=== PATIENT | female | born 1955 | race Asian ===

== ENCOUNTER 2017-09-24 10:13 | Day surgery (SDC) | payer OTHER, SELFPAY ==
--- NOTE | 2017-09-24 | PATH_ITS ---
[facility] Accession Number: [id number] . 01 Material submitted: . PART A: GASTRIC BODY ANTRUM PART B: GASTIC POLYP . 01 Clinical history: . A: R/O H. PYLORI . 02 Diagnosis: A. Stomach, Biopsies: Gastric antrum and body mucosa with mild chronic gastritis. Negative for Helicobacter organisms by immunohistochemistry. Negative for intestinal metaplasia, dysplasia or malignancy. B. Gastric Polyp, Biopsy: Most consistent with hyperplastic gastric polyp. No evidence of Helicobacter organisms on H/E stain. Negative for intestinal metaplasia, dysplasia or malignancy. Additional sections examined. [facility] [place] . 02 Electronically signed: . Weston Aguirre MD, PhD, Pathologist NPI- [id number] . 01 Gross description: . Received are two formalin-filled containers, both labeled with the patient's name: . A. In a container labeled gastric body antrum, are three fragments of milton, soft tissue which range in size from 0.2 x 0.2 x 0.2 cm to 0.3 x 0.3 x 0.3 cm. All fragments are totally submitted in cassette A. B. In a container labeled gastric polyp, are two fragments of milton, soft tissue which range in size from 0.2 x 0.2 x 0.2 cm to 0.3 x 0.3 x 0.2 cm. All fragments are totally submitted in cassette B. ([id number]) /FRR . 02 Microscopic: . Part A. Immunohistochemical stain is performed to evaluate for Helicobacter organisms and is negative. A control stain shows appropriate reactivity. . . * This test was developed and its performance characteristics determined by [employer]. It has not been cleared or approved by the U.S. Food and Drug Administration. The FDA has determined that such clearance or approval is not necessary. This test is used for clinical purposes. It should not be regarded as investigational or for research. . . . . . . . . . . . . 02 Pathologist provided ICD-10: K31.7, K29.70 . 02 CPT . 091419, 105781, [id number] Performed at: 01 [facility] [address] [id number] MD Akash Worthington MD Phone: [phone] Performed at: 02 [facility] [address] [place] [id number] MD Agustin Jaime MD Phone: [phone]
[2017-09-24 10:31] VITALS: BP 142/84; PULSE 70; RESP 15; TEMP 36.3; O2SAT 100; BMI 23.0
[2017-09-24] MEDS: SODIUM CHLORIDE 0.9% 1,000 ML 70 ML IV (10:53)
--- NOTE | 2017-09-24 11:41 | P.HP_ITS ---
History of Present Illness Chief complaint: [id number] EGD Narrative: 62-year-old female with a history of GERD like symptoms which had acutely become worse in June of 2017 after a trip to [place]. Patient currently taking omeprazole twice daily with no significant improvement on her symptoms. There are identifiable food triggers which tend to worsen symptoms such as dairy Patient History Medical History Ankle pain (Chronic ~2011) GERD (gastroesophageal reflux disease) (Chronic ~1999) Osteopenia (Chronic ~2013) Breast cancer (Resolved ~2007) Chickenpox (Resolved) Surgical History Status post mastectomy (Resolved ~2008) Anesthesia (Inactive) Family & Social History Social History: household members spouse Tobacco & Substance use: Smoking Status Never smoker Meds Home Medications Medication Instructions Recorded Confirmed Type OMEPRAZOLE 20 mg PO QDAY #0 10/31/12 09/04/17 History lisinopril 5 mg PO QDAY #0 10/31/12 09/04/17 History lidocaine 2 % mucosal jelly 1 applictn TOPICAL SEE 09/04/17 Rx INSTRUCTIONS #30 ml Allergies Allergy/AdvReac Type Severity Reaction Status Date / Time No Known Drug Allergies Allergy Verified 09/24/17 10:29 Exam Vital Signs (past 8 hours): Vital Signs - 8 hr 3 09/24/17 10:31 Temperature 97.3 F L Pulse Rate 70 Respiratory Rate 15 Blood Pressure 142/84 H Pulse Oximetry 100 Pulse Oximetry 100 Oxygen Delivery Method Room Air Narrative Exam Narrative: General: Patient is well developed, not in apparent distress Cardiovascular: Regular rate and rhythm, no murmurs, rubs, or gallops; no evidence of edema; no palpable abdominal aortic aneurysm Gastrointestinal: Normoactive bowel sounds, soft, nontender, nondistended, no rebound tenderness, no hepatosplenomegaly, no evidence of hernia Assessment & Plan Plan: Assessment/Plan Narrative: 62-year-old female with GERD like symptoms which have acutely worsened since June 2017. It would be important to rule out any lesions such as upper GI tumor, large hiatal hernia, peptic ulcer disease. Regarding the procedure(s), the risks and potential complications, benefits, and alternatives (including not doing the procedure) were discussed with the patient. The risks include but are not limited to bleeding, infection, perforation which may require surgical intervention, missed lesions, and adverse reactions to sedative medicines. After a question and answer period, the patient agreed to proceed with the procedure(s).
--- NOTE | 2017-09-24 11:41 | PM.DS.1 ---
History of Present Illness Chief complaint: [id number] EGD Narrative: 62-year-old female with a history of GERD like symptoms which had acutely become worse in June of 2017 after a trip to [place]. Patient currently taking omeprazole twice daily with no significant improvement on her symptoms. There are identifiable food triggers which tend to worsen symptoms such as dairy Discharge Providers Primary care physician: DANUTA Fay Discharge provider: Brad Perez MD Exam Vital Signs (past 8 hours): Vital Signs - 8 hr 09/24/17 10:31 Temperature 97.3 F L Pulse Rate 70 Respiratory Rate 15 Blood Pressure 142/84 H Pulse Oximetry 100 Pulse Oximetry 100 Oxygen Delivery Method Room Air Narrative Exam Narrative: General: Patient is well developed, not in apparent distress Cardiovascular: Regular rate and rhythm, no murmurs, rubs, or gallops; no evidence of edema; no palpable abdominal aortic aneurysm Gastrointestinal: Normoactive bowel sounds, soft, nontender, nondistended, no rebound tenderness, no hepatosplenomegaly, no evidence of hernia Discharge Plan Discharge Plan Patient Disposition: Home, Self-Care Discharge comment: Anti-reflux measures at all times Use omeprazole 20 mg twice daily for the next 6 weeks and follow symptoms Called to schedule follow-up at our office if symptoms persist despite taking twice daily omeprazole Remove IV prior to discharge Discharge to home once criteria are met (positive flatus, stable vital signs, no abdominal pain, tolerating p.o.) Discharge Med Rec/Prescriptions Prescriptions: No Action lisinopril 5 MG tablet 5 mg PO QDAY Qty: 0 RF: 0 OMEPRAZOLE 20 mg PO QDAY Qty: 0 RF: 0 lidocaine HCl 2 % jelly 1 applictn Topical SEE INSTRUCTIONS Qty: 30 RF: 9 Discharge Orders: Discharge (Order); Ordered 09/24/17 Ordered By: Brad Perez Provider Discharge Instructions Diet: Diet as Tolerated Visit Report/Discharge Packet Instructions: EGD Discharge Instructions Stand Alone Forms: Surgery Discharge Discharge Data Primary Care Provider: Alena Alvarado Attending Provider: Brad Perez
--- NOTE | 2017-09-24 11:43 | P.OP.ENDO_ITS ---
Operative Date/Time/Diagnoses - Date of procedure: 09/24/17 Time of procedure: 11:47 Procedure Notes Procedure in detail: Surgeon: Brad Perez MD Procedure: Esophagogastroduodenoscopy with biopsy Preoperative diagnosis: GERD, dyspepsia, not improving with treatment Postoperative diagnosis: Small hiatal hernia, gastric polyps Medications: Conscious sedation using 4 mg IV of Midazolam and 50 mcg IV of Fentanyl, Cetacaine spray Preanesthesia Assessment An H and P was performed/updated and the Px?s ASA class is 2. The procedure was discussed in detail with the patient. The potential risks and complications including infection, bleeding, missed lesions, perforation, need for surgery in case of perforation, prolonged hospital stay, and were explained. A brief question and answer period was allotted and once all questions were answered, informed consent was obtained. The patient was brought back to the procedure room and placed on standard monitoring. The patient?s vital signs were monitored continuously throughout the entire procedure. Prior to starting, a timeout was performed to confirm the patient?s identity, allergies, medications, and procedure. Procedure in detail The patient was placed in left lateral decubitus position and a bite block was inserted. The tip of the upper endoscope was placed in the mouth and advanced without difficulty into the esophagus. The esophageal mucosa looked normal throughout the entire esophagus with a regular Z-line. The tip of the endoscope was then advanced all the way to the 2nd portion of the duodenum without difficulty. The visualized duodenal mucosa appeared without abnormality. The endoscope was then brought back to the stomach and careful examination of all bridges was performed. Biopsies were taken from the body and antrum of the stomach to rule out H pylori. There was note of multiple sessile polyps in the proximal gastric body and near the fundus measuring 4 mm to 1 cm. Ballroom Dance Instructor biopsies were taken of a larger polyp. Retroflexion was then performed which revealed a small hiatal hernia. The stomach was then decompressed and the scope brought back into the esophagus further examination revealed no other lesions. The procedure was then terminated. The patient tolerated the procedure well and will be brought back to the recovery area to be discharged once criteria are met. The total procedure time from initial sedation was 20 min. Complications There were no complications and estimated blood loss was minimal. Recommendations: Anti-reflux measures at all times Resume previous diet but avoid any food triggers Continue outPx medications including omeprazole twice daily for 6 weeks Follow up pathology results Call our office to schedule follow-up if symptoms remain persistent after 6 weeks of twice daily omeprazole An emergency contact number was given to the patient for any complications related to the procedure
[2017-09-24] MEDS: TETRACAINE/BENZOCAINE/BUTAMBEN (CETACAINE) BOTTLE 1 SPRAY TOP (11:51)
[2017-09-24] MEDS: fentaNYL 250 MCG/5 ML INJ IV (11:59)
[2017-09-24] MEDS: MIDAZOLAM 5 MG/5 ML VIAL IV (12:00)
[2017-09-24 12:05] VITALS: BP 133/82; PULSE 78; RESP 16; TEMP 36.3; O2SAT 100
--- NOTE | 2017-09-24 12:16 | SUR.PHASEII ---
PT ARRIVED FROM ENDO VIA STRETCHER. PT LAYING ON STRETCHER WITH EYES CLOSED, EASILY AROUSABLE TO VOICE. IV SITE CLEAR AND INFUSING WITHOUT DIFFICULTY. PT DENIES ANY PAIN/DISCOMFORT. PT GIVEN WATER. PT OBSERVED TO HAVE NO DIFFICULTLY SWALLOWING. BED IN LOWEST POSITION AT THIS TIME AND CALL LIGHT GIVEN TO PT. PT APPEARS COMFORTABLE AT THIS TIME.
[2017-09-24 12:26] VITALS: BP 138/85; PULSE 72; RESP 16; TEMP 36.8; O2SAT 100
== END 2017-09-24 12:29 | disposition home or self-care (01) ==
PROVIDERS: Family Provider Nurse Practitioner Family; PCP Nurse Practitioner Family; Visit Provider Internal Medicine Gastroenterology
PROC: 0DJ08ZZ Inspection of Upper Intestinal Tract, Via Natural or Artificial Opening Endoscopic (ICD-10-PCS; CPT 43235; principal; 2017-09-24 11:30)
DX: K29.70 Gastritis, unspecified, without bleeding (principal); K21.9 Gastro-esophageal reflux disease without esophagitis; K44.9 Diaphragmatic hernia without obstruction or gangrene; K31.7 Polyp of stomach and duodenum
CPT/HCPCS: 43239; J2250; J3010

== ENCOUNTER → 2018-02-17 09:10 | Outpatient (CLI) | payer OTHER, SELFPAY ==
[2018-02-17 10:51] LABS: Alanine Aminotransferase 30 IU/L (9-52); Albumin 4.6 g/dL (3.5-5.0); Albumin Globulin Ratio 1.4 (1.0-2.8); Alkaline Phosphatase 67 U/L (38-126); Aspartate Aminotransferase 30 IU/L (14-36); BUN Creatinine Ratio 23.8 (6-22); Bilirubin Total 0.4 mg/dL (0.2-1.3); Blood Urea Nitrogen 19 mg/dL (7-17); Calcium 9.8 mg/dL (8.4-10.2); Carbon Dioxide 29 mmol/L (22-32); Chloride 99 mmol/L (98-107); Cholesterol 228 mg/dL (140-199); Estimated Glomerular Filt Rate > 60.0 mL/min (>60); Globulin 3.2 g/dL (1.7-4.1); Glucose 87 mg/dL (80-110); HDL Cholesterol 69 mg/dL (40-60); HEMOLYSIS < 15 (0-50); LDL Cholesterol Calculated 132 mg/dL (<100); Potassium 3.9 mmol/L (3.4-5.1); Sodium 141 mmol/L (137-145); Total Protein 7.8 g/dL (6.3-8.2); Triglycerides 135 mg/dL (35-150)
== END ==
PROVIDERS: PCP Internal Medicine; Visit Provider Internal Medicine
DX: E78.5 Hyperlipidemia, unspecified (principal); I10 Essential (primary) hypertension
CPT/HCPCS: 36415; 80053; 80061

== ENCOUNTER 2018-03-24 14:30 | Outpatient (RCR) | payer OTHER, SELFPAY ==
--- NOTE | 2017-09-14 21:12 | PT.OTN ---
Current Diagnoses Lumbago with sciatica, left side (09/11/17) Physical Therapy Treatment Note PT-OP-A Visit Information Start: 09/14/17 20:48 Freq: Status: Active Protocol: Document 09/11/17 16:00 [facility] (Rec: 09/14/17 20:59 [facility] [email or web address]) Out-Patient Physical Therapy Visit Information Visit Information Visit Type Progress Note Visit Start Time 16:10 Visit Stop Time 17:00 Total Visit Minutes 50 Visit Number 12 Number of DELI/BAKERY ASSOCIATE Visits 0 PT-OP-C Subjective Start: 09/14/17 20:48 Freq: Status: Active Protocol: Document 09/11/17 16:00 [facility] (Rec: 09/14/17 20:59 [facility] [email or web address]) OP-PT Subjective Patient Comments Patient Comments Tanvi reports she has been working hard on her stretches at home for her low back. She denies any sciatic symptoms today in the left leg. She does report reaggravating her left medial ankle and would like a review of exercises today for her ankle Patient Reported Progress Improving PT-OP-F Manual Assessment Start: 09/14/17 20:48 Freq: Status: Active Protocol: Document 09/11/17 16:00 [facility] (Rec: 09/14/17 20:59 [facility] [email or web address]) Manual Assessments Soft Tissue Assessment Soft Tissue Mobility Assessment Tanvi is showing a overall decrease in soft tissue tightness of her lumbar spine. The areas where she remains tight include the left L3-5 paraspinals and left piriformis, tightness in the left tibialis posterior musculature Joint Mobility Assessment Joint Mobility Assessment Improving joint mobility of the thoracic spine, problem areas include T 6-10 hypomobile T spine with slightly rounded shoulders PT-OP-Q Treatments Start: 09/14/17 20:59 Freq: Status: Active Protocol: Document 09/14/17 20:59 [facility] (Rec: 09/14/17 21:11 [facility] [email or web address]) Therapeutic Exercises Supine Exercises 1 Supine Exercise Name Hip and low back stretches in supine Side bilateral Reps/Minutes 10 minutes Other Exercises 2 Other Exercise Name 1/2 kneeling hip flexion and down dog yoga stretches Side bilateral 1 Other Exercise Name quadraped cat cow, sidebends, thoracic rotation Side bilateral Manual Therapy Treatment Soft Tissue Mobilization 1 Body Location Thoracic, lumbar spinal musculature and piriformis Mobilization Type Myofascial Release Strumming Trigger Point Release Intensity/Depth Moderate Body Position Prone PT-OP-R Modalities Start: 09/14/17 20:59 Freq: Status: Active Protocol: Document 09/14/17 20:59 [facility] (Rec: 09/14/17 21:11 [facility] [email or web address]) Ultrasound Therapy Treatment left posterior tibialis Treatment Duration (minutes) 8 Patient Position Prone Coupling Medium Ultrasound Gel Applicator Size (cm2) 5 Frequency Setting (mHz) 1 Mode Setting Continuous Intensity Setting (w/cm2) 1.5 PT-OP-T Assessment and Plan Start: 09/14/17 20:59 Freq: Status: Active Protocol: Document 09/14/17 20:59 [facility] (Rec: 09/14/17 21:11 [facility] [email or web address]) Physical Therapy Assessment Rehab Potential Rehabilitation Potential Good Impairments Impairments Pain Posture Soft Tissue Mobility Strength Goals Three Impairment pain rated 4/10 in left low back and hip Stock House Worker Goal (LTG) Contine working to decrease pain levels in the left hip and low back LTG Duration 8 weeks Two Impairment Soft tissue tightness and myofascial restrictions Mcfp Goal (LTG) Continue working to improve fascial mobility and decrease pain for Tanvi LTG Duration 8 weeks One Impairment Hypomobility of the thoracic spine leading to a forward lean Mcfp Goal (LTG) With manual therapy techniques and a postural program Tanvi is able to improve her posture to decrease forward lean in standing LTG Duration 8 weeks Assessment Summary Assessment Tanvi has been seen for a total of 5 visits since her last Progress report. She has veen doing PT a few times per month to review her exercise routine and for manual therapy techniques that help lower her pain levels. At this time she is not complaining of sciatic symptoms which is a big improvement. Her back pain tends to increase after a full day of sitting at work and with long car trips. Tanvi reports her exercises and her pool program have both really helped her symptoms. She continues to gain relief with PT and would like to continue. Physical Therapy Plan Frequency and Duration Frequency of Treatment Every Other Week Duration of Treatment 8 weeks Plan of Care Start Date 09/11/17 Plan of Care End Date 11/13/17 Therapeutic Interventions Therapeutic Interventions Home Exercise Program Manual Therapy Neuromuscular Re-education Self-Care/Home Management Soft Tissue Mobilization Therapeutic Exercises Modalities Ultrasound Next Visit Focus/Plan Next Note Type Treatment Note Next Visit Plan Work on stretching over the foam roll and postural modifications Please Sign and Return: I have reviewed this Plan of Care and certify that the skilled therapy services above are required to meet the patient?s needs. Physician Signature Date Printed Name and Credentials Clinical Instructor Signature Printed Name and Credentials
--- NOTE | 2017-09-15 11:49 | PT.OPPOC ---
Current Diagnoses Lumbago with sciatica, left side (09/11/17) Provider Visit Care Team Role Provider Type DANUTA Fay Attending Provider Non-Staff Family Provider Primary Care Provider Specialty: Medical Address: [address] [place] [address] [place], [address] Email: Plan Of Care PT-OP-T Assessment and Plan Start: 09/14/17 20:59 Freq: Status: Active Protocol: Document 09/14/17 20:59 [facility] (Rec: 09/14/17 21:11 [facility] [id number]) Physical Therapy Assessment Rehab Potential Rehabilitation Potential Good Impairments Impairments Pain Posture Soft Tissue Mobility Strength Goals Three Impairment pain rated 4/10 in left low back and hip Prison Goal (LTG) Contine working to decrease pain levels in the left hip and low back LTG Duration 8 weeks Two Impairment Soft tissue tightness and myofascial restrictions Prison Goal (LTG) Continue working to improve fascial mobility and decrease pain for Tanvi LTG Duration 8 weeks One Impairment Hypomobility of the thoracic spine leading to a forward lean Prison Goal (LTG) With manual therapy techniques and a postural program Tanvi is able to improve her posture to decrease forward lean in standing LTG Duration 8 weeks Assessment Summary Assessment Tanvi has been seen for a total of 5 visits since her last Progress report. She has veen doing PT a few times per month to review her exercise routine and for manual therapy techniques that help lower her pain levels. At this time she is not complaining of sciatic symptoms which is a big improvement. Her back pain tends to increase after a full day of sitting at work and with long car trips. Tanvi reports her exercises and her pool program have both really helped her symptoms. She continues to gain relief with PT and would like to continue. Physical Therapy Plan Frequency and Duration Frequency of Treatment Every Other Week Duration of Treatment 8 weeks Plan of Care Start Date 09/11/17 Plan of Care End Date 11/13/17 Therapeutic Interventions Therapeutic Interventions Home Exercise Program Manual Therapy Neuromuscular Re-education Self-Care/Home Management Soft Tissue Mobilization Therapeutic Exercises Modalities Ultrasound Next Visit Focus/Plan Next Note Type Treatment Note Next Visit Plan Work on stretching over the foam roll and postural modifications Plan of Care Dates Plan of Care Start Date 09/11/17 Plan of Care End Date 11/13/17 Please Sign and Return: I have reviewed this Plan of Care and certify that the skilled therapy services above are required to meet the patient?s needs. Physician Signature Date Printed Name and Credentials Clinical Instructor Signature Printed Name and Credentials
--- NOTE | 2017-10-03 21:22 | PT.OTN ---
Current Diagnoses Lumbago with sciatica, left side (10/02/17) Physical Therapy Treatment Note PT-OP-A Visit Information Start: 09/14/17 20:48 Freq: Status: Active Protocol: Document 10/02/17 15:15 [facility] (Rec: 10/03/17 21:21 [facility] [email or web address]) Out-Patient Physical Therapy Visit Information Visit Information Visit Type Treatment Note Visit Start Time 15:15 Visit Stop Time 16:00 Total Visit Minutes 45 Visit Number 13 Number of OVERHAULER Visits 0 PT-OP-C Subjective Start: 09/14/17 20:48 Freq: Status: Active Protocol: Document 10/02/17 15:15 [facility] (Rec: 10/03/17 21:19 [facility] [email or web address]) OP-PT Subjective Patient Comments Patient Comments Tanvi reports she has recently gotten a new orthotic but feels it may be up a little high on the medial side. She is sore in the posterior tibialis tendon today on the left Patient Reported Progress Improving PT-OP-F Manual Assessment Start: 09/14/17 20:48 Freq: Status: Active Protocol: Document 09/11/17 16:00 [facility] (Rec: 09/14/17 20:59 [facility] [email or web address]) Manual Assessments Soft Tissue Assessment Soft Tissue Mobility Assessment Tanvi is showing a overall decrease in soft tissue tightness of her lumbar spine. The areas where she remains tight include the left L3-5 paraspinals and left piriformis, tightness in the left tibialis posterior musculature Joint Mobility Assessment Joint Mobility Assessment Improving joint mobility of the thoracic spine, problem areas include T 6-10 hypomobile T spine with slightly rounded shoulders PT-OP-Q Treatments Start: 09/14/17 20:59 Freq: Status: Active Protocol: Document 10/02/17 15:15 [facility] (Rec: 10/03/17 21:19 [facility] [email or web address]) Manual Therapy Treatment Soft Tissue Mobilization 2 Body Location left posterior tibialis Mobilization Type Myofascial Release 1 Body Location Thoracic, lumbar spinal musculature and piriformis Mobilization Type Myofascial Release Strumming Trigger Point Release Intensity/Depth Moderate Body Position Prone Joint Mobilizations 1 Joint thoracic joint mobs into extension Grade II Body Position Prone PT-OP-R Modalities Start: 09/14/17 20:59 Freq: Status: Active Protocol: Document 10/02/17 15:15 [facility] (Rec: 10/03/17 21:19 [facility] [email or web address]) Ultrasound Therapy Treatment left posterior tibialis Treatment Duration (minutes) 8 Patient Position Prone Coupling Medium Ultrasound Gel Applicator Size (cm2) 5 Frequency Setting (mHz) 1 Mode Setting Continuous Intensity Setting (w/cm2) 1.5 PT-OP-T Assessment and Plan Start: 09/14/17 20:59 Freq: Status: Active Protocol: Document 10/02/17 15:15 [facility] (Rec: 10/03/17 21:19 [facility] [email or web address]) Physical Therapy Assessment Assessment Summary Assessment Decreased muscle guarding overall in the lumbar paraspinals and decreased complaints of sciatic symptoms Physical Therapy Plan Frequency and Duration Frequency of Treatment Every Other Week Duration of Treatment 8 weeks Plan of Care Start Date 09/11/17 Plan of Care End Date 11/13/17 Therapeutic Interventions Therapeutic Interventions Home Exercise Program Manual Therapy Neuromuscular Re-education Self-Care/Home Management Soft Tissue Mobilization Therapeutic Exercises Modalities Ultrasound Next Visit Focus/Plan Next Note Type Treatment Note Next Visit Plan Work on stretching over the foam roll and postural modifications
--- NOTE | 2018-01-15 12:08 | PT.OTN ---
Current Diagnoses Lumbago with sciatica, left side (01/14/18) Physical Therapy Treatment Note PT-OP-A Visit Information Start: 09/14/17 20:48 Freq: Status: Active Protocol: Document 01/15/18 11:58 [facility] (Rec: 01/15/18 12:07 [facility] [email or web address]) Out-Patient Physical Therapy Visit Information Visit Information Visit Type Progress Note Visit Start Time 10:45 Visit Stop Time 11:30 Total Visit Minutes 45 Visit Number 14 Number of HVAC R TECH Visits 0 Evaluation Information Evaluation Date 09/11/17 PT-OP-C Subjective Start: 09/14/17 20:48 Freq: Status: Active Protocol: Document 01/15/18 11:58 [facility] (Rec: 01/15/18 12:07 [facility] [email or web address]) OP-PT Subjective Patient Comments Patient Comments Tanvi reports she has been out of the country traveling and experienced a flare up of her mid back following traveling. She had to wait to get back into PT as there were no open appointments. She has been trying to do her exercises and things are a little better than they were but she is still experiencing pain symptoms. PT-OP-F Manual Assessment Start: 09/14/17 20:48 Freq: Status: Active Protocol: Document 01/15/18 11:58 [facility] (Rec: 01/15/18 12:07 [facility] [email or web address]) Manual Assessments Soft Tissue Assessment Soft Tissue Mobility Assessment Tightness today in the mid thoracic spine and paraspinals , left sided L3-L5 myofascial restrictions of the paraspinals and Quadratus lumborum. PT-OP-Q Treatments Start: 09/14/17 20:59 Freq: Status: Active Protocol: Document 01/15/18 11:58 [facility] (Rec: 01/15/18 12:07 [facility] [email or web address]) Manual Therapy Treatment Soft Tissue Mobilization 1 Body Location Thoracic, lumbar spinal musculature and piriformis Mobilization Type Myofascial Release Strumming Trigger Point Release Intensity/Depth Moderate Body Position Prone Joint Mobilizations 1 Joint thoracic joint mobs into extension Grade II Body Position Prone PT-OP-R Modalities Start: 09/14/17 20:59 Freq: Status: Active Protocol: Document 01/15/18 11:58 [facility] (Rec: 01/15/18 12:07 [facility] [email or web address]) Ultrasound Therapy Treatment Left Back Treatment Duration (minutes) 8 Patient Position Prone Coupling Medium Ultrasound Gel Applicator Size (cm2) 5 Frequency Setting (mHz) 1 Mode Setting Continuous Duty Cycle 100% PT-OP-T Assessment and Plan Start: 09/14/17 20:59 Freq: Status: Active Protocol: Document 01/15/18 11:58 [facility] (Rec: 01/15/18 12:07 [facility] [email or web address]) Physical Therapy Assessment Assessment Summary Assessment Tanvi returns to PT after not being seen since September. She has been traveling in [place] and reports a increased pain with traveling as she wasn't able to do all of her home stretches and exercises. She was especially tight in her upper thoracic spine today. I reviewed her home program with her today and worked on myofascial restrictions in her back. Tanvi would benefit from continued PT Physical Therapy Plan Frequency and Duration Frequency of Treatment Every Other Week Duration of Treatment 8 weeks Plan of Care Start Date 01/14/18 Plan of Care End Date 03/16/18 Therapeutic Interventions Therapeutic Interventions Home Exercise Program Manual Therapy Neuromuscular Re-education Self-Care/Home Management Soft Tissue Mobilization Therapeutic Exercises Modalities Ultrasound Next Visit Focus/Plan Next Note Type Treatment Note Next Visit Plan return to stretching exercises for posture and improved spine mobility
--- NOTE | 2018-02-18 14:04 | PT.OTN ---
Current Diagnoses Lumbago with sciatica, left side (02/17/18) Physical Therapy Treatment Note PT-OP-A Visit Information Start: 09/14/17 20:48 Freq: Status: Active Protocol: Document 02/18/18 13:58 [facility] (Rec: 02/18/18 14:04 [facility] [email or web address]) Out-Patient Physical Therapy Visit Information Visit Information Visit Type Treatment Note Visit Start Time 10:40 Visit Stop Time 11:15 Total Visit Minutes 35 Visit Number 15 Number of OIL FIELD ROUSTABOUT Visits 0 PT-OP-C Subjective Start: 09/14/17 20:48 Freq: Status: Active Protocol: Document 02/18/18 13:58 [facility] (Rec: 02/18/18 14:04 [facility] [email or web address]) OP-PT Subjective Patient Comments Patient Comments Tanvi is 10 minutes late for her appointment. She had a client come in to see her right as she was leaving to come here. She notes she is experiencing her foot pain again and asks for US on her tibialis posterior. She feels tight in her back but no complaints of sciatic symptoms Patient Reported Progress Improving PT-OP-F Manual Assessment Start: 09/14/17 20:48 Freq: Status: Active Protocol: Document 01/14/18 11:58 [facility] (Rec: 01/15/18 12:07 [facility] [email or web address]) Manual Assessments Soft Tissue Assessment Soft Tissue Mobility Assessment Tightness today in the mid thoracic spine and paraspinals , left sided L3-L5 myofascial restrictions of the paraspinals and Quadratus lumborum. PT-OP-Q Treatments Start: 09/14/17 20:59 Freq: Status: Active Protocol: Document 02/18/18 13:58 [facility] (Rec: 02/18/18 14:04 [facility] [email or web address]) Manual Therapy Treatment Soft Tissue Mobilization 1 Body Location Thoracic, lumbar spinal musculature and piriformis Mobilization Type Myofascial Release Strumming Trigger Point Release Intensity/Depth Moderate Body Position Prone Joint Mobilizations 1 Joint thoracic joint mobs into extension Grade II Body Position Prone PT-OP-R Modalities Start: 09/14/17 20:59 Freq: Status: Active Protocol: Document 02/18/18 13:58 [facility] (Rec: 02/18/18 14:04 [facility] [email or web address]) Ultrasound Therapy Treatment left posterior tibialis Treatment Duration (minutes) 8 Patient Position Prone Coupling Medium Ultrasound Gel Applicator Size (cm2) 5 Frequency Setting (mHz) 1 Mode Setting Continuous Intensity Setting (w/cm2) 1.5 PT-OP-T Assessment and Plan Start: 09/14/17 20:59 Freq: Status: Active Protocol: Document 02/18/18 13:58 [facility] (Rec: 02/18/18 14:04 [facility] [email or web address]) Physical Therapy Assessment Assessment Summary Assessment Tightness noted in the left lumbar paraspinals and left piriformis musculature. WE verbally reviewed all of Lilo's exercises today for home Physical Therapy Plan Frequency and Duration Frequency of Treatment Every Other Week Duration of Treatment 8 weeks Plan of Care Start Date 01/14/18 Plan of Care End Date 03/16/18 Therapeutic Interventions Therapeutic Interventions Home Exercise Program Manual Therapy Neuromuscular Re-education Self-Care/Home Management Soft Tissue Mobilization Therapeutic Exercises Modalities Ultrasound Next Visit Focus/Plan Next Note Type Treatment Note Next Visit Plan continue working on stretches, manual treatments
--- NOTE | 2018-03-03 17:50 | PT.OTN ---
Current Diagnoses Lumbago with sciatica, left side (03/03/18) Physical Therapy Treatment Note PT-OP-A Visit Information Start: 09/14/17 20:48 Freq: Status: Active Protocol: Document 03/03/18 17:46 [facility] (Rec: 03/03/18 17:49 [facility] [email or web address]) Out-Patient Physical Therapy Visit Information Visit Information Visit Type Treatment Note Visit Start Time 14:30 Visit Stop Time 15:15 Total Visit Minutes 45 Visit Number 16 Number of LINK WIRE FABRIC MACHINE TENDER Visits 0 PT-OP-C Subjective Start: 09/14/17 20:48 Freq: Status: Active Protocol: Document 03/03/18 17:46 [facility] (Rec: 03/03/18 17:49 [facility] [email or web address]) OP-PT Subjective Patient Comments Patient Comments Tanvi notes overall her back is doing better without sciatic symptoms. PT-OP-F Manual Assessment Start: 09/14/17 20:48 Freq: Status: Active Protocol: Document 01/14/18 11:58 [facility] (Rec: 01/15/18 12:07 [facility] [email or web address]) Manual Assessments Soft Tissue Assessment Soft Tissue Mobility Assessment Tightness today in the mid thoracic spine and paraspinals , left sided L3-L5 myofascial restrictions of the paraspinals and Quadratus lumborum. PT-OP-Q Treatments Start: 09/14/17 20:59 Freq: Status: Active Protocol: Document 03/03/18 17:46 [facility] (Rec: 03/03/18 17:49 [facility] [email or web address]) Manual Therapy Treatment Soft Tissue Mobilization 2 Body Location left posterior tibialis Mobilization Type Myofascial Release 1 Body Location Thoracic, lumbar spinal musculature and piriformis Mobilization Type Myofascial Release Strumming Trigger Point Release Intensity/Depth Moderate Body Position Prone Joint Mobilizations 1 Joint thoracic joint mobs into extension Grade II Body Position Prone PT-OP-R Modalities Start: 09/14/17 20:59 Freq: Status: Active Protocol: Document 03/03/18 17:49 [facility] (Rec: 03/03/18 17:49 [facility] [email or web address]) Ultrasound Therapy Treatment left posterior tibialis Treatment Duration (minutes) 8 Patient Position Prone Coupling Medium Ultrasound Gel Applicator Size (cm2) 5 Frequency Setting (mHz) 1 Mode Setting Continuous Intensity Setting (w/cm2) 1.5 PT-OP-T Assessment and Plan Start: 09/14/17 20:59 Freq: Status: Active Protocol: Document 03/03/18 17:46 [facility] (Rec: 03/03/18 17:49 [facility] [email or web address]) Physical Therapy Assessment Assessment Summary Assessment decreased muscle tightness and pain today Physical Therapy Plan Frequency and Duration Frequency of Treatment Every Other Week Duration of Treatment 8 weeks Plan of Care Start Date 01/14/18 Plan of Care End Date 03/16/18 Next Visit Focus/Plan Next Note Type Treatment Note Next Visit Plan continue working on stretches, manual treatments
--- NOTE | 2018-03-17 17:23 | PT.OTN ---
Current Diagnoses Lumbago with sciatica, left side (03/17/18) Physical Therapy Treatment Note PT-OP-A Visit Information Start: 09/14/17 20:48 Freq: Status: Active Protocol: Document 03/17/18 17:20 [facility] (Rec: 03/17/18 17:23 [facility] [email or web address]) Out-Patient Physical Therapy Visit Information Visit Information Visit Type Treatment Note Visit Start Time 14:30 Visit Stop Time 15:15 Total Visit Minutes 45 Visit Number 17 Number of SATURATION DIVER Visits 0 Evaluation Information Evaluation Date 09/11/17 PT-OP-C Subjective Start: 09/14/17 20:48 Freq: Status: Active Protocol: Document 03/17/18 17:20 [facility] (Rec: 03/17/18 17:23 [facility] [email or web address]) OP-PT Subjective Patient Comments Patient Comments Tanvi reports she has been trying to wear her orthotics again due to left foot pain. Some c/o referred pain down the left leg PT-OP-F Manual Assessment Start: 09/14/17 20:48 Freq: Status: Active Protocol: Document 01/14/18 11:58 [facility] (Rec: 01/15/18 12:07 [facility] [email or web address]) Manual Assessments Soft Tissue Assessment Soft Tissue Mobility Assessment Tightness today in the mid thoracic spine and paraspinals , left sided L3-L5 myofascial restrictions of the paraspinals and Quadratus lumborum. PT-OP-Q Treatments Start: 09/14/17 20:59 Freq: Status: Active Protocol: Document 03/17/18 17:20 [facility] (Rec: 03/17/18 17:23 [facility] [email or web address]) Manual Therapy Treatment Soft Tissue Mobilization 2 Body Location left posterior tibialis Mobilization Type Myofascial Release 1 Body Location Thoracic, lumbar spinal musculature and piriformis Mobilization Type Myofascial Release Strumming Trigger Point Release Intensity/Depth Moderate Body Position Prone PT-OP-R Modalities Start: 09/14/17 20:59 Freq: Status: Active Protocol: Document 03/17/18 17:20 [facility] (Rec: 03/17/18 17:23 [facility] [email or web address]) Ultrasound Therapy Treatment left posterior tibialis Treatment Duration (minutes) 8 Patient Position Prone Coupling Medium Ultrasound Gel Applicator Size (cm2) 5 Frequency Setting (mHz) 1 Mode Setting Continuous Intensity Setting (w/cm2) 1.5 PT-OP-T Assessment and Plan Start: 09/14/17 20:59 Freq: Status: Active Protocol: Document 03/17/18 17:20 [facility] (Rec: 03/17/18 17:23 [facility] [email or web address]) Physical Therapy Assessment Assessment Summary Assessment piriformis muscle tightness on the left, encouraged stretching for HEP Physical Therapy Plan Frequency and Duration Frequency of Treatment Every Other Week Duration of Treatment 8 weeks Plan of Care Start Date 03/17/18 Plan of Care End Date 04/01/18 Therapeutic Interventions Therapeutic Interventions Home Exercise Program Manual Therapy Neuromuscular Re-education Self-Care/Home Management Soft Tissue Mobilization Therapeutic Exercises Modalities Ultrasound Next Visit Focus/Plan Next Note Type Treatment Note Next Visit Plan continue for 1 visit then DC to Ind HEP
--- NOTE | 2018-03-24 17:13 | PT.OTN ---
Current Diagnoses Lumbago with sciatica, left side (03/24/18) Physical Therapy Treatment Note PT-OP-A Visit Information Start: 09/14/17 20:48 Freq: Status: Active Protocol: Document 03/24/18 17:07 [facility] (Rec: 03/24/18 17:13 [facility] [email or web address]) Out-Patient Physical Therapy Visit Information Visit Information Visit Type Treatment Note Visit Start Time 14:30 Visit Stop Time 15:15 Total Visit Minutes 45 Visit Number 18 Number of COUNTER CLERK TRACTOR PARTS Visits 0 Evaluation Information Evaluation Date 09/11/17 PT-OP-C Subjective Start: 09/14/17 20:48 Freq: Status: Active Protocol: Document 03/24/18 17:07 [facility] (Rec: 03/24/18 17:13 [facility] [email or web address]) OP-PT Subjective Patient Comments Patient Comments Trying to work on her stretches and exercises. PT really helps loosen me. PT-OP-F Manual Assessment Start: 09/14/17 20:48 Freq: Status: Active Protocol: Document 01/14/18 11:58 [facility] (Rec: 01/15/18 12:07 [facility] [email or web address]) Manual Assessments Soft Tissue Assessment Soft Tissue Mobility Assessment Tightness today in the mid thoracic spine and paraspinals , left sided L3-L5 myofascial restrictions of the paraspinals and Quadratus lumborum. PT-OP-Q Treatments Start: 09/14/17 20:59 Freq: Status: Active Protocol: Document 03/24/18 17:07 [facility] (Rec: 03/24/18 17:13 [facility] [email or web address]) Manual Therapy Treatment Soft Tissue Mobilization 2 Body Location left posterior tibialis Mobilization Type Myofascial Release 1 Body Location Thoracic, lumbar spinal musculature and piriformis Mobilization Type Myofascial Release Strumming Trigger Point Release Intensity/Depth Moderate Body Position Prone Joint Mobilizations 1 Joint thoracic joint mobs into extension Grade II Body Position Prone PT-OP-R Modalities Start: 09/14/17 20:59 Freq: Status: Active Protocol: Document 03/24/18 17:07 [facility] (Rec: 03/24/18 17:13 [facility] [email or web address]) Ultrasound Therapy Treatment left posterior tibialis Treatment Duration (minutes) 8 Patient Position Prone Coupling Medium Ultrasound Gel Applicator Size (cm2) 5 Frequency Setting (mHz) 1 Mode Setting Continuous Intensity Setting (w/cm2) 1.5 PT-OP-T Assessment and Plan Start: 09/14/17 20:59 Freq: Status: Active Protocol: Document 03/24/18 17:07 [facility] (Rec: 03/24/18 17:13 [facility] [email or web address]) Physical Therapy Assessment Assessment Summary Assessment Tightness reduced overall from initially starting therapy. Encouraged continued flexibility exercises. At this point The plan is to discontinue treatment to a home exercise program Physical Therapy Plan Discharge Physical Therapy Discharge Reasons Plateau in Progress
--- NOTE | 2018-03-24 17:13 | PT.OPDS ---
Current Diagnoses Lumbago with sciatica, left side (03/24/18) Provider Visit Care Team Role Provider Type DANUTA Chen Attending Provider Non-Staff Family Provider Primary Care Provider Specialty: Medical Address: [address] [place] [address], [facility] [place], [place], [facility] Email: Visit Number Visit Number 18 Discharge Summary PT-OP-C Subjective Start: 09/14/17 20:48 Freq: Status: Active Protocol: Document 03/24/18 17:07 [facility] (Rec: 03/24/18 17:13 [facility] [email or web address]) OP-PT Subjective Patient Comments Patient Comments Trying to work on her stretches and exercises. PT really helps loosen me. PT-OP-F Manual Assessment Start: 09/14/17 20:48 Freq: Status: Active Protocol: Document 01/14/18 11:58 [facility] (Rec: 01/15/18 12:07 [facility] [email or web address]) Manual Assessments Soft Tissue Assessment Soft Tissue Mobility Assessment Tightness today in the mid thoracic spine and paraspinals , left sided L3-L5 myofascial restrictions of the paraspinals and Quadratus lumborum. PT-OP-T Assessment and Plan Start: 09/14/17 20:59 Freq: Status: Active Protocol: Document 03/24/18 17:07 [facility] (Rec: 03/24/18 17:13 [facility] [email or web address]) Physical Therapy Assessment Assessment Summary Assessment Tightness reduced overall from initially starting therapy. Encouraged continued flexibility exercises. At this point The plan is to discontinue treatment to a home exercise program Physical Therapy Plan Discharge Physical Therapy Discharge Reasons Plateau in Progress
== END 2018-04-09 14:02 ==
LOC: PHYS 14:30
PROVIDERS: Family Provider Nurse Practitioner Family; PCP Nurse Practitioner Family; Visit Provider Nurse Practitioner Family
DX: M54.42 Lumbago with sciatica, left side (principal)
CPT/HCPCS: 97035; 97110; 97140

== ENCOUNTER → 2018-04-02 14:20 | Outpatient (CLI) | payer OTHER, SELFPAY | PROVIDERS: PCP Internal Medicine; Visit Provider Nurse Practitioner Family | DX: M81.0 Age-related osteoporosis without current pathological fracture (principal) | CPT/HCPCS: 77080 ==

== ENCOUNTER → 2018-11-02 09:25 | Outpatient (CLI) | payer MEDICARE, OTHER, SELFPAY ==
[2018-11-02 10:54] LABS: BUN Creatinine Ratio 12.9 (6-22); Blood Urea Nitrogen 9 mg/dL (7-17); Calcium 9.7 mg/dL (8.4-10.2); Carbon Dioxide 28 mmol/L (22-32); Chloride 96 mmol/L (98-107); Cholesterol 247 mg/dL (140-199); Estimated Glomerular Filt Rate > 60.0 mL/min (>60); Glucose 95 mg/dL (80-110); HDL Cholesterol 59 mg/dL (40-60); HEMOLYSIS < 15 (0-50); LDL Cholesterol Calculated 170 mg/dL (<100); Potassium 4.2 mmol/L (3.4-5.1); Sodium 134 mmol/L (137-145); Triglycerides 92 mg/dL (35-150)
[2018-11-02 10:58] LABS: C-Reactive Protein Quant < 0.5 mg/dL (<1.0)
== END ==
PROVIDERS: PCP Internal Medicine; Visit Provider Internal Medicine
DX: Z13.220 Encounter for screening for lipoid disorders (principal); Z13.6 Encounter for screening for cardiovascular disorders; Z00.00 Encounter for general adult medical examination without abnormal findings; M25.561 Pain in right knee; M25.562 Pain in left knee
CPT/HCPCS: 36415; 80048; 80061; 86140

== ENCOUNTER → 2019-03-16 08:17 | Outpatient (CLI) | payer MEDICARE, OTHER, SELFPAY ==
[2019-03-16 09:38] LABS: Alanine Aminotransferase 17 IU/L (<35); Albumin 4.6 g/dL (3.5-5.0); Albumin Globulin Ratio 1.5 (1.0-2.8); Alkaline Phosphatase 65 U/L (38-126); Aspartate Aminotransferase 32 IU/L (14-36); BUN Creatinine Ratio 18.8 (6-22); Bilirubin Total 0.6 mg/dL (0.2-1.3); Blood Urea Nitrogen 15 mg/dL (7-17); Calcium 9.6 mg/dL (8.4-10.2); Carbon Dioxide 32 mmol/L (22-32); Chloride 99 mmol/L (98-107); Cholesterol 254 mg/dL (140-199); Estimated Glomerular Filt Rate > 60.0 mL/min (>60); Glucose 91 mg/dL (80-110); HDL Cholesterol 68 mg/dL (40-60); HEMOLYSIS < 15 (0-50); LDL Cholesterol Calculated 165 mg/dL (<100); Potassium 3.4 mmol/L (3.4-5.1); Sodium 139 mmol/L (137-145); Total Protein 7.6 g/dL (6.3-8.2); Triglycerides 106 mg/dL (35-150)
== END ==
PROVIDERS: PCP Internal Medicine; Visit Provider Internal Medicine
DX: I10 Essential (primary) hypertension (principal); E78.5 Hyperlipidemia, unspecified
CPT/HCPCS: 36415; 80053; 80061

== ENCOUNTER 2019-03-25 15:15 | Outpatient (RCR) | payer MEDICARE, OTHER, SELFPAY ==
--- NOTE | 2018-08-09 12:13 | PT.OIE ---
Current Diagnoses Spondylolisthesis, lumbar region (08/06/18) Spinal stenosis, lumbar region without neurogenic claudication (08/06/18) Past Medical History (Last Updated 09/04/17 @ 09:35 by Nataliia Warner) Ankle pain (Chronic ~2011) GERD (gastroesophageal reflux disease) (Chronic ~1999) Osteopenia (Chronic ~2013) Breast cancer (Resolved ~2007) Chickenpox (Resolved) Past Surgical History (Last Updated 09/04/17 @ 09:35 by Nataliia Warner) Status post mastectomy (Resolved ~2008) Anesthesia (Inactive) Provider Visit Care Team Role Provider Type Mango Rueda MD Attending Provider Physician Primary Care Provider Specialty: Wound Care Address: [address] [place] [address], [facility] Email: [email or web address] Physical Therapy Initial Evaluation PT-OP-A Visit Information Start: 08/06/18 11:07 Freq: Status: Active Protocol: Document 08/04/18 09:45 [facility] (Rec: 08/09/18 12:06 [facility] [email or web address]) Out-Patient Physical Therapy Visit Information Visit Information Visit Type Initial Evaluation Visit Start Time 09:45 Visit Stop Time 10:30 Total Visit Minutes 45 Visit Number 1 Number of RELIEF DOCKING MASTER Visits 0 Evaluation Information Evaluation Date 08/04/18 PT-OP-B Current Condition Start: 08/06/18 11:07 Freq: Status: Active Protocol: Document 08/04/18 09:45 [facility] (Rec: 08/09/18 12:06 [facility] [email or web address]) Current Condition History of Current Condition Onset Date May 2018 Current Complaints c/o referred pain down the left leg, pain in the left low back and gluteals History of Current Condition 62 year old female who returns to PT today after traveling in and out of the country and aggravated low back pain. She also c/o left sided gluteal and referred pain made worse from traveling and sitting. Tanvi has a history of left sided sciatica, right ankle pain, plantar fascitis, left leg posterior tibialis rupture, spondylolistheses at L2-L3 and L4-L5, multilevel degenerative disc and facet disease. She has returned to her swimming since she has been home but despite this she is still experiencing the low back symptoms. She rates her pain asd 5/10 in the left posterior buttock and low back Treatment Goals Patient/Caregiver Goals Goals include reducing pain to be able to continue walking and swimming, working and ADL Personal Factors Other Personal Factors That May Effect Has to sit for work related Therapy/Recovery activities PT-OP-C Subjective Start: 08/06/18 11:07 Freq: Status: Active Protocol: Document 08/04/18 09:45 [facility] (Rec: 08/09/18 12:06 [facility] [email or web address]) OP-PT Pain Assessment Pain Assessment Grid Paper Pain Assessment Grid Completed Yes Location Left Posterior Back Pain Location Details pain left low back and buttock Intensity 5 Scale Used Numeric (1 - 10) Radiating Location down to the left foot Pain Aggravating Factors Sitting PT-OP-F Manual Assessment Start: 08/06/18 11:07 Freq: Status: Active Protocol: Document 08/04/18 09:45 [facility] (Rec: 08/09/18 12:06 [facility] [email or web address]) Manual Assessments Soft Tissue Assessment Soft Tissue Mobility Assessment Muscle guarding and spasm of the left greater than right lumbar and lower thoracic paraspinals muscle guarding of the left piriformis + sarah test B Joint Mobility Assessment Joint Mobility Assessment hypomobility thoracic spine T4 -T10 PT-OP-J Posture/Palpation/Skin Start: 08/09/18 12:07 Freq: Status: Active Protocol: Document 08/09/18 12:08 [facility] (Rec: 08/09/18 12:13 [facility] [email or web address]) Posture Evaluation Position Standing Evaluation View Lateral L-Spine Posture Neutral Shoulder Posture (L) Forward (R) Forward Comments Posture Comments forward shift of the lumbar spine in standing, lean to the left Palpation Assessment Location One Palpation Location left lumbar spinal musculature Palpation Findings Soft Tissue Tightness Muscle Guarding PT-OP-K Range of Motion Start: 08/09/18 12:07 Freq: Status: Active Protocol: Document 08/09/18 12:08 [facility] (Rec: 08/09/18 12:13 [facility] [email or web address]) Lumbar Spine Range of Motion Lumbar Spine Active Testing Position Standing Flexion 60 Extension 5 Rotation Left 15 Rotation Right 15 Lateral Flexion Left 15 Lateral Flexion Right 10 ROM Limitations Soft Tissue Tightness Pain Comments pain and tightness with lumbar Sidebend Left PT-OP-M Strength Start: 08/06/18 11:07 Freq: Status: Active Protocol: Document 08/04/18 09:45 [facility] (Rec: 08/09/18 12:06 [facility] [email or web address]) Trunk Strength Trunk Manual Muscle Testing Testing Position Supine Flexion 3+ Fair+ Core Stabilization difficulty recruiting the lower abdominal wall for TA recruitment, + ASLR test B Hip Strength Hip Manual Muscle Testing Right Flexion (L2) 4 Good Extension (S1) 4 Good Abduction 4 Good External Rotation 4 Good Left Flexion (L2) 4 Good Extension (S1) 4 Good Abduction 4 Good External Rotation 4 Good PT-OP-Q Treatments Start: 08/06/18 11:07 Freq: Status: Active Protocol: Document 08/04/18 09:45 [facility] (Rec: 08/09/18 12:06 [facility] [email or web address]) Therapeutic Exercises Supine Exercises 1 Supine Exercise Name Hip and low back stretches in supine Side bilateral Manual Therapy Treatment Soft Tissue Mobilization 1 Body Location Thoracic, lumbar spinal musculature and piriformis Mobilization Type Myofascial Release Strumming Trigger Point Release Intensity/Depth Moderate Body Position Prone PT-OP-T Assessment and Plan Start: 08/06/18 11:07 Freq: Status: Active Protocol: Document 08/04/18 09:45 [facility] (Rec: 08/09/18 12:06 [facility] [email or web address]) Physical Therapy Assessment Rehab Potential Rehabilitation Potential Good Evaluation Complexity Number of Personal Factors/Comorbidities 0 Number of Body Systems Impaired 1-2 Clinical Presentation at Evaluation Stable Impairments Impairments Activity Tolerance Pain Posture ROM Soft Tissue Mobility Strength Goals Four Impairment Pain and difficulty going up and down 1 flight of stairs Prison Goal (LTG) Improve strength and mobility enabling Tanvi to go up and down one flight of stairs without pain Three Impairment muscle guarding and spasm of the left thoracic and lumbar paraspinals Prison Goal (LTG) Reduce muscle gurading and spasm to decrease pain and improve pain free ROM Two Impairment postural habits and hip flexor tightness contibuting to LBP Short Term Goal (STG) Tanvi is educated on her posture for work related activies and is able to make modifications to improve her posture to decrease low back tightness STG Duration 5 weeks One Impairment C/O pain rated 5/10 across the low back, SI and buttocks Senior Account Representative Goal (LTG) Tanvi reports decreased pain reduced to 1-2/10 and is no longer experiencing radicular pain in her left LE, she is able to sit for a hour without a increase in pain LTG Duration 8 weeks Assessment Summary Assessment Tanvi returns to PT today after traveling for the past couple of months. She notes her back pain increased with traveling and she is experiencing the radicular pain down the back of her left leg again. She has been swimming and trying to stretch since she returned home, however she reports this has not changed her pain. She pressents with Left sided low back, SI and gluteal region pain with muscle guarding and spasm with radicular symptoms down the left leg. Her symptoms do tend to act up after traveling and sitting for long duration. I would like to work with her on her sitting posture at work and posture overall. Her hip flexors are tight bilaterally. Treatment today focused on reducing muscle guarding and spasm with manual therapy techniques and reviewing her home stretching program. She would benefit from a standing desk work station option and I will bring this up again with her. She will be given hip stretches and a core stabilization program to follow. Physical Therapy Plan Frequency and Duration Frequency of Treatment 2 xms per week Duration of Treatment 8 weeks Plan of Care Start Date 08/04/18 Plan of Care End Date 10/13/18 Therapeutic Interventions Therapeutic Interventions Home Exercise Program Manual Therapy Neuromuscular Re-education Self-Care/Home Management Soft Tissue Mobilization Therapeutic Exercises Modalities Ultrasound
--- NOTE | 2018-08-09 12:14 | PT.OPPOC ---
Current Diagnoses Spondylolisthesis, lumbar region (08/06/18) Spinal stenosis, lumbar region without neurogenic claudication (08/06/18) Provider Visit Care Team Role Provider Type Mango Rueda MD Attending Provider Physician Primary Care Provider Specialty: Wound Care Address: [address] [place] [address], [id number] Email: [email or web address] Plan Of Care PT-OP-T Assessment and Plan Start: 08/06/18 11:07 Freq: Status: Active Protocol: Document 08/04/18 09:45 [facility] (Rec: 08/09/18 12:06 [facility] [email or web address]) Physical Therapy Assessment Rehab Potential Rehabilitation Potential Good Evaluation Complexity Number of Personal Factors/Comorbidities 0 Number of Body Systems Impaired 1-2 Clinical Presentation at Evaluation Stable Impairments Impairments Activity Tolerance Pain Posture ROM Soft Tissue Mobility Strength Goals Four Impairment Pain and difficulty going up and down 1 flight of stairs Penitentiary Goal (LTG) Improve strength and mobility enabling Tanvi to go up and down one flight of stairs without pain Three Impairment muscle guarding and spasm of the left thoracic and lumbar paraspinals Turbogenerator Operator Goal (LTG) Reduce muscle guarding and spasm to decrease pain and improve pain free ROM Two Impairment postural habits and hip flexor tightness contributing to LBP Short Term Goal (STG) Tanvi is educated on her posture for work related activities and is able to make modifications to improve her posture to decrease low back tightness STG Duration 5 weeks One Impairment C/O pain rated 5/10 across the low back, SI and buttocks Penitentiary Goal (LTG) Tanvi reports decreased pain reduced to 1-2/10 and is no longer experiencing radicular pain in her left LE, she is able to sit for a hour without a increase in pain LTG Duration 8 weeks Assessment Summary Assessment Tanvi returns to PT today after traveling for the past couple of months. She notes her back pain increased with traveling and she is experiencing the radicular pain down the back of her left leg again. She has been swimming and trying to stretch since she returned home, however she reports this has not changed her pain. She presents with Left sided low back, SI and gluteal region pain with muscle guarding and spasm with radicular symptoms down the left leg. Her symptoms do tend to act up after traveling and sitting for long duration. I would like to work with her on her sitting posture at work and posture overall. Her hip flexors are tight bilaterally. Treatment today focused on reducing muscle guarding and spasm with manual therapy techniques and reviewing her home stretching program. She would benefit from a standing desk work station option and I will bring this up again with her. She will be given hip stretches and a core stabilization program to follow. Physical Therapy Plan Frequency and Duration Frequency of Treatment 2 xms per week Duration of Treatment 8 weeks Plan of Care Start Date 08/04/18 Plan of Care End Date 10/13/18 Therapeutic Interventions Therapeutic Interventions Home Exercise Program Manual Therapy Neuromuscular Re-education Self-Care/Home Management Soft Tissue Mobilization Therapeutic Exercises Modalities Ultrasound Plan of Care Dates Plan of Care Start Date 08/04/18 Plan of Care End Date 10/13/18 Please Sign and Return: I have reviewed this Plan of Care and certify that the skilled therapy services above are required to meet the patient?s needs. Physician Signature Date Printed Name and Credentials Clinical Instructor Signature Printed Name and Credentials
--- NOTE | 2018-08-09 12:21 | PT.OTN ---
Current Diagnoses Spondylolisthesis, lumbar region (08/06/18) Spinal stenosis, lumbar region without neurogenic claudication (08/06/18) Physical Therapy Treatment Note PT-OP-A Visit Information Start: 08/06/18 11:07 Freq: Status: Active Protocol: Document 08/06/18 09:45 [facility] (Rec: 08/09/18 12:21 [facility] [email or web address]) Out-Patient Physical Therapy Visit Information Visit Information Visit Type Treatment Note Visit Start Time 09:45 Visit Stop Time 10:45 Total Visit Minutes 60 Visit Number 2 Number of ANIMAL [employer] ENFORCEMENT OFFICER Visits 0 PT-OP-B Current Condition Start: 08/06/18 11:07 Freq: Status: Active Protocol: Document 08/04/18 09:45 [facility] (Rec: 08/09/18 12:06 [facility] [email or web address]) Current Condition History of Current Condition Onset Date May 2018 Current Complaints c/o referred pain down the left leg, pain in the left low back and gluteals History of Current Condition 62 year old female who returns to PT today after traveling in and out of the country and aggravated low back pain. She also c/o left sided gluteal and referred pain made worse from traveling and sitting. Tanvi has a history of left sided sciatica, right ankle pain, plantar fascitis, left leg posterior tibialis rupture, spondylolistheses at L2-L3 and L4-L5, multilevel degenerative disc and facet disease. She has returned to her swimming since she has been home but despite this she is still experiencing the low back symptoms. She rates her pain asd 5/10 in the left posterior buttock and low back Treatment Goals Patient/Caregiver Goals Goals include reducing pain to be able to continue walking and swimming, working and ADL Personal Factors Other Personal Factors That May Effect Has to sit for work related Therapy/Recovery activities PT-OP-C Subjective Start: 08/06/18 11:07 Freq: Status: Active Protocol: Document 08/06/18 09:45 [facility] (Rec: 08/09/18 12:21 [facility] [email or web address]) OP-PT Subjective Patient Comments Patient Comments Tanvi reports she has been trying to swim, her left leg is hurting her today PT-OP-F Manual Assessment Start: 08/06/18 11:07 Freq: Status: Active Protocol: Document 08/04/18 09:45 [facility] (Rec: 08/09/18 12:06 [facility] [email or web address]) Manual Assessments Soft Tissue Assessment Soft Tissue Mobility Assessment Muscle guarding and spasm of the left greater than right lumbar and lower thoracic paraspinals muscle guarding of the left piriformis + sarah test B Joint Mobility Assessment Joint Mobility Assessment hypomobility thoracic spine T4 -T10 PT-OP-J Posture/Palpation/Skin Start: 08/09/18 12:07 Freq: Status: Active Protocol: Document 08/09/18 12:08 [facility] (Rec: 08/09/18 12:13 [facility] [email or web address]) Posture Evaluation Position Standing Evaluation View Lateral L-Spine Posture Neutral Shoulder Posture (L) Forward (R) Forward Comments Posture Comments forward shift of the lumbar spine in standing, lean to the left Palpation Assessment Location One Palpation Location left lumbar spinal musculature Palpation Findings Soft Tissue Tightness Muscle Guarding PT-OP-K Range of Motion Start: 08/09/18 12:07 Freq: Status: Active Protocol: Document 08/09/18 12:08 [facility] (Rec: 08/09/18 12:13 [facility] [email or web address]) Lumbar Spine Range of Motion Lumbar Spine Active Testing Position Standing Flexion 60 Extension 5 Rotation Left 15 Rotation Right 15 Lateral Flexion Left 15 Lateral Flexion Right 10 ROM Limitations Soft Tissue Tightness Pain Comments pain and tightness with lumbar Sidebend Left PT-OP-M Strength Start: 08/06/18 11:07 Freq: Status: Active Protocol: Document 08/04/18 09:45 [facility] (Rec: 08/09/18 12:06 [facility] [email or web address]) Trunk Strength Trunk Manual Muscle Testing Testing Position Supine Flexion 3+ Fair+ Core Stabilization difficulty recruiting the lower abdominal wall for TA recruitment, + ASLR test B Hip Strength Hip Manual Muscle Testing Right Flexion (L2) 4 Good Extension (S1) 4 Good Abduction 4 Good External Rotation 4 Good Left Flexion (L2) 4 Good Extension (S1) 4 Good Abduction 4 Good External Rotation 4 Good PT-OP-Q Treatments Start: 08/06/18 11:07 Freq: Status: Active Protocol: Document 08/06/18 09:45 [facility] (Rec: 08/09/18 12:21 [facility] [email or web address]) Manual Therapy Treatment Soft Tissue Mobilization 1 Body Location Thoracic, lumbar spinal musculature and piriformis Mobilization Type Myofascial Release Strumming Trigger Point Release Intensity/Depth Moderate Body Position Prone PT-OP-R Modalities Start: 05/02/19 11:07 Freq: Status: Active Protocol: Document 08/06/18 09:45 [facility] (Rec: 08/09/18 12:21 [facility] [email or web address]) Ultrasound Therapy Treatment Left Back Treatment Duration (minutes) 8 Patient Position Prone Coupling Medium Ultrasound Gel Applicator Size (cm2) 5 Mode Setting Continuous Duty Cycle 1.5 PT-OP-T Assessment and Plan Start: 08/06/18 11:07 Freq: Status: Active Protocol: Document 08/06/18 09:45 [facility] (Rec: 08/09/18 12:21 [facility] [email or web address]) Physical Therapy Assessment Assessment Summary Assessment Working on releasing the left low back and piriformis, trial of US today over the lumbar paraspinals for heat prior to MFR. Her left LE was hurting her today. Tanvi is working on her lumbar flexion exercises at home and swimming Physical Therapy Plan Frequency and Duration Frequency of Treatment 2 xms per week Duration of Treatment 8 weeks Plan of Care Start Date 08/04/18 Plan of Care End Date 10/13/18 Therapeutic Interventions Therapeutic Interventions Home Exercise Program Manual Therapy Neuromuscular Re-education Self-Care/Home Management Soft Tissue Mobilization Therapeutic Exercises Modalities Ultrasound Next Visit Focus/Plan Next Note Type Treatment Note Next Visit Plan begin with iliopsoas stretches and low back stretches, seated posture for work, manual therapy techniques
--- NOTE | 2018-08-27 18:53 | PT.OTN ---
Current Diagnoses Spondylolisthesis, lumbar region (08/27/18) Spinal stenosis, lumbar region without neurogenic claudication (08/27/18) Physical Therapy Treatment Note PT-OP-A Visit Information Start: 08/06/18 11:07 Freq: Status: Active Protocol: Document 08/27/18 18:49 [facility] (Rec: 08/27/18 18:53 [facility] [email or web address]) Out-Patient Physical Therapy Visit Information Visit Information Visit Type Treatment Note Visit Start Time 13:45 Visit Stop Time 14:30 Total Visit Minutes 45 Visit Number 3 PT-OP-B Current Condition Start: 08/06/18 11:07 Freq: Status: Active Protocol: Document 08/04/18 09:45 [facility] (Rec: 08/09/18 12:06 [facility] [email or web address]) Current Condition History of Current Condition Onset Date May 2018 Current Complaints c/o referred pain down the left leg, pain in the left low back and gluteals History of Current Condition 62 year old female who returns to PT today after traveling in and out of the country and aggravated low back pain. She also c/o left sided gluteal and referred pain made worse from traveling and sitting. Tanvi has a history of left sided sciatica, right ankle pain, plantar fascitis, left leg posterior tibialis rupture, spondylolistheses at L2-L3 and L4-L5, multilevel degenerative disc and facet disease. She has returned to her swimming since she has been home but despite this she is still experiencing the low back symptoms. She rates her pain asd 5/10 in the left posterior buttock and low back Treatment Goals Patient/Caregiver Goals Goals include reducing pain to be able to continue walking and swimming, working and ADL Personal Factors Other Personal Factors That May Effect Has to sit for work related Therapy/Recovery activities PT-OP-C Subjective Start: 08/06/18 11:07 Freq: Status: Active Protocol: Document 08/27/18 18:49 [facility] (Rec: 08/27/18 18:53 [facility] [email or web address]) OP-PT Subjective Patient Comments Patient Comments Tanvi reports her left posterior tibialis is sore todau from [place]. PT-OP-F Manual Assessment Start: 08/06/18 11:07 Freq: Status: Active Protocol: Document 08/04/18 09:45 [facility] (Rec: 08/09/18 12:06 [facility] [email or web address]) Manual Assessments Soft Tissue Assessment Soft Tissue Mobility Assessment Muscle guarding and spasm of the left greater than right lumbar and lower thoracic paraspinals muscle guarding of the left piriformis + sarah test B Joint Mobility Assessment Joint Mobility Assessment hypomobility thoracic spine T4 -T10 PT-OP-J Posture/Palpation/Skin Start: 08/09/18 12:07 Freq: Status: Active Protocol: Document 08/09/18 12:08 [facility] (Rec: 08/09/18 12:13 [facility] [email or web address]) Posture Evaluation Position Standing Evaluation View Lateral L-Spine Posture Neutral Shoulder Posture (L) Forward (R) Forward Comments Posture Comments forward shift of the lumbar spine in standing, lean to the left Palpation Assessment Location One Palpation Location left lumbar spinal musculature Palpation Findings Soft Tissue Tightness Muscle Guarding PT-OP-K Range of Motion Start: 08/09/18 12:07 Freq: Status: Active Protocol: Document 08/09/18 12:08 [facility] (Rec: 08/09/18 12:13 [facility] [email or web address]) Lumbar Spine Range of Motion Lumbar Spine Active Testing Position Standing Flexion 60 Extension 5 Rotation Left 15 Rotation Right 15 Lateral Flexion Left 15 Lateral Flexion Right 10 ROM Limitations Soft Tissue Tightness Pain Comments pain and tightness with lumbar Sidebend Left PT-OP-M Strength Start: 08/06/18 11:07 Freq: Status: Active Protocol: Document 08/04/18 09:45 [facility] (Rec: 08/09/18 12:06 [facility] [email or web address]) Trunk Strength Trunk Manual Muscle Testing Testing Position Supine Flexion 3+ Fair+ Core Stabilization difficulty recruiting the lower abdominal wall for TA recruitment, + ASLR test B Hip Strength Hip Manual Muscle Testing Right Flexion (L2) 4 Good Extension (S1) 4 Good Abduction 4 Good External Rotation 4 Good Left Flexion (L2) 4 Good Extension (S1) 4 Good Abduction 4 Good External Rotation 4 Good PT-OP-Q Treatments Start: 08/06/18 11:07 Freq: Status: Active Protocol: Document 08/27/18 18:49 [facility] (Rec: 08/27/18 18:53 [facility] [email or web address]) Manual Therapy Treatment Soft Tissue Mobilization 2 Body Location left posterior tibialis musculature Mobilization Type Myofascial Release 1 Body Location Thoracic, lumbar spinal musculature and piriformis Mobilization Type Myofascial Release Strumming Trigger Point Release Intensity/Depth Moderate Body Position Prone Joint Mobilizations 1 Joint thoracic PA glides Direction PA Grade III PT-OP-R Modalities Start: 08/06/18 11:07 Freq: Status: Active Protocol: Document 08/27/18 18:49 [facility] (Rec: 08/27/18 18:53 [facility] [email or web address]) Ultrasound Therapy Treatment left posterior tibialis Treatment Duration (minutes) 8 Patient Position Prone Coupling Medium Ultrasound Gel Applicator Size (cm2) 5 Mode Setting Continuous Intensity Setting (w/cm2) 1.5 PT-OP-T Assessment and Plan Start: 08/06/18 11:07 Freq: Status: Active Protocol: Document 08/27/18 18:49 [facility] (Rec: 08/27/18 18:53 [facility] [email or web address]) Physical Therapy Assessment Assessment Summary Assessment Discussed shoe wear for the garden and yard, worked on stretching tibialis posterior and releasing the tight left side of the lumbar spine Physical Therapy Plan Frequency and Duration Frequency of Treatment 2 xms per week Duration of Treatment 8 weeks Plan of Care Start Date 08/04/18 Plan of Care End Date 10/13/18 Therapeutic Interventions Therapeutic Interventions Home Exercise Program Manual Therapy Neuromuscular Re-education Self-Care/Home Management Soft Tissue Mobilization Therapeutic Exercises Modalities Ultrasound Next Visit Focus/Plan Next Note Type Treatment Note Next Visit Plan begin with iliopsoas stretches and low back stretches, seated posture for work, manual therapy techniques
--- NOTE | 2018-09-15 17:36 | PT.OTN ---
Current Diagnoses Spondylolisthesis, lumbar region (09/15/18) Spinal stenosis, lumbar region without neurogenic claudication (09/15/18) Physical Therapy Treatment Note PT-OP-A Visit Information Start: 08/06/18 11:07 Freq: Status: Active Protocol: Document 09/15/18 17:32 [facility] (Rec: 09/15/18 17:36 [facility] [email or web address]) Out-Patient Physical Therapy Visit Information Visit Information Visit Type Treatment Note Visit Start Time 10:30 Visit Stop Time 11:15 Total Visit Minutes 45 Visit Number 4 Number of PLUMBER ASSISTANT Visits 0 PT-OP-B Current Condition Start: 08/06/18 11:07 Freq: Status: Active Protocol: Document 08/04/18 09:45 [facility] (Rec: 08/09/18 12:06 [facility] [email or web address]) Current Condition History of Current Condition Onset Date May 2018 Current Complaints c/o referred pain down the left leg, pain in the left low back and gluteals History of Current Condition 62 year old female who returns to PT today after traveling in and out of the country and aggravated low back pain. She also c/o left sided gluteal and referred pain made worse from traveling and sitting. Tanvi has a history of left sided sciatica, right ankle pain, plantar fascitis, left leg posterior tibialis rupture, spondylolistheses at L2-L3 and L4-L5, multilevel degenerative disc and facet disease. She has returned to her swimming since she has been home but despite this she is still experiencing the low back symptoms. She rates her pain asd 5/10 in the left posterior buttock and low back Treatment Goals Patient/Caregiver Goals Goals include reducing pain to be able to continue walking and swimming, working and ADL Personal Factors Other Personal Factors That May Effect Has to sit for work related Therapy/Recovery activities PT-OP-C Subjective Start: 08/06/18 11:07 Freq: Status: Active Protocol: Document 09/15/18 17:32 [facility] (Rec: 09/15/18 17:36 [facility] [email or web address]) OP-PT Subjective Patient Comments Patient Comments Tanvi reports left sided low back pain. She has been going to the pool and to the gym 1 time per week PT-OP-F Manual Assessment Start: 08/06/18 11:07 Freq: Status: Active Protocol: Document 08/04/18 09:45 [facility] (Rec: 08/09/18 12:06 [facility] [email or web address]) Manual Assessments Soft Tissue Assessment Soft Tissue Mobility Assessment Muscle guarding and spasm of the left greater than right lumbar and lower thoracic paraspinals muscle guarding of the left piriformis + sarah test B Joint Mobility Assessment Joint Mobility Assessment hypomobility thoracic spine T4 -T10 PT-OP-J Posture/Palpation/Skin Start: 08/09/18 12:07 Freq: Status: Active Protocol: Document 08/09/18 12:08 [facility] (Rec: 08/09/18 12:13 [facility] [email or web address]) Posture Evaluation Position Standing Evaluation View Lateral L-Spine Posture Neutral Shoulder Posture (L) Forward (R) Forward Comments Posture Comments forward shift of the lumbar spine in standing, lean to the left Palpation Assessment Location One Palpation Location left lumbar spinal musculature Palpation Findings Soft Tissue Tightness Muscle Guarding PT-OP-K Range of Motion Start: 08/09/18 12:07 Freq: Status: Active Protocol: Document 08/09/18 12:08 [facility] (Rec: 08/09/18 12:13 [facility] [email or web address]) Lumbar Spine Range of Motion Lumbar Spine Active Testing Position Standing Flexion 60 Extension 5 Rotation Left 15 Rotation Right 15 Lateral Flexion Left 15 Lateral Flexion Right 10 ROM Limitations Soft Tissue Tightness Pain Comments pain and tightness with lumbar Sidebend Left PT-OP-M Strength Start: 08/06/18 11:07 Freq: Status: Active Protocol: Document 08/04/18 09:45 [facility] (Rec: 08/09/18 12:06 [facility] [email or web address]) Trunk Strength Trunk Manual Muscle Testing Testing Position Supine Flexion 3+ Fair+ Core Stabilization difficulty recruiting the lower abdominal wall for TA recruitment, + ASLR test B Hip Strength Hip Manual Muscle Testing Right Flexion (L2) 4 Good Extension (S1) 4 Good Abduction 4 Good External Rotation 4 Good Left Flexion (L2) 4 Good Extension (S1) 4 Good Abduction 4 Good External Rotation 4 Good PT-OP-Q Treatments Start: 08/06/18 11:07 Freq: Status: Active Protocol: Document 09/15/18 17:32 [facility] (Rec: 09/15/18 17:36 [facility] [email or web address]) Manual Therapy Treatment Soft Tissue Mobilization 2 Body Location left posterior tibialis musculature Mobilization Type Myofascial Release 1 Body Location Thoracic, lumbar spinal musculature and piriformis Mobilization Type Myofascial Release Strumming Trigger Point Release Intensity/Depth Moderate Body Position Prone PT-OP-R Modalities Start: 08/06/18 11:07 Freq: Status: Active Protocol: Document 09/15/18 17:32 [facility] (Rec: 09/15/18 17:36 [facility] [email or web address]) Ultrasound Therapy Treatment Left Back Treatment Duration (minutes) 8 Patient Position Prone Coupling Medium Ultrasound Gel Applicator Size (cm2) 5 Mode Setting Continuous Duty Cycle 1.5 PT-OP-T Assessment and Plan Start: 08/06/18 11:07 Freq: Status: Active Protocol: Document 09/15/18 17:32 [facility] (Rec: 09/15/18 17:36 [facility] [email or web address]) Physical Therapy Assessment Assessment Summary Assessment Advised Tanvi to work on her back exercise and weights 2 times per week at the gym as she needs thoracic extension exercises. Physical Therapy Plan Frequency and Duration Frequency of Treatment 2 xms per week Duration of Treatment 8 weeks Plan of Care Start Date 08/04/18 Plan of Care End Date 10/13/18 Next Visit Focus/Plan Next Note Type Treatment Note Next Visit Plan begin with iliopsoas stretches and low back stretches, seated posture for work, manual therapy techniques
--- NOTE | 2018-10-26 08:32 | PT.OTN ---
Current Diagnoses Spondylolisthesis, lumbar region (10/22/18) Spinal stenosis, lumbar region without neurogenic claudication (10/22/18) Physical Therapy Treatment Note PT-OP-A Visit Information Start: 08/06/18 11:07 Freq: Status: Active Protocol: Document 10/22/18 09:45 [facility] (Rec: 10/26/18 08:32 [facility] [email or web address]) Out-Patient Physical Therapy Visit Information Visit Information Visit Type Treatment Note Visit Start Time 09:45 Visit Stop Time 10:30 Total Visit Minutes 45 Visit Number 5 Number of MATERIAL DAMAGE APPRAISER Visits 0 PT-OP-B Current Condition Start: 08/06/18 11:07 Freq: Status: Active Protocol: Document 08/04/18 09:45 [facility] (Rec: 08/09/18 12:06 [facility] [email or web address]) Current Condition History of Current Condition Onset Date May 2018 Current Complaints c/o referred pain down the left leg, pain in the left low back and gluteals History of Current Condition 62 year old female who returns to PT today after traveling in and out of the country and aggravated low back pain. She also c/o left sided gluteal and referred pain made worse from traveling and sitting. Tanvi has a history of left sided sciatica, right ankle pain, plantar fascitis, left leg posterior tibialis rupture, spondylolistheses at L2-L3 and L4-L5, multilevel degenerative disc and facet disease. She has returned to her swimming since she has been home but despite this she is still experiencing the low back symptoms. She rates her pain asd 5/10 in the left posterior buttock and low back Treatment Goals Patient/Caregiver Goals Goals include reducing pain to be able to continue walking and swimming, working and ADL Personal Factors Other Personal Factors That May Effect Has to sit for work related Therapy/Recovery activities PT-OP-C Subjective Start: 08/06/18 11:07 Freq: Status: Active Protocol: Document 10/22/18 09:45 [facility] (Rec: 10/26/18 08:32 [facility] [email or web address]) OP-PT Subjective Patient Comments Patient Comments Tanvi reports she has had family visiting these past few weeks and is feeling very tight and sore in her low back PT-OP-F Manual Assessment Start: 08/06/18 11:07 Freq: Status: Active Protocol: Document 08/04/18 09:45 [facility] (Rec: 08/09/18 12:06 [facility] [email or web address]) Manual Assessments Soft Tissue Assessment Soft Tissue Mobility Assessment Muscle guarding and spasm of the left greater than right lumbar and lower thoracic paraspinals muscle guarding of the left piriformis + sarah test B Joint Mobility Assessment Joint Mobility Assessment hypomobility thoracic spine T4 -T10 PT-OP-J Posture/Palpation/Skin Start: 08/09/18 12:07 Freq: Status: Active Protocol: Document 08/09/18 12:08 [facility] (Rec: 08/09/18 12:13 [facility] [email or web address]) Posture Evaluation Position Standing Evaluation View Lateral L-Spine Posture Neutral Shoulder Posture (L) Forward (R) Forward Comments Posture Comments forward shift of the lumbar spine in standing, lean to the left Palpation Assessment Location One Palpation Location left lumbar spinal musculature Palpation Findings Soft Tissue Tightness Muscle Guarding PT-OP-K Range of Motion Start: 08/09/18 12:07 Freq: Status: Active Protocol: Document 08/09/18 12:08 [facility] (Rec: 08/09/18 12:13 [facility] [email or web address]) Lumbar Spine Range of Motion Lumbar Spine Active Testing Position Standing Flexion 60 Extension 5 Rotation Left 15 Rotation Right 15 Lateral Flexion Left 15 Lateral Flexion Right 10 ROM Limitations Soft Tissue Tightness Pain Comments pain and tightness with lumbar Sidebend Left PT-OP-M Strength Start: 08/06/18 11:07 Freq: Status: Active Protocol: Document 08/04/18 09:45 [facility] (Rec: 08/09/18 12:06 [facility] [email or web address]) Trunk Strength Trunk Manual Muscle Testing Testing Position Supine Flexion 3+ Fair+ Core Stabilization difficulty recruiting the lower abdominal wall for TA recruitment, + ASLR test B Hip Strength Hip Manual Muscle Testing Right Flexion (L2) 4 Good Extension (S1) 4 Good Abduction 4 Good External Rotation 4 Good Left Flexion (L2) 4 Good Extension (S1) 4 Good Abduction 4 Good External Rotation 4 Good PT-OP-Q Treatments Start: 08/06/18 11:07 Freq: Status: Active Protocol: Document 10/22/18 09:45 [facility] (Rec: 10/26/18 08:32 [facility] [email or web address]) Manual Therapy Treatment Soft Tissue Mobilization 1 Body Location Thoracic, lumbar spinal musculature and piriformis Mobilization Type Myofascial Release Strumming Trigger Point Release Intensity/Depth Moderate Body Position Prone Joint Mobilizations 1 Joint thoracic PA glides Direction PA Grade III PT-OP-R Modalities Start: 08/06/18 11:07 Freq: Status: Active Protocol: Document 10/22/18 09:45 [facility] (Rec: 10/26/18 08:32 [facility] [email or web address]) Ultrasound Therapy Treatment Left Back Treatment Duration (minutes) 8 Patient Position Prone Coupling Medium Ultrasound Gel Applicator Size (cm2) 5 Mode Setting Continuous Duty Cycle 1.5 PT-OP-T Assessment and Plan Start: 08/06/18 11:07 Freq: Status: Active Protocol: Document 10/22/18 09:45 [facility] (Rec: 10/26/18 08:32 [facility] [email or web address]) Physical Therapy Assessment Progress Towards Goals Progress Towards Goals Slow Progress - Other Progress Comments Tanvi is working on her pool therapy which helps but after a few weeks of increased cooking and cleaning for company she is in pain today and is guarded in both her thoracic and lumbar spine Assessment Summary Assessment Today Tanvi returns to PT sore and stiff has she has had company the past two weeks and she did a lot of standing for cooking and cleaning. Both her thoracic and low back were very guarded and tight today. She would like to continue her treatments and she has been trying to keep going to the pool on a regular basis. Physical Therapy Plan Frequency and Duration Frequency of Treatment 2 xms per week Duration of Treatment 8 weeks Plan of Care Start Date 10/22/18 Plan of Care End Date 12/17/18 Therapeutic Interventions Therapeutic Interventions Home Exercise Program Manual Therapy Neuromuscular Re-education Self-Care/Home Management Soft Tissue Mobilization Therapeutic Exercises Modalities Ultrasound Next Visit Focus/Plan Next Note Type Treatment Note Next Visit Plan Focus on home stretching program, body mechanics for ADL's, posture training and manual therapy techniques
--- NOTE | 2018-10-26 08:34 | PT.OPPOC ---
Current Diagnoses Spondylolisthesis, lumbar region (10/22/18) Spinal stenosis, lumbar region without neurogenic claudication (10/22/18) Provider Visit Care Team Role Provider Type Mango Rueda MD Attending Provider Physician Primary Care Provider Specialty: Wound Care Address: [address] [place] [address], [id number] Email: [email or web address] Plan Of Care PT-OP-T Assessment and Plan Start: 08/06/18 11:07 Freq: Status: Active Protocol: Document 10/22/18 09:45 [facility] (Rec: 10/26/18 08:32 [facility] [email or web address]) Physical Therapy Assessment Goals Four Impairment Pain and difficulty going up and down 1 flight of stairs Minister Assistant Goal (LTG) Improve strength and mobility enabling Tanvi to go up and down one flight of stairs without pain Three Impairment muscle guarding and spasm of the left thoracic and lumbar paraspinals Minister Assistant Goal (LTG) Reduce muscle gurading and spasm to decrease pain and improve pain free ROM Two Impairment postural habits and hip flexor tightness contibuting to LBP Short Term Goal (STG) Tanvi is educated on her posture for work related activies and is able to make modifications to improve her posture to decrease low back tightness STG Duration 5 weeks One Impairment C/O pain rated 5/10 across the low back, SI and buttocks Minister Assistant Goal (LTG) Tanvi reports decreased pain reduced to 1-2/10 and is no longer experiencing radicular pain in her left LE, she is able to sit for a hour without a increase in pain LTG Duration 8 weeks Progress Towards Goals Progress Towards Goals Slow Progress - Other Progress Comments Tanvi is working on her pool therapy which helps but after a few weeks of increased cooking and cleaning for company she is in pain today and is guarded in both her thoracic and lumbar spine Assessment Summary Assessment Today Tanvi returns to PT sore and stiff has she has had company the past two weeks and she did a lot of standing for cooking and cleaning. Both her thoracic and low back were very guarded and tight today. She would like to continue her treatments and she has been trying to keep going to the pool on a regular basis. Physical Therapy Plan Frequency and Duration Frequency of Treatment 2 xms per week Duration of Treatment 8 weeks Plan of Care Start Date 10/22/18 Plan of Care End Date 12/17/18 Therapeutic Interventions Therapeutic Interventions Home Exercise Program Manual Therapy Neuromuscular Re-education Self-Care/Home Management Soft Tissue Mobilization Therapeutic Exercises Modalities Ultrasound Next Visit Focus/Plan Next Note Type Treatment Note Next Visit Plan Focus on home stretching program, body mechanics for ADL's, posture training and manual therapy techniques Plan of Care Dates Plan of Care Start Date 10/22/18 Plan of Care End Date 12/17/18 Please Sign and Return: I have reviewed this Plan of Care and certify that the skilled therapy services above are required to meet the patient?s needs. Physician Signature Date Printed Name and Credentials Clinical Instructor Signature Printed Name and Credentials
--- NOTE | 2018-11-09 06:43 | PT.OTN ---
Current Diagnoses Spondylolisthesis, lumbar region (11/05/18) Spinal stenosis, lumbar region without neurogenic claudication (11/05/18) Physical Therapy Treatment Note PT-OP-A Visit Information Start: 08/06/18 11:07 Freq: Status: Active Protocol: Document 11/05/18 09:45 [facility] (Rec: 11/09/18 06:43 [facility] [email or web address]) Out-Patient Physical Therapy Visit Information Visit Information Visit Type Treatment Note Visit Start Time 09:45 Visit Stop Time 10:30 Total Visit Minutes 45 Visit Number 6 Number of TUCKING MACHINE OPERATOR Visits 0 PT-OP-B Current Condition Start: 08/06/18 11:07 Freq: Status: Active Protocol: Document 08/04/18 09:45 [facility] (Rec: 08/09/18 12:06 [facility] [email or web address]) Current Condition History of Current Condition Onset Date May 2018 Current Complaints c/o referred pain down the left leg, pain in the left low back and gluteals History of Current Condition 62 year old female who returns to PT today after traveling in and out of the country and aggravated low back pain. She also c/o left sided gluteal and referred pain made worse from traveling and sitting. Tanvi has a history of left sided sciatica, right ankle pain, plantar fascitis, left leg posterior tibialis rupture, spondylolistheses at L2-L3 and L4-L5, multilevel degenerative disc and facet disease. She has returned to her swimming since she has been home but despite this she is still experiencing the low back symptoms. She rates her pain asd 5/10 in the left posterior buttock and low back Treatment Goals Patient/Caregiver Goals Goals include reducing pain to be able to continue walking and swimming, working and ADL Personal Factors Other Personal Factors That May Effect Has to sit for work related Therapy/Recovery activities PT-OP-C Subjective Start: 08/06/18 11:07 Freq: Status: Active Protocol: Document 11/05/18 09:45 [facility] (Rec: 11/09/18 06:43 [facility] [email or web address]) OP-PT Subjective Patient Comments Patient Comments Tanvi reports she got a rash at the pool from the water belt, she has gone back to exercising at the gym instead Patient Reported Progress Improving PT-OP-F Manual Assessment Start: 08/06/18 11:07 Freq: Status: Active Protocol: Document 08/04/18 09:45 [facility] (Rec: 08/09/18 12:06 [facility] [email or web address]) Manual Assessments Soft Tissue Assessment Soft Tissue Mobility Assessment Muscle guarding and spasm of the left greater than right lumbar and lower thoracic paraspinals muscle guarding of the left piriformis + sarah test B Joint Mobility Assessment Joint Mobility Assessment hypomobility thoracic spine T4 -T10 PT-OP-J Posture/Palpation/Skin Start: 08/09/18 12:07 Freq: Status: Active Protocol: Document 08/09/18 12:08 [facility] (Rec: 08/09/18 12:13 [facility] [email or web address]) Posture Evaluation Position Standing Evaluation View Lateral L-Spine Posture Neutral Shoulder Posture (L) Forward (R) Forward Comments Posture Comments forward shift of the lumbar spine in standing, lean to the left Palpation Assessment Location One Palpation Location left lumbar spinal musculature Palpation Findings Soft Tissue Tightness Muscle Guarding PT-OP-K Range of Motion Start: 08/09/18 12:07 Freq: Status: Active Protocol: Document 08/09/18 12:08 [facility] (Rec: 08/09/18 12:13 [facility] [email or web address]) Lumbar Spine Range of Motion Lumbar Spine Active Testing Position Standing Flexion 60 Extension 5 Rotation Left 15 Rotation Right 15 Lateral Flexion Left 15 Lateral Flexion Right 10 ROM Limitations Soft Tissue Tightness Pain Comments pain and tightness with lumbar Sidebend Left PT-OP-M Strength Start: 08/06/18 11:07 Freq: Status: Active Protocol: Document 08/04/18 09:45 [facility] (Rec: 08/09/18 12:06 [facility] [email or web address]) Trunk Strength Trunk Manual Muscle Testing Testing Position Supine Flexion 3+ Fair+ Core Stabilization difficulty recruiting the lower abdominal wall for TA recruitment, + ASLR test B Hip Strength Hip Manual Muscle Testing Right Flexion (L2) 4 Good Extension (S1) 4 Good Abduction 4 Good External Rotation 4 Good Left Flexion (L2) 4 Good Extension (S1) 4 Good Abduction 4 Good External Rotation 4 Good PT-OP-Q Treatments Start: 08/06/18 11:07 Freq: Status: Active Protocol: Document 11/05/18 09:45 [facility] (Rec: 11/09/18 06:43 [facility] [email or web address]) Manual Therapy Treatment Soft Tissue Mobilization 2 Body Location left posterior tibialis musculature Mobilization Type Myofascial Release 1 Body Location Thoracic, lumbar spinal musculature and piriformis Mobilization Type Myofascial Release Strumming Trigger Point Release Intensity/Depth Moderate Body Position Prone Joint Mobilizations 1 Joint thoracic PA glides Direction PA Grade III PT-OP-R Modalities Start: 08/06/18 11:07 Freq: Status: Active Protocol: Document 11/05/18 09:45 [facility] (Rec: 11/09/18 06:43 [facility] [email or web address]) Ultrasound Therapy Treatment Left Back Treatment Duration (minutes) 8 Patient Position Prone Coupling Medium Ultrasound Gel Applicator Size (cm2) 5 Mode Setting Continuous Duty Cycle 1.5 PT-OP-T Assessment and Plan Start: 08/06/18 11:07 Freq: Status: Active Protocol: Document 11/05/18 09:45 [facility] (Rec: 11/09/18 06:43 [facility] [email or web address]) Physical Therapy Assessment Assessment Summary Assessment I was still able to work on Tanvi'[place] back as her rash she obtained from the pool had gotten better. She has been doing more at the gym now which has helped mobility of her thoracic spine Physical Therapy Plan Frequency and Duration Frequency of Treatment 2 xms per week Duration of Treatment 8 weeks Plan of Care Start Date 10/22/18 Plan of Care End Date 12/17/18 Next Visit Focus/Plan Next Note Type Treatment Note Next Visit Plan Focus on home stretching program, body mechanics for ADL's, posture training and manual therapy techniques
--- NOTE | 2018-12-23 09:13 | PT.OTN ---
Current Diagnoses Spondylolisthesis, lumbar region (12/22/18) Spinal stenosis, lumbar region without neurogenic claudication (12/22/18) Physical Therapy Treatment Note PT-OP-A Visit Information Start: 08/06/18 11:07 Freq: Status: Active Protocol: Document 12/22/18 18:04 [facility] (Rec: 12/22/18 18:13 [facility] [email or web address]) Out-Patient Physical Therapy Visit Information Visit Information Visit Type Progress Note Visit Start Time 13:00 Visit Stop Time 13:45 Total Visit Minutes 45 Visit Number 7 Number of DESKTOP MANAGER Visits 0 PT-OP-B Current Condition Start: 08/06/18 11:07 Freq: Status: Active Protocol: Document 08/04/18 09:45 [facility] (Rec: 08/09/18 12:06 [facility] [email or web address]) Current Condition History of Current Condition Onset Date May 2018 Current Complaints c/o referred pain down the left leg, pain in the left low back and gluteals History of Current Condition 62 year old female who returns to PT today after traveling in and out of the country and aggravated low back pain. She also c/o left sided gluteal and referred pain made worse from traveling and sitting. Tanvi has a history of left sided sciatica, right ankle pain, plantar fascitis, left leg posterior tibialis rupture, spondylolistheses at L2-L3 and L4-L5, multilevel degenerative disc and facet disease. She has returned to her swimming since she has been home but despite this she is still experiencing the low back symptoms. She rates her pain asd 5/10 in the left posterior buttock and low back Treatment Goals Patient/Caregiver Goals Goals include reducing pain to be able to continue walking and swimming, working and ADL Personal Factors Other Personal Factors That May Effect Has to sit for work related Therapy/Recovery activities PT-OP-C Subjective Start: 08/06/18 11:07 Freq: Status: Active Protocol: Document 12/22/18 18:04 [facility] (Rec: 12/22/18 18:13 [facility] [email or web address]) OP-PT Subjective Patient Comments Patient Comments Tanvi was traveling to [place]. Her low back is feeling sore this week after her travel. PT-OP-F Manual Assessment Start: 08/06/18 11:07 Freq: Status: Active Protocol: Document 08/04/18 09:45 [facility] (Rec: 08/09/18 12:06 [facility] [email or web address]) Manual Assessments Soft Tissue Assessment Soft Tissue Mobility Assessment Muscle guarding and spasm of the left greater than right lumbar and lower thoracic paraspinals muscle guarding of the left piriformis + sarah test B Joint Mobility Assessment Joint Mobility Assessment hypomobility thoracic spine T4 -T10 PT-OP-J Posture/Palpation/Skin Start: 08/09/18 12:07 Freq: Status: Active Protocol: Document 08/09/18 12:08 [facility] (Rec: 08/09/18 12:13 [facility] [email or web address]) Posture Evaluation Position Standing Evaluation View Lateral L-Spine Posture Neutral Shoulder Posture (L) Forward,(R) Forward Comments Posture Comments forward shift of the lumbar spine in standing, lean to the left Palpation Assessment Location One Palpation Location left lumbar spinal musculature Palpation Findings Soft Tissue Tightness,Muscle Guarding PT-OP-K Range of Motion Start: 08/09/18 12:07 Freq: Status: Active Protocol: Document 08/09/18 12:08 [facility] (Rec: 08/09/18 12:13 [facility] [email or web address]) Lumbar Spine Range of Motion Lumbar Spine Active Testing Position Standing Flexion 60 Extension 5 Rotation Left 15 Rotation Right 15 Lateral Flexion Left 15 Lateral Flexion Right 10 ROM Limitations Soft Tissue Tightness,Pain Comments pain and tightness with lumbar Sidebend Left PT-OP-M Strength Start: 08/06/18 11:07 Freq: Status: Active Protocol: Document 08/04/18 09:45 [facility] (Rec: 08/09/18 12:06 [facility] [email or web address]) Trunk Strength Trunk Manual Muscle Testing Testing Position Supine Flexion 3+ Fair+ Core Stabilization difficulty recruiting the lower abdominal wall for TA recruitment, + ASLR test B Hip Strength Hip Manual Muscle Testing Right Flexion (L2) 4 Good Extension (S1) 4 Good Abduction 4 Good External Rotation 4 Good Left Flexion (L2) 4 Good Extension (S1) 4 Good Abduction 4 Good External Rotation 4 Good PT-OP-Q Treatments Start: 08/06/18 11:07 Freq: Status: Active Protocol: Document 12/22/18 18:04 [facility] (Rec: 12/22/18 18:13 [facility] [email or web address]) Therapeutic Exercises Supine Exercises 1 Supine Exercise Name foam roll stretch Reps/Minutes 3 min Manual Therapy Treatment Soft Tissue Mobilization 2 Body Location left posterior tibialis musculature Mobilization Type Myofascial Release 1 Body Location Thoracic, lumbar spinal musculature and piriformis Mobilization Type Myofascial Release,Strumming, Trigger Point Release Intensity/Depth Moderate Body Position Prone Joint Mobilizations 1 Joint thoracic PA glides Direction PA Grade III PT-OP-R Modalities Start: 08/06/18 11:07 Freq: Status: Active Protocol: Document 12/22/18 18:04 [facility] (Rec: 12/22/18 18:13 [facility] [email or web address]) Hot Pack/Cold Pack Treatment Hot Pack Location low back Ultrasound Therapy Treatment Left Back Treatment Duration (minutes) 8 Patient Position Prone Coupling Medium Ultrasound Gel Applicator Size (cm2) 5 Mode Setting Continuous Duty Cycle 1.5 PT-OP-T Assessment and Plan Start: 08/06/18 11:07 Freq: Status: Active Protocol: Document 12/22/18 18:04 [facility] (Rec: 12/22/18 18:13 [facility] [email or web address]) Physical Therapy Assessment Assessment Summary Assessment I put tanvi on the foam roll today as she was leaning forward with her posture. She really liked it and it would be helpful for posture for her Physical Therapy Plan Frequency and Duration Frequency of Treatment 2 xms per week Duration of Treatment 8 weeks Plan of Care Start Date 10/22/18 Plan of Care End Date 12/17/18
--- NOTE | 2018-12-23 09:18 | PT.OPPN ---
Current Diagnoses Spondylolisthesis, lumbar region (12/22/18) Spinal stenosis, lumbar region without neurogenic claudication (12/22/18) Physical Therapy Progress Note PT-OP-A Visit Information Start: 08/06/18 11:07 Freq: Status: Active Protocol: Document 12/22/18 18:04 [facility] (Rec: 12/22/18 18:13 [facility] [email or web address]) Out-Patient Physical Therapy Visit Information Visit Information Visit Type Progress Note Visit Start Time 13:00 Visit Stop Time 13:45 Total Visit Minutes 45 Visit Number 7 Number of SEAT COVERER Visits 0 PT-OP-B Current Condition Start: 08/06/18 11:07 Freq: Status: Active Protocol: Document 08/04/18 09:45 [facility] (Rec: 08/09/18 12:06 [facility] [email or web address]) Current Condition History of Current Condition Onset Date May 2018 Current Complaints c/o referred pain down the left leg, pain in the left low back and gluteals History of Current Condition 62 year old female who returns to PT today after traveling in and out of the country and aggravated low back pain. She also c/o left sided gluteal and referred pain made worse from traveling and sitting. Tanvi has a history of left sided sciatica, right ankle pain, plantar fascitis, left leg posterior tibialis rupture, spondylolistheses at L2-L3 and L4-L5, multilevel degenerative disc and facet disease. She has returned to her swimming since she has been home but despite this she is still experiencing the low back symptoms. She rates her pain asd 5/10 in the left posterior buttock and low back Treatment Goals Patient/Caregiver Goals Goals include reducing pain to be able to continue walking and swimming, working and ADL Personal Factors Other Personal Factors That May Effect Has to sit for work related Therapy/Recovery activities PT-OP-C Subjective Start: 08/06/18 11:07 Freq: Status: Active Protocol: Document 12/22/18 18:04 [facility] (Rec: 12/22/18 18:13 [facility] [email or web address]) OP-PT Subjective Patient Comments Patient Comments Tanvi was traveling to [place]. Her low back is feeling sore this week after her travel. PT-OP-F Manual Assessment Start: 08/06/18 11:07 Freq: Status: Active Protocol: Document 08/04/18 09:45 [facility] (Rec: 08/09/18 12:06 [facility] [email or web address]) Manual Assessments Soft Tissue Assessment Soft Tissue Mobility Assessment Muscle guarding and spasm of the left greater than right lumbar and lower thoracic paraspinals muscle guarding of the left piriformis + sarah test B Joint Mobility Assessment Joint Mobility Assessment hypomobility thoracic spine T4 -T10 PT-OP-J Posture/Palpation/Skin Start: 08/09/18 12:07 Freq: Status: Active Protocol: Document 08/09/18 12:08 [facility] (Rec: 08/09/18 12:13 [facility] [email or web address]) Posture Evaluation Position Standing Evaluation View Lateral L-Spine Posture Neutral Shoulder Posture (L) Forward,(R) Forward Comments Posture Comments forward shift of the lumbar spine in standing, lean to the left Palpation Assessment Location One Palpation Location left lumbar spinal musculature Palpation Findings Soft Tissue Tightness,Muscle Guarding PT-OP-K Range of Motion Start: 08/09/18 12:07 Freq: Status: Active Protocol: Document 08/09/18 12:08 [facility] (Rec: 08/09/18 12:13 [facility] [email or web address]) Lumbar Spine Range of Motion Lumbar Spine Active Testing Position Standing Flexion 60 Extension 5 Rotation Left 15 Rotation Right 15 Lateral Flexion Left 15 Lateral Flexion Right 10 ROM Limitations Soft Tissue Tightness,Pain Comments pain and tightness with lumbar Sidebend Left PT-OP-M Strength Start: 08/06/18 11:07 Freq: Status: Active Protocol: Document 08/04/18 09:45 [facility] (Rec: 08/09/18 12:06 [facility] [email or web address]) Trunk Strength Trunk Manual Muscle Testing Testing Position Supine Flexion 3+ Fair+ Core Stabilization difficulty recruiting the lower abdominal wall for TA recruitment, + ASLR test B Hip Strength Hip Manual Muscle Testing Right Flexion (L2) 4 Good Extension (S1) 4 Good Abduction 4 Good External Rotation 4 Good Left Flexion (L2) 4 Good Extension (S1) 4 Good Abduction 4 Good External Rotation 4 Good PT-OP-T Assessment and Plan Start: 08/06/18 11:07 Freq: Status: Active Protocol: Document 12/22/18 18:04 [facility] (Rec: 12/22/18 18:13 [facility] [email or web address]) Physical Therapy Assessment Progress Towards Goals Progress Towards Goals Progressing Toward Goals Progress Comments working on bike riding at the gym and feels this helps loosen her low back Assessment Summary Assessment Tanvi continues to benefit from PT. She is riding the bike frequently now at the gym and she feels this helps loosen her back. She recently returned from traveling and notes increased stiffness in her low back so returned to PT after not being seen for a month. I put tanvi on the foam roll today as she was leaning forward with her posture. She really liked it and it would be helpful for posture for her as well as beneficial for her low back tightness. Tanvi would benefit from continued PT Physical Therapy Plan Frequency and Duration Frequency of Treatment 2 xms per week Duration of Treatment 8 weeks Plan of Care Start Date 12/17/18 Plan of Care End Date 02/11/19 Therapeutic Interventions Therapeutic Interventions Home Exercise Program,Manual Therapy,Patient/Caregiver Education,Self-Care/Home Management,Soft Tissue Mobilization,Therapeutic Exercises Modalities Electric Stimulation,Hot Packs Next Visit Focus/Plan Next Note Type Treatment Note Next Visit Plan Focus on home stretching program, body mechanics for ADL's, posture training and manual therapy techniques
--- NOTE | 2019-01-16 11:36 | PT.OTN ---
Current Diagnoses Spondylolisthesis, lumbar region (01/14/19) Spinal stenosis, lumbar region without neurogenic claudication (01/14/19) Physical Therapy Treatment Note PT-OP-A Visit Information Start: 08/06/18 11:07 Freq: Status: Active Protocol: Document 01/14/19 11:15 [facility] (Rec: 01/16/19 11:36 [facility] [email or web address]) Out-Patient Physical Therapy Visit Information Visit Information Visit Type Treatment Note Visit Start Time 11:15 Visit Stop Time 12:15 Total Visit Minutes 60 Visit Number 8 Number of ROUNDHOUSE FIRER/FIREMAN Visits 0 PT-OP-B Current Condition Start: 08/06/18 11:07 Freq: Status: Active Protocol: Document 08/04/18 09:45 [facility] (Rec: 08/09/18 12:06 [facility] [email or web address]) Current Condition History of Current Condition Onset Date May 2018 Current Complaints c/o referred pain down the left leg, pain in the left low back and gluteals History of Current Condition 62 year old female who returns to PT today after traveling in and out of the country and aggravated low back pain. She also c/o left sided gluteal and referred pain made worse from traveling and sitting. Tanvi has a history of left sided sciatica, right ankle pain, plantar fascitis, left leg posterior tibialis rupture, spondylolistheses at L2-L3 and L4-L5, multilevel degenerative disc and facet disease. She has returned to her swimming since she has been home but despite this she is still experiencing the low back symptoms. She rates her pain asd 5/10 in the left posterior buttock and low back Treatment Goals Patient/Caregiver Goals Goals include reducing pain to be able to continue walking and swimming, working and ADL Personal Factors Other Personal Factors That May Effect Has to sit for work related Therapy/Recovery activities PT-OP-C Subjective Start: 08/06/18 11:07 Freq: Status: Active Protocol: Document 01/14/19 11:15 [facility] (Rec: 01/16/19 11:36 [facility] [email or web address]) OP-PT Subjective Patient Comments Patient Comments Tanvi notes she likes the foam roll and would like to know the name of it to get one for home PT-OP-F Manual Assessment Start: 08/06/18 11:07 Freq: Status: Active Protocol: Document 08/04/18 09:45 [facility] (Rec: 08/09/18 12:06 [facility] [email or web address]) Manual Assessments Soft Tissue Assessment Soft Tissue Mobility Assessment Muscle guarding and spasm of the left greater than right lumbar and lower thoracic paraspinals muscle guarding of the left piriformis + sarah test B Joint Mobility Assessment Joint Mobility Assessment hypomobility thoracic spine T4 -T10 PT-OP-J Posture/Palpation/Skin Start: 08/09/18 12:07 Freq: Status: Active Protocol: Document 08/09/18 12:08 [facility] (Rec: 08/09/18 12:13 [facility] [email or web address]) Posture Evaluation Position Standing Evaluation View Lateral L-Spine Posture Neutral Shoulder Posture (L) Forward,(R) Forward Comments Posture Comments forward shift of the lumbar spine in standing, lean to the left Palpation Assessment Location One Palpation Location left lumbar spinal musculature Palpation Findings Soft Tissue Tightness,Muscle Guarding PT-OP-K Range of Motion Start: 08/09/18 12:07 Freq: Status: Active Protocol: Document 08/09/18 12:08 [facility] (Rec: 08/09/18 12:13 [facility] [email or web address]) Lumbar Spine Range of Motion Lumbar Spine Active Testing Position Standing Flexion 60 Extension 5 Rotation Left 15 Rotation Right 15 Lateral Flexion Left 15 Lateral Flexion Right 10 ROM Limitations Soft Tissue Tightness,Pain Comments pain and tightness with lumbar Sidebend Left PT-OP-M Strength Start: 08/06/18 11:07 Freq: Status: Active Protocol: Document 08/04/18 09:45 [facility] (Rec: 08/09/18 12:06 [facility] [email or web address]) Trunk Strength Trunk Manual Muscle Testing Testing Position Supine Flexion 3+ Fair+ Core Stabilization difficulty recruiting the lower abdominal wall for TA recruitment, + ASLR test B Hip Strength Hip Manual Muscle Testing Right Flexion (L2) 4 Good Extension (S1) 4 Good Abduction 4 Good External Rotation 4 Good Left Flexion (L2) 4 Good Extension (S1) 4 Good Abduction 4 Good External Rotation 4 Good PT-OP-Q Treatments Start: 08/06/18 11:07 Freq: Status: Active Protocol: Document 01/14/19 11:15 [facility] (Rec: 01/16/19 11:36 [facility] [email or web address]) Therapeutic Exercises Supine Exercises 1 Supine Exercise Name foam roll stretch Reps/Minutes 3 min Manual Therapy Treatment Soft Tissue Mobilization 1 Body Location Thoracic, lumbar spinal musculature and piriformis Mobilization Type Myofascial Release,Strumming, Trigger Point Release Intensity/Depth Moderate Body Position Prone Joint Mobilizations 1 Joint thoracic PA glides Direction PA Grade III PT-OP-R Modalities Start: 08/06/18 11:07 Freq: Status: Active Protocol: Document 01/14/19 11:15 [facility] (Rec: 01/16/19 11:36 [facility] [email or web address]) Electric Stimulation Electric Stimulation Interferential Current (IFC) Body Location low back and left piriformis Duration (Minutes) 15 Contraction Type Normal Target/Sweep Sweep High/Low High Cycle Continuous Patient Position Hooklying Combined With Heat/Cold Hot Pack Ultrasound Therapy Treatment Left Back Treatment Duration (minutes) 8 Patient Position Prone Coupling Medium Ultrasound Gel Applicator Size (cm2) 5 Mode Setting Continuous Duty Cycle 1.5 PT-OP-T Assessment and Plan Start: 08/06/18 11:07 Freq: Status: Active Protocol: Document 01/14/19 11:15 [facility] (Rec: 01/16/19 11:36 [facility] [email or web address]) Physical Therapy Assessment Assessment Summary Assessment Very sore today left piriformis region. continue work on posture with foam roll as this does help relieve pressure in the back Physical Therapy Plan Frequency and Duration Frequency of Treatment 2 xms per week Duration of Treatment 8 weeks Plan of Care Start Date 12/17/18 Plan of Care End Date 02/11/19 Therapeutic Interventions Therapeutic Interventions Home Exercise Program,Manual Therapy,Patient/Caregiver Education,Self-Care/Home Management,Soft Tissue Mobilization,Therapeutic Exercises Modalities Electric Stimulation,Hot Packs Next Visit Focus/Plan Next Note Type Treatment Note Next Visit Plan review posture strengthening exericses for the thoracic spine to help take pressure off the low back.
--- NOTE | 2019-01-28 14:30 | PT.OTN ---
Current Diagnoses Spondylolisthesis, lumbar region (01/28/19) Spinal stenosis, lumbar region without neurogenic claudication (01/28/19) Physical Therapy Treatment Note PT-OP-A Visit Information Start: 08/06/18 11:07 Freq: Status: Active Protocol: Document 01/28/19 14:30 [facility] (Rec: 02/11/19 15:09 [facility] [email or web address]) Out-Patient Physical Therapy Visit Information Visit Information Visit Type Treatment Note Visit Start Time 14:30 Visit Stop Time 15:15 Total Visit Minutes 45 Visit Number 9 PT-OP-B Current Condition Start: 08/06/18 11:07 Freq: Status: Active Protocol: Document 08/04/18 09:45 [facility] (Rec: 08/09/18 12:06 [facility] [email or web address]) Current Condition History of Current Condition Onset Date May 2018 Current Complaints c/o referred pain down the left leg, pain in the left low back and gluteals History of Current Condition 62 year old female who returns to PT today after traveling in and out of the country and aggravated low back pain. She also c/o left sided gluteal and referred pain made worse from traveling and sitting. Tanvi has a history of left sided sciatica, right ankle pain, plantar fascitis, left leg posterior tibialis rupture, spondylolistheses at L2-L3 and L4-L5, multilevel degenerative disc and facet disease. She has returned to her swimming since she has been home but despite this she is still experiencing the low back symptoms. She rates her pain asd 5/10 in the left posterior buttock and low back Treatment Goals Patient/Caregiver Goals Goals include reducing pain to be able to continue walking and swimming, working and ADL Personal Factors Other Personal Factors That May Effect Has to sit for work related Therapy/Recovery activities PT-OP-C Subjective Start: 08/06/18 11:07 Freq: Status: Active Protocol: Document 01/14/19 11:15 [facility] (Rec: 01/16/19 11:36 [facility] [email or web address]) OP-PT Subjective Patient Comments Patient Comments Tanvi notes she likes the foam roll and would like to know the name of it to get one for home PT-OP-F Manual Assessment Start: 08/06/18 11:07 Freq: Status: Active Protocol: Document 08/04/18 09:45 [facility] (Rec: 08/09/18 12:06 [facility] [email or web address]) Manual Assessments Soft Tissue Assessment Soft Tissue Mobility Assessment Muscle guarding and spasm of the left greater than right lumbar and lower thoracic paraspinals muscle guarding of the left piriformis + sarah test B Joint Mobility Assessment Joint Mobility Assessment hypomobility thoracic spine T4 -T10 PT-OP-J Posture/Palpation/Skin Start: 08/09/18 12:07 Freq: Status: Active Protocol: Document 08/09/18 12:08 [facility] (Rec: 08/09/18 12:13 [facility] [email or web address]) Posture Evaluation Position Standing Evaluation View Lateral L-Spine Posture Neutral Shoulder Posture (L) Forward,(R) Forward Comments Posture Comments forward shift of the lumbar spine in standing, lean to the left Palpation Assessment Location One Palpation Location left lumbar spinal musculature Palpation Findings Soft Tissue Tightness,Muscle Guarding PT-OP-K Range of Motion Start: 08/09/18 12:07 Freq: Status: Active Protocol: Document 08/09/18 12:08 [facility] (Rec: 08/09/18 12:13 [facility] [email or web address]) Lumbar Spine Range of Motion Lumbar Spine Active Testing Position Standing Flexion 60 Extension 5 Rotation Left 15 Rotation Right 15 Lateral Flexion Left 15 Lateral Flexion Right 10 ROM Limitations Soft Tissue Tightness,Pain Comments pain and tightness with lumbar Sidebend Left PT-OP-M Strength Start: 08/06/18 11:07 Freq: Status: Active Protocol: Document 08/04/18 09:45 [facility] (Rec: 08/09/18 12:06 [facility] [email or web address]) Trunk Strength Trunk Manual Muscle Testing Testing Position Supine Flexion 3+ Fair+ Core Stabilization difficulty recruiting the lower abdominal wall for TA recruitment, + ASLR test B Hip Strength Hip Manual Muscle Testing Right Flexion (L2) 4 Good Extension (S1) 4 Good Abduction 4 Good External Rotation 4 Good Left Flexion (L2) 4 Good Extension (S1) 4 Good Abduction 4 Good External Rotation 4 Good PT-OP-Q Treatments Start: 08/06/18 11:07 Freq: Status: Active Protocol: Document 01/28/19 14:30 [facility] (Rec: 02/11/19 15:09 [facility] [email or web address]) Manual Therapy Treatment Soft Tissue Mobilization 1 Body Location Thoracic, lumbar spinal musculature and piriformis Mobilization Type Myofascial Release,Strumming, Trigger Point Release Intensity/Depth Moderate Body Position Prone Joint Mobilizations 1 Joint thoracic PA glides Direction PA Grade III PT-OP-R Modalities Start: 08/06/18 11:07 Freq: Status: Active Protocol: Document 01/28/19 14:30 [facility] (Rec: 02/11/19 15:09 [facility] [email or web address]) Ultrasound Therapy Treatment Left Back Treatment Duration (minutes) 8 Patient Position Prone Coupling Medium Ultrasound Gel Applicator Size (cm2) 5 Mode Setting Continuous Duty Cycle 1.5 PT-OP-T Assessment and Plan Start: 08/06/18 11:07 Freq: Status: Active Protocol: Document 01/28/19 14:30 [facility] (Rec: 02/11/19 15:09 [facility] [email or web address]) Physical Therapy Assessment Assessment Summary Assessment foam roll is working well for home, encouraging stretching for the piriformis and postural exercises Physical Therapy Plan Frequency and Duration Frequency of Treatment 2 xms per week Duration of Treatment 8 weeks Plan of Care Start Date 12/17/18 Plan of Care End Date 02/11/19 Therapeutic Interventions Therapeutic Interventions Home Exercise Program,Manual Therapy,Patient/Caregiver Education,Self-Care/Home Management,Soft Tissue Mobilization,Therapeutic Exercises Modalities Electric Stimulation,Hot Packs Next Visit Focus/Plan Next Note Type Progress Note Next Visit Plan review lumbar ROM and objective measurements next visit
--- NOTE | 2019-02-11 16:00 | PT.OTN ---
Current Diagnoses Spondylolisthesis, lumbar region (02/11/19) Spinal stenosis, lumbar region without neurogenic claudication (02/11/19) Physical Therapy Treatment Note PT-OP-A Visit Information Start: 08/06/18 11:07 Freq: Status: Active Protocol: Document 02/11/19 16:00 [facility] (Rec: 02/15/19 11:45 [facility] [email or web address]) Out-Patient Physical Therapy Visit Information Visit Information Visit Type Treatment Note Visit Start Time 16:00 Visit Stop Time 16:55 Total Visit Minutes 55 Visit Number 10 PT-OP-B Current Condition Start: 08/06/18 11:07 Freq: Status: Active Protocol: Document 08/04/18 09:45 [facility] (Rec: 08/09/18 12:06 [facility] [email or web address]) Current Condition History of Current Condition Onset Date May 2018 Current Complaints c/o referred pain down the left leg, pain in the left low back and gluteals History of Current Condition 62 year old female who returns to PT today after traveling in and out of the country and aggravated low back pain. She also c/o left sided gluteal and referred pain made worse from traveling and sitting. Tanvi has a history of left sided sciatica, right ankle pain, plantar fascitis, left leg posterior tibialis rupture, spondylolistheses at L2-L3 and L4-L5, multilevel degenerative disc and facet disease. She has returned to her swimming since she has been home but despite this she is still experiencing the low back symptoms. She rates her pain asd 5/10 in the left posterior buttock and low back Treatment Goals Patient/Caregiver Goals Goals include reducing pain to be able to continue walking and swimming, working and ADL Personal Factors Other Personal Factors That May Effect Has to sit for work related Therapy/Recovery activities PT-OP-C Subjective Start: 08/06/18 11:07 Freq: Status: Active Protocol: Document 02/11/19 16:00 [facility] (Rec: 02/15/19 11:45 [facility] [email or web address]) OP-PT Subjective Patient Comments Patient Comments pt reports she has been working a lot, she has been trying to work out at the gym despite her busy workload PT-OP-F Manual Assessment Start: 08/06/18 11:07 Freq: Status: Active Protocol: Document 08/04/18 09:45 [facility] (Rec: 08/09/18 12:06 [facility] [email or web address]) Manual Assessments Soft Tissue Assessment Soft Tissue Mobility Assessment Muscle guarding and spasm of the left greater than right lumbar and lower thoracic paraspinals muscle guarding of the left piriformis + sarah test B Joint Mobility Assessment Joint Mobility Assessment hypomobility thoracic spine T4 -T10 PT-OP-J Posture/Palpation/Skin Start: 08/09/18 12:07 Freq: Status: Active Protocol: Document 08/09/18 12:08 [facility] (Rec: 08/09/18 12:13 [facility] [email or web address]) Posture Evaluation Position Standing Evaluation View Lateral L-Spine Posture Neutral Shoulder Posture (L) Forward,(R) Forward Comments Posture Comments forward shift of the lumbar spine in standing, lean to the left Palpation Assessment Location One Palpation Location left lumbar spinal musculature Palpation Findings Soft Tissue Tightness,Muscle Guarding PT-OP-K Range of Motion Start: 08/09/18 12:07 Freq: Status: Active Protocol: Document 08/09/18 12:08 [facility] (Rec: 08/09/18 12:13 [facility] [email or web address]) Lumbar Spine Range of Motion Lumbar Spine Active Testing Position Standing Flexion 60 Extension 5 Rotation Left 15 Rotation Right 15 Lateral Flexion Left 15 Lateral Flexion Right 10 ROM Limitations Soft Tissue Tightness,Pain Comments pain and tightness with lumbar Sidebend Left PT-OP-M Strength Start: 08/06/18 11:07 Freq: Status: Active Protocol: Document 08/04/18 09:45 [facility] (Rec: 08/09/18 12:06 [facility] [email or web address]) Trunk Strength Trunk Manual Muscle Testing Testing Position Supine Flexion 3+ Fair+ Core Stabilization difficulty recruiting the lower abdominal wall for TA recruitment, + ASLR test B Hip Strength Hip Manual Muscle Testing Right Flexion (L2) 4 Good Extension (S1) 4 Good Abduction 4 Good External Rotation 4 Good Left Flexion (L2) 4 Good Extension (S1) 4 Good Abduction 4 Good External Rotation 4 Good PT-OP-Q Treatments Start: 08/06/18 11:07 Freq: Status: Active Protocol: Document 02/11/19 16:00 [facility] (Rec: 02/15/19 11:45 [facility] [email or web address]) Therapeutic Exercises Supine Exercises 5 Supine Exercise Name piriformis stretch Reps/Minutes hold 1 min each side 4 Supine Exercise Name double knee to chest Reps/Minutes 1 min hold 3 Supine Exercise Name single knee to chest Reps/Minutes 30 second hold 2 Supine Exercise Name TA with kelly Reps/Minutes x 15 Manual Therapy Treatment Soft Tissue Mobilization 1 Body Location Thoracic, lumbar spinal musculature and piriformis Mobilization Type Myofascial Release,Strumming, Trigger Point Release Intensity/Depth Moderate Body Position Prone Joint Mobilizations 1 Joint thoracic PA glides Direction PA Grade III PT-OP-R Modalities Start: 08/06/18 11:07 Freq: Status: Active Protocol: Document 02/11/19 16:00 [facility] (Rec: 02/15/19 11:45 [facility] [email or web address]) Electric Stimulation Electric Stimulation Interferential Current (IFC) Body Location low back and left piriformis Duration (Minutes) 15 Contraction Type Normal Target/Sweep Sweep High/Low High Cycle Continuous Patient Position Hooklying Combined With Heat/Cold Hot Pack PT-OP-T Assessment and Plan Start: 08/06/18 11:07 Freq: Status: Active Protocol: Document 02/11/19 16:00 [facility] (Rec: 02/15/19 11:45 [facility] [email or web address]) Physical Therapy Assessment Goals Four Impairment Pain and difficulty going up and down 1 flight of stairs Skilled Nursing Goal (LTG) Improve strength and mobility enabling Tanvi to go up and down one flight of stairs without pain MUCH IMPROVED Three Impairment muscle guarding and spasm of the left thoracic and lumbar paraspinals Plaster Patternmaker Goal (LTG) Reduce muscle gurading and spasm to decrease pain and improve pain free ROM GOOD PROGRESS Two Impairment postural habits and hip flexor tightness contibuting to LBP Short Term Goal (STG) Tanvi is educated on her posture for work related activies and is able to make modifications to improve her posture to decrease low back tightness GOOD PROGRESS, TANVI IS NOW STRETCHING WITH A FOAM ROLL STG Duration 5 weeks One Impairment C/O pain rated 5/10 across the low back, SI and buttocks Plaster Patternmaker Goal (LTG) Tanvi reports decreased pain reduced to 1-2/10 and is no longer experiencing radicular pain in her left LE, she is able to sit for a hour without a increase in pain sitting still increases pain and is the most difficult for Tanvi LTG Duration 8 weeks Assessment Summary Assessment Tanvi has been seen for 4 visits only since her last progress report. She is working on her posture and trying to get to the gym for exercise. Pain is intermittent in her back and sitting remains difficult. Tanvi notes relief with PT and manual therapy techniques. The plan is to continue to emphasize core strength , LE flexibility,posture, and home program. Physical Therapy Plan Frequency and Duration Frequency of Treatment 2 xms per week Duration of Treatment 8 weeks Plan of Care Start Date 02/11/19 Plan of Care End Date 04/01/19 Therapeutic Interventions Therapeutic Interventions Home Exercise Program,Manual Therapy,Patient/Caregiver Education,Self-Care/Home Management,Soft Tissue Mobilization,Therapeutic Exercises Modalities Electric Stimulation,Hot Packs Next Visit Focus/Plan Next Note Type Treatment Note Next Visit Plan continue with postural exercises and pain reduction
--- NOTE | 2019-02-25 17:49 | PT.OTN ---
Current Diagnoses Spondylolisthesis, lumbar region (02/25/19) Spinal stenosis, lumbar region without neurogenic claudication (02/25/19) Physical Therapy Treatment Note PT-OP-A Visit Information Start: 08/06/18 11:07 Freq: Status: Active Protocol: Document 02/25/19 17:46 [facility] (Rec: 02/25/19 17:48 [facility] [email or web address]) Out-Patient Physical Therapy Visit Information Visit Information Visit Type Treatment Note Visit Start Time 16:15 Visit Stop Time 17:00 Total Visit Minutes 45 Visit Number 11 PT-OP-B Current Condition Start: 08/06/18 11:07 Freq: Status: Active Protocol: Document 08/04/18 09:45 [facility] (Rec: 08/09/18 12:06 [facility] [email or web address]) Current Condition History of Current Condition Onset Date May 2018 Current Complaints c/o referred pain down the left leg, pain in the left low back and gluteals History of Current Condition 62 year old female who returns to PT today after traveling in and out of the country and aggravated low back pain. She also c/o left sided gluteal and referred pain made worse from traveling and sitting. Tanvi has a history of left sided sciatica, right ankle pain, plantar fascitis, left leg posterior tibialis rupture, spondylolistheses at L2-L3 and L4-L5, multilevel degenerative disc and facet disease. She has returned to her swimming since she has been home but despite this she is still experiencing the low back symptoms. She rates her pain asd 5/10 in the left posterior buttock and low back Treatment Goals Patient/Caregiver Goals Goals include reducing pain to be able to continue walking and swimming, working and ADL Personal Factors Other Personal Factors That May Effect Has to sit for work related Therapy/Recovery activities PT-OP-C Subjective Start: 08/06/18 11:07 Freq: Status: Active Protocol: Document 02/25/19 17:46 [facility] (Rec: 02/25/19 17:48 [facility] [email or web address]) OP-PT Subjective Patient Comments Patient Comments pt reports she has been working a lot and has been stressed. She can feel it in her back PT-OP-F Manual Assessment Start: 08/06/18 11:07 Freq: Status: Active Protocol: Document 08/04/18 09:45 [facility] (Rec: 08/09/18 12:06 [facility] [email or web address]) Manual Assessments Soft Tissue Assessment Soft Tissue Mobility Assessment Muscle guarding and spasm of the left greater than right lumbar and lower thoracic paraspinals muscle guarding of the left piriformis + sarah test B Joint Mobility Assessment Joint Mobility Assessment hypomobility thoracic spine T4 -T10 PT-OP-J Posture/Palpation/Skin Start: 08/09/18 12:07 Freq: Status: Active Protocol: Document 08/09/18 12:08 [facility] (Rec: 08/09/18 12:13 [facility] [email or web address]) Posture Evaluation Position Standing Evaluation View Lateral L-Spine Posture Neutral Shoulder Posture (L) Forward,(R) Forward Comments Posture Comments forward shift of the lumbar spine in standing, lean to the left Palpation Assessment Location One Palpation Location left lumbar spinal musculature Palpation Findings Soft Tissue Tightness,Muscle Guarding PT-OP-K Range of Motion Start: 08/09/18 12:07 Freq: Status: Active Protocol: Document 08/09/18 12:08 [facility] (Rec: 08/09/18 12:13 [facility] [email or web address]) Lumbar Spine Range of Motion Lumbar Spine Active Testing Position Standing Flexion 60 Extension 5 Rotation Left 15 Rotation Right 15 Lateral Flexion Left 15 Lateral Flexion Right 10 ROM Limitations Soft Tissue Tightness,Pain Comments pain and tightness with lumbar Sidebend Left PT-OP-M Strength Start: 08/06/18 11:07 Freq: Status: Active Protocol: Document 08/04/18 09:45 [facility] (Rec: 08/09/18 12:06 [facility] [email or web address]) Trunk Strength Trunk Manual Muscle Testing Testing Position Supine Flexion 3+ Fair+ Core Stabilization difficulty recruiting the lower abdominal wall for TA recruitment, + ASLR test B Hip Strength Hip Manual Muscle Testing Right Flexion (L2) 4 Good Extension (S1) 4 Good Abduction 4 Good External Rotation 4 Good Left Flexion (L2) 4 Good Extension (S1) 4 Good Abduction 4 Good External Rotation 4 Good PT-OP-Q Treatments Start: 08/06/18 11:07 Freq: Status: Active Protocol: Document 02/11/19 16:00 [facility] (Rec: 02/15/19 11:45 [facility] [email or web address]) Therapeutic Exercises Supine Exercises 5 Supine Exercise Name piriformis stretch Reps/Minutes hold 1 min each side 4 Supine Exercise Name double knee to chest Reps/Minutes 1 min hold 3 Supine Exercise Name single knee to chest Reps/Minutes 30 second hold 2 Supine Exercise Name TA with marches Reps/Minutes x 15 Manual Therapy Treatment Soft Tissue Mobilization 1 Body Location Thoracic, lumbar spinal musculature and piriformis Mobilization Type Myofascial Release,Strumming, Trigger Point Release Intensity/Depth Moderate Body Position Prone Joint Mobilizations 1 Joint thoracic PA glides Direction PA Grade III PT-OP-R Modalities Start: 08/06/18 11:07 Freq: Status: Active Protocol: Document 02/25/19 17:46 [facility] (Rec: 02/25/19 17:48 [facility] [email or web address]) Ultrasound Therapy Treatment Left Back Treatment Duration (minutes) 8 Patient Position Prone Coupling Medium Ultrasound Gel Applicator Size (cm2) 5 Mode Setting Continuous Duty Cycle 1.5 PT-OP-T Assessment and Plan Start: 08/06/18 11:07 Freq: Status: Active Protocol: Document 02/25/19 17:46 [facility] (Rec: 02/25/19 17:48 [facility] [email or web address]) Physical Therapy Assessment Assessment Summary Assessment Tanvi has been using her foam roll but has been working extra hours. There was increased tension in her spine today. She responds favorably to manual therapy Physical Therapy Plan Frequency and Duration Frequency of Treatment 2 xms per week Duration of Treatment 8 weeks Plan of Care Start Date 02/11/19 Plan of Care End Date 04/01/19 Next Visit Focus/Plan Next Note Type Treatment Note Next Visit Plan continue with postural exercises and pain reduction
--- NOTE | 2019-03-17 12:53 | PT.OTN ---
Current Diagnoses Spondylolisthesis, lumbar region (03/16/19) Spinal stenosis, lumbar region without neurogenic claudication (03/16/19) Physical Therapy Treatment Note PT-OP-A Visit Information Start: 08/06/18 11:07 Freq: Status: Active Protocol: Document 03/16/19 12:47 [facility] (Rec: 03/17/19 12:52 [facility] [email or web address]) Out-Patient Physical Therapy Visit Information Visit Information Visit Type Treatment Note Visit Start Time 15:15 Visit Stop Time 16:00 Total Visit Minutes 45 Visit Number 12 PT-OP-B Current Condition Start: 08/06/18 11:07 Freq: Status: Active Protocol: Document 08/04/18 09:45 [facility] (Rec: 08/09/18 12:06 [facility] [email or web address]) Current Condition History of Current Condition Onset Date May 2018 Current Complaints c/o referred pain down the left leg, pain in the left low back and gluteals History of Current Condition 62 year old female who returns to PT today after traveling in and out of the country and aggravated low back pain. She also c/o left sided gluteal and referred pain made worse from traveling and sitting. Tanvi has a history of left sided sciatica, right ankle pain, plantar fascitis, left leg posterior tibialis rupture, spondylolistheses at L2-L3 and L4-L5, multilevel degenerative disc and facet disease. She has returned to her swimming since she has been home but despite this she is still experiencing the low back symptoms. She rates her pain asd 5/10 in the left posterior buttock and low back Treatment Goals Patient/Caregiver Goals Goals include reducing pain to be able to continue walking and swimming, working and ADL Personal Factors Other Personal Factors That May Effect Has to sit for work related Therapy/Recovery activities PT-OP-C Subjective Start: 08/06/18 11:07 Freq: Status: Active Protocol: Document 03/16/19 12:47 [facility] (Rec: 03/17/19 12:52 [facility] [email or web address]) OP-PT Subjective Patient Comments Patient Comments pt would like to revisit her stretching program again next visit. She has been working a lot more and sitting more PT-OP-F Manual Assessment Start: 08/06/18 11:07 Freq: Status: Active Protocol: Document 08/04/18 09:45 [facility] (Rec: 08/09/18 12:06 [facility] [email or web address]) Manual Assessments Soft Tissue Assessment Soft Tissue Mobility Assessment Muscle guarding and spasm of the left greater than right lumbar and lower thoracic paraspinals muscle guarding of the left piriformis + sarah test B Joint Mobility Assessment Joint Mobility Assessment hypomobility thoracic spine T4 -T10 PT-OP-J Posture/Palpation/Skin Start: 08/09/18 12:07 Freq: Status: Active Protocol: Document 08/09/18 12:08 [facility] (Rec: 08/09/18 12:13 [facility] [email or web address]) Posture Evaluation Position Standing Evaluation View Lateral L-Spine Posture Neutral Shoulder Posture (L) Forward,(R) Forward Comments Posture Comments forward shift of the lumbar spine in standing, lean to the left Palpation Assessment Location One Palpation Location left lumbar spinal musculature Palpation Findings Soft Tissue Tightness,Muscle Guarding PT-OP-K Range of Motion Start: 08/09/18 12:07 Freq: Status: Active Protocol: Document 08/09/18 12:08 [facility] (Rec: 08/09/18 12:13 [facility] [email or web address]) Lumbar Spine Range of Motion Lumbar Spine Active Testing Position Standing Flexion 60 Extension 5 Rotation Left 15 Rotation Right 15 Lateral Flexion Left 15 Lateral Flexion Right 10 ROM Limitations Soft Tissue Tightness,Pain Comments pain and tightness with lumbar Sidebend Left PT-OP-M Strength Start: 08/06/18 11:07 Freq: Status: Active Protocol: Document 08/04/18 09:45 [facility] (Rec: 08/09/18 12:06 [facility] [email or web address]) Trunk Strength Trunk Manual Muscle Testing Testing Position Supine Flexion 3+ Fair+ Core Stabilization difficulty recruiting the lower abdominal wall for TA recruitment, + ASLR test B Hip Strength Hip Manual Muscle Testing Right Flexion (L2) 4 Good Extension (S1) 4 Good Abduction 4 Good External Rotation 4 Good Left Flexion (L2) 4 Good Extension (S1) 4 Good Abduction 4 Good External Rotation 4 Good PT-OP-Q Treatments Start: 08/06/18 11:07 Freq: Status: Active Protocol: Document 03/16/19 15:15 [facility] (Rec: 03/17/19 12:53 [facility] [email or web address]) Manual Therapy Treatment Soft Tissue Mobilization 2 Body Location piriformis release on the left 1 Body Location Thoracic, lumbar spinal musculature and piriformis Mobilization Type Myofascial Release,Strumming, Trigger Point Release Intensity/Depth Moderate Body Position Prone Joint Mobilizations 1 Joint thoracic PA glides Direction PA Grade III PT-OP-R Modalities Start: 08/06/18 11:07 Freq: Status: Active Protocol: Document 03/16/19 15:15 [facility] (Rec: 03/17/19 12:53 [facility] [email or web address]) Ultrasound Therapy Treatment Left Back Treatment Duration (minutes) 8 Patient Position Prone Coupling Medium Ultrasound Gel Applicator Size (cm2) 5 Mode Setting Continuous Duty Cycle 1.5 PT-OP-T Assessment and Plan Start: 08/06/18 11:07 Freq: Status: Active Protocol: Document 03/16/19 12:47 [facility] (Rec: 03/17/19 12:52 [facility] [email or web address]) Physical Therapy Assessment Assessment Summary Assessment tight in the lumbar and piriformis region today. DIscussed stretches to do during the day as Tanvi has to sit a great deal of the day for work. Physical Therapy Plan Frequency and Duration Frequency of Treatment 2 xms per week Duration of Treatment 8 weeks Plan of Care Start Date 02/11/19 Plan of Care End Date 04/01/19 Therapeutic Interventions Therapeutic Interventions Home Exercise Program,Manual Therapy,Patient/Caregiver Education,Self-Care/Home Management,Soft Tissue Mobilization,Therapeutic Exercises Modalities Electric Stimulation,Hot Packs Next Visit Focus/Plan Next Note Type Treatment Note Next Visit Plan begin treament with a review of postural exercises and stretches
--- NOTE | 2019-03-25 16:55 | PT.OTN ---
Current Diagnoses Spondylolisthesis, lumbar region (03/25/19) Spinal stenosis, lumbar region without neurogenic claudication (03/25/19) Physical Therapy Treatment Note PT-OP-A Visit Information Start: 08/06/18 11:07 Freq: Status: Active Protocol: Document 03/25/19 16:45 [facility] (Rec: 03/25/19 16:55 [facility] [email or web address]) Out-Patient Physical Therapy Visit Information Visit Information Visit Type Treatment Note Visit Start Time 15:15 Visit Stop Time 16:00 Total Visit Minutes 45 Visit Number 13 PT-OP-B Current Condition Start: 08/06/18 11:07 Freq: Status: Active Protocol: Document 08/04/18 09:45 [facility] (Rec: 08/09/18 12:06 [facility] [email or web address]) Current Condition History of Current Condition Onset Date May 2018 Current Complaints c/o referred pain down the left leg, pain in the left low back and gluteals History of Current Condition 62 year old female who returns to PT today after traveling in and out of the country and aggravated low back pain. She also c/o left sided gluteal and referred pain made worse from traveling and sitting. Tanvi has a history of left sided sciatica, right ankle pain, plantar fascitis, left leg posterior tibialis rupture, spondylolistheses at L2-L3 and L4-L5, multilevel degenerative disc and facet disease. She has returned to her swimming since she has been home but despite this she is still experiencing the low back symptoms. She rates her pain asd 5/10 in the left posterior buttock and low back Treatment Goals Patient/Caregiver Goals Goals include reducing pain to be able to continue walking and swimming, working and ADL Personal Factors Other Personal Factors That May Effect Has to sit for work related Therapy/Recovery activities PT-OP-C Subjective Start: 08/06/18 11:07 Freq: Status: Active Protocol: Document 03/25/19 16:45 [facility] (Rec: 03/25/19 16:55 [facility] [email or web address]) OP-PT Subjective Patient Comments Patient Comments Tanvi reports she wants to go through her stretches. She has also been complaining of a tightening irritation under her arm pit. Is scheduled for CT scan in April PT-OP-F Manual Assessment Start: 08/06/18 11:07 Freq: Status: Active Protocol: Document 08/04/18 09:45 [facility] (Rec: 08/09/18 12:06 [facility] [email or web address]) Manual Assessments Soft Tissue Assessment Soft Tissue Mobility Assessment Muscle guarding and spasm of the left greater than right lumbar and lower thoracic paraspinals muscle guarding of the left piriformis + sarah test B Joint Mobility Assessment Joint Mobility Assessment hypomobility thoracic spine T4 -T10 PT-OP-J Posture/Palpation/Skin Start: 08/09/18 12:07 Freq: Status: Active Protocol: Document 08/09/18 12:08 [facility] (Rec: 08/09/18 12:13 [facility] [email or web address]) Posture Evaluation Position Standing Evaluation View Lateral L-Spine Posture Neutral Shoulder Posture (L) Forward,(R) Forward Comments Posture Comments forward shift of the lumbar spine in standing, lean to the left Palpation Assessment Location One Palpation Location left lumbar spinal musculature Palpation Findings Soft Tissue Tightness,Muscle Guarding PT-OP-K Range of Motion Start: 08/09/18 12:07 Freq: Status: Active Protocol: Document 08/09/18 12:08 [facility] (Rec: 08/09/18 12:13 [facility] [email or web address]) Lumbar Spine Range of Motion Lumbar Spine Active Testing Position Standing Flexion 60 Extension 5 Rotation Left 15 Rotation Right 15 Lateral Flexion Left 15 Lateral Flexion Right 10 ROM Limitations Soft Tissue Tightness,Pain Comments pain and tightness with lumbar Sidebend Left PT-OP-M Strength Start: 08/06/18 11:07 Freq: Status: Active Protocol: Document 08/04/18 09:45 [facility] (Rec: 08/09/18 12:06 [facility] [email or web address]) Trunk Strength Trunk Manual Muscle Testing Testing Position Supine Flexion 3+ Fair+ Core Stabilization difficulty recruiting the lower abdominal wall for TA recruitment, + ASLR test B Hip Strength Hip Manual Muscle Testing Right Flexion (L2) 4 Good Extension (S1) 4 Good Abduction 4 Good External Rotation 4 Good Left Flexion (L2) 4 Good Extension (S1) 4 Good Abduction 4 Good External Rotation 4 Good PT-OP-Q Treatments Start: 08/06/18 11:07 Freq: Status: Active Protocol: Document 03/25/19 16:45 [facility] (Rec: 03/25/19 16:55 [facility] [email or web address]) Gym Equipment Cable Column (Body Solid) Rows Details 20# Reps/Time 3 x 10 Lat Pull Down Details 20 # Reps/Time 3x 10 Therapeutic Exercises Supine Exercises 5 Supine Exercise Name foam roll stretch Other Exercises 3 Other Exercise Name gave decompression exercises for the UE lymphatic system 2 Other Exercise Name 1/2 kneeling hip flexion and down dog yoga stretches Side bilateral 1 Other Exercise Name quadraped cat cow, sidebends, thoracic rotation Side bilateral Manual Therapy Treatment Soft Tissue Mobilization 2 Body Location piriformis release on the left 1 Body Location Thoracic, lumbar spinal musculature and piriformis Mobilization Type Myofascial Release,Strumming, Trigger Point Release Intensity/Depth Moderate Body Position Prone PT-OP-R Modalities Start: 08/06/18 11:07 Freq: Status: Active Protocol: Document 03/16/19 15:15 [facility] (Rec: 03/17/19 12:53 [facility] [email or web address]) Ultrasound Therapy Treatment Left Back Treatment Duration (minutes) 8 Patient Position Prone Coupling Medium Ultrasound Gel Applicator Size (cm2) 5 Mode Setting Continuous Duty Cycle 1.5 PT-OP-T Assessment and Plan Start: 08/06/18 11:07 Freq: Status: Active Protocol: Document 03/25/19 16:45 [facility] (Rec: 03/25/19 16:55 [facility] [email or web address]) Physical Therapy Assessment Assessment Summary Assessment Viewed Tanvi's armpit today. Possible She had had a biopsy of a mole on her right axilla region. It was after this she felt swollen. Due to her history of masectomy her symptoms of swelling may be a early onset of lymphadema. I have her some decompression gentle exercises to do and she is getting a CT scan done in early April. At this point she will be discharged to a home exercise program for her back. Physical Therapy Plan Discharge Physical Therapy Discharge Comments Pt is at the end of her PT visits for the year. We will DC PT at this time
== END 2019-09-28 12:16 ==
LOC: PHYS 15:15
PROVIDERS: PCP Internal Medicine; Visit Provider Internal Medicine
DX: M43.16 Spondylolisthesis, lumbar region (principal); M48.061 Spinal stenosis, lumbar region without neurogenic claudication
CPT/HCPCS: 97014; 97035; 97110; 97140; 97161; G0283

== ENCOUNTER → 2019-12-30 13:40 | Outpatient (CLI) | payer MEDICARE, OTHER, SELFPAY ==
--- NOTE | 2019-12-30 | DI.RAD.S_ITS ---
PROCEDURE: XR DEXA AXIAL SKELETON INDICATIONS: Asymptomatic menopausal state COMPARISON: [facility], CR, XR DEXA AXIAL SKELETON, 04/02/2018, 14:46. FINDINGS: This blank DEXA report has been sent in error by the PACS system. The correct and complete report will be forthcoming in 1-2 days. Thank you for your patience and understanding. Dictated by: Cathie Shine MD, PhD on 12/30/2019 at 17:27 Approved by: Cathie Shine MD, PhD on 12/30/2019 at 17:27
== END ==
PROVIDERS: PCP Student in an Organized Health Care Education/Training Program; Referring Provider Student in an Organized Health Care Education/Training Program; Visit Provider Student in an Organized Health Care Education/Training Program
DX: M85.852 Other specified disorders of bone density and structure, left thigh (principal); Z78.0 Asymptomatic menopausal state; Z85.3 Personal history of malignant neoplasm of breast
CPT/HCPCS: 77080

== ENCOUNTER → 2020-05-08 09:18 | Outpatient (CLI) | payer MEDICARE, OTHER, SELFPAY ==
[2020-05-08 11:51] LABS: COVID19 -Nasal RAPID Negative (Negative)
== END ==
PROVIDERS: PCP Student in an Organized Health Care Education/Training Program; Visit Provider Physician Assistant
DX: Z01.812 Encounter for preprocedural laboratory examination (principal); Z20.822 Contact with and (suspected) exposure to COVID-19
CPT/HCPCS: 87635; C9803

== ENCOUNTER 2020-05-10 12:51 | Day surgery (SDC) | payer MEDICARE, OTHER, SELFPAY ==
[2020-05-10] VITALS (9 sets, daily range): BP systolic 128–161; BP diastolic 77–88; PULSE 69–83; RESP 12–16; TEMP 36.4–37.3; O2SAT 99–100; BMI 23.3
--- NOTE | 2020-05-10 | PATH_ITS ---
[facility] Accession Number: [id number] . 01 Material submitted: . PART A: gastrointestinal site - GASTRIC POLYP PART B: cecum - CECAL POLYPS PART C: colon - ASCENDING COLON POLYP PART D: colon - TRANSVERSE COLON POLYP . 01 Clinical history: . B: POLYP X2 . 02 Diagnosis: A. Stomach, Polyp, Biopsy: Fundic gland polyps. No evidence of Helicobacter on H/E stain. Negative for intestinal metaplasia. Negative for dysplasia and malignancy. . B. Cecum, Polyps x2, Biopsies: Tubular adenoma. Sessile serrated adenoma. . C. Ascending Colon, Polyp, Biopsy: Tubular adenoma. . D. Transverse Colon, Polyp, Biopsy: Serrated lesion, favor sessile serrated adenoma. [facility] 05/15/2020 1343 Local . 02 Electronically signed: . Alena Cantu MD, Pathologist NPI- [id number] . 01 Gross description: . Part A: GASTRIC POLYP: Received in formalin is 1 fragment(s) of milton, soft tissue measuring 0.3 x 0.2 x 0.2 cm submitted entirely in 1 cassette(s) Part B: CECAL POLYPS: Received in formalin are multiple fragment(s) of milton, soft tissue measuring 0.1 x 0.1 x 0.1 cm to 0.6 x 0.5 x 0.5 cm submitted entirely in 1 cassette(s) Part C: ASCENDING COLON POLYP: Received in formalin are 2 fragment(s) of milton, soft tissue measuring 0.1 x 0.1 x 0.1 cm to 0.4 x 0.3 x 0.2 cm submitted entirely in 1 cassette(s) Part D: TRANSVERSE COLON POLYP: Received in formalin are 2 fragment(s) of milton, soft tissue measuring 0.1 x 0.1 x 0.1 cm to 0.5 x 0.3 x 0.2 cm submitted entirely in 1 cassette(s) /[facility]ALON 05/11/[address] [place] [address] . 02 Pathologist provided ICD-10: D12.0, D12.2, D12.3 . 02 CPT . 337067, [id number], [id number], [id number] Performed at: 01 [facility] [address] [place] [address], [place], [place] [id number] MD Akash Worthington MD Phone: [phone] Performed at: [facility] [address] [place], [place] [id number] MD Alena Cantu MD Phone: [phone]
--- NOTE | 2020-05-10 11:09 | P.HP_ITS ---
History of Present Illness History of Present Illness Date Patient Seen: 05/10/20 Chief complaint: EGD/SCREENING COLONOSCOPY Narrative: 64-year-old female with a history of GERD who is here for further evaluation by means of EGD and there is here for a screening colonoscopy Patient History Medical History (Updated 09/04/17 @ 09:35 by Nataliia Warner) Ankle pain (~2011) Breast cancer (~2007) Chickenpox GERD (gastroesophageal reflux disease) (~1999) Osteopenia (~2013) Surgical History (Updated 09/04/17 @ 09:35 by Nataliia Warner) Anesthesia Status post mastectomy (~2008) Family & Social History Family History (Updated 09/08/15 @ 00:00 by Conversion Provider) Mother Heart disease Social History: household members spouse Tobacco & Substance use: Smoking Status Never smoker Meds Home Medications and Allergies Home Medications Medication Instructions Recorded Confirmed Type lisinopril 5 mg PO QDAY #0 10/31/12 11/04/18 History lidocaine HCl 2 % mucosal jelly See Rx Instructions .ROUTE 03/15/19 Rx .COMPLEX #30 milliliter pantoprazole 20 mg PO DAILY 05/10/20 05/10/20 History simvastatin 10 mg PO BEDTIME 05/10/20 05/10/20 History Allergies Allergy/AdvReac Type Severity Reaction Status Date / Time No Known Drug Allergies Allergy Verified 05/10/20 13:06 Exam Narrative Exam Narrative: General: Patient is well developed, not in apparent distress Cardiovascular: Regular rate and rhythm, no murmurs, rubs, or gallops; no evidence of edema; no palpable abdominal aortic aneurysm Gastrointestinal: Normoactive bowel sounds, soft, nontender, nondistended, no rebound tenderness, no hepatosplenomegaly, no evidence of hernia Assessment & Plan Assessment & Plan narrative: 64-year-old [place] female with history of GERD is here for further evaluation negative EGD and for colon cancer screening Regarding the procedure(s), the risks and potential complications, benefits, and alternatives (including not doing the procedure) were discussed with the patient. The risks include but are not limited to bleeding, splenic injury, infection, perforation which may require surgical intervention, missed lesions, and adverse reactions to sedative medicines. After a question and answer period, the patient agreed to proceed with the procedure(s) and gives informed consent.
[2020-05-10] MEDS: SODIUM CHLORIDE 0.9% 1,000 ML 70 ML IV (13:30)
--- NOTE | 2020-05-10 13:36 | PM.OP.ENDO ---
Operative Date/Time/Diagnoses Date of procedure: 05/10/20 Procedure Notes Procedure in detail: Surgeon: Brad Perez MD Procedure: Esophagogastroduodenoscopy with biopsy and colonoscopy with polypectomy Preoperative diagnosis: GERD, CRC screening Postoperative diagnosis: Small hiatal hernia, gastric polyps s/p patient financial representative biopsy; colon polyps x4 status post polypectomy, grade 1 internal hemorrhoids Medications: Lidocaine gargle, Conscious sedation using 4 mg IV of Midazolam and 100 mcg IV of Fentanyl (for EGD); 4 mg IV of Midazolam and 100 mcg IV of Fentanyl (total for both procedures) Preanesthesia Assessment An H and P was performed/updated and the Px?s ASA class is 2. The procedure was discussed in detail with the patient. The potential risks and complications including infection, bleeding, missed lesions, perforation, need for surgery in case of perforation, prolonged hospital stay, and were explained. A brief question and answer period was allotted and once all questions were answered, informed consent was obtained. The patient was brought back to the procedure room and placed on standard monitoring. The patient?s vital signs were monitored continuously throughout the entire procedure. Prior to starting, a timeout was performed to confirm the patient?s identity, allergies, medications, and procedure. Procedure in detail The patient was placed in left lateral decubitus position and a bite block was inserted. The tip of the upper endoscope was placed into the mouth and advanced without difficulty under direct visualization into the esophagus. Esophagus: The esophageal lumen appeared normal with no evidence of esophagitis. GE Hill classification 4 Stomach: Retroflexion was performed and stomach which revealed a small hiatal hernia; their note of multiple gastric polyps in the gastric body measuring 3 to 6 cm some of which were sessile and some of which were semi pedunculated; patient financial representative biopsy was taken from the larger polyp with minimal bleeding Duodenum: The visualized duodenal mucosa to the 2nd portion of the duodenum appeared normal After the upper endoscopy, preparations were made for the colonoscopy. Once adequate sedation was obtained a NELLY was performed. The digital rectal examination did not reveal any palpable lesions. The tip of the colonoscope was placed in the anal canal and advanced without difficulty all the way to the cecum which was identified by the appendiceal orifice and the ileocecal valve. The terminal ileum was intubated a distance of 5 cm from the ileocecal valve and the mucosa was noted to normal. The colonoscope was brought back to the cecum and careful examination of all bridges of the colon was performed with irrigation of any residual stool In the cecum, there was note of 2 sessile polyps measuring 3 to 7 mm. The polyps were removed by cold snare and hot snare respectively. Resection and retrieval were complete with minimal bleed In the ascending colon, there was note of a 4 mm semi pedunculated polyp which was removed by means of cold snare. Resection retrieval was complete with minimal bleeding In the transverse colon, there was note of a 2 mm sessile polyp which was removed by means of cold Jumbo forceps. Resection and retrieval was complete with minimal bleeding Retroflexion was performed in the rectum which revealed grade 1 internal hemorrhoids The patient tolerated the procedure well and will be brought back to the recovery area to be discharged once criteria are met. The prep was judged to be good and adequate to identify polyps less than 5 mm. The withdrawal time was 12 minutes. The total physician intraservice time was 26 minutes. Complications There were no complications and estimated blood loss was minimal. Recommendations Resume previous diet Anti-reflux measures Continue outpatient medications Follow-up pathology results Repeat colonoscopy in 3 or 5 years depending on pathology results Follow-up with me ([facility]) in 2 months to reassess reflux symptoms An emergency contact number was given to the patient for any complications related to the procedure
[2020-05-10] MEDS: fentaNYL 250 MCG/5 ML INJ IV (13:41)
[2020-05-10] MEDS: MIDAZOLAM 5 MG/5 ML VIAL IV (13:41)
[2020-05-10] MEDS: LIDOCAINE 4% SOLN 50 ML 20 ML TOP (13:50)
--- NOTE | 2020-05-10 15:21 | SUR.PHASEII ---
Pt has met discharge criteria: VSS, denied pain or nausea, able to drink fluids without difficulty. Discharge instructions discussed with patient, all questions answered. Transported via W/C to private vehicle.
== END 2020-05-10 15:20 | disposition home or self-care (01) ==
PROVIDERS: PCP Student in an Organized Health Care Education/Training Program; Referring Provider Internal Medicine Gastroenterology; Visit Provider Internal Medicine Gastroenterology
PROC: 0DJ08ZZ Inspection of Upper Intestinal Tract, Via Natural or Artificial Opening Endoscopic (ICD-10-PCS; CPT 43235; principal; 2020-05-10 14:00)
PROC: 0DJD8ZZ Inspection of Lower Intestinal Tract, Via Natural or Artificial Opening Endoscopic (ICD-10-PCS; CPT 45378; 2020-05-10 14:00)
DX: Z12.11 Encounter for screening for malignant neoplasm of colon (principal); K21.9 Gastro-esophageal reflux disease without esophagitis; K44.9 Diaphragmatic hernia without obstruction or gangrene; K64.0 First degree hemorrhoids; D12.0 Benign neoplasm of cecum; D12.2 Benign neoplasm of ascending colon; D12.3 Benign neoplasm of transverse colon; K31.7 Polyp of stomach and duodenum
CPT/HCPCS: 45385; 45380; 43239; J2250; J3010

== ENCOUNTER 2020-07-05 10:30 | Outpatient (RCR) | payer MEDICARE, OTHER, SELFPAY ==
--- NOTE | 2020-02-01 17:56 | PT.OIE ---
Current Diagnoses Low back pain (02/03/20) Past Medical History (Last Updated 09/04/17 @ 09:35 by Nataliia Warner) Ankle pain (Chronic ~2011) Breast cancer (Resolved ~2007) Chickenpox (Resolved) GERD (gastroesophageal reflux disease) (Chronic ~1999) Osteopenia (Chronic ~2013) Past Surgical History (Last Updated 09/04/17 @ 09:35 by Nataliia Warner) Anesthesia (Inactive) Status post mastectomy (Resolved ~2008) Visit Care Team Role Provider Type Betsy Wallis MD Attending Provider Physician Primary Care Provider Referring Provider Specialty: Family Practice Address: [address] [place] [address], [facility] Email: [email or web address] Physical Therapy Initial Evaluation PT-OP-A Visit Information Start: 02/01/20 12:00 Freq: Status: Active Protocol: Document 02/01/20 12:01 [facility] (Rec: 02/01/20 12:06 [facility] [email or web address]) Out-Patient Physical Therapy Visit Information Visit Information Visit Type Initial Evaluation Visit Start Time 10:30 Visit Stop Time 11:15 Total Visit Minutes 45 Visit Number 1 Evaluation Information Evaluation Date 02/01/20 PT-OP-B Current Condition Start: 02/01/20 12:00 Freq: Status: Active Protocol: Document 02/01/20 12:01 [facility] (Rec: 02/01/20 12:06 [facility] [email or web address]) Current Condition History of Current Condition Onset Date May 2018 Current Complaints c/o referred pain into the left low back and gluteals History of Current Condition 64 year old female who returns to PT today after traveling in and out of the country and aggravated low back pain. She also c/o left sided gluteal and referred pain made worse from traveling and sitting. Tanvi has a history of left sided sciatica, right ankle pain, plantar fascitis, left leg posterior tibialis rupture, spondylolistheses at L2-L3 and L4-L5, multilevel degenerative disc and facet disease. SHe has not been able to use the gym and hasn't returned to the pool since the covid 19 pandemic began. She rates her pain as 5/10 in the left posterior buttock and low back Treatment Goals Patient/Caregiver Goals Goals include reducing pain to be able to continue walking and swimming, working and ADL Prior Functional Status Baseline Function- ADL's Independent Baseline Function- Mobility Independent Current Functional Impairments (Reported) Functional Limitations- Work/School pain with long duration sitting at work, pain prevents her from sitting more than 1 hour Personal Factors Other Personal Factors That May Effect Has to sit for work related Therapy/Recovery activities PT-OP-C Subjective Start: 02/01/20 12:00 Freq: Status: Active Protocol: Document 02/01/20 17:36 [facility] (Rec: 02/03/20 17:55 [facility] [id number]) OP-PT Pain Assessment Location Left Posterior Back Intensity 6 Scale Used Numeric (0 - 10) Radiating Location pain radiates to the gluteals Pain Aggravating Factors Sitting Other Pain Alleviating Factors swiming and walking and going to the gym Comments Pain Comments Tanvi has not returned to the gym or the pool due to the covic 19 pandemic. She has gotten tighter in her muscles due to this PT-OP-F Manual Assessment Start: 02/01/20 12:00 Freq: Status: Active Protocol: Document 02/01/20 17:36 [facility] (Rec: 02/03/20 17:55 [facility] [id number]) Manual Assessments Soft Tissue Assessment Soft Tissue Mobility Assessment Muscle guarding and spasm of the left greater than right lumbar and lower thoracic paraspinals muscle guarding of the left piriformis + sarah test B PT-OP-J Posture/Palpation/Skin Start: 02/01/20 12:00 Freq: Status: Active Protocol: Document 02/01/20 17:36 [facility] (Rec: 02/03/20 17:55 [facility] [id number]) Posture Evaluation Comments Posture Comments forward shift of the lumbar spine in standing, lean to the left Palpation Assessment Location left piriformis Palpation Location left piriformis Palpation Findings Soft Tissue Tightness,Muscle Guarding,Tenderness One Palpation Location bilateral lumbar spinal musculature Palpation Findings Soft Tissue Tightness,Muscle Guarding PT-OP-K Range of Motion Start: 02/01/20 12:00 Freq: Status: Active Protocol: Document 02/01/20 17:36 [facility] (Rec: 02/03/20 17:55 [facility] [id number]) Lumbar Spine Range of Motion Lumbar Spine Active Flexion 45 Extension 5 Rotation Left 15 Rotation Right 15 Lateral Flexion Left 15 Lateral Flexion Right 10 Comments pain and tightness with lumbar Sidebend Left PT-OP-Q Treatments Start: 02/01/20 12:00 Freq: Status: Active Protocol: Document 02/01/20 17:36 [facility] (Rec: 02/03/20 17:55 [facility] [id number]) Therapeutic Exercises Supine Exercises 3 Supine Exercise Name single knee to chest Reps/Minutes 30 second hold 1 Supine Exercise Name foam roll stretch Reps/Minutes 3 min Other Exercises 2 Other Exercise Name 1/2 kneeling hip flexion and down dog yoga stretches Side bilateral 1 Other Exercise Name quadraped cat cow, sidebends, thoracic rotation Side bilateral PT-OP-T Assessment and Plan Start: 02/01/20 12:00 Freq: Status: Active Protocol: Document 02/01/20 17:36 [facility] (Rec: 02/03/20 17:55 [facility] [id number]) Physical Therapy Assessment Rehab Potential Rehabilitation Potential Good Impairments Impairments Activity Tolerance,Pain, Posture,ROM,Soft Tissue Mobility,Strength Goals Four Impairment Pain prevents her from sitting greater than 1 hour Jail Goal (LTG) Tanvi is given a stretching program to help reduce tension in both her hip flexors as well as her lumbar paraspinals . She is able to tolerate sitting at work without increase c/o pain. LTG Duration 8 weeks Three Impairment muscle guarding and spasm of the left thoracic and lumbar paraspinals Manager Recruitment Goal (LTG) Reduce muscle gurading and spasm to decrease pain and improve pain free RO LTG Duration 8 weeks Two Impairment postural habits and hip flexor tightness contibuting to LBP Short Term Goal (STG) Tanvi is educated on her posture for work related activies and is able to make modifications to improve her posture to decrease low back tightness STG Duration 5 weeks One Impairment C/O pain rated 6/10 across the low back, SI and buttocks Jail Goal (LTG) Tanvi reports decreased pain reduced to 1-2/10 and is no longer experiencing radicular pain in her left gluteal, she is able to sit for a hour without a increase in pain LTG Duration 8 weeks Assessment Summary Assessment Tanvi is a 64 year old female who returns to PT today with complains of low back pain left greater than right and referred pain into the left gluteals. She has been seen previously in PT for stretches and exercises for her back. Tanvi reports she was in a good routine with her exercises until the covid 19 pandemic. She is no longer going to the gym or the pool and both of these activities helped to keep her low back muscles from spasming. With evaluation today Tanvi is very limited in her hip flexors B. She is standing with a forward lean and a lean to the left. She has limited lumbar ROM into flexion and has pain with extension. There is muscle guarding and spasm in her lumbar parapsinals and left piriformis. Today i started her with a gentle stretching program which she tolerated well. Treatment will progress to stabilization exercises, walking program, postural program, manual therapy techniques and stretching program. Physical Therapy Plan Frequency and Duration Frequency of Treatment 2 xms per week Duration of Treatment 8 weeks Plan of Care Start Date 02/01/20 Plan of Care End Date 03/28/20 Therapeutic Interventions Therapeutic Interventions Home Exercise Program,Manual Therapy,Patient/Caregiver Education,Self-Care/Home Management,Soft Tissue Mobilization,Therapeutic Exercises Modalities Electric Stimulation,Hot Packs Next Visit Focus/Plan Next Note Type Treatment Note Next Visit Plan Begin the foam roll stretch, iliopsoas stretches, postural program and manual therapy techniques to help reduce muscle spasm in the low back.
--- NOTE | 2020-02-01 17:56 | PT.OPPOC ---
Physical, Occupational & Speech Therapy At [facility] Current Diagnoses Low back pain (02/03/20) Visit Care Team Role Provider Type Betsy Wallis MD Attending Provider Physician Primary Care Provider Referring Provider Specialty: Family Practice Address: [address] [place] [address], [facility] [place], [address] Email: [email or web address] Plan Of Care PT-OP-T Assessment and Plan Start: 02/01/20 12:00 Freq: Status: Active Protocol: Document 02/01/20 17:36 [facility] (Rec: 02/03/20 17:55 [facility] [id number]) Physical Therapy Assessment Rehab Potential Rehabilitation Potential Good Impairments Impairments Activity Tolerance,Pain, Posture,ROM,Soft Tissue Mobility,Strength Goals Four Impairment Pain prevents her from sitting greater than 1 hour 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 She is able to tolerate sitting at work without increase c/o pain. LTG Duration 8 weeks Three Impairment muscle guarding and spasm of the left thoracic and lumbar paraspinals [employer] Of Commission Department Goal (LTG) Reduce muscle gurading and spasm to decrease pain and improve pain free RO LTG Duration 8 weeks Two Impairment postural habits and hip flexor tightness contibuting to LBP Short Term Goal (STG) Tanvi is educated on her posture for work related activies and is able to make modifications to improve her posture to decrease low back tightness STG Duration 5 weeks One Impairment C/O pain rated 6/10 across the low back, SI and buttocks Snf Goal (LTG) Tanvi reports decreased pain reduced to 1-2/10 and is no longer experiencing radicular pain in her left gluteal, she is able to sit for a hour without a increase in pain LTG Duration 8 weeks Assessment Summary Assessment Tanvi is a 64 year old female who returns to PT today with complains of low back pain left greater than right and referred pain into the left gluteals. She has been seen previously in PT for stretches and exercises for her back. Tanvi reports she was in a good routine with her exercises until the covid 19 pandemic. She is no longer going to the gym or the pool and both of these activities helped to keep her low back muscles from spasming. With evaluation today Tanvi is very limited in her hip flexors B. She is standing with a forward lean and a lean to the left. She has limited lumbar ROM into flexion and has pain with extension. There is muscle guarding and spasm in her lumbar parapsinals and left piriformis. Today i started her with a gentle stretching program which she tolerated well. Treatment will progress to stabilization exercises, walking program, postural program, manual therapy techniques and stretching program. Physical Therapy Plan Frequency and Duration Frequency of Treatment 2 xms per week Duration of Treatment 8 weeks Plan of Care Start Date 02/01/20 Plan of Care End Date 03/28/20 Therapeutic Interventions Therapeutic Interventions Home Exercise Program,Manual Therapy,Patient/Caregiver Education,Self-Care/Home Management,Soft Tissue Mobilization,Therapeutic Exercises Modalities Electric Stimulation,Hot Packs Next Visit Focus/Plan Next Note Type Treatment Note Next Visit Plan Begin the foam roll stretch, iliopsoas stretches, postural program and manual therapy techniques to help reduce muscle spasm in the low back. Plan of Care Dates Plan of Care Start Date 02/01/20 Plan of Care End Date 03/28/20 Electronically Signed by: Darling Schumacher, PT 02/03/20 [id number] Please Sign and Return: I have reviewed this Plan of Care and certify that the skilled therapy services above are required to meet the patient?s needs. Physician Signature Date Printed Name and Credentials Clinical Instructor Signature Printed Name and Credentials
--- NOTE | 2020-02-03 17:49 | PT.OTN ---
Current Diagnoses Low back pain (02/15/20) Physical Therapy Treatment Note PT-OP-A Visit Information Start: 02/01/20 12:00 Freq: Status: Active Protocol: Document 02/03/20 17:57 [facility] (Rec: 02/03/20 18:02 [facility] [id number]) Out-Patient Physical Therapy Visit Information Visit Information Visit Type Treatment Note Visit Start Time 15:15 Visit Stop Time 16:00 Total Visit Minutes 45 Visit Number 2 PT-OP-B Current Condition Start: 02/01/20 12:00 Freq: Status: Active Protocol: Document 02/01/20 12:01 [facility] (Rec: 02/01/20 12:06 [facility] [id number]) Current Condition History of Current Condition Onset Date May 2018 Current Complaints c/o referred pain into the left low back and gluteals History of Current Condition 64 year old female who returns to PT today after traveling in and out of the country and aggravated low back pain. She also c/o left sided gluteal and referred pain made worse from traveling and sitting. Tanvi has a history of left sided sciatica, right ankle pain, plantar fascitis, left leg posterior tibialis rupture, spondylolistheses at L2-L3 and L4-L5, multilevel degenerative disc and facet disease. SHe has not been able to use the gym and hasn't returned to the pool since the covid 19 pandemic began. She rates her pain as 5/10 in the left posterior buttock and low back Treatment Goals Patient/Caregiver Goals Goals include reducing pain to be able to continue walking and swimming, working and ADL Prior Functional Status Baseline Function- ADL's Independent Baseline Function- Mobility Independent Current Functional Impairments (Reported) Functional Limitations- Work/School pain with long duration sitting at work, pain prevents her from sitting more than 1 hour Personal Factors Other Personal Factors That May Effect Has to sit for work related Therapy/Recovery activities PT-OP-C Subjective Start: 02/01/20 12:00 Freq: Status: Active Protocol: Document 02/03/20 17:57 [facility] (Rec: 02/03/20 18:02 [facility] [id number]) OP-PT Subjective Patient Comments Patient Comments Tanvi reports she did really well after her first visit PT-OP-F Manual Assessment Start: 02/01/20 12:00 Freq: Status: Active Protocol: Document 02/01/20 17:36 [facility] (Rec: 02/03/20 17:55 [facility] [id number]) Manual Assessments Soft Tissue Assessment Soft Tissue Mobility Assessment Muscle guarding and spasm of the left greater than right lumbar and lower thoracic paraspinals muscle guarding of the left piriformis + sarah test B PT-OP-J Posture/Palpation/Skin Start: 02/01/20 12:00 Freq: Status: Active Protocol: Document 02/01/20 17:36 [facility] (Rec: 02/03/20 17:55 [facility] [id number]) Posture Evaluation Comments Posture Comments forward shift of the lumbar spine in standing, lean to the left Palpation Assessment Location left piriformis Palpation Location left piriformis Palpation Findings Soft Tissue Tightness,Muscle Guarding,Tenderness One Palpation Location bilateral lumbar spinal musculature Palpation Findings Soft Tissue Tightness,Muscle Guarding PT-OP-K Range of Motion Start: 02/01/20 12:00 Freq: Status: Active Protocol: Document 02/01/20 17:36 [facility] (Rec: 02/03/20 17:55 [facility] [id number]) Lumbar Spine Range of Motion Lumbar Spine Active Flexion 45 Extension 5 Rotation Left 15 Rotation Right 15 Lateral Flexion Left 15 Lateral Flexion Right 10 Comments pain and tightness with lumbar Sidebend Left PT-OP-Q Treatments Start: 02/01/20 12:00 Freq: Status: Active Protocol: Document 02/03/20 17:57 [facility] (Rec: 02/03/20 18:02 [facility] [id number]) Gym Equipment Cable Column (Body Solid) Rows Details 20# Reps/Time 2 x 10 Lat Pull Down Details 20 # Reps/Time 2 x 10 Therapeutic Exercises Other Exercises 2 Other Exercise Name 1/2 kneeling hip flexion and down dog yoga stretches Side bilateral 1 Other Exercise Name quadraped cat cow, sidebends, thoracic rotation Side bilateral Manual Therapy Treatment Soft Tissue Mobilization 2 Body Location piriformis release on the left 1 Body Location Thoracic, lumbar spinal musculature and piriformis Mobilization Type Myofascial Release,Strumming, Trigger Point Release Intensity/Depth Moderate Body Position Prone Comments over body pillow PT-OP-T Assessment and Plan Start: 02/01/20 12:00 Freq: Status: Active Protocol: Document 02/03/20 17:57 [facility] (Rec: 02/03/20 18:02 [facility] [id number]) Physical Therapy Assessment Assessment Summary Assessment Tanvi was able to return to the lat pull down and seated rows today with good form. I worked on soft tissue from her lumbar paraspinals and piriformis Physical Therapy Plan Frequency and Duration Frequency of Treatment 2 xms per week Duration of Treatment 8 weeks Plan of Care Start Date 02/01/20 Plan of Care End Date 03/28/20 Therapeutic Interventions Therapeutic Interventions Home Exercise Program,Manual Therapy,Patient/Caregiver Education,Self-Care/Home Management,Soft Tissue Mobilization,Therapeutic Exercises Modalities Electric Stimulation,Hot Packs Next Visit Focus/Plan Next Note Type Treatment Note Next Visit Plan Progress stretches, manual therapy work and core stabilization. Pt okayed to stay and ride the bike following treatment as she hasn't been able to do this at the gym
--- NOTE | 2020-02-15 17:51 | PT.OTN ---
Current Diagnoses Low back pain (02/15/20) Physical Therapy Treatment Note PT-OP-A Visit Information Start: 02/01/20 12:00 Freq: Status: Active Protocol: Document 02/15/20 16:50 [facility] (Rec: 02/03/20 18:02 [facility] [id number]) Out-Patient Physical Therapy Visit Information Visit Information Visit Type Treatment Note Visit Start Time 15:15 Visit Stop Time 16:00 Total Visit Minutes 45 Visit Number 3 PT-OP-B Current Condition Start: 02/01/20 12:00 Freq: Status: Active Protocol: Document 02/01/20 12:01 [facility] (Rec: 02/01/20 12:06 [facility] [id number]) Current Condition History of Current Condition Onset Date May 2018 Current Complaints c/o referred pain into the left low back and gluteals History of Current Condition 64 year old female who returns to PT today after traveling in and out of the country and aggravated low back pain. She also c/o left sided gluteal and referred pain made worse from traveling and sitting. Tanvi has a history of left sided sciatica, right ankle pain, plantar fascitis, left leg posterior tibialis rupture, spondylolistheses at L2-L3 and L4-L5, multilevel degenerative disc and facet disease. SHe has not been able to use the gym and hasn't returned to the pool since the covid 19 pandemic began. She rates her pain as 5/10 in the left posterior buttock and low back Treatment Goals Patient/Caregiver Goals Goals include reducing pain to be able to continue walking and swimming, working and ADL Prior Functional Status Baseline Function- ADL's Independent Baseline Function- Mobility Independent Current Functional Impairments (Reported) Functional Limitations- Work/School pain with long duration sitting at work, pain prevents her from sitting more than 1 hour Personal Factors Other Personal Factors That May Effect Has to sit for work related Therapy/Recovery activities PT-OP-C Subjective Start: 02/01/20 12:00 Freq: Status: Active Protocol: Document 02/15/20 16:50 [facility] (Rec: 02/03/20 18:02 [facility] [id number]) OP-PT Subjective Patient Comments Patient Comments Tanvi reports she has been working on her stretches at home PT-OP-F Manual Assessment Start: 02/01/20 12:00 Freq: Status: Active Protocol: Document 02/01/20 17:36 [facility] (Rec: 02/03/20 17:55 [facility] [id number]) Manual Assessments Soft Tissue Assessment Soft Tissue Mobility Assessment Muscle guarding and spasm of the left greater than right lumbar and lower thoracic paraspinals muscle guarding of the left piriformis + sarah test B PT-OP-J Posture/Palpation/Skin Start: 02/01/20 12:00 Freq: Status: Active Protocol: Document 02/01/20 17:36 [facility] (Rec: 02/03/20 17:55 [facility] [id number]) Posture Evaluation Comments Posture Comments forward shift of the lumbar spine in standing, lean to the left Palpation Assessment Location left piriformis Palpation Location left piriformis Palpation Findings Soft Tissue Tightness,Muscle Guarding,Tenderness One Palpation Location bilateral lumbar spinal musculature Palpation Findings Soft Tissue Tightness,Muscle Guarding PT-OP-K Range of Motion Start: 02/01/20 12:00 Freq: Status: Active Protocol: Document 02/01/20 17:36 [facility] (Rec: 02/03/20 17:55 [facility] [id number]) Lumbar Spine Range of Motion Lumbar Spine Active Flexion 45 Extension 5 Rotation Left 15 Rotation Right 15 Lateral Flexion Left 15 Lateral Flexion Right 10 Comments pain and tightness with lumbar Sidebend Left PT-OP-Q Treatments Start: 02/01/20 12:00 Freq: Status: Active Protocol: Document 02/15/20 16:50 [facility] (Rec: 02/03/20 18:02 [facility] [id number]) Gym Equipment Cable Column (Body Solid) Rows Details 20# Reps/Time 2 x 10 Lat Pull Down Details 20 # Reps/Time 2 x 10 Therapeutic Exercises Other Exercises 2 Other Exercise Name 1/2 kneeling hip flexion and down dog yoga stretches Side bilateral 1 Other Exercise Name quadraped cat cow, sidebends, thoracic rotation Side bilateral Manual Therapy Treatment Soft Tissue Mobilization 2 Body Location piriformis release on the left 1 Body Location Thoracic, lumbar spinal musculature and piriformis Mobilization Type Myofascial Release,Strumming, Trigger Point Release Intensity/Depth Moderate Body Position Prone Comments over body pillow PT-OP-T Assessment and Plan Start: 02/01/20 12:00 Freq: Status: Active Protocol: Document 02/15/20 16:50 [facility] (Rec: 02/03/20 18:02 [facility] [id number]) Physical Therapy Assessment Assessment Summary Assessment Tanvi was able to return to the lat pull down and seated rows today with good form. I worked on soft tissue from her lumbar paraspinals and piriformis Physical Therapy Plan Frequency and Duration Frequency of Treatment 2 xms per week Duration of Treatment 8 weeks Plan of Care Start Date 02/01/20 Plan of Care End Date 03/28/20 Therapeutic Interventions Therapeutic Interventions Home Exercise Program,Manual Therapy,Patient/Caregiver Education,Self-Care/Home Management,Soft Tissue Mobilization,Therapeutic Exercises Modalities Electric Stimulation,Hot Packs Next Visit Focus/Plan Next Note Type Treatment Note Next Visit Plan Progress stretches, manual therapy work and core stabilization. Pt okayed to stay and ride the bike following treatment as she hasn't been able to do this at the gym
--- NOTE | 2020-04-19 15:15 | PT.OTN ---
Current Diagnoses Low back pain (04/18/20) Physical Therapy Treatment Note PT-OP-A Visit Information Start: 02/01/20 12:00 Freq: Status: Active Protocol: Document 04/18/20 11:28 [facility] (Rec: 04/18/20 11:28 [facility] [id number]) Out-Patient Physical Therapy Visit Information Visit Information Visit Type Progress Note Visit Start Time 09:00 Visit Stop Time 09:45 Total Visit Minutes 45 Visit Number 4 PT-OP-B Current Condition Start: 02/01/20 12:00 Freq: Status: Active Protocol: Document 02/01/20 12:01 [facility] (Rec: 02/01/20 12:06 [facility] [id number]) Current Condition History of Current Condition Onset Date May 2018 Current Complaints c/o referred pain into the left low back and gluteals History of Current Condition 64 year old female who returns to PT today after traveling in and out of the country and aggravated low back pain. She also c/o left sided gluteal and referred pain made worse from traveling and sitting. Tanvi has a history of left sided sciatica, right ankle pain, plantar fascitis, left leg posterior tibialis rupture, spondylolistheses at L2-L3 and L4-L5, multilevel degenerative disc and facet disease. SHe has not been able to use the gym and hasn't returned to the pool since the covid 19 pandemic began. She rates her pain as 5/10 in the left posterior buttock and low back Treatment Goals Patient/Caregiver Goals Goals include reducing pain to be able to continue walking and swimming, working and ADL Prior Functional Status Baseline Function- ADL's Independent Baseline Function- Mobility Independent Current Functional Impairments (Reported) Functional Limitations- Work/School pain with long duration sitting at work, pain prevents her from sitting more than 1 hour Personal Factors Other Personal Factors That May Effect Has to sit for work related Therapy/Recovery activities PT-OP-C Subjective Start: 02/01/20 12:00 Freq: Status: Active Protocol: Document 04/18/20 09:00 [facility] (Rec: 04/19/20 15:15 [facility] [id number]) OP-PT Subjective Patient Comments Patient Comments Tanvi reports she has been able to use the pool in [place] and the gym. SHe is feeling tight today left side. She also has questions about what she can do when not able to use the gym here in [place] due to covid. PT-OP-F Manual Assessment Start: 02/01/20 12:00 Freq: Status: Active Protocol: Document 02/01/20 17:36 [facility] (Rec: 02/03/20 17:55 [facility] [id number]) Manual Assessments Soft Tissue Assessment Soft Tissue Mobility Assessment Muscle guarding and spasm of the left greater than right lumbar and lower thoracic paraspinals muscle guarding of the left piriformis + sarah test B PT-OP-J Posture/Palpation/Skin Start: 02/01/20 12:00 Freq: Status: Active Protocol: Document 02/01/20 17:36 [facility] (Rec: 02/03/20 17:55 [facility] [id number]) Posture Evaluation Comments Posture Comments forward shift of the lumbar spine in standing, lean to the left Palpation Assessment Location left piriformis Palpation Location left piriformis Palpation Findings Soft Tissue Tightness,Muscle Guarding,Tenderness One Palpation Location bilateral lumbar spinal musculature Palpation Findings Soft Tissue Tightness,Muscle Guarding PT-OP-K Range of Motion Start: 02/01/20 12:00 Freq: Status: Active Protocol: Document 02/01/20 17:36 [facility] (Rec: 02/03/20 17:55 [facility] [id number]) Lumbar Spine Range of Motion Lumbar Spine Active Flexion 45 Extension 5 Rotation Left 15 Rotation Right 15 Lateral Flexion Left 15 Lateral Flexion Right 10 Comments pain and tightness with lumbar Sidebend Left PT-OP-Q Treatments Start: 02/01/20 12:00 Freq: Status: Active Protocol: Document 04/18/20 09:00 [facility] (Rec: 04/19/20 15:15 [facility] [id number]) Therapeutic Exercises Standing Exercises standing rows and lat pull down. Standing Exercise Name standing rows and lat pull down Reps/Minutes 3 x 10 level 1 Other Exercises quadruped sidebends Reps/Minutes 5 reps each side debbie pose Reps/Minutes hold 1-2 minutes Manual Therapy Treatment Soft Tissue Mobilization 2 Body Location piriformis release on the left 1 Body Location Thoracic, lumbar spinal musculature and piriformis Mobilization Type Myofascial Release,Strumming, Trigger Point Release Intensity/Depth Moderate Body Position Prone Comments over body pillow PT-OP-T Assessment and Plan Start: 02/01/20 12:00 Freq: Status: Active Protocol: Document 04/18/20 09:00 [facility] (Rec: 04/19/20 15:15 [facility] [id number]) Physical Therapy Assessment Goals Four Impairment Pain prevents her from sitting greater than 1 hour Retirement Goal (LTG) Tanvi is given a stretching program to help reduce tension in both her hip flexors as well as her lumbar paraspinals . She is able to tolerate sitting at work without increase c/o pain. 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) Reduce muscle gurading and spasm to decrease pain and improve pain free ROM Some progress LTG Duration 8 weeks Two Impairment postural habits and hip flexor tightness contibuting to LBP Short Term Goal (STG) Tanvi is educated on her posture for work related activies and is able to make modifications to improve her posture to decrease low back tightness Good progress STG Duration 5 weeks One Impairment C/O pain rated 6/10 across the low back, SI and buttocks [employer] Counselor Goal (LTG) Tanvi reports decreased pain reduced to 1-2/10 and is no longer experiencing radicular pain in her left gluteal, she is able to sit for a hour without a increase in pain Some progress LTG Duration 8 weeks Assessment Summary Assessment Tanvi returns to PT today after not being seen since February. She has been able to go to her home in [place] where she is able to use the pool and the gym that is outside. She feels this has helped. She notes tightness in her left greater than right paraspinals especially with sitting she does for work. She would benefit from continued PT Physical Therapy Plan Frequency and Duration Frequency of Treatment 2 xms per week Duration of Treatment 8 weeks Plan of Care Start Date 04/18/20 Plan of Care End Date 06/13/20 Therapeutic Interventions Therapeutic Interventions Home Exercise Program,Manual Therapy,Patient/Caregiver Education,Self-Care/Home Management,Soft Tissue Mobilization,Therapeutic Exercises Next Visit Focus/Plan Next Note Type Treatment Note Next Visit Plan Progress stretches, manual therapy work and core stabilization. Pt okayed to stay and ride the bike following treatment as she hasn't been able to do this at the gym
--- NOTE | 2020-04-19 15:16 | PT.OPPOC ---
Physical, Occupational & Speech Therapy At [facility] Current Diagnoses Low back pain (04/18/20) Visit Care Team Role Provider Type Betsy Wallis MD Attending Provider Physician Primary Care Provider Referring Provider Specialty: Family Practice Address: [address] [place] [address], [facility] [place], [address] Email: [email or web address] Plan Of Care PT-OP-T Assessment and Plan Start: 02/01/20 12:00 Freq: Status: Active Protocol: Document 04/18/20 09:00 [facility] (Rec: 04/19/20 15:15 [facility] [id number]) Physical Therapy Assessment Goals Four Impairment Pain prevents her from sitting greater than 1 hour [employer]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 She is able to tolerate sitting at work without increase c/o pain. Good progress LTG Duration 8 weeks Three Impairment muscle guarding and spasm of the left thoracic and lumbar paraspinals Senior Living Goal (LTG) Reduce muscle gurading and spasm to decrease pain and improve pain free ROM Some progress LTG Duration 8 weeks Two Impairment postural habits and hip flexor tightness contributing to LBP Short Term Goal (STG) Tanvi is educated on her posture for work related activities and is able to make modifications to improve her posture to decrease low back tightness Good progress STG Duration 5 weeks One Impairment C/O pain rated 6/10 across the low back, SI and buttocks [employer]aking [employer] Supervisor Goal (LTG) Tanvi reports decreased pain reduced to 1-2/10 and is no longer experiencing radicular pain in her left gluteal, she is able to sit for a hour without a increase in pain Some progress LTG Duration 8 weeks Assessment Summary Assessment Tanvi returns to PT today after not being seen since February. She has been able to go to her home in [place] where she is able to use the pool and the gym that is outside. She feels this has helped. She notes tightness in her left greater than right paraspinals especially with sitting she does for work. She would benefit from continued PT Physical Therapy Plan Frequency and Duration Frequency of Treatment 2 xms per week Duration of Treatment 8 weeks Plan of Care Start Date 04/18/20 Plan of Care End Date 06/13/20 Therapeutic Interventions Therapeutic Interventions Home Exercise Program,Manual Therapy,Patient/Caregiver Education,Self-Care/Home Management,Soft Tissue Mobilization,Therapeutic Exercises Next Visit Focus/Plan Next Note Type Treatment Note Next Visit Plan Progress stretches, manual therapy work and core stabilization. Pt okayed to stay and ride the bike following treatment as she hasn't been able to do this at the gym Plan of Care Dates Plan of Care Start Date 04/18/20 Plan of Care End Date 06/13/20 Electronically Signed by: Darling Schumacher, PT 04/19/20 [id number] Please Sign and Return: I have reviewed this Plan of Care and certify that the skilled therapy services above are required to meet the patient?s needs. Physician Signature Date Printed Name and Credentials Clinical Instructor Signature Printed Name and Credentials
--- NOTE | 2020-05-02 17:32 | PT.OTN ---
Current Diagnoses Low back pain (05/02/20) Physical Therapy Treatment Note PT-OP-A Visit Information Start: 02/01/20 12:00 Freq: Status: Active Protocol: Document 05/02/20 15:25 [facility] (Rec: 05/02/20 15:27 [facility] [id number]) Out-Patient Physical Therapy Visit Information Visit Information Visit Type Treatment Note Visit Start Time 15:15 Visit Stop Time 16:00 Total Visit Minutes 45 Visit Number 5 PT-OP-B Current Condition Start: 02/01/20 12:00 Freq: Status: Active Protocol: Document 02/01/20 12:01 [facility] (Rec: 02/01/20 12:06 [facility] [id number]) Current Condition History of Current Condition Onset Date May 2018 Current Complaints c/o referred pain into the left low back and gluteals History of Current Condition 64 year old female who returns to PT today after traveling in and out of the country and aggravated low back pain. She also c/o left sided gluteal and referred pain made worse from traveling and sitting. Tanvi has a history of left sided sciatica, right ankle pain, plantar fascitis, left leg posterior tibialis rupture, spondylolistheses at L2-L3 and L4-L5, multilevel degenerative disc and facet disease. SHe has not been able to use the gym and hasn't returned to the pool since the covid 19 pandemic began. She rates her pain as 5/10 in the left posterior buttock and low back Treatment Goals Patient/Caregiver Goals Goals include reducing pain to be able to continue walking and swimming, working and ADL Prior Functional Status Baseline Function- ADL's Independent Baseline Function- Mobility Independent Current Functional Impairments (Reported) Functional Limitations- Work/School pain with long duration sitting at work, pain prevents her from sitting more than 1 hour Personal Factors Other Personal Factors That May Effect Has to sit for work related Therapy/Recovery activities PT-OP-C Subjective Start: 02/01/20 12:00 Freq: Status: Active Protocol: Document 05/02/20 15:25 [facility] (Rec: 05/02/20 15:27 [facility] [id number]) OP-PT Subjective Patient Comments Patient Comments pt notes she hurt her back lifting up a box of paper. YEsterday. PT-OP-F Manual Assessment Start: 02/01/20 12:00 Freq: Status: Active Protocol: Document 02/01/20 17:36 [facility] (Rec: 02/03/20 17:55 [facility] [id number]) Manual Assessments Soft Tissue Assessment Soft Tissue Mobility Assessment Muscle guarding and spasm of the left greater than right lumbar and lower thoracic paraspinals muscle guarding of the left piriformis + sarah test B PT-OP-J Posture/Palpation/Skin Start: 02/01/20 12:00 Freq: Status: Active Protocol: Document 02/01/20 17:36 [facility] (Rec: 02/03/20 17:55 [facility] [id number]) Posture Evaluation Comments Posture Comments forward shift of the lumbar spine in standing, lean to the left Palpation Assessment Location left piriformis Palpation Location left piriformis Palpation Findings Soft Tissue Tightness,Muscle Guarding,Tenderness One Palpation Location bilateral lumbar spinal musculature Palpation Findings Soft Tissue Tightness,Muscle Guarding PT-OP-K Range of Motion Start: 02/01/20 12:00 Freq: Status: Active Protocol: Document 02/01/20 17:36 [facility] (Rec: 02/03/20 17:55 [facility] [id number]) Lumbar Spine Range of Motion Lumbar Spine Active Flexion 45 Extension 5 Rotation Left 15 Rotation Right 15 Lateral Flexion Left 15 Lateral Flexion Right 10 Comments pain and tightness with lumbar Sidebend Left PT-OP-Q Treatments Start: 02/01/20 12:00 Freq: Status: Active Protocol: Document 05/02/20 17:18 [facility] (Rec: 05/02/20 17:24 [facility] [id number]) Therapeutic Exercises Supine Exercises supine isometric adduction Reps/Minutes 10 reps x 5 sec holds single knee to chest Supine Exercise Name single knee to chest Reps/Minutes 2 x 30 sec Manual Therapy Treatment Soft Tissue Mobilization 2 Body Location piriformis release on the left 1 Body Location Thoracic, lumbar spinal musculature and piriformis Mobilization Type Myofascial Release,Strumming, Trigger Point Release Intensity/Depth Moderate Body Position Prone Comments over body pillow Manual Techniques MET left anterior rotation Type MET left anterior innominant rotation PT-OP-R Modalities Start: 05/02/20 17:30 Freq: Status: Active Protocol: Document 05/02/20 17:30 [facility] (Rec: 05/02/20 17:32 [facility] [id number]) Ultrasound Therapy Treatment Left Back Patient Position Prone Coupling Medium Ultrasound Gel Applicator Size (cm2) 5 Frequency Setting (mHz) 1 Mode Setting Continuous Duty Cycle 100% Intensity Setting (w/cm2) 1.5 PT-OP-T Assessment and Plan Start: 02/01/20 12:00 Freq: Status: Active Protocol: Document 05/02/20 17:24 [facility] (Rec: 05/02/20 17:29 [facility] [id number]) Physical Therapy Assessment Assessment Summary Assessment Tanvi bent forward to moss picker a box by bending forward from the waist and came back up hurting the left SI joint. She was anteriorly rotated today. I worked with a MET to help correct this. We reviewed body mechanics today for lifting and she was given a couple of exercises to help her SI joint today Physical Therapy Plan Frequency and Duration Frequency of Treatment 2 xms per week Duration of Treatment 8 weeks Plan of Care Start Date 04/18/20 Plan of Care End Date 06/13/20 Therapeutic Interventions Therapeutic Interventions Home Exercise Program,Manual Therapy,Patient/Caregiver Education,Self-Care/Home Management,Soft Tissue Mobilization,Therapeutic Exercises Next Visit Focus/Plan Next Note Type Treatment Note Next Visit Plan Progress stretches, manual therapy work and core stabilization. Pt okayed to stay and ride the bike following treatment as she hasn't been able to do this at the gym
--- NOTE | 2020-07-05 14:02 | PT.OTN ---
Current Diagnoses Low back pain (07/05/20) Physical Therapy Treatment Note PT-OP-A Visit Information Start: 02/01/20 12:00 Freq: Status: Active Protocol: Document 07/05/20 10:33 [facility] (Rec: 07/05/20 10:38 [facility] [id number]) Out-Patient Physical Therapy Visit Information Visit Information Visit Type Progress Note Visit Start Time 10:30 Visit Stop Time 11:15 Total Visit Minutes 45 Visit Number 6 PT-OP-B Current Condition Start: 02/01/20 12:00 Freq: Status: Active Protocol: Document 02/01/20 12:01 [facility] (Rec: 02/01/20 12:06 [facility] [id number]) Current Condition History of Current Condition Onset Date May 2018 Current Complaints c/o referred pain into the left low back and gluteals History of Current Condition 64 year old female who returns to PT today after traveling in and out of the country and aggravated low back pain. She also c/o left sided gluteal and referred pain made worse from traveling and sitting. Tanvi has a history of left sided sciatica, right ankle pain, plantar fascitis, left leg posterior tibialis rupture, spondylolistheses at L2-L3 and L4-L5, multilevel degenerative disc and facet disease. SHe has not been able to use the gym and hasn't returned to the pool since the covid 19 pandemic began. She rates her pain as 5/10 in the left posterior buttock and low back Treatment Goals Patient/Caregiver Goals Goals include reducing pain to be able to continue walking and swimming, working and ADL Prior Functional Status Baseline Function- ADL's Independent Baseline Function- Mobility Independent Current Functional Impairments (Reported) Functional Limitations- Work/School pain with long duration sitting at work, pain prevents her from sitting more than 1 hour Personal Factors Other Personal Factors That May Effect Has to sit for work related Therapy/Recovery activities PT-OP-C Subjective Start: 02/01/20 12:00 Freq: Status: Active Protocol: Document 07/05/20 10:33 [facility] (Rec: 07/05/20 10:38 [facility] [id number]) OP-PT Subjective Patient Comments Patient Comments tanvi reports she was doing really well and able touse the gym in [facility] until she irritated here back with a specific piece of gym equipment. PT-OP-F Manual Assessment Start: 02/01/20 12:00 Freq: Status: Active Protocol: Document 02/01/20 17:36 [facility] (Rec: 02/03/20 17:55 [facility] [id number]) Manual Assessments Soft Tissue Assessment Soft Tissue Mobility Assessment Muscle guarding and spasm of the left greater than right lumbar and lower thoracic paraspinals muscle guarding of the left piriformis + sarah test B PT-OP-J Posture/Palpation/Skin Start: 02/01/20 12:00 Freq: Status: Active Protocol: Document 02/01/20 17:36 [facility] (Rec: 02/03/20 17:55 [facility] [id number]) Posture Evaluation Comments Posture Comments forward shift of the lumbar spine in standing, lean to the left Palpation Assessment Location left piriformis Palpation Location left piriformis Palpation Findings Soft Tissue Tightness,Muscle Guarding,Tenderness One Palpation Location bilateral lumbar spinal musculature Palpation Findings Soft Tissue Tightness,Muscle Guarding PT-OP-K Range of Motion Start: 02/01/20 12:00 Freq: Status: Active Protocol: Document 02/01/20 17:36 [facility] (Rec: 02/03/20 17:55 [facility] [id number]) Lumbar Spine Range of Motion Lumbar Spine Active Flexion 45 Extension 5 Rotation Left 15 Rotation Right 15 Lateral Flexion Left 15 Lateral Flexion Right 10 Comments pain and tightness with lumbar Sidebend Left PT-OP-Q Treatments Start: 02/01/20 12:00 Freq: Status: Active Protocol: Document 07/05/20 10:30 [facility] (Rec: 07/05/20 14:01 [facility] [id number]) Manual Therapy Treatment Soft Tissue Mobilization 2 Body Location piriformis release on the left 1 Body Location Thoracic, lumbar spinal musculature and piriformis Mobilization Type Myofascial Release,Strumming, Trigger Point Release Intensity/Depth Moderate Body Position Prone Comments over body pillow Manual Techniques manual hip stretches for the left hip Comments hip ER, HS stretch, SKTC, hip Extension MET left anterior rotation Type MET left anterior innominant rotation PT-OP-R Modalities Start: 05/02/20 17:30 Freq: Status: Active Protocol: Document 07/05/20 10:30 [facility] (Rec: 07/05/20 14:02 [facility] [id number]) Electric Stimulation Electric Stimulation Interferential Current (IFC) Body Location left low back and piriformis Duration (Minutes) 15 Combined With Heat/Cold Cold Pack Comments IFC was used today with intensity of 16 PT-OP-T Assessment and Plan Start: 02/01/20 12:00 Freq: Status: Active Protocol: Document 07/05/20 10:30 [facility] (Rec: 07/05/20 14:01 [facility] [id number]) Physical Therapy Assessment Goals Four Impairment Pain prevents her from sitting greater than 1 hour Mcc Goal (LTG) Tanvi is given a stretching program to help reduce tension in both her hip flexors as well as her lumbar paraspinals . She is able to tolerate sitting at work without increase c/o pain. excellent progress LTG Duration 8 weeks Three Impairment muscle guarding and spasm of the left thoracic and lumbar paraspinals Whipped Topping Mixer Goal (LTG) Reduce muscle gurading and spasm to decrease pain and improve pain free ROM Some progress LTG Duration 8 weeks Two Impairment postural habits and hip flexor tightness contibuting to LBP Short Term Goal (STG) Tanvi is educated on her posture for work related activies and is able to make modifications to improve her posture to decrease low back tightness Good progress STG Duration 5 weeks One Impairment C/O pain rated 6/10 across the low back, SI and buttocks Mcc Goal (LTG) Tanvi reports decreased pain reduced to 1-2/10 and is no longer experiencing radicular pain in her left gluteal, she is able to sit for a hour without a increase in pain Some progress pain 4/10 today but had been better until she reaggravated her back weightlifting. LTG Duration 8 weeks Assessment Summary Assessment Tanvi has been doing much better overall. She has been in her place in [place] where she has been able to go to the gym, walk, and exercise in the pool. She suffered a flare up of symptoms when she tried out a new weight machine . This machine involved hip extension and I have a feeling she was not able to keep her spine stable when she did this exercise. I talked with her about the importance of neutral spine for her back. She will be returning to [place] this next week but would like continued PT for when she returns. Physical Therapy Plan Frequency and Duration Frequency of Treatment 2 xms per week Duration of Treatment 8 weeks Plan of Care Start Date 07/05/20 Plan of Care End Date 08/30/20 Therapeutic Interventions Therapeutic Interventions Home Exercise Program,Manual Therapy,Patient/Caregiver Education,Self-Care/Home Management,Soft Tissue Mobilization,Therapeutic Exercises Next Visit Focus/Plan Next Note Type Treatment Note Next Visit Plan Progress stretches, manual therapy work and core stabilization. Pt okayed to stay and ride the bike following treatment as she hasn't been able to do this at the gym
--- NOTE | 2020-07-05 14:02 | PT.OPPOC ---
Physical, Occupational & Speech Therapy At [facility] Current Diagnoses Low back pain (07/05/20) Visit Care Team Role Provider Type Betsy Wallis MD Attending Provider Physician Primary Care Provider Referring Provider Specialty: Family Practice Address: [address] [place] [address], [place], [address] Email: [email or web address] Plan Of Care PT-OP-T Assessment and Plan Start: 02/01/20 12:00 Freq: Status: Active Protocol: Document 07/05/20 10:30 [facility] (Rec: 07/05/20 14:01 [facility] [id number]) Physical Therapy Assessment Goals Four Impairment Pain prevents her from sitting greater than 1 hour Bulk Driver Goal (LTG) Tanvi is given a stretching program to help reduce tension in both her hip flexors as well as her lumbar paraspinals . She is able to tolerate sitting at work without increase c/o pain. excellent progress LTG Duration 8 weeks Three Impairment muscle guarding and spasm of the left thoracic and lumbar paraspinals Bulk Driver Goal (LTG) Reduce muscle gurading and spasm to decrease pain and improve pain free ROM Some progress LTG Duration 8 weeks Two Impairment postural habits and hip flexor tightness contibuting to LBP Short Term Goal (STG) Tanvi is educated on her posture for work related activies and is able to make modifications to improve her posture to decrease low back tightness Good progress STG Duration 5 weeks One Impairment C/O pain rated 6/10 across the low back, SI and buttocks Detention Goal (LTG) Tanvi reports decreased pain reduced to 1-2/10 and is no longer experiencing radicular pain in her left gluteal, she is able to sit for a hour without a increase in pain Some progress pain 4/10 today but had been better until she reaggravated her back weightlifting. LTG Duration 8 weeks Assessment Summary Assessment Tanvi has been doing much better overall. She has been in her place in [place] where she has been able to go to the gym, walk, and exercise in the pool. She suffered a flare up of symptoms when she tried out a new weight machine . This machine involved hip extension and I have a feeling she was not able to keep her spine stable when she did this exercise. I talked with her about the importance of neutral spine for her back. She will be returning to [place] this next week but would like continued PT for when she returns. Physical Therapy Plan Frequency and Duration Frequency of Treatment 2 xms per week Duration of Treatment 8 weeks Plan of Care Start Date 07/05/20 Plan of Care End Date 08/30/20 Therapeutic Interventions Therapeutic Interventions Home Exercise Program,Manual Therapy,Patient/Caregiver Education,Self-Care/Home Management,Soft Tissue Mobilization,Therapeutic Exercises Next Visit Focus/Plan Next Note Type Treatment Note Next Visit Plan Progress stretches, manual therapy work and core stabilization. Pt okayed to stay and ride the bike following treatment as she hasn't been able to do this at the gym Plan of Care Dates Plan of Care Start Date 07/05/20 Plan of Care End Date 08/30/20 Electronically Signed by: Darling Schumacher, PT 07/05/20 0921 Please Sign and Return: I have reviewed this Plan of Care and certify that the skilled therapy services above are required to meet the patient?s needs. Physician Signature Date Printed Name and Credentials Clinical Instructor Signature Printed Name and Credentials
--- NOTE | 2020-09-05 13:32 | PT.OPDS ---
Current Diagnoses Low back pain (07/05/20) Visit Care Team Role Provider Type Betsy Wallis MD Attending Provider Physician Primary Care Provider Referring Provider Specialty: [facility] Address: [address] [place] [address], [address], [place], [place], [facility] Email: [email or web address] Visit Number Visit Number 6 Discharge Summary PT-OP-B Current Condition Start: 02/01/20 12:00 Freq: Status: Active Protocol: Document 02/01/20 12:01 [facility] (Rec: 02/01/20 12:06 [facility] [email or web address]) Current Condition History of Current Condition Onset Date May 2018 Current Complaints c/o referred pain into the left low back and gluteals History of Current Condition 64 year old female who returns to PT today after traveling in and out of the country and aggravated low back pain. She also c/o left sided gluteal and referred pain made worse from traveling and sitting. Tanvi has a history of left sided sciatica, right ankle pain, plantar fascitis, left leg posterior tibialis rupture, spondylolistheses at L2-L3 and L4-L5, multilevel degenerative disc and facet disease. SHe has not been able to use the gym and hasn't returned to the pool since the covid 19 pandemic began. She rates her pain as 5/10 in the left posterior buttock and low back Treatment Goals Patient/Caregiver Goals Goals include reducing pain to be able to continue walking and swimming, working and ADL Prior Functional Status Baseline Function- ADL's Independent Baseline Function- Mobility Independent Current Functional Impairments (Reported) Functional Limitations- Work/School pain with long duration sitting at work, pain prevents her from sitting more than 1 hour Personal Factors Other Personal Factors That May Effect Has to sit for work related Therapy/Recovery activities PT-OP-C Subjective Start: 02/01/20 12:00 Freq: Status: Active Protocol: Document 07/05/20 10:33 [facility] (Rec: 07/05/20 10:38 [facility] [id number]) OP-PT Subjective Patient Comments Patient Comments tanvi reports she was doing really well and able touse the gym in [place] until she irritated here back with a specific piece of gym equipment. PT-OP-F Manual Assessment Start: 02/01/20 12:00 Freq: Status: Active Protocol: Document 02/01/20 17:36 [facility] (Rec: 02/03/20 17:55 [facility] [id number]) Manual Assessments Soft Tissue Assessment Soft Tissue Mobility Assessment Muscle guarding and spasm of the left greater than right lumbar and lower thoracic paraspinals muscle guarding of the left piriformis + sarah test B PT-OP-J Posture/Palpation/Skin Start: 02/01/20 12:00 Freq: Status: Active Protocol: Document 02/01/20 17:36 [facility] (Rec: 02/03/20 17:55 [facility] [id number]) Posture Evaluation Comments Posture Comments forward shift of the lumbar spine in standing, lean to the left Palpation Assessment Location left piriformis Palpation Location left piriformis Palpation Findings Soft Tissue Tightness,Muscle Guarding,Tenderness One Palpation Location bilateral lumbar spinal musculature Palpation Findings Soft Tissue Tightness,Muscle Guarding PT-OP-K Range of Motion Start: 02/01/20 12:00 Freq: Status: Active Protocol: Document 02/01/20 17:36 [facility] (Rec: 02/03/20 17:55 [facility] [id number]) Lumbar Spine Range of Motion Lumbar Spine Active Flexion 45 Extension 5 Rotation Left 15 Rotation Right 15 Lateral Flexion Left 15 Lateral Flexion Right 10 Comments pain and tightness with lumbar Sidebend Left PT-OP-T Assessment and Plan Start: 02/01/20 12:00 Freq: Status: Active Protocol: Document 09/05/20 13:31 [facility] (Rec: 09/05/20 13:32 [facility] [id number]) Physical Therapy Assessment Goals Four Impairment Pain prevents her from sitting greater than 1 hour Care Home Goal (LTG) Tanvi is given a stretching program to help reduce tension in both her hip flexors as well as her lumbar paraspinals . She is able to tolerate sitting at work without increase c/o pain. excellent progress LTG Duration 8 weeks Three Impairment muscle guarding and spasm of the left thoracic and lumbar paraspinals Care Home Goal (LTG) Reduce muscle gurading and spasm to decrease pain and improve pain free ROM Some progress LTG Duration 8 weeks Two Impairment postural habits and hip flexor tightness contibuting to LBP Short Term Goal (STG) Tanvi is educated on her posture for work related activies and is able to make modifications to improve her posture to decrease low back tightness Good progress STG Duration 5 weeks One Impairment C/O pain rated 6/10 across the low back, SI and buttocks Care Home Goal (LTG) Tanvi reports decreased pain reduced to 1-2/10 and is no longer experiencing radicular pain in her left gluteal, she is able to sit for a hour without a increase in pain Some progress pain 4/10 today but had been better until she reaggravated her back weightlifting. LTG Duration 8 weeks Physical Therapy Plan Discharge Physical Therapy Discharge Reasons No Longer Attending PT Discharge Comments pt has been out of town and hasn't been able to make any further visits within this plan of care
== END 2020-09-05 13:51 | disposition home or self-care (01) ==
LOC: PHYS 10:30
PROVIDERS: PCP Student in an Organized Health Care Education/Training Program; Referring Provider Student in an Organized Health Care Education/Training Program; Visit Provider Student in an Organized Health Care Education/Training Program
DX: M54.5 Low back pain (principal)
CPT/HCPCS: 97032; 97035; 97110; 97140; 97161

== ENCOUNTER → 2020-08-07 12:08 | Outpatient (CLI) | payer MEDICARE, OTHER, SELFPAY ==
--- NOTE | 2020-08-07 12:10 | DI.US.S_ITS ---
LIMITED ULTRASOUND OF RIGHT BREAST AND AXILLA: 08/07/2020 CLINICAL: Rt axilla/arm pain. Comparison is made to exam dated: 02/26/2008 [facility]. Color flow and real-time ultrasound of the right breast outer aspect and axilla regions were performed. Tabor scale images of the real-time examination were reviewed. No significant abnormalities were seen sonographically in the region of pain at the lateral aspect of the right mastectomy or in the right axilla. IMPRESSION: NEGATIVE There is no sonographic evidence of malignancy. Post right mastectomy. No significant finding in the diffuse region of pain. Exam findings were conveyed to the patient. Patient is advised to monitor for significant change. Clinical follow-up is recommended. Per report the patient has been undergoing contralateral left breast screening mammograms at [facility]. Please confirm the left breast is being screened with mammography. This exam was interpreted at Station ID: [id number]. Electronically Signed By: Adebayo Dueñas M.D. slc/:08/07/2020 15:56:41 letter sent: Clinical Evaluation Ultrasound BI-RADS: 1 Negative
== END ==
PROVIDERS: PCP Student in an Organized Health Care Education/Training Program; Referring Provider Student in an Organized Health Care Education/Training Program; Visit Provider Student in an Organized Health Care Education/Training Program
DX: M79.621 Pain in right upper arm (principal); Z90.11 Acquired absence of right breast and nipple
CPT/HCPCS: 76882

== ENCOUNTER 2021-02-20 13:45 | Outpatient (RCR) | payer MEDICARE, OTHER, SELFPAY ==
--- NOTE | 2020-09-19 14:22 | PT.OIE ---
Current Diagnoses Other specified disorders of muscle (09/14/20) Past Medical History (Last Updated 09/04/17 @ 09:35 by Nataliia Warner) Ankle pain (~2011) Breast cancer (~2007) Chickenpox GERD (gastroesophageal reflux disease) (~1999) Osteopenia (~2013) Past Surgical History (Last Updated 09/04/17 @ 09:35 by Nataliia Warner) Anesthesia Status post mastectomy (~2008) Visit Care Team Role Provider Type Betsy Wallis MD Attending Provider Physician Primary Care Provider Referring Provider Specialty: [facility] Address: [address] [place] [address], [facility] Email: [email or web address] Physical Therapy Initial Evaluation PT-OP-A Visit Information Start: 09/14/20 16:11 Freq: Status: Active Protocol: Document 09/14/20 16:00 [facility] (Rec: 09/19/20 14:14 [facility] [email or web address]) Out-Patient Physical Therapy Visit Information Visit Information Visit Type Initial Evaluation Visit Start Time 16:00 Visit Stop Time 16:45 Total Visit Minutes 45 Visit Number 1 Evaluation Information Evaluation Date 09/14/20 PT-OP-B Current Condition Start: 09/14/20 16:11 Freq: Status: Active Protocol: Document 09/14/20 16:12 [facility] (Rec: 09/14/20 17:19 [facility] [id number]) Current Condition History of Current Condition History of Current Condition pt reports she has no energy to go to the gym, pain is 6-7 our of 10, no complaints of sciatic pain and sometimes the pain radiates to the left foot. she also describes lymphedema symptoms in her left axilla. She has a referral for lymphedema PT Treatment Goals Patient/Caregiver Goals Goals include reducing pain to be able to continue walking and swimming, working and ADL Current Functional Impairments (Reported) Functional Limitations- Work/School pain with long duration sitting at work, pain prevents her from sitting more than 1 hour PT-OP-F Manual Assessment Start: 09/14/20 17:17 Freq: Status: Active Protocol: Document 09/14/20 17:19 [facility] (Rec: 09/14/20 17:26 [facility] [email or web address]) Manual Assessments Soft Tissue Assessment Soft Tissue Mobility Assessment Muscle guarding and spasm of the left greater than right lumbar and lower thoracic paraspinals muscle guarding of the left piriformis Joint Mobility Assessment Joint Mobility Assessment hypomobility thoracic spine T4 -T10 PT-OP-J Posture/Palpation/Skin Start: 09/14/20 17:17 Freq: Status: Active Protocol: Document 09/14/20 17:19 [facility] (Rec: 09/14/20 17:26 [facility] [email or web address]) Posture Evaluation Comments Posture Comments forward shift of the lumbar spine in standing, lean to the left Palpation Assessment Location left piriformis Palpation Location left piriformis Palpation Findings Soft Tissue Tightness,Muscle Guarding,Tenderness One Palpation Location bilateral lumbar spinal musculature Palpation Findings Soft Tissue Tightness,Muscle Guarding PT-OP-K Range of Motion Start: 09/14/20 17:17 Freq: Status: Active Protocol: Document 09/14/20 17:19 [facility] (Rec: 09/14/20 17:26 [facility] [email or web address]) Lumbar Spine Range of Motion Lumbar Spine Active Flexion 60 Extension 10 Rotation Left 15 Rotation Right 15 Lateral Flexion Left 15 Lateral Flexion Right 15 Comments no pain with active ROM PT-OP-Q Treatments Start: 09/14/20 17:17 Freq: Status: Active Protocol: Document 09/14/20 17:19 [facility] (Rec: 09/14/20 17:26 [facility] [email or web address]) Therapeutic Exercises Supine Exercises piriformis stretch Reps/Minutes 2 x 30 sec hamstring stretch Side bilateral Reps/Minutes 2 x 30 seconds each single knee to chest Supine Exercise Name single knee to chest Reps/Minutes 2 x 30 sec 4 Supine Exercise Name double knee to chest Reps/Minutes 1 min hold 1 Supine Exercise Name foam roll stretch Comments HEP Manual Therapy Treatment Soft Tissue Mobilization 2 Body Location piriformis release on the left 1 Body Location Thoracic, lumbar spinal musculature and piriformis PT-OP-T Assessment and Plan Start: 09/14/20 17:17 Freq: Status: Active Protocol: Document 09/14/20 17:19 [facility] (Rec: 09/14/20 17:26 [facility] [email or web address]) Physical Therapy Assessment Rehab Potential Rehabilitation Potential Excellent Evaluation Complexity Number of Personal Factors/Comorbidities 0 Number of Body Systems Impaired 1-2 Clinical Presentation at Evaluation Stable Impairments Impairments Functional Mobility,Pain, Posture,ROM,Soft Tissue Mobility,Strength,Tone Goals Four Impairment Pain prevents her from sitting greater than 1 hour Fpc Goal (LTG) Tanvi is educated to take breaks during the day where she gets up and moves around every 1-2 hours and this helps reduce pain from static posture LTG Duration 8 weeks Three Impairment muscle guarding and spasm of the left thoracic and lumbar paraspinals 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) With manual therapy, stretching, and stabilization there is a overall reduction in muscle guarding and spasm LTG Duration 8 weeks Two Impairment postural habits and hip flexor tightness contibuting to LBP Short Term Goal (STG) Tanvi is educated on postural corrections that can help to reduce LBP STG Duration 5 weeks One Impairment C/O pain rated 6/10 across the low back, SI and buttocks Fpc Goal (LTG) Tanvi reports a overall reduction in LBP to 2-3/10 LTG Duration 8 weeks Assessment Summary Assessment Tanvi returns to PT today for complaints of left greater than right LBP and left piriformis pain. She was doing pretty well when she was in [place] as she was using the pool every day and was able to use the outside gym equipment. Now that she is back home again she as been working and hasn't been to the pool or the gym as they are inside. Her pain levels are back up again. She presents with left sided piriformis tightness and pain and tightness in her lumbar paraspinals. Tanvi denies any sciatic symptoms at this time . Treatment will review stretches for her low back, stabilization exercises, manual therapy techniques, and postural modifications. Physical Therapy Plan Frequency and Duration Frequency of Treatment 1x/Week Duration of Treatment 8 Plan of Care Start Date 09/14/20 Plan of Care End Date 11/09/20 Therapeutic Interventions Therapeutic Interventions Home Exercise Program,Manual Therapy,Patient/Caregiver Education,Self-Care/Home Management,Soft Tissue Mobilization,Therapeutic Exercises Next Visit Focus/Plan Next Note Type Treatment Note Next Visit Plan Review all established stretches and progress stabilization exercises, manual therapy techniques to release the lumbar paraspinals and piriformis.
--- NOTE | 2020-09-19 14:23 | PT.OPPOC ---
Physical, Occupational & Speech Therapy At [facility] Current Diagnoses Other specified disorders of muscle (09/14/20) Visit Care Team Role Provider Type Betsy Wallis MD Attending Provider Physician Primary Care Provider Referring Provider Specialty: [facility] Address: [address] [place] [address], [facility] [place], [address] Email: [email or web address] Plan Of Care PT-OP-T Assessment and Plan Start: 09/14/20 17:17 Freq: Status: Active Protocol: Document 09/14/20 17:19 [facility] (Rec: 09/14/20 17:26 [facility] [email or web address]) Physical Therapy Assessment Rehab Potential Rehabilitation Potential Excellent Evaluation Complexity Number of Personal Factors/Comorbidities 0 Number of Body Systems Impaired 1-2 Clinical Presentation at Evaluation Stable Impairments Impairments Functional Mobility,Pain, Posture,ROM,Soft Tissue Mobility,Strength,Tone Goals Four Impairment Pain prevents her from sitting greater than 1 hour Assisted Goal (LTG) Tanvi is educated to take breaks during the day where she gets up and moves around every 1-2 hours and this helps reduce pain from static posture LTG Duration 8 weeks Three Impairment muscle guarding and spasm of the left thoracic and lumbar paraspinals Assisted Goal (LTG) With manual therapy, stretching, and stabilization there is a overall reduction in muscle guarding and spasm LTG Duration 8 weeks Two Impairment postural habits and hip flexor tightness contibuting to LBP Short Term Goal (STG) Tanvi is educated on postural corrections that can help to reduce LBP STG Duration 5 weeks One Impairment C/O pain rated 6/10 across the low back, SI and 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 She was doing pretty well when she was in [place] as she was using the pool every day and was able to use the outside gym equipment. Now that she is back home again she as been working and hasn't been to the pool or the gym as they are inside. Her pain levels are back up again. She presents with left sided piriformis tightness and pain and tightness in her lumbar paraspinals. Tanvi denies any sciatic symptoms at this time . Treatment will review stretches for her low back, stabilization exercises, manual therapy techniques, and postural modifications. Physical Therapy Plan Frequency and Duration Frequency of Treatment 1x/Week Duration of Treatment 8 Plan of Care Start Date 09/14/20 Plan of Care End Date 11/09/20 Therapeutic Interventions Therapeutic Interventions Home Exercise Program,Manual Therapy,Patient/Caregiver Education,Self-Care/Home Management,Soft Tissue Mobilization,Therapeutic Exercises Next Visit Focus/Plan Next Note Type Treatment Note Next Visit Plan Review all established stretches and progress stabilization exercises, manual therapy techniques to release the lumbar paraspinals and piriformis. Plan of Care Dates Plan of Care Start Date 09/14/20 Plan of Care End Date 11/09/20 Electronically Signed by: Darling Schumacher, PT 09/19/20 0739 Please Sign and Return: I have reviewed this Plan of Care and certify that the skilled therapy services above are required to meet the patient?s needs. Physician Signature Date Printed Name and Credentials Clinical Instructor Signature Printed Name and Credentials
--- NOTE | 2020-09-25 10:14 | PT.OTN ---
Current Diagnoses Other specified disorders of muscle (09/21/20) Physical Therapy Treatment Note PT-OP-A Visit Information Start: 09/14/20 16:11 Freq: Status: Active Protocol: Document 09/21/20 13:45 [facility] (Rec: 09/25/20 10:14 [facility] [email or web address]) Out-Patient Physical Therapy Visit Information Visit Information Visit Type Treatment Note Visit Start Time 13:45 Visit Stop Time 14:30 Total Visit Minutes 45 Visit Number 2 PT-OP-B Current Condition Start: 09/14/20 16:11 Freq: Status: Active Protocol: Document 09/14/20 16:12 [facility] (Rec: 09/14/20 17:19 [facility] [id number]) Current Condition History of Current Condition History of Current Condition pt reports she has no energy to go to the gym, pain is 6-7 our of 10, no complaints of sciatic pain and sometimes the pain radiates to the left foot. she also describes lymphedema symptoms in her left axilla. She has a referral for lymphedema PT Treatment Goals Patient/Caregiver Goals Goals include reducing pain to be able to continue walking and swimming, working and ADL Current Functional Impairments (Reported) Functional Limitations- Work/School pain with long duration sitting at work, pain prevents her from sitting more than 1 hour PT-OP-C Subjective Start: 09/14/20 16:11 Freq: Status: Active Protocol: Document 09/21/20 13:45 [facility] (Rec: 09/25/20 10:14 [facility] [email or web address]) OP-PT Subjective Patient Comments Patient Comments Tanvi reports last treatment really helped her and she has been working on her stretches PT-OP-F Manual Assessment Start: 09/14/20 17:17 Freq: Status: Active Protocol: Document 09/14/20 17:19 [facility] (Rec: 09/14/20 17:26 [facility] [email or web address]) Manual Assessments Soft Tissue Assessment Soft Tissue Mobility Assessment Muscle guarding and spasm of the left greater than right lumbar and lower thoracic paraspinals muscle guarding of the left piriformis Joint Mobility Assessment Joint Mobility Assessment hypomobility thoracic spine T4 -T10 PT-OP-J Posture/Palpation/Skin Start: 09/14/20 17:17 Freq: Status: Active Protocol: Document 09/14/20 17:19 [facility] (Rec: 09/14/20 17:26 [facility] [email or web address]) Posture Evaluation Comments Posture Comments forward shift of the lumbar spine in standing, lean to the left Palpation Assessment Location left piriformis Palpation Location left piriformis Palpation Findings Soft Tissue Tightness,Muscle Guarding,Tenderness One Palpation Location bilateral lumbar spinal musculature Palpation Findings Soft Tissue Tightness,Muscle Guarding PT-OP-K Range of Motion Start: 09/14/20 17:17 Freq: Status: Active Protocol: Document 09/14/20 17:19 [facility] (Rec: 09/14/20 17:26 [facility] [email or web address]) Lumbar Spine Range of Motion Lumbar Spine Active Flexion 60 Extension 10 Rotation Left 15 Rotation Right 15 Lateral Flexion Left 15 Lateral Flexion Right 15 Comments no pain with active ROM PT-OP-Q Treatments Start: 09/14/20 17:17 Freq: Status: Active Protocol: Document 09/21/20 13:45 [facility] (Rec: 09/25/20 10:14 [facility] [email or web address]) Therapeutic Exercises Supine Exercises piriformis stretch Reps/Minutes 2 x 30 sec hamstring stretch Side bilateral Reps/Minutes 2 x 30 seconds each single knee to chest Supine Exercise Name single knee to chest Reps/Minutes 2 x 30 sec Other Exercises quadruped sidebends Reps/Minutes 5 reps each side debbie pose Reps/Minutes hold 1-2 minutes 1 Other Exercise Name quadraped cat cow, sidebends, thoracic rotation Side bilateral Manual Therapy Treatment Soft Tissue Mobilization 2 Body Location piriformis release on the left 1 Body Location Thoracic, lumbar spinal musculature and piriformis PT-OP-T Assessment and Plan Start: 09/14/20 17:17 Freq: Status: Active Protocol: Document 09/21/20 13:45 [facility] (Rec: 09/25/20 10:14 [facility] [email or web address]) Physical Therapy Assessment Assessment Summary Assessment Tanvi has been working on her stretches at home and along with manual therapy felt better today. She would like to return to the pool for exercises. Physical Therapy Plan Frequency and Duration Frequency of Treatment 1x/Week Duration of Treatment 8 Plan of Care Start Date 09/14/20 Plan of Care End Date 11/09/20 Therapeutic Interventions Therapeutic Interventions Home Exercise Program,Manual Therapy,Patient/Caregiver Education,Self-Care/Home Management,Soft Tissue Mobilization,Therapeutic Exercises Next Visit Focus/Plan Next Note Type Treatment Note Next Visit Plan Review all established stretches and progress stabilization exercises, manual therapy techniques to release the lumbar paraspinals and piriformis.
--- NOTE | 2020-10-12 12:11 | PT.OTN ---
Current Diagnoses Other specified disorders of muscle (10/12/20) Physical Therapy Treatment Note PT-OP-A Visit Information Start: 09/14/20 16:11 Freq: Status: Active Protocol: Document 10/12/20 11:16 [facility] (Rec: 10/12/20 11:18 [facility] [id number]) Out-Patient Physical Therapy Visit Information Visit Information Visit Type Treatment Note Visit Start Time 11:15 Visit Stop Time 12:00 Total Visit Minutes 45 Visit Number 3 PT-OP-B Current Condition Start: 09/14/20 16:11 Freq: Status: Active Protocol: Document 09/14/20 16:12 [facility] (Rec: 09/14/20 17:19 [facility] [id number]) Current Condition History of Current Condition History of Current Condition pt reports she has no energy to go to the gym, pain is 6-7 our of 10, no complaints of sciatic pain and sometimes the pain radiates to the left foot. she also describes lymphedema symptoms in her left axilla. She has a referral for lymphedema PT Treatment Goals Patient/Caregiver Goals Goals include reducing pain to be able to continue walking and swimming, working and ADL Current Functional Impairments (Reported) Functional Limitations- Work/School pain with long duration sitting at work, pain prevents her from sitting more than 1 hour PT-OP-C Subjective Start: 09/14/20 16:11 Freq: Status: Active Protocol: Document 10/12/20 11:16 [facility] (Rec: 10/12/20 12:10 [facility] [email or web address]) OP-PT Subjective Patient Comments Patient Comments pt reports she feels tight today, she has gone back to the gym PT-OP-F Manual Assessment Start: 09/14/20 17:17 Freq: Status: Active Protocol: Document 09/14/20 17:19 [facility] (Rec: 09/14/20 17:26 [facility] [email or web address]) Manual Assessments Soft Tissue Assessment Soft Tissue Mobility Assessment Muscle guarding and spasm of the left greater than right lumbar and lower thoracic paraspinals muscle guarding of the left piriformis Joint Mobility Assessment Joint Mobility Assessment hypomobility thoracic spine T4 -T10 PT-OP-J Posture/Palpation/Skin Start: 09/14/20 17:17 Freq: Status: Active Protocol: Document 09/14/20 17:19 [facility] (Rec: 09/14/20 17:26 [facility] [email or web address]) Posture Evaluation Comments Posture Comments forward shift of the lumbar spine in standing, lean to the left Palpation Assessment Location left piriformis Palpation Location left piriformis Palpation Findings Soft Tissue Tightness,Muscle Guarding,Tenderness One Palpation Location bilateral lumbar spinal musculature Palpation Findings Soft Tissue Tightness,Muscle Guarding PT-OP-K Range of Motion Start: 09/14/20 17:17 Freq: Status: Active Protocol: Document 09/14/20 17:19 [facility] (Rec: 09/14/20 17:26 [facility] [email or web address]) Lumbar Spine Range of Motion Lumbar Spine Active Flexion 60 Extension 10 Rotation Left 15 Rotation Right 15 Lateral Flexion Left 15 Lateral Flexion Right 15 Comments no pain with active ROM PT-OP-Q Treatments Start: 09/14/20 17:17 Freq: Status: Active Protocol: Document 10/12/20 11:16 [facility] (Rec: 10/12/20 11:25 [facility] [id number]) Therapeutic Exercises Supine Exercises iliopsoas stretch Reps/Minutes 30-60 seconds piriformis stretch Reps/Minutes 2 x 30 sec hamstring stretch Side bilateral Reps/Minutes 2 x 30 seconds each supine isometric adduction Reps/Minutes 10 reps x 5 sec holds single knee to chest Supine Exercise Name single knee to chest Reps/Minutes 2 x 30 sec 4 Supine Exercise Name double knee to chest Reps/Minutes 1 min hold 1 Supine Exercise Name foam roll stretch Comments HEP Other Exercises quadruped sidebends Reps/Minutes 5 reps each side debbie pose Reps/Minutes hold 1-2 minutes 1 Other Exercise Name quadraped cat cow, sidebends, thoracic rotation Side bilateral Manual Therapy Treatment Soft Tissue Mobilization 2 Body Location piriformis release on the left 1 Body Location Thoracic, lumbar spinal musculature and piriformis PT-OP-T Assessment and Plan Start: 09/14/20 17:17 Freq: Status: Active Protocol: Document 10/12/20 11:16 [facility] (Rec: 10/12/20 12:10 [facility] [email or web address]) Physical Therapy Assessment Assessment Summary Assessment we reviewed stretches today and Tanvi prefers the yoga strap for hamstring stretch, Physical Therapy Plan Frequency and Duration Frequency of Treatment 1x/Week Duration of Treatment 8 Plan of Care Start Date 09/14/20 Plan of Care End Date 11/09/20 Therapeutic Interventions Therapeutic Interventions Home Exercise Program,Manual Therapy,Patient/Caregiver Education,Self-Care/Home Management,Soft Tissue Mobilization,Therapeutic Exercises Next Visit Focus/Plan Next Note Type Treatment Note Next Visit Plan Review all established stretches and progress stabilization exercises, manual therapy techniques to release the lumbar paraspinals and piriformis.
--- NOTE | 2020-10-26 16:45 | PT.OTN ---
Current Diagnoses Other specified disorders of muscle (10/26/20) Physical Therapy Treatment Note PT-OP-A Visit Information Start: 09/14/20 16:11 Freq: Status: Active Protocol: Document 10/26/20 13:45 [facility] (Rec: 10/26/20 14:42 [facility] [id number]) Out-Patient Physical Therapy Visit Information Visit Information Visit Type Treatment Note Visit Start Time 13:45 Visit Stop Time 14:32 Total Visit Minutes 47 Visit Number 4 PT-OP-B Current Condition Start: 09/14/20 16:11 Freq: Status: Active Protocol: Document 09/14/20 16:12 [facility] (Rec: 09/14/20 17:19 [facility] [id number]) Current Condition History of Current Condition History of Current Condition pt reports she has no energy to go to the gym, pain is 6-7 our of 10, no complaints of sciatic pain and sometimes the pain radiates to the left foot. she also describes lymphedema symptoms in her left axilla. She has a referral for lymphedema PT Treatment Goals Patient/Caregiver Goals Goals include reducing pain to be able to continue walking and swimming, working and ADL Current Functional Impairments (Reported) Functional Limitations- Work/School pain with long duration sitting at work, pain prevents her from sitting more than 1 hour PT-OP-C Subjective Start: 09/14/20 16:11 Freq: Status: Active Protocol: Document 10/26/20 13:45 [facility] (Rec: 10/26/20 14:42 [facility] [id number]) OP-PT Subjective Patient Comments Patient Comments pt says the stretches have been helping her low back and walking Patient Reported Progress Improving PT-OP-F Manual Assessment Start: 09/14/20 17:17 Freq: Status: Active Protocol: Document 09/14/20 17:19 [facility] (Rec: 09/14/20 17:26 [facility] [email or web address]) Manual Assessments Soft Tissue Assessment Soft Tissue Mobility Assessment Muscle guarding and spasm of the left greater than right lumbar and lower thoracic paraspinals muscle guarding of the left piriformis Joint Mobility Assessment Joint Mobility Assessment hypomobility thoracic spine T4 -T10 PT-OP-J Posture/Palpation/Skin Start: 09/14/20 17:17 Freq: Status: Active Protocol: Document 09/14/20 17:19 [facility] (Rec: 09/14/20 17:26 [facility] [email or web address]) Posture Evaluation Comments Posture Comments forward shift of the lumbar spine in standing, lean to the left Palpation Assessment Location left piriformis Palpation Location left piriformis Palpation Findings Soft Tissue Tightness,Muscle Guarding,Tenderness One Palpation Location bilateral lumbar spinal musculature Palpation Findings Soft Tissue Tightness,Muscle Guarding PT-OP-K Range of Motion Start: 09/14/20 17:17 Freq: Status: Active Protocol: Document 09/14/20 17:19 [facility] (Rec: 09/14/20 17:26 [facility] [email or web address]) Lumbar Spine Range of Motion Lumbar Spine Active Flexion 60 Extension 10 Rotation Left 15 Rotation Right 15 Lateral Flexion Left 15 Lateral Flexion Right 15 Comments no pain with active ROM PT-OP-Q Treatments Start: 09/14/20 17:17 Freq: Status: Active Protocol: Document 10/26/20 13:45 [facility] (Rec: 10/26/20 14:42 [facility] [id number]) Therapeutic Exercises Supine Exercises iliopsoas stretch Reps/Minutes 30-60 seconds piriformis stretch Reps/Minutes 2 x 30 sec hamstring stretch Side bilateral Reps/Minutes 2 x 30 seconds each Other Exercises quadruped sidebends Reps/Minutes 5 reps each side debbie pose Reps/Minutes hold 1-2 minutes Manual Therapy Treatment Soft Tissue Mobilization 2 Body Location piriformis release on the left 1 Body Location Thoracic, lumbar spinal musculature and piriformis PT-OP-R Modalities Start: 10/26/20 15:47 Freq: Status: Active Protocol: Document 10/26/20 13:45 [facility] (Rec: 10/26/20 15:48 [facility] [email or web address]) Ultrasound Therapy Treatment left posterior tibialis Applicator Size (cm2) 5 PT-OP-T Assessment and Plan Start: 09/14/20 17:17 Freq: Status: Active Protocol: Document 10/26/20 13:45 [facility] (Rec: 10/31/20 08:54 [facility] [email or web address]) Physical Therapy Assessment Assessment Summary Assessment pt continues to do much better overall when doing her stretches, walking, and the pool. Tightness in the left low back and paraspinals today Physical Therapy Plan Frequency and Duration Frequency of Treatment 1x/Week Duration of Treatment 8 Plan of Care Start Date 09/14/20 Plan of Care End Date 11/09/20 Next Visit Focus/Plan Next Note Type Treatment Note Next Visit Plan Review all established stretches and progress stabilization exercises, manual therapy techniques to release the lumbar paraspinals and piriformis.
--- NOTE | 2020-11-09 17:06 | PT.OPPN ---
Current Diagnoses Other specified disorders of muscle (11/09/20) Physical Therapy Progress Note PT-OP-A Visit Information Start: 09/14/20 16:11 Freq: Status: Active Protocol: Document 11/09/20 16:55 [facility] (Rec: 11/09/20 17:06 [facility] [email or web address]) Out-Patient Physical Therapy Visit Information Visit Information Visit Type Treatment Note Visit Start Time 15:15 Visit Stop Time 16:00 Total Visit Minutes 45 Visit Number 5 PT-OP-B Current Condition Start: 09/14/20 16:11 Freq: Status: Active Protocol: Document 09/14/20 16:12 [facility] (Rec: 09/14/20 17:19 [facility] [id number]) Current Condition History of Current Condition History of Current Condition pt reports she has no energy to go to the gym, pain is 6-7 our of 10, no complaints of sciatic pain and sometimes the pain radiates to the left foot. she also describes lymphedema symptoms in her left axilla. She has a referral for lymphedema PT Treatment Goals Patient/Caregiver Goals Goals include reducing pain to be able to continue walking and swimming, working and ADL Current Functional Impairments (Reported) Functional Limitations- Work/School pain with long duration sitting at work, pain prevents her from sitting more than 1 hour PT-OP-C Subjective Start: 09/14/20 16:11 Freq: Status: Active Protocol: Document 11/09/20 16:55 [facility] (Rec: 11/09/20 17:06 [facility] [email or web address]) OP-PT Subjective Patient Comments Patient Comments pt has had company this past month so hasn't walked as much but plans on returning to her walking program tomorrow PT-OP-F Manual Assessment Start: 09/14/20 17:17 Freq: Status: Active Protocol: Document 09/14/20 17:19 [facility] (Rec: 09/14/20 17:26 [facility] [email or web address]) Manual Assessments Soft Tissue Assessment Soft Tissue Mobility Assessment Muscle guarding and spasm of the left greater than right lumbar and lower thoracic paraspinals muscle guarding of the left piriformis Joint Mobility Assessment Joint Mobility Assessment hypomobility thoracic spine T4 -T10 PT-OP-J Posture/Palpation/Skin Start: 09/14/20 17:17 Freq: Status: Active Protocol: Document 09/14/20 17:19 [facility] (Rec: 09/14/20 17:26 [facility] [email or web address]) Posture Evaluation Comments Posture Comments forward shift of the lumbar spine in standing, lean to the left Palpation Assessment Location left piriformis Palpation Location left piriformis Palpation Findings Soft Tissue Tightness,Muscle Guarding,Tenderness One Palpation Location bilateral lumbar spinal musculature Palpation Findings Soft Tissue Tightness,Muscle Guarding PT-OP-K Range of Motion Start: 09/14/20 17:17 Freq: Status: Active Protocol: Document 09/14/20 17:19 [facility] (Rec: 09/14/20 17:26 [facility] [email or web address]) Lumbar Spine Range of Motion Lumbar Spine Active Flexion 60 Extension 10 Rotation Left 15 Rotation Right 15 Lateral Flexion Left 15 Lateral Flexion Right 15 Comments no pain with active ROM PT-OP-T Assessment and Plan Start: 09/14/20 17:17 Freq: Status: Active Protocol: Document 11/09/20 16:55 [facility] (Rec: 11/09/20 17:06 [facility] [email or web address]) Physical Therapy Assessment Goals Four Impairment Pain prevents her from sitting greater than 1 hour Narrow Gauge Brakeman Goal (LTG) Tanvi is educated to take breaks during the day where she gets up and moves around every 1-2 hours and this helps reduce pain from static posture Good progress LTG Duration 8 weeks Three Impairment muscle guarding and spasm of the left thoracic and lumbar paraspinals Longterm Goal (LTG) With manual therapy, stretching, and stabilization there is a overall reduction in muscle guarding and spasm Some progress but pt has had company this past month which made it harder to do her exercises LTG Duration 8 weeks Two Impairment postural habits and hip flexor tightness contibuting to LBP Short Term Goal (STG) Tanvi is educated on postural corrections that can help to reduce LBP Good progress STG Duration 5 weeks One Impairment C/O pain rated 6/10 across the low back, SI and buttocks Narrow Gauge Brakeman Goal (LTG) Tanvi reports a overall reduction in LBP to 2-3/10 Some progress LTG Duration 8 weeks Assessment Summary Assessment Pt has had company the past month so hasn't been able to do her exercises as much. She has no sciatic symptoms but feel tight in the left side of her lumbar spine and gluteals today. Pt was shown how to use miracle balls for pt to be able to do a self release at home. Returning to walking and the pool will be very helpful for Tanvi. She would benefit from continued PT Physical Therapy Plan Frequency and Duration Frequency of Treatment 1x/Week Duration of Treatment 8 Plan of Care Start Date 11/09/20 Plan of Care End Date 01/04/21
--- NOTE | 2020-11-09 17:06 | PT.OPPOC ---
Physical, Occupational & Speech Therapy At [facility] Current Diagnoses Other specified disorders of muscle (11/09/20) Visit Care Team Role Provider Type Betsy Wallis MD Attending Provider Physician Primary Care Provider Referring Provider Specialty: Family Practice Address: [address] [place] [address] [place], [address] Email: [email or web address] Plan Of Care PT-OP-T Assessment and Plan Start: 09/14/20 17:17 Freq: Status: Active Protocol: Document 11/09/20 16:55 [facility] (Rec: 11/09/20 17:06 [facility] [email or web address]) Physical Therapy Assessment Goals Four Impairment Pain prevents her from sitting greater than 1 hour Jail Goal (LTG) Tanvi is educated to take breaks during the day where she gets up and moves around every 1-2 hours and this helps reduce pain from static posture Good progress LTG Duration 8 weeks Three Impairment muscle guarding and spasm of the left thoracic and lumbar paraspinals Slide Fasteners Inspector Goal (LTG) With manual therapy, stretching, and stabilization there is a overall reduction in muscle guarding and spasm Some progress but pt has had company this past month which made it harder to do her exercises LTG Duration 8 weeks Two Impairment postural habits and hip flexor tightness contributing to LBP Short Term Goal (STG) Tanvi is educated on postural corrections that can help to reduce LBP Good progress STG Duration 5 weeks One Impairment C/O pain rated 6/10 across the low back, SI and buttocks Slide Fasteners Inspector Goal (LTG) Tanvi reports a overall reduction in LBP to 2-3/10 Some progress LTG Duration 8 weeks Assessment Summary Assessment Pt has had company the past month so hasn't been able to do her exercises as much. She has no sciatic symptoms but feel tight in the left side of her lumbar spine and gluteals today. Pt was shown how to use miracle balls for pt to be able to do a self release at home. Returning to walking and the pool will be very helpful for Tanvi. She would benefit from continued PT Physical Therapy Plan Frequency and Duration Frequency of Treatment 1x/Week Duration of Treatment 8 Plan of Care Start Date 11/09/20 Plan of Care End Date 01/04/21 Plan of Care Dates Plan of Care Start Date 11/09/20 Plan of Care End Date 01/04/21 Electronically Signed by: Darling Schumacher, MARAH 11/09/20 [id number] Please Sign and Return: I have reviewed this Plan of Care and certify that the skilled therapy services above are required to meet the patient?s needs. Physician Signature Date Printed Name and Credentials Clinical Instructor Signature Printed Name and Credentials
--- NOTE | 2020-11-09 17:09 | PT.OTN ---
Current Diagnoses Other specified disorders of muscle (11/09/20) Physical Therapy Treatment Note PT-OP-A Visit Information Start: 09/14/20 16:11 Freq: Status: Active Protocol: Document 11/09/20 16:55 [facility] (Rec: 11/09/20 17:06 [facility] [email or web address]) Out-Patient Physical Therapy Visit Information Visit Information Visit Type Treatment Note Visit Start Time 15:15 Visit Stop Time 16:00 Total Visit Minutes 45 Visit Number 5 PT-OP-B Current Condition Start: 09/14/20 16:11 Freq: Status: Active Protocol: Document 09/14/20 16:12 [facility] (Rec: 09/14/20 17:19 [facility] [id number]) Current Condition History of Current Condition History of Current Condition pt reports she has no energy to go to the gym, pain is 6-7 our of 10, no complaints of sciatic pain and sometimes the pain radiates to the left foot. she also describes lymphedema symptoms in her left axilla. She has a referral for lymphedema PT Treatment Goals Patient/Caregiver Goals Goals include reducing pain to be able to continue walking and swimming, working and ADL Current Functional Impairments (Reported) Functional Limitations- Work/School pain with long duration sitting at work, pain prevents her from sitting more than 1 hour PT-OP-C Subjective Start: 09/14/20 16:11 Freq: Status: Active Protocol: Document 11/09/20 16:55 [facility] (Rec: 11/09/20 17:06 [facility] [email or web address]) OP-PT Subjective Patient Comments Patient Comments pt has had company this past month so hasn't walked as much but plans on returning to her walking program tomorrow PT-OP-F Manual Assessment Start: 09/14/20 17:17 Freq: Status: Active Protocol: Document 09/14/20 17:19 [facility] (Rec: 09/14/20 17:26 [facility] [email or web address]) Manual Assessments Soft Tissue Assessment Soft Tissue Mobility Assessment Muscle guarding and spasm of the left greater than right lumbar and lower thoracic paraspinals muscle guarding of the left piriformis Joint Mobility Assessment Joint Mobility Assessment hypomobility thoracic spine T4 -T10 PT-OP-J Posture/Palpation/Skin Start: 09/14/20 17:17 Freq: Status: Active Protocol: Document 09/14/20 17:19 [facility] (Rec: 09/14/20 17:26 [facility] [email or web address]) Posture Evaluation Comments Posture Comments forward shift of the lumbar spine in standing, lean to the left Palpation Assessment Location left piriformis Palpation Location left piriformis Palpation Findings Soft Tissue Tightness,Muscle Guarding,Tenderness One Palpation Location bilateral lumbar spinal musculature Palpation Findings Soft Tissue Tightness,Muscle Guarding PT-OP-K Range of Motion Start: 09/14/20 17:17 Freq: Status: Active Protocol: Document 09/14/20 17:19 [facility] (Rec: 09/14/20 17:26 [facility] [email or web address]) Lumbar Spine Range of Motion Lumbar Spine Active Flexion 60 Extension 10 Rotation Left 15 Rotation Right 15 Lateral Flexion Left 15 Lateral Flexion Right 15 Comments no pain with active ROM PT-OP-Q Treatments Start: 09/14/20 17:17 Freq: Status: Active Protocol: Document 11/09/20 16:55 [facility] (Rec: 11/09/20 17:06 [facility] [email or web address]) Therapeutic Exercises Supine Exercises windshield wipers Reps/Minutes x 10 reps piriformis stretch Reps/Minutes 2 x 30 sec hamstring stretch Side bilateral Reps/Minutes 2 x 30 seconds each single knee to chest Supine Exercise Name single knee to chest Reps/Minutes 2 x 30 sec Manual Therapy Treatment Soft Tissue Mobilization 2 Body Location piriformis release on the left 1 Body Location Thoracic, lumbar spinal musculature and piriformis Self-Care/Home Management Treatment Activities Self-Care/Home Management Activities pt shown how to use miracle balls for self release of the piriformis PT-OP-R Modalities Start: 10/26/20 15:47 Freq: Status: Active Protocol: Document 10/26/20 13:45 [facility] (Rec: 10/26/20 15:48 [facility] [email or web address]) Ultrasound Therapy Treatment left posterior tibialis Applicator Size (cm2) 5 PT-OP-T Assessment and Plan Start: 09/14/20 17:17 Freq: Status: Active Protocol: Document 11/09/20 16:55 [facility] (Rec: 11/09/20 17:06 [facility] [email or web address]) Physical Therapy Assessment Goals Four Impairment Pain prevents her from sitting greater than 1 hour Ui Engineer Goal (LTG) Tanvi is educated to take breaks during the day where she gets up and moves around every 1-2 hours and this helps reduce pain from static posture Good progress LTG Duration 8 weeks Three Impairment muscle guarding and spasm of the left thoracic and lumbar paraspinals Correction Goal (LTG) With manual therapy, stretching, and stabilization there is a overall reduction in muscle guarding and spasm Some progress but pt has had company this past month which made it harder to do her exercises LTG Duration 8 weeks Two Impairment postural habits and hip flexor tightness contibuting to LBP Short Term Goal (STG) Tanvi is educated on postural corrections that can help to reduce LBP Good progress STG Duration 5 weeks One Impairment C/O pain rated 6/10 across the low back, SI and buttocks Ui Engineer Goal (LTG) Tanvi reports a overall reduction in LBP to 2-3/10 Some progress LTG Duration 8 weeks Assessment Summary Assessment Pt has had company the past month so hasn't been able to do her exercises as much. She has no sciatic symptoms but feel tight in the left side of her lumbar spine and gluteals today. Pt was shown how to use miracle balls for pt to be able to do a self release at home. Returning to walking and the pool will be very helpful for Tanvi. She would benefit from continued PT Physical Therapy Plan Frequency and Duration Frequency of Treatment 1x/Week Duration of Treatment 8 Plan of Care Start Date 11/09/20 Plan of Care End Date 01/04/21
--- NOTE | 2020-12-05 17:13 | PT.OTN ---
Current Diagnoses Other specified disorders of muscle (12/05/20) Physical Therapy Treatment Note PT-OP-A Visit Information Start: 09/14/20 16:11 Freq: Status: Active Protocol: Document 12/05/20 15:15 [facility] (Rec: 12/05/20 17:13 [facility] [email or web address]) Out-Patient Physical Therapy Visit Information Visit Information Visit Type Treatment Note Visit Start Time 15:15 Visit Stop Time 16:00 Total Visit Minutes 45 Visit Number 6 PT-OP-B Current Condition Start: 09/14/20 16:11 Freq: Status: Active Protocol: Document 09/14/20 16:12 [facility] (Rec: 09/14/20 17:19 [facility] [id number]) Current Condition History of Current Condition History of Current Condition pt reports she has no energy to go to the gym, pain is 6-7 our of 10, no complaints of sciatic pain and sometimes the pain radiates to the left foot. she also describes lymphedema symptoms in her left axilla. She has a referral for lymphedema PT Treatment Goals Patient/Caregiver Goals Goals include reducing pain to be able to continue walking and swimming, working and ADL Current Functional Impairments (Reported) Functional Limitations- Work/School pain with long duration sitting at work, pain prevents her from sitting more than 1 hour PT-OP-C Subjective Start: 09/14/20 16:11 Freq: Status: Active Protocol: Document 12/05/20 15:15 [facility] (Rec: 12/05/20 17:13 [facility] [email or web address]) OP-PT Subjective Patient Comments Patient Comments pt notes she is tight today, she has been working quite a bit these past two weeks PT-OP-F Manual Assessment Start: 09/14/20 17:17 Freq: Status: Active Protocol: Document 09/14/20 17:19 [facility] (Rec: 09/14/20 17:26 [facility] [email or web address]) Manual Assessments Soft Tissue Assessment Soft Tissue Mobility Assessment Muscle guarding and spasm of the left greater than right lumbar and lower thoracic paraspinals muscle guarding of the left piriformis Joint Mobility Assessment Joint Mobility Assessment hypomobility thoracic spine T4 -T10 PT-OP-J Posture/Palpation/Skin Start: 09/14/20 17:17 Freq: Status: Active Protocol: Document 09/14/20 17:19 [facility] (Rec: 09/14/20 17:26 [facility] [email or web address]) Posture Evaluation Comments Posture Comments forward shift of the lumbar spine in standing, lean to the left Palpation Assessment Location left piriformis Palpation Location left piriformis Palpation Findings Soft Tissue Tightness,Muscle Guarding,Tenderness One Palpation Location bilateral lumbar spinal musculature Palpation Findings Soft Tissue Tightness,Muscle Guarding PT-OP-K Range of Motion Start: 09/14/20 17:17 Freq: Status: Active Protocol: Document 09/14/20 17:19 [facility] (Rec: 09/14/20 17:26 [facility] [email or web address]) Lumbar Spine Range of Motion Lumbar Spine Active Flexion 60 Extension 10 Rotation Left 15 Rotation Right 15 Lateral Flexion Left 15 Lateral Flexion Right 15 Comments no pain with active ROM PT-OP-Q Treatments Start: 09/14/20 17:17 Freq: Status: Active Protocol: Document 12/05/20 15:15 [facility] (Rec: 12/05/20 17:13 [facility] [email or web address]) Therapeutic Exercises Supine Exercises piriformis stretch Reps/Minutes 2 x 30 sec hamstring stretch Side bilateral Reps/Minutes 2 x 30 seconds each Other Exercises debbie pose Reps/Minutes hold 1-2 minutes 1 Other Exercise Name quadraped cat cow, sidebends, thoracic rotation Reps/Minutes x 10 each Manual Therapy Treatment Soft Tissue Mobilization 2 Body Location piriformis release on the left 1 Body Location Thoracic, lumbar spinal musculature and piriformis Joint Mobilizations 1 Joint thoracic PA glides Direction PA Grade III Manual Techniques manual hip stretches for the left hip Comments hip ER, HS stretch, SKTC, hip Extension PT-OP-R Modalities Start: 10/26/20 15:47 Freq: Status: Active Protocol: Document 10/26/20 13:45 [facility] (Rec: 10/26/20 15:48 [facility] [email or web address]) Ultrasound Therapy Treatment left posterior tibialis Applicator Size (cm2) 5 PT-OP-T Assessment and Plan Start: 09/14/20 17:17 Freq: Status: Active Protocol: Document 12/05/20 15:15 [facility] (Rec: 12/05/20 17:13 [facility] [email or web address]) Physical Therapy Assessment Assessment Summary Assessment pt tighter on the left side today, both in the lumbar paraspinals and left piriformis. She will return to the pool once back to [place] Physical Therapy Plan Frequency and Duration Frequency of Treatment 1x/Week Duration of Treatment 8 Plan of Care Start Date 11/09/20 Plan of Care End Date 01/04/21 Therapeutic Interventions Therapeutic Interventions Home Exercise Program,Manual Therapy,Patient/Caregiver Education,Self-Care/Home Management,Soft Tissue Mobilization,Therapeutic Exercises Discharge Physical Therapy Discharge Comments Pt is at the end of her PT visits for the year. We will DC PT at this time Next Visit Focus/Plan Next Note Type Treatment Note Next Visit Plan Review all established stretches and progress stabilization exercises, manual therapy techniques to release the lumbar paraspinals and piriformis.
--- NOTE | 2021-01-11 17:21 | PT.OPPOC ---
Physical, Occupational & Speech Therapy At [facility] Current Diagnoses Other specified disorders of muscle (01/18/21) Visit Care Team Role Provider Type Betsy Wallis MD Attending Provider Physician Primary Care Provider Referring Provider Specialty: Family Practice Address: [address] [place] [address] [place], [address] Email: [email or web address] Plan Of Care PT-OP-T Assessment and Plan Start: 09/14/20 17:17 Freq: Status: Active Protocol: Document 01/11/21 15:15 [facility] (Rec: 01/18/21 17:21 [facility] [email or web address]) Physical Therapy Assessment Goals Four Impairment Pain prevents her from sitting greater than 1 hour Longterm Goal (LTG) Tanvi is educated to take breaks during the day where she gets up and moves around every 1-2 hours and this helps reduce pain from static posture Good progress LTG Duration 8 weeks Three Impairment muscle guarding and spasm of the left thoracic and lumbar paraspinals Bottom Sander Goal (LTG) With manual therapy, stretching, and stabilization there is a overall reduction in muscle guarding and spasm LTG Duration 8 weeks Two Impairment postural habits and hip flexor tightness contibuting to LBP Short Term Goal (STG) Tanvi is educated on postural corrections that can help to reduce LBP Good progress STG Duration 5 weeks One Impairment C/O pain rated 6/10 across the low back, SI and buttocks Longterm Goal (LTG) Tanvi reports a overall reduction in LBP to 2-3/10 good progress LTG Duration 8 weeks Assessment Summary Assessment Tanvi returns to PT today after not being seen since November. She has not been able to use the pool here but only in [place]. This does help her quite a bit. Her stretches were reviewed today and manual therapy treatment was performed which she feels helps reduce her pain Physical Therapy Plan Frequency and Duration Frequency of Treatment 1x/Week Duration of Treatment 8 Plan of Care Start Date 01/11/21 Plan of Care End Date 03/08/21 Next Visit Focus/Plan Next Note Type Treatment Note Next Visit Plan Review all established stretches and progress stabilization exercises, manual therapy techniques to release the lumbar paraspinals and piriformis. Plan of Care Dates Plan of Care Start Date 01/11/21 Plan of Care End Date 03/08/21 Electronically Signed by: Darling Schumacher, MARAH 01/18/21 0852 Please Sign and Return: I have reviewed this Plan of Care and certify that the skilled therapy services above are required to meet the patient?s needs. Physician Signature Date Printed Name and Credentials Clinical Instructor Signature Printed Name and Credentials
--- NOTE | 2021-01-11 17:22 | PT.OTN ---
Current Diagnoses Other specified disorders of muscle (01/18/21) Physical Therapy Treatment Note PT-OP-A Visit Information Start: 09/14/20 16:11 Freq: Status: Active Protocol: Document 01/11/21 15:15 [facility] (Rec: 01/18/21 17:21 [facility] [email or web address]) Out-Patient Physical Therapy Visit Information Visit Information Visit Type Treatment Note Visit Start Time 15:15 Visit Stop Time 16:00 Total Visit Minutes 45 Visit Number 7 PT-OP-B Current Condition Start: 09/14/20 16:11 Freq: Status: Active Protocol: Document 09/14/20 16:12 [facility] (Rec: 09/14/20 17:19 [facility] [id number]) Current Condition History of Current Condition History of Current Condition pt reports she has no energy to go to the gym, pain is 6-7 our of 10, no complaints of sciatic pain and sometimes the pain radiates to the left foot. she also describes lymphedema symptoms in her left axilla. She has a referral for lymphedema PT Treatment Goals Patient/Caregiver Goals Goals include reducing pain to be able to continue walking and swimming, working and ADL Current Functional Impairments (Reported) Functional Limitations- Work/School pain with long duration sitting at work, pain prevents her from sitting more than 1 hour PT-OP-C Subjective Start: 09/14/20 16:11 Freq: Status: Active Protocol: Document 01/11/21 15:15 [facility] (Rec: 01/18/21 17:21 [facility] [email or web address]) OP-PT Subjective Patient Comments Patient Comments pt returns to PT after not being seen since November. She reports tightness on her left side of her low back PT-OP-F Manual Assessment Start: 09/14/20 17:17 Freq: Status: Active Protocol: Document 09/14/20 17:19 [facility] (Rec: 09/14/20 17:26 [facility] [email or web address]) Manual Assessments Soft Tissue Assessment Soft Tissue Mobility Assessment Muscle guarding and spasm of the left greater than right lumbar and lower thoracic paraspinals muscle guarding of the left piriformis Joint Mobility Assessment Joint Mobility Assessment hypomobility thoracic spine T4 -T10 PT-OP-J Posture/Palpation/Skin Start: 09/14/20 17:17 Freq: Status: Active Protocol: Document 09/14/20 17:19 [facility] (Rec: 09/14/20 17:26 [facility] [email or web address]) Posture Evaluation Comments Posture Comments forward shift of the lumbar spine in standing, lean to the left Palpation Assessment Location left piriformis Palpation Location left piriformis Palpation Findings Soft Tissue Tightness,Muscle Guarding,Tenderness One Palpation Location bilateral lumbar spinal musculature Palpation Findings Soft Tissue Tightness,Muscle Guarding PT-OP-K Range of Motion Start: 09/14/20 17:17 Freq: Status: Active Protocol: Document 09/14/20 17:19 [facility] (Rec: 09/14/20 17:26 [facility] [email or web address]) Lumbar Spine Range of Motion Lumbar Spine Active Flexion 60 Extension 10 Rotation Left 15 Rotation Right 15 Lateral Flexion Left 15 Lateral Flexion Right 15 Comments no pain with active ROM PT-OP-Q Treatments Start: 09/14/20 17:17 Freq: Status: Active Protocol: Document 01/11/21 15:15 [facility] (Rec: 01/18/21 17:21 [facility] [email or web address]) Therapeutic Exercises Other Exercises quadruped sidebends Reps/Minutes 5 reps each side debbie pose Reps/Minutes hold 1-2 minutes 3 Other Exercise Name gave decompression exercises for the UE lymphatic system 2 Other Exercise Name 1/2 kneeling hip flexion and down dog yoga stretches Side bilateral 1 Other Exercise Name quadraped cat cow, sidebends, thoracic rotation Reps/Minutes x 10 each Manual Therapy Treatment Soft Tissue Mobilization 2 Body Location piriformis release on the left 1 Body Location Thoracic, lumbar spinal musculature and piriformis PT-OP-R Modalities Start: 10/26/20 15:47 Freq: Status: Active Protocol: Document 10/26/20 13:45 [facility] (Rec: 10/26/20 15:48 [facility] [email or web address]) Ultrasound Therapy Treatment left posterior tibialis Applicator Size (cm2) 5 PT-OP-T Assessment and Plan Start: 09/14/20 17:17 Freq: Status: Active Protocol: Document 01/11/21 15:15 [facility] (Rec: 01/18/21 17:21 [facility] [email or web address]) Physical Therapy Assessment Goals Four Impairment Pain prevents her from sitting greater than 1 hour Math Interventionist Goal (LTG) Tanvi is educated to take breaks during the day where she gets up and moves around every 1-2 hours and this helps reduce pain from static posture Good progress LTG Duration 8 weeks Three Impairment muscle guarding and spasm of the left thoracic and lumbar paraspinals Math Interventionist Goal (LTG) With manual therapy, stretching, and stabilization there is a overall reduction in muscle guarding and spasm LTG Duration 8 weeks Two Impairment postural habits and hip flexor tightness contibuting to LBP Short Term Goal (STG) Tanvi is educated on postural corrections that can help to reduce LBP Good progress STG Duration 5 weeks One Impairment C/O pain rated 6/10 across the low back, SI and buttocks [facility] Goal (LTG) Tanvi reports a overall reduction in LBP to 2-3/10 good progress LTG Duration 8 weeks Assessment Summary Assessment Tanvi returns to PT today after not being seen since November. She has not been able to use the pool here but only in [place]. This does help her quite a bit. Her stretches were reviewed today and manual therapy treatment was performed which she feels helps reduce her pain Physical Therapy Plan Frequency and Duration Frequency of Treatment 1x/Week Duration of Treatment 8 Plan of Care Start Date 01/11/21 Plan of Care End Date 03/08/21 Next Visit Focus/Plan Next Note Type Treatment Note Next Visit Plan Review all established stretches and progress stabilization exercises, manual therapy techniques to release the lumbar paraspinals and piriformis.
--- NOTE | 2021-01-18 17:24 | PT.OTN ---
Current Diagnoses Other specified disorders of muscle (01/18/21) Physical Therapy Treatment Note PT-OP-A Visit Information Start: 09/14/20 16:11 Freq: Status: Active Protocol: Document 01/18/21 17:22 [facility]PL[facility] BY [facility] (Rec: 01/18/21 17:24 [facility]PLACED BY [facility] [email or web address]) Out-Patient Physical Therapy Visit Information Visit Information Visit Type Treatment Note Visit Start Time 15:15 Visit Stop Time 16:00 Total Visit Minutes 45 Visit Number 8 PT-OP-B Current Condition Start: 09/14/20 16:11 Freq: Status: Active Protocol: Document 09/14/20 16:12 [facility]PL[facility]ED BY [facility] (Rec: 09/14/20 17:19 REPLACED BY [facility] [id number]) Current Condition History of Current Condition History of Current Condition pt reports she has no energy to go to the gym, pain is 6-7 our of 10, no complaints of sciatic pain and sometimes the pain radiates to the left foot. she also describes lymphedema symptoms in her left axilla. She has a referral for lymphedema PT Treatment Goals Patient/Caregiver Goals Goals include reducing pain to be able to continue walking and swimming, working and ADL Current Functional Impairments (Reported) Functional Limitations- Work/School pain with long duration sitting at work, pain prevents her from sitting more than 1 hour PT-OP-C Subjective Start: 09/14/20 16:11 Freq: Status: Active Protocol: Document 01/18/21 17:22 [facility]PLACED BY [facility] (Rec: 01/18/21 17:24 [facility]PL[facility]ED BY [facility] [email or web address]) OP-PT Subjective Patient Comments Patient Comments pt reports her left side has still been very tight PT-OP-F Manual Assessment Start: 09/14/20 17:17 Freq: Status: Active Protocol: Document 09/14/20 17:19 [facility]PL[facility]ED BY [facility] (Rec: 09/14/20 17:26 [facility]PL[facility]ED BY [facility] [email or web address]) Manual Assessments Soft Tissue Assessment Soft Tissue Mobility Assessment Muscle guarding and spasm of the left greater than right lumbar and lower thoracic paraspinals muscle guarding of the left piriformis Joint Mobility Assessment Joint Mobility Assessment hypomobility thoracic spine T4 -T10 PT-OP-J Posture/Palpation/Skin Start: 09/14/20 17:17 Freq: Status: Active Protocol: Document 09/14/20 17:19 [facility]PL[facility]ED BY [facility] (Rec: 09/14/20 17:26 REPLACED BY [facility] [email or web address]) Posture Evaluation Comments Posture Comments forward shift of the lumbar spine in standing, lean to the left Palpation Assessment Location left piriformis Palpation Location left piriformis Palpation Findings Soft Tissue Tightness,Muscle Guarding,Tenderness One Palpation Location bilateral lumbar spinal musculature Palpation Findings Soft Tissue Tightness,Muscle Guarding PT-OP-K Range of Motion Start: 09/14/20 17:17 Freq: Status: Active Protocol: Document 09/14/20 17:19 [facility] (Rec: 09/14/20 17:26 [facility] [email or web address]) Lumbar Spine Range of Motion Lumbar Spine Active Flexion 60 Extension 10 Rotation Left 15 Rotation Right 15 Lateral Flexion Left 15 Lateral Flexion Right 15 Comments no pain with active ROM PT-OP-Q Treatments Start: 09/14/20 17:17 Freq: Status: Active Protocol: Document 01/18/21 17:22 [facility] (Rec: 01/18/21 17:24 [facility] [email or web address]) Manual Therapy Treatment Soft Tissue Mobilization 2 Body Location piriformis release on the left 1 Body Location Thoracic, lumbar spinal musculature and piriformis Joint Mobilizations 1 Joint thoracic PA glides Direction PA Grade III Manual Techniques manual hip stretches for the left hip Comments hip ER, HS stretch, SKTC, hip Extension PT-OP-R Modalities Start: 10/26/20 15:47 Freq: Status: Active Protocol: Document 10/26/20 13:45 [facility] (Rec: 10/26/20 15:48 [facility] [email or web address]) Ultrasound Therapy Treatment left posterior tibialis Applicator Size (cm2) 5 PT-OP-T Assessment and Plan Start: 09/14/20 17:17 Freq: Status: Active Protocol: Document 01/18/21 17:22 [facility] (Rec: 01/18/21 17:24 [facility] [email or web address]) Physical Therapy Assessment Assessment Summary Assessment worked on the thoracic spine tightness today, encouraged foam roll for home use and stretches to open up the hips Physical Therapy Plan Frequency and Duration Frequency of Treatment 1x/Week Duration of Treatment 8 Plan of Care Start Date 01/11/21 Plan of Care End Date 03/08/21
--- NOTE | 2021-01-23 15:15 | PT.OTN ---
Current Diagnoses Other specified disorders of muscle (01/23/21) Physical Therapy Treatment Note PT-OP-A Visit Information Start: 09/14/20 16:11 Freq: Status: Active Protocol: Document 01/23/21 15:15 [facility] (Rec: 01/23/21 17:23 [facility] [email or web address]) Out-Patient Physical Therapy Visit Information Visit Information Visit Type Treatment Note Visit Start Time 15:15 Visit Stop Time 16:00 Total Visit Minutes 45 Visit Number 9 PT-OP-B Current Condition Start: 09/14/20 16:11 Freq: Status: Active Protocol: Document 09/14/20 16:12 [facility] (Rec: 09/14/20 17:19 [facility] [id number]) Current Condition History of Current Condition History of Current Condition pt reports she has no energy to go to the gym, pain is 6-7 our of 10, no complaints of sciatic pain and sometimes the pain radiates to the left foot. she also describes lymphedema symptoms in her left axilla. She has a referral for lymphedema PT Treatment Goals Patient/Caregiver Goals Goals include reducing pain to be able to continue walking and swimming, working and ADL Current Functional Impairments (Reported) Functional Limitations- Work/School pain with long duration sitting at work, pain prevents her from sitting more than 1 hour PT-OP-C Subjective Start: 09/14/20 16:11 Freq: Status: Active Protocol: Document 01/23/21 15:15 [facility] (Rec: 01/24/21 09:44 [facility] [email or web address]) OP-PT Subjective Patient Comments Patient Comments Pt reports last treatment really helped her mid back PT-OP-F Manual Assessment Start: 09/14/20 17:17 Freq: Status: Active Protocol: Document 09/14/20 17:19 [facility] (Rec: 09/14/20 17:26 [facility] [email or web address]) Manual Assessments Soft Tissue Assessment Soft Tissue Mobility Assessment Muscle guarding and spasm of the left greater than right lumbar and lower thoracic paraspinals muscle guarding of the left piriformis Joint Mobility Assessment Joint Mobility Assessment hypomobility thoracic spine T4 -T10 PT-OP-J Posture/Palpation/Skin Start: 09/14/20 17:17 Freq: Status: Active Protocol: Document 09/14/20 17:19 [facility] (Rec: 09/14/20 17:26 [facility] [email or web address]) Posture Evaluation Comments Posture Comments forward shift of the lumbar spine in standing, lean to the left Palpation Assessment Location left piriformis Palpation Location left piriformis Palpation Findings Soft Tissue Tightness,Muscle Guarding,Tenderness One Palpation Location bilateral lumbar spinal musculature Palpation Findings Soft Tissue Tightness,Muscle Guarding PT-OP-K Range of Motion Start: 09/14/20 17:17 Freq: Status: Active Protocol: Document 09/14/20 17:19 [facility] (Rec: 09/14/20 17:26 [facility] [email or web address]) Lumbar Spine Range of Motion Lumbar Spine Active Flexion 60 Extension 10 Rotation Left 15 Rotation Right 15 Lateral Flexion Left 15 Lateral Flexion Right 15 Comments no pain with active ROM PT-OP-Q Treatments Start: 09/14/20 17:17 Freq: Status: Active Protocol: Document 01/23/21 15:15 [facility] (Rec: 01/24/21 09:44 [facility] [email or web address]) Gym Equipment Cable Column (Body Solid) Rows Details 20# Reps/Time 2 x 10 Manual Therapy Treatment Soft Tissue Mobilization 2 Body Location piriformis release on the left 1 Body Location Thoracic, lumbar spinal musculature and piriformis Joint Mobilizations 1 Joint thoracic PA glides Direction PA Grade III Manual Techniques manual hip stretches for the left hip Comments hip ER, HS stretch, SKTC, hip Extension PT-OP-R Modalities Start: 10/26/20 15:47 Freq: Status: Active Protocol: Document 10/26/20 13:45 [facility] (Rec: 10/26/20 15:48 [facility] [email or web address]) Ultrasound Therapy Treatment left posterior tibialis Applicator Size (cm2) 5 PT-OP-T Assessment and Plan Start: 09/14/20 17:17 Freq: Status: Active Protocol: Document 01/23/21 15:15 [facility] (Rec: 01/24/21 09:44 [facility] [email or web address]) Physical Therapy Assessment Assessment Summary Assessment Tanvi has returned to both seated rows and lat pull down which both help her mid back. Decreased tension today in the thoracic spine Physical Therapy Plan Frequency and Duration Frequency of Treatment 1x/Week Duration of Treatment 8 Plan of Care Start Date 01/11/21 Plan of Care End Date 03/08/21 Therapeutic Interventions Therapeutic Interventions Home Exercise Program,Manual Therapy,Patient/Caregiver Education,Self-Care/Home Management,Soft Tissue Mobilization,Therapeutic Exercises Next Visit Focus/Plan Next Note Type Treatment Note Next Visit Plan Review all established stretches and progress stabilization exercises, manual therapy techniques to release the lumbar paraspinals and piriformis.
--- NOTE | 2021-02-20 15:02 | PT.OTN ---
Current Diagnoses Other specified disorders of muscle (02/20/21) Physical Therapy Treatment Note PT-OP-A Visit Information Start: 09/14/20 16:11 Freq: Status: Active Protocol: Document 02/20/21 13:51 [facility] (Rec: 02/20/21 15:01 [facility] [id number]) Out-Patient Physical Therapy Visit Information Visit Information Visit Type Treatment Note Visit Start Time 13:50 Visit Stop Time 14:35 Total Visit Minutes 45 Visit Number 10 PT-OP-B Current Condition Start: 09/14/20 16:11 Freq: Status: Active Protocol: Document 09/14/20 16:12 [facility] (Rec: 09/14/20 17:19 [facility] [id number]) Current Condition History of Current Condition History of Current Condition pt reports she has no energy to go to the gym, pain is 6-7 our of 10, no complaints of sciatic pain and sometimes the pain radiates to the left foot. she also describes lymphedema symptoms in her left axilla. She has a referral for lymphedema PT Treatment Goals Patient/Caregiver Goals Goals include reducing pain to be able to continue walking and swimming, working and ADL Current Functional Impairments (Reported) Functional Limitations- Work/School pain with long duration sitting at work, pain prevents her from sitting more than 1 hour PT-OP-C Subjective Start: 09/14/20 16:11 Freq: Status: Active Protocol: Document 02/20/21 13:51 [facility] (Rec: 02/20/21 15:01 [facility] [id number]) OP-PT Subjective Patient Comments Patient Comments pt notes her back needs attention today. She has had a lot of stress. Tanvi is going to [email or web address] this next week and will be able to continue with her exercises and go to the pool while she was there PT-OP-F Manual Assessment Start: 09/14/20 17:17 Freq: Status: Active Protocol: Document 09/14/20 17:19 [facility] (Rec: 09/14/20 17:26 [facility] [id number]) Manual Assessments Soft Tissue Assessment Soft Tissue Mobility Assessment Muscle guarding and spasm of the left greater than right lumbar and lower thoracic paraspinals muscle guarding of the left piriformis Joint Mobility Assessment Joint Mobility Assessment hypomobility thoracic spine T4 -T10 PT-OP-J Posture/Palpation/Skin Start: 09/14/20 17:17 Freq: Status: Active Protocol: Document 09/14/20 17:19 [facility] (Rec: 09/14/20 17:26 [facility] [id number]) Posture Evaluation Comments Posture Comments forward shift of the lumbar spine in standing, lean to the left Palpation Assessment Location left piriformis Palpation Location left piriformis Palpation Findings Soft Tissue Tightness,Muscle Guarding,Tenderness One Palpation Location bilateral lumbar spinal musculature Palpation Findings Soft Tissue Tightness,Muscle Guarding PT-OP-K Range of Motion Start: 09/14/20 17:17 Freq: Status: Active Protocol: Document 09/14/20 17:19 [facility] (Rec: 09/14/20 17:26 [facility] [id number]) Lumbar Spine Range of Motion Lumbar Spine Active Flexion 60 Extension 10 Rotation Left 15 Rotation Right 15 Lateral Flexion Left 15 Lateral Flexion Right 15 Comments no pain with active ROM PT-OP-Q Treatments Start: 09/14/20 17:17 Freq: Status: Active Protocol: Document 02/20/21 13:51 [facility] (Rec: 02/20/21 15:01 [facility] [id number]) Manual Therapy Treatment Soft Tissue Mobilization 2 Body Location piriformis release on the left 1 Body Location Thoracic, lumbar spinal musculature and piriformis Manual Techniques sacral counternutation manaul treatment Reps/Duration MET x 5 reps manual hip piriformis stretch Body Location piriformis B Body Position Prone PT-OP-R Modalities Start: 10/26/20 15:47 Freq: Status: Active Protocol: Document 10/26/20 13:45 [facility] (Rec: 10/26/20 15:48 [facility] [id number]) Ultrasound Therapy Treatment left posterior tibialis Applicator Size (cm2) 5 PT-OP-T Assessment and Plan Start: 09/14/20 17:17 Freq: Status: Active Protocol: Document 02/20/21 13:51 [facility] (Rec: 02/20/21 15:01 [facility] [id number]) Physical Therapy Assessment Assessment Summary Assessment Tanvi will be in the pool all next week which always helps with her back. Physical Therapy Plan Frequency and Duration Frequency of Treatment 1x/Week Duration of Treatment 8 Plan of Care Start Date 01/11/21 Plan of Care End Date 03/08/21 Next Visit Focus/Plan Next Note Type Treatment Note Next Visit Plan Review all established stretches and progress stabilization exercises, manual therapy techniques to release the lumbar paraspinals and piriformis.
--- NOTE | 2021-06-19 12:08 | PT.OPDS ---
Current Diagnoses Other specified disorders of muscle (02/20/21) Visit Care Team Role Provider Type Betsy Wallis MD Attending Provider Physician Primary Care Provider Referring Provider Specialty: Family Practice Address: [address] [place] [address], [facility] [place], [facility] Email: [email or web address] Visit Number Visit Number 10 Discharge Summary PT-OP-B Current Condition Start: 09/14/20 16:11 Freq: Status: Active Protocol: Document 09/14/20 16:12 [facility] (Rec: 09/14/20 17:19 [facility] [id number]) Current Condition History of Current Condition History of Current Condition pt reports she has no energy to go to the gym, pain is 6-7 our of 10, no complaints of sciatic pain and sometimes the pain radiates to the left foot. she also describes lymphedema symptoms in her left axilla. She has a referral for lymphedema PT Treatment Goals Patient/Caregiver Goals Goals include reducing pain to be able to continue walking and swimming, working and ADL Current Functional Impairments (Reported) Functional Limitations- Work/School pain with long duration sitting at work, pain prevents her from sitting more than 1 hour PT-OP-C Subjective Start: 09/14/20 16:11 Freq: Status: Active Protocol: Document 02/20/21 13:51 [facility] (Rec: 02/20/21 15:01 [facility] [id number]) OP-PT Subjective Patient Comments Patient Comments pt notes her back needs attention today. She has had a lot of stress. Tanvi is going to [place] this next week and will be able to continue with her exercises and go to the pool while she was there PT-OP-F Manual Assessment Start: 09/14/20 17:17 Freq: Status: Active Protocol: Document 09/14/20 17:19 [facility] (Rec: 09/14/20 17:26 [facility] [email or web address]) Manual Assessments Soft Tissue Assessment Soft Tissue Mobility Assessment Muscle guarding and spasm of the left greater than right lumbar and lower thoracic paraspinals muscle guarding of the left piriformis Joint Mobility Assessment Joint Mobility Assessment hypomobility thoracic spine T4 -T10 PT-OP-J Posture/Palpation/Skin Start: 09/14/20 17:17 Freq: Status: Active Protocol: Document 09/14/20 17:19 [facility] (Rec: 09/14/20 17:26 [facility] [email or web address]) Posture Evaluation Comments Posture Comments forward shift of the lumbar spine in standing, lean to the left Palpation Assessment Location left piriformis Palpation Location left piriformis Palpation Findings Soft Tissue Tightness,Muscle Guarding,Tenderness One Palpation Location bilateral lumbar spinal musculature Palpation Findings Soft Tissue Tightness,Muscle Guarding PT-OP-K Range of Motion Start: 09/14/20 17:17 Freq: Status: Active Protocol: Document 09/14/20 17:19 [facility] (Rec: 09/14/20 17:26 [facility] [email or web address]) Lumbar Spine Range of Motion Lumbar Spine Active Flexion 60 Extension 10 Rotation Left 15 Rotation Right 15 Lateral Flexion Left 15 Lateral Flexion Right 15 Comments no pain with active ROM PT-OP-T Assessment and Plan Start: 09/14/20 17:17 Freq: Status: Active Protocol: Document 06/19/21 12:07 [facility] (Rec: 06/19/21 12:08 [facility] [id number]) Physical Therapy Assessment Assessment Summary Assessment pt will be discharged at this time as it has been too long between visits. She brings in a new referral to begin PT Physical Therapy Plan Discharge Physical Therapy Discharge Reasons No Longer Attending PT
== END 2021-07-02 10:43 ==
LOC: PHYS 13:45
PROVIDERS: PCP Student in an Organized Health Care Education/Training Program; Referring Provider Student in an Organized Health Care Education/Training Program; Visit Provider Student in an Organized Health Care Education/Training Program
DX: M62.89 Other specified disorders of muscle (principal)
CPT/HCPCS: 97110; 97140; 97161

== ENCOUNTER → 2021-11-15 09:31 | Outpatient (CLI) | payer MEDICARE, OTHER, SELFPAY ==
[2021-11-15 10:22] LABS: Add Manual Diff / Slide Review NO; Basophils Absolute Auto 100 /uL (0-100); Basophils Percent Auto 2.4 % (0-2); Eosinophils Absolute Auto 100 /uL (0-450); Eosinophils Percent Auto 2.4 % (2-4); Hematocrit 39.3 % (36-46); Hemoglobin 13.4 g/dL (12.0-16.0); Lymphocytes Absolute Auto 1400 /uL (1100-4500); Mean Corpuscular HGB Conc 34.1 % (30-36); Mean Corpuscular Volume 90.8 fL (80-100); Monocytes Absolute Auto 500 /uL (0-900); Monocytes Percent Auto 12.9 % (3-14); Neutrophils Absolute Auto 1700 /uL (1500-7000); Neutrophils Percent Auto 45.3 % (50-75); Platelet Count 256 X10^3/uL (150-400); Red Blood Cell Count 4.33 X10^6/uL (4.0-5.2); Red Cell Distribution Width 12.9 % (11.6-14.8); White Blood Cell Count 3.7 X10^3/uL (4.5-11.0)
[2021-11-15 12:31] LABS: Alanine Aminotransferase 16 IU/L (<35); Albumin 4.5 g/dL (3.5-5.0); Albumin Globulin Ratio 1.7 (1.0-2.8); Alkaline Phosphatase 41 U/L (38-126); Aspartate Aminotransferase 31 IU/L (14-36); BUN Creatinine Ratio 23.4 (6-22); Bilirubin Total 0.6 mg/dL (0.2-1.3); Blood Urea Nitrogen 18 mg/dL (7-17); Calcium 9.7 mg/dL (8.4-10.2); Carbon Dioxide 28 mmol/L (22-32); Chloride 99 mmol/L (98-107); Cholesterol 170 mg/dL (140-199); Estimated Glomerular Filt Rate > 60 mL/min (>60); Globulin 2.7 g/dL (1.7-4.1); Glucose 92 mg/dL (80-110); HDL Cholesterol 69 mg/dL (40-60); HEMOLYSIS < 15 (0-50); LDL Cholesterol Calculated 87 mg/dL (<100); Potassium 4.4 mmol/L (3.4-5.1); Sodium 137 mmol/L (137-145); Total Protein 7.2 g/dL (6.3-8.2); Triglycerides 71 mg/dL (35-150)
[2021-11-15 14:32] LABS: Thyroid Stimulating Hormone 1.59 uIU/mL (0.47-4.68)
[2021-11-15 15:40] LABS: Hemoglobin A1C% w Est Avg Glu 5.1 % (4.0-6.0)
[2021-11-15 21:53] LABS: Hep C Virus Ab w/Reflex Quant NEGATIVE s/c (NEGATIVE)
== END ==
PROVIDERS: Family Provider Student in an Organized Health Care Education/Training Program; PCP Family Medicine; Referring Provider Family Medicine; Visit Provider Family Medicine
DX: E78.5 Hyperlipidemia, unspecified (principal); I10 Essential (primary) hypertension; Z00.00 Encounter for general adult medical examination without abnormal findings
CPT/HCPCS: 36415; 80053; 80061; 83036; 84443; 85025; 86803

== ENCOUNTER → 2022-03-25 17:36 | Outpatient (ROUT) | payer MEDICARE, OTHER, SELFPAY ==
[2022-03-25 18:45] LABS: Influenza A - CEPHEID Flu A NEGATIVE (NEGATIVE); Influenza B - CEPHEID Flu B NEGATIVE (NEGATIVE); Respiratory Syncytial Virus Negative (Negative)
[2022-03-25 19:13] LABS: COVID-19 CEPHEID 4-PLEX PCR POSITIVE (Negative)
== END ==
PROVIDERS: Family Provider Student in an Organized Health Care Education/Training Program; PCP Family Medicine; Visit Provider Internal Medicine
DX: U07.1 COVID-19 (principal); Z20.822 Contact with and (suspected) exposure to COVID-19
CPT/HCPCS: 0241U

== ENCOUNTER → 2022-10-22 13:15 | Outpatient (CLI) | payer MEDICARE, OTHER, SELFPAY ==
--- NOTE | 2022-10-22 | DI.RAD.S_ITS ---
PROCEDURE: XR ABDOMEN MIN 2V INDICATIONS: CONSTIPATION TECHNIQUE: 2 views of the abdomen were acquired. COMPARISON: None. FINDINGS: Surgical changes and devices: None. Bowel: No pneumoperitoneum. The bowel gas pattern is normal. Moderate amount of stool in the right transverse colon. Soft tissues: No masses; visualized solid organ contours appear normal in size. No suspicious abdominal calcifications. Bones: No suspicious bony abnormalities. IMPRESSION: Moderate colonic fecal loading. Dictated by: Cathie Shine MD, PhD on 10/22/2022 at 13:51 Approved by: Cathie Shine MD, PhD on 10/22/2022 at 13:51
== END ==
PROVIDERS: Family Provider Student in an Organized Health Care Education/Training Program; PCP Registered Nurse; Referring Provider Registered Nurse; Visit Provider Registered Nurse
DX: K59.00 Constipation, unspecified (principal)
CPT/HCPCS: 74019

== ENCOUNTER 2023-02-06 13:15 | Outpatient (RCR) | payer MEDICARE, OTHER, SELFPAY ==
--- NOTE | 2023-01-02 16:00 | PT.OIE ---
Current Diagnoses Stiffness of left hip, not elsewhere classified (01/02/23) Spinal instabilities, lumbar region (01/02/23) Low back pain, unspecified (01/02/23) Muscle weakness (generalized) (01/02/23) Past Medical History (Last Updated 09/04/17 @ 09:35 by Nataliia Warner) Ankle pain (~2011) Breast cancer (~2007) Chickenpox GERD (gastroesophageal reflux disease) (~1999) Osteopenia (~2013) Past Surgical History (Last Updated 09/04/17 @ 09:35 by Nataliia Warner) Anesthesia Status post mastectomy (~2008) Visit Care Team Role Provider Type David Gordon MD Attending Provider Physician Family Provider Primary Care Provider Referring Provider Specialty: Family Practice Address: [address] [place] [address] [place], [place], [facility] Email: [email or web address] Physical Therapy Initial Evaluation PT-OP-A Visit Information Start: 01/02/23 15:00 Freq: Status: Active Protocol: Document 01/02/23 15:00 [facility] (Rec: 01/02/23 15:53 [facility] [id number]) Out-Patient Physical Therapy Visit Information Visit Information Visit Type Initial Evaluation Visit Start Time 13:00 Visit Stop Time 13:45 Total Visit Minutes 45 Visit Number 1 Evaluation Information Evaluation Date 01/02/23 PT-OP-B Current Condition Start: 01/02/23 15:00 Freq: Status: Active Protocol: Document 01/02/23 15:00 [facility] (Rec: 01/02/23 15:52 [facility] [id number]) Current Condition History of Current Condition History of Current Condition pt was having a great amount of pain in October and then returned to her walking routine and it seemed to get better. Pain is a 6/10 in her low back. SHe is also feeling knee pain and it hurts to go up the stairs. She feels radicular pain down the left leg that is at a low level but always with her. PT-OP-C Subjective Start: 01/02/23 15:00 Freq: Status: Active Protocol: Document 01/02/23 15:00 [facility] (Rec: 01/07/23 16:27 [facility] [id number]) Patient Questionnaires Oswestry Low Back Index Oswestry Score 7 Oswestry Impairment 1 to 19% Impaired (Score 1-19) OP-PT Pain Assessment Location left sided low back and posterior leg to mid thigh Intensity 4 Scale Used Numeric (0 - 10) Description Radiating PT-OP-F Manual Assessment Start: 01/02/23 15:00 Freq: Status: Active Protocol: Document 01/02/23 15:00 [facility] (Rec: 01/08/23 10:23 [facility] [id number]) Manual Assessments Soft Tissue Assessment Soft Tissue Mobility Assessment B paraspinals muscle spasm and guarding Left greater than right side piriformis tightness B quad tightness Joint Mobility Assessment Joint Mobility Assessment increased extension of the lumbar spine with decreased mobilty into lumbar flexion PT-OP-J Posture/Palpation/Skin Start: 01/02/23 15:00 Freq: Status: Active Protocol: Document 01/02/23 15:00 [facility] (Rec: 01/08/23 10:23 [facility] [id number]) Posture Evaluation Comments Posture Comments forward head and shoulder posture, PT-OP-K Range of Motion Start: 01/02/23 15:00 Freq: Status: Active Protocol: Document 01/02/23 15:00 [facility] (Rec: 01/08/23 10:23 [facility] [id number]) Lumbar Spine Range of Motion Lumbar Spine Active Testing Position Standing Flexion 12 Extension 5 Rotation Left 30 Rotation Right 20 Lateral Flexion Left 10 Lateral Flexion Right 10 ROM Limitations Soft Tissue Tightness,Muscle Tone,Pain Comments pain increases with left rotation and sidebending Hip Goniometric Range of Motion Hip ROM Limitations Hip ROM Limitations Soft Tissue Tightness Comments iliopsoas and quad tightness B with + sarah test bilaterally PT-OP-M Strength Start: 01/02/23 15:00 Freq: Status: Active Protocol: Document 01/02/23 15:00 [facility] (Rec: 01/08/23 10:23 [facility] [id number]) Trunk Strength Trunk Manual Muscle Testing Testing Position Supine Flexion 3+ Fair+ Core Stabilization pt lacks core stabilization and has difficulty recruiting the transverse abdominal muscles PT-OP-Q Treatments Start: 01/02/23 15:00 Freq: Status: Active Protocol: Document 01/02/23 15:00 [facility] (Rec: 01/02/23 17:24 [facility] [id number]) Manual Therapy Treatment Soft Tissue Mobilization MFR for lumbar paraspinals Mobilization Type Myofascial Release Body Position Prone Comments body pillow PT-OP-T Assessment and Plan Start: 01/02/23 15:00 Freq: Status: Active Protocol: Document 01/02/23 15:00 [facility] (Rec: 01/07/23 16:40 [facility] [id number]) Physical Therapy Assessment Rehab Potential Rehabilitation Potential Excellent Evaluation Complexity Number of Personal Factors/Comorbidities 0 Number of Body Systems Impaired 1-2 Clinical Presentation at Evaluation Stable Impairments Impairments Activity Tolerance,Functional Activities,Functional Mobility ,Gait,Pain,Posture,ROM,Soft Tissue Mobility,Strength,Tone Goals 4 Impairment Tanvi describes pain with sit- stand after she has been sitting for a long period of time Natural Resource Specialist Goal (LTG) Tanvi is changing positions throughout the day and working on hip flexor stretching wich makes sit-stand much more tolerable for her LTG Duration 12 weeks 3 Impairment core weakness Short Term Goal (STG) Tanvi is educated on a home exercise program for improved core stability and strength STG Duration 4 weeks 2 Impairment iliopsoas and quad tightness B which pulls Tanvi's pelvis anteriorly creating more tension in her low back and can create more tension on her knees Short Term Goal (STG) Tanvi is educated on a home stretching program for her low back and anterior hips that she can do both in her office and at home STG Duration 4 weeks Prison 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 Natural Resource Specialist Goal (LTG) with manual therapy and a home stretching program Tanvi presents with decreased pain to 3 or less on the pain scale and decreased muscle guarding and spasm of the lumbar paraspinals showing improved lumbar ROM. LTG Duration 12 weeks Assessment Summary Assessment Tanvi returns to PT today with increased low back pain on the left side of her spine with referred pain down the left LE. Tanvi has returned to walking and she does feel this has helped lessen her pain in the past couple of weeks. She presents with guarding in the L>R lumbar paraspinals and tightness in the left piriformis muscle. She has tightness of the quads and iliopsoas more so on the left side today. Her job requires long hours of sitting and she does note she has to turn to the left to answer the phone which may be the reason for increased guarding on the left side. Time was spent today discussing ways to avoid repeated left rotation. Hip flexor and quad stretches were reviewed with Tanvi today . I have also encouraged Tanvi to stand up frequently throughout her day to help with the hip flexor tightness. Tanvi is a good candidate for PT. Physical Therapy Plan Frequency and Duration Frequency of Treatment 2x/Week Duration of treatment (weeks) 12 Plan of Care Start Date 01/02/23 Plan of Care End Date 03/27/23 Therapeutic Interventions Therapeutic Interventions Home Exercise Program,Joint Mobilizations,Manual Therapy, Neuromuscular Re-education, Patient/Caregiver Education, Self-Care/Home Management,Soft Tissue Mobilization, Therapeutic Exercises Modalities Electric Stimulation, Ultrasound Next Visit Focus/Plan Next Note Type Treatment Note Next Visit Plan stretches for the low back and hips, manual therapy techniques for the lumbar spine to reduce tone in the paraspinals
--- NOTE | 2023-01-02 16:00 | PT.OPPOC ---
Physical, Occupational & Speech Therapy At [facility] Current Diagnoses Stiffness of left hip, not elsewhere classified (01/02/23) Spinal instabilities, lumbar region (01/02/23) Low back pain, unspecified (01/02/23) Muscle weakness (generalized) (01/02/23) Visit Care Team Role Provider Type David Gordon MD Attending Provider Physician Family Provider Primary Care Provider Referring Provider Specialty: Family Practice Address: [facility] [place], [address] Email: Plan Of Care PT-OP-T Assessment and Plan Start: 01/02/23 15:00 Freq: Status: Active Protocol: Document 01/02/23 15:00 [facility] (Rec: 01/07/23 16:40 [facility] [id number]) Physical Therapy Assessment Rehab Potential Rehabilitation Potential Excellent Evaluation Complexity Number of Personal Factors/Comorbidities 0 Number of Body Systems Impaired 1-2 Clinical Presentation at Evaluation Stable Impairments Impairments Activity Tolerance,Functional Activities,Functional Mobility ,Gait,Pain,Posture,ROM,Soft Tissue Mobility,Strength,Tone Goals 4 Impairment Tanvi describes pain with sit- stand after she has been sitting for a long period of time Detention Goal (LTG) Tanvi is changing positions throughout the day and working on hip flexor stretching to help make sit-stand much more tolerable for her LTG Duration 12 weeks 3 Impairment core weakness Short Term Goal (STG) Tanvi is educated on a home exercise program for improved core stability and strength STG Duration 4 weeks 2 Impairment iliopsoas and quad tightness B which pulls Tanvi's pelvis anteriorly creating more tension in her low back and can create more tension on her knees Short Term Goal (STG) Tanvi is educated on a home stretching program for her low back and anterior hips that she can do both in her office and at home STG Duration 4 weeks Detention 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 General Production Laborer Goal (LTG) with manual therapy and a home stretching program Tanvi presents with decreased pain to 3 or less on the pain scale and decreased muscle guarding and spasm of the lumbar paraspinals showing improved lumbar ROM. LTG Duration 12 weeks Assessment Summary Assessment Tanvi returns to PT today with increased low back pain on the left side of her spine with referred pain down the left LE. Tanvi has returned to walking and she does feel this has helped lessen her pain in the past couple of weeks. She presents with guarding in the L>R lumbar paraspinals and tightness in the left piriformis muscle. She has tightness of the quads and iliopsoas more so on the left side today. Her job requires long hours of sitting and she does note she has to turn to the left to answer the phone which may be the reason for increased guarding on the left side. Time was spent today discussing ways to avoid repeated left rotation. Hip flexor and quad stretches were reviewed with Tanvi today . I have also encouraged Tanvi to stand up frequently throughout her day to help with the hip flexor tightness. Tanvi is a good candidate for PT. Physical Therapy Plan Frequency and Duration Frequency of Treatment 2x/Week Duration of treatment (weeks) 12 Plan of Care Start Date 01/02/23 Plan of Care End Date 03/27/23 Therapeutic Interventions Therapeutic Interventions Home Exercise Program,Joint Mobilizations,Manual Therapy, Neuromuscular Re-education, Patient/Caregiver Education, Self-Care/Home Management,Soft Tissue Mobilization, Therapeutic Exercises Modalities Electric Stimulation, Ultrasound Next Visit Focus/Plan Next Note Type Treatment Note Next Visit Plan stretches for the low back and hips, manual therapy techniques for the lumbar spine to reduce tone in the paraspinals Plan of Care Dates Plan of Care Start Date 01/02/23 Plan of Care End Date 03/27/23 Electronically Signed by: Darling Schumacher, PT 01/08/23 1034 If you are in agreement with this Plan of Care, please return a signed and dated copy. I have reviewed this Plan of Care and certify that the skilled therapy services above are required to meet the patient?s needs. Physician Signature Date Printed Name and Credentials Clinical Instructor Signature Printed Name and Credentials
--- NOTE | 2023-01-09 16:04 | PT.OTN ---
Current Diagnoses Stiffness of left hip, not elsewhere classified (01/09/23) Spinal instabilities, lumbar region (01/09/23) Low back pain, unspecified (01/09/23) Muscle weakness (generalized) (01/09/23) Physical Therapy Treatment Note PT-OP-A Visit Information Start: 01/02/23 15:00 Freq: Status: Active Protocol: Document 01/09/23 15:45 [facility] (Rec: 01/09/23 16:04 [facility] [id number]) Out-Patient Physical Therapy Visit Information Visit Information Visit Type Treatment Note Visit Start Time 15:00 Visit Stop Time 15:45 Total Visit Minutes 45 Visit Number 2 PT-OP-B Current Condition Start: 01/02/23 15:00 Freq: Status: Active Protocol: Document 01/02/23 15:00 [facility] (Rec: 01/02/23 15:52 [facility] [id number]) Current Condition History of Current Condition History of Current Condition pt was having a great amount of pain in October and then returned to her walking routine and it seemed to get better. Pain is a 6/10 in her low back. SHe is also feeling knee pain and it hurts to go up the stairs. She feels radicular pain down the left leg that is at a low level but always with her. PT-OP-C Subjective Start: 01/02/23 15:00 Freq: Status: Active Protocol: Document 01/09/23 15:45 [facility] (Rec: 01/09/23 16:04 [facility] [id number]) OP-PT Subjective Patient Comments Patient Comments Tanvi reports she slept really well after last visit as her back felt looser. She reports pain in the area of the left posterior tibialis tendon on the left today PT-OP-F Manual Assessment Start: 01/02/23 15:00 Freq: Status: Active Protocol: Document 01/02/23 15:00 [facility] (Rec: 01/08/23 10:23 [facility] [id number]) Manual Assessments Soft Tissue Assessment Soft Tissue Mobility Assessment B paraspinals muscle spasm and guarding Left greater than right side piriformis tightness B quad tightness Joint Mobility Assessment Joint Mobility Assessment increased extension of the lumbar spine with decreased mobilty into lumbar flexion PT-OP-J Posture/Palpation/Skin Start: 01/02/23 15:00 Freq: Status: Active Protocol: Document 01/02/23 15:00 [facility] (Rec: 01/08/23 10:23 [facility] [id number]) Posture Evaluation Comments Posture Comments forward head and shoulder posture, PT-OP-K Range of Motion Start: 01/02/23 15:00 Freq: Status: Active Protocol: Document 01/02/23 15:00 [facility] (Rec: 01/08/23 10:23 [facility] [id number]) Lumbar Spine Range of Motion Lumbar Spine Active Testing Position Standing Flexion 12 Extension 5 Rotation Left 30 Rotation Right 20 Lateral Flexion Left 10 Lateral Flexion Right 10 ROM Limitations Soft Tissue Tightness,Muscle Tone,Pain Comments pain increases with left rotation and sidebending Hip Goniometric Range of Motion Hip ROM Limitations Hip ROM Limitations Soft Tissue Tightness Comments iliopsoas and quad tightness B with + sarah test bilaterally PT-OP-M Strength Start: 01/02/23 15:00 Freq: Status: Active Protocol: Document 01/02/23 15:00 [facility] (Rec: 01/08/23 10:23 [facility] [id number]) Trunk Strength Trunk Manual Muscle Testing Testing Position Supine Flexion 3+ Fair+ Core Stabilization pt lacks core stabilization and has difficulty recruiting the transverse abdominal muscles PT-OP-Q Treatments Start: 01/02/23 15:00 Freq: Status: Active Protocol: Document 01/09/23 15:45 [facility] (Rec: 01/09/23 16:04 [facility] [id number]) Therapeutic Exercises Supine Exercises hamstring stretch Reps/Minutes hold 1 min each side Comments in supine iliopsoas stretch Reps/Minutes hold 1 min each side Comments in sarah test position Manual Therapy Treatment Soft Tissue Mobilization left posterior tibialis Body Position Prone Comments MFR with manual stretching MFR for lumbar paraspinals Mobilization Type Myofascial Release Body Position Prone Comments body pillow PT-OP-T Assessment and Plan Start: 01/02/23 15:00 Freq: Status: Active Protocol: Document 01/09/23 15:45 [facility] (Rec: 01/09/23 16:04 [facility] [id number]) Physical Therapy Assessment Assessment Summary Assessment Walking is helping Tanvi as her iliopsoas is not as tight as it was previously. She will be driving to [place] this week and we discussed taking breaks to work on stretching and get out of the car to move around Physical Therapy Plan Frequency and Duration Frequency of Treatment 2x/Week Duration of treatment (weeks) 12 Plan of Care Start Date 01/02/23 Plan of Care End Date 03/27/23 Therapeutic Interventions Therapeutic Interventions Home Exercise Program,Joint Mobilizations,Manual Therapy, Neuromuscular Re-education, Patient/Caregiver Education, Self-Care/Home Management,Soft Tissue Mobilization, Therapeutic Exercises Modalities Electric Stimulation, Ultrasound Next Visit Focus/Plan Next Note Type Treatment Note Next Visit Plan stretches for the low back and hips, manual therapy techniques for the lumbar spine to reduce tone in the paraspinals
--- NOTE | 2023-01-23 16:13 | PT-OP ANOTE ---
I called Tanvi as she no showed for her 13:15 appt today. It turns out she came in at 3:00 misreading her schedule with the time and thought her appt was at 3:00. I went over the next appointment times with her and she has them in her calendar as the correct time now.
--- NOTE | 2023-01-29 08:58 | PT.OTN ---
Current Diagnoses Stiffness of left hip, not elsewhere classified (01/29/23) Spinal instabilities, lumbar region (01/29/23) Low back pain, unspecified (01/29/23) Muscle weakness (generalized) (01/29/23) Physical Therapy Treatment Note PT-OP-A Visit Information Start: 01/02/23 15:00 Freq: Status: Active Protocol: Document 01/29/23 08:00 [facility] (Rec: 01/29/23 08:58 [facility] [id number]) Out-Patient Physical Therapy Visit Information Visit Information Visit Type Treatment Note Visit Start Time 08:00 Visit Stop Time 08:45 Total Visit Minutes 45 Visit Number 3 PT-OP-B Current Condition Start: 01/02/23 15:00 Freq: Status: Active Protocol: Document 01/02/23 15:00 [facility] (Rec: 01/02/23 15:52 [facility] [id number]) Current Condition History of Current Condition History of Current Condition pt was having a great amount of pain in October and then returned to her walking routine and it seemed to get better. Pain is a 6/10 in her low back. SHe is also feeling knee pain and it hurts to go up the stairs. She feels radicular pain down the left leg that is at a low level but always with her. 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 PT-OP-F Manual Assessment Start: 01/02/23 15:00 Freq: Status: Active Protocol: Document 01/02/23 15:00 [facility] (Rec: 01/08/23 10:23 [facility] [id number]) Manual Assessments Soft Tissue Assessment Soft Tissue Mobility Assessment B paraspinals muscle spasm and guarding Left greater than right side piriformis tightness B quad tightness Joint Mobility Assessment Joint Mobility Assessment increased extension of the lumbar spine with decreased mobilty into lumbar flexion PT-OP-J Posture/Palpation/Skin Start: 01/02/23 15:00 Freq: Status: Active Protocol: Document 01/02/23 15:00 [facility] (Rec: 01/08/23 10:23 [facility] [id number]) Posture Evaluation Comments Posture Comments forward head and shoulder posture, PT-OP-K Range of Motion Start: 01/02/23 15:00 Freq: Status: Active Protocol: Document 01/02/23 15:00 [facility] (Rec: 01/08/23 10:23 [facility] [id number]) Lumbar Spine Range of Motion Lumbar Spine Active Testing Position Standing Flexion 12 Extension 5 Rotation Left 30 Rotation Right 20 Lateral Flexion Left 10 Lateral Flexion Right 10 ROM Limitations Soft Tissue Tightness,Muscle Tone,Pain Comments pain increases with left rotation and sidebending Hip Goniometric Range of Motion Hip ROM Limitations Hip ROM Limitations Soft Tissue Tightness Comments iliopsoas and quad tightness B with + sarah test bilaterally PT-OP-M Strength Start: 01/02/23 15:00 Freq: Status: Active Protocol: Document 01/02/23 15:00 [facility] (Rec: 01/08/23 10:23 [facility] [id number]) Trunk Strength Trunk Manual Muscle Testing Testing Position Supine Flexion 3+ Fair+ Core Stabilization pt lacks core stabilization and has difficulty recruiting the transverse abdominal muscles PT-OP-Q Treatments Start: 01/02/23 15:00 Freq: Status: Active Protocol: Document 01/29/23 08:00 [facility] (Rec: 01/29/23 08:58 [facility] [id number]) Therapeutic Exercises Supine Exercises hamstring stretch Reps/Minutes hold 1 min each side Comments in supine Other Exercises quadruped thoracic rotation Reps/Minutes x 5 each quadruped sidebends Reps/Minutes x [address] cat cow Reps/Minutes x 10 reps Manual Therapy Treatment Soft Tissue Mobilization left piriformis release Body Position prone over body pillow MFR for lumbar paraspinals Mobilization Type Myofascial Release Body Position Prone Comments body pillow, cupping was used for fascial release of the paraspinals PT-OP-T Assessment and Plan Start: 01/02/23 15:00 Freq: Status: Active Protocol: Document 01/29/23 08:00 [facility] (Rec: 01/29/23 08:58 [facility] [id number]) Physical Therapy Assessment Goals 4 Impairment Tanvi describes pain with sit- stand after she has been sitting for a long period of time Senior Care Goal (LTG) Tanvi is changing positions throughout the day and working on hip flexor stretching wich makes sit-stand much more tolerable for her LTG Duration 12 weeks 3 Impairment core weakness Short Term Goal (STG) Tanvi is educated on a home exercise program for improved core stability and strength STG Duration 4 weeks 2 Impairment iliopsoas and quad tightness B which pulls Tanvi's pelvis anteriorly creating more tension in her low back and can create more tension on her knees Short Term Goal (STG) Tanvi is educated on a home stretching program for her low back and anterior hips that she can do both in her office and at home STG Duration 4 weeks 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 Drywall Taper Helper Goal (LTG) with manual therapy and a home stretching program Tanvi presents with decreased pain to 3 or less on the pain scale and decreased muscle guarding and spasm of the lumbar paraspinals showing improved lumbar ROM. LTG Duration 12 weeks Assessment Summary Assessment Trial of cupping today for MFR techniques over the paraspinals. Tanvi tolerated this well and did feel looser after treatment. She has not been doing her walks and was tighter today in her paraspinals Physical Therapy Plan Frequency and Duration Frequency of Treatment 2x/Week Duration of treatment (weeks) 12 Plan of Care Start Date 01/02/23 Plan of Care End Date 03/27/23 Therapeutic Interventions Therapeutic Interventions Home Exercise Program,Joint Mobilizations,Manual Therapy, Neuromuscular Re-education, Patient/Caregiver Education, Self-Care/Home Management,Soft Tissue Mobilization, Therapeutic Exercises Modalities Electric Stimulation, Ultrasound Next Visit Focus/Plan Next Note Type Treatment Note Next Visit Plan assess how pt did with cupping techniques on her back, continue with HEP and low back ROM, encourage walking program
--- NOTE | 2023-02-06 15:34 | PT.OTN ---
Current Diagnoses Stiffness of left hip, not elsewhere classified (01/29/23) Spinal instabilities, lumbar region (01/29/23) Low back pain, unspecified (01/29/23) Muscle weakness (generalized) (01/29/23) Physical Therapy Treatment Note PT-OP-A Visit Information Start: 01/02/23 15:00 Freq: Status: Active Protocol: Document 02/06/23 13:15 [facility] (Rec: 02/06/23 15:34 [facility] [id number]) Out-Patient Physical Therapy Visit Information Visit Information Visit Type Treatment Note Visit Start Time 13:15 Visit Stop Time 14:00 Total Visit Minutes 45 Visit Number 4 PT-OP-B Current Condition Start: 01/02/23 15:00 Freq: Status: Active Protocol: Document 01/02/23 15:00 [facility] (Rec: 01/02/23 15:52 [facility] [id number]) Current Condition History of Current Condition History of Current Condition pt was having a great amount of pain in October and then returned to her walking routine and it seemed to get better. Pain is a 6/10 in her low back. SHe is also feeling knee pain and it hurts to go up the stairs. She feels radicular pain down the left leg that is at a low level but always with her. PT-OP-C Subjective Start: 01/02/23 15:00 Freq: Status: Active Protocol: Document 02/06/23 13:18 [facility] (Rec: 02/06/23 14:08 [facility] [id number]) OP-PT Subjective Patient Comments Patient Comments pt notes her back feel average today PT-OP-F Manual Assessment Start: 01/02/23 15:00 Freq: Status: Active Protocol: Document 01/02/23 15:00 [facility] (Rec: 01/08/23 10:23 [facility] [id number]) Manual Assessments Soft Tissue Assessment Soft Tissue Mobility Assessment B paraspinals muscle spasm and guarding Left greater than right side piriformis tightness B quad tightness Joint Mobility Assessment Joint Mobility Assessment increased extension of the lumbar spine with decreased mobilty into lumbar flexion PT-OP-J Posture/Palpation/Skin Start: 01/02/23 15:00 Freq: Status: Active Protocol: Document 01/02/23 15:00 [facility] (Rec: 01/08/23 10:23 [facility] [id number]) Posture Evaluation Comments Posture Comments forward head and shoulder posture, PT-OP-K Range of Motion Start: 01/02/23 15:00 Freq: Status: Active Protocol: Document 01/02/23 15:00 [facility] (Rec: 01/08/23 10:23 [facility] [id number]) Lumbar Spine Range of Motion Lumbar Spine Active Testing Position Standing Flexion 12 Extension 5 Rotation Left 30 Rotation Right 20 Lateral Flexion Left 10 Lateral Flexion Right 10 ROM Limitations Soft Tissue Tightness,Muscle Tone,Pain Comments pain increases with left rotation and sidebending Hip Goniometric Range of Motion Hip ROM Limitations Hip ROM Limitations Soft Tissue Tightness Comments iliopsoas and quad tightness B with + sarah test bilaterally PT-OP-M Strength Start: 01/02/23 15:00 Freq: Status: Active Protocol: Document 01/02/23 15:00 [facility] (Rec: 01/08/23 10:23 [facility] [id number]) Trunk Strength Trunk Manual Muscle Testing Testing Position Supine Flexion 3+ Fair+ Core Stabilization pt lacks core stabilization and has difficulty recruiting the transverse abdominal muscles PT-OP-Q Treatments Start: 01/02/23 15:00 Freq: Status: Active Protocol: Document 02/06/23 13:15 [facility] (Rec: 02/06/23 15:34 [facility] [id number]) Therapeutic Exercises Supine Exercises supine piriformis stretch Reps/Minutes 1 min each side single knee to chest stretch Reps/Minutes 1 min each side hamstring stretch Reps/Minutes hold 1 min each side Comments in supine iliopsoas stretch Reps/Minutes hold 1 min each side Comments in sarah test position Other Exercises quadruped thoracic rotation Reps/Minutes x 5 each quadruped sidebends Reps/Minutes x [address] cat cow Reps/Minutes x 10 reps PT-OP-T Assessment and Plan Start: 01/02/23 15:00 Freq: Status: Active Protocol: Document 02/06/23 13:15 [facility] (Rec: 02/06/23 15:34 [facility] [id number]) Physical Therapy Assessment Assessment Summary Assessment Tanvi has been trying to walk more to help loosen up her back and she has been doing her stretches. She will be headed back to [place] at the end of next week and will stay until after giving . She will be swimming and exercising when there. Physical Therapy Plan Frequency and Duration Frequency of Treatment 2x/Week Duration of treatment (weeks) 12 Plan of Care Start Date 01/02/23 Plan of Care End Date 03/27/23 Therapeutic Interventions Therapeutic Interventions Home Exercise Program,Joint Mobilizations,Manual Therapy, Neuromuscular Re-education, Patient/Caregiver Education, Self-Care/Home Management,Soft Tissue Mobilization, Therapeutic Exercises Modalities Electric Stimulation, Ultrasound Next Visit Focus/Plan Next Note Type Treatment Note Next Visit Plan stretches for the low back and hips, manual therapy techniques for the lumbar spine to reduce tone in the paraspinals
--- NOTE | 2023-05-14 10:26 | PT.OPDS ---
Current Diagnoses Stiffness of left hip, not elsewhere classified (02/06/23) Spinal instabilities, lumbar region (02/06/23) Low back pain, unspecified (02/06/23) Muscle weakness (generalized) (02/06/23) Visit Care Team Role Provider Type David Gordon MD Attending Provider Physician Family Provider Primary Care Provider Referring Provider Specialty: [facility] Practice Address: [facility] [place], [facility] Email: [email or web address] Visit Number Visit Number 4 Discharge Summary PT-OP-B Current Condition Start: 01/02/23 15:00 Freq: Status: Active Protocol: Document 01/02/23 15:00 [facility] (Rec: 01/02/23 15:52 [facility] [id number]) Current Condition History of Current Condition History of Current Condition pt was having a great amount of pain in October and then returned to her walking routine and it seemed to get better. Pain is a 6/10 in her low back. SHe is also feeling knee pain and it hurts to go up the stairs. She feels radicular pain down the left leg that is at a low level but always with her. PT-OP-C Subjective Start: 01/02/23 15:00 Freq: Status: Active Protocol: Document 02/06/23 13:18 [facility] (Rec: 02/06/23 14:08 [facility] [id number]) OP-PT Subjective Patient Comments Patient Comments pt notes her back feel average today PT-OP-F Manual Assessment Start: 01/02/23 15:00 Freq: Status: Active Protocol: Document 01/02/23 15:00 [facility] (Rec: 01/08/23 10:23 [facility] [id number]) Manual Assessments Soft Tissue Assessment Soft Tissue Mobility Assessment B paraspinals muscle spasm and guarding Left greater than right side piriformis tightness B quad tightness Joint Mobility Assessment Joint Mobility Assessment increased extension of the lumbar spine with decreased mobilty into lumbar flexion PT-OP-J Posture/Palpation/Skin Start: 01/02/23 15:00 Freq: Status: Active Protocol: Document 01/02/23 15:00 [facility] (Rec: 01/08/23 10:23 [facility] [id number]) Posture Evaluation Comments Posture Comments forward head and shoulder posture, PT-OP-K Range of Motion Start: 01/02/23 15:00 Freq: Status: Active Protocol: Document 01/02/23 15:00 [facility] (Rec: 01/08/23 10:23 [facility] [id number]) Lumbar Spine Range of Motion Lumbar Spine Active Testing Position Standing Flexion 12 Extension 5 Rotation Left 30 Rotation Right 20 Lateral Flexion Left 10 Lateral Flexion Right 10 ROM Limitations Soft Tissue Tightness,Muscle Tone,Pain Comments pain increases with left rotation and sidebending Hip Goniometric Range of Motion Hip ROM Limitations Hip ROM Limitations Soft Tissue Tightness Comments iliopsoas and quad tightness B with + sarah test bilaterally PT-OP-M Strength Start: 01/02/23 15:00 Freq: Status: Active Protocol: Document 01/02/23 15:00 [facility] (Rec: 01/08/23 10:23 [facility] [id number]) Trunk Strength Trunk Manual Muscle Testing Testing Position Supine Flexion 3+ Fair+ Core Stabilization pt lacks core stabilization and has difficulty recruiting the transverse abdominal muscles PT-OP-T Assessment and Plan Start: 01/02/23 15:00 Freq: Status: Active Protocol: Document 05/14/23 10:25 [facility] (Rec: 05/14/23 10:26 [facility] [id number]) Physical Therapy Assessment Assessment Summary Assessment As of last PT visit Tanvi has been trying to walk more to help loosen up her back and she has been doing her stretches. She will be headed back to [place] at the end of next week and will stay until after . She will be swimming and exercising when there. Pt has not been seen since February 06 so will need to be DC at this time. I would be happy to start a new referral for Tanvi should she wish to return to PT Physical Therapy Plan Discharge Physical Therapy Discharge Reasons No Longer Attending PT Discharge Comments pt's plan of care has
== END 2023-12-18 09:22 | disposition home or self-care (01) ==
LOC: PHYS 13:15
PROVIDERS: Family Provider Family Medicine; PCP Family Medicine; Referring Provider Family Medicine; Visit Provider Family Medicine
DX: M54.50 Low back pain, unspecified (principal); M53.2X6 Spinal instabilities, lumbar region; M25.652 Stiffness of left hip, not elsewhere classified; M62.81 Muscle weakness (generalized)
CPT/HCPCS: 97110; 97140; 97161

== ENCOUNTER → 2023-04-23 12:58 | Outpatient (CLI) | payer MEDICARE, OTHER, SELFPAY ==
[2023-04-23 14:35] LABS: Alanine Aminotransferase 20 IU/L (<35); Albumin 4.5 g/dL (3.5-5.0); Albumin Globulin Ratio 1.4 (1.0-2.8); Alkaline Phosphatase 48 U/L (38-126); Aspartate Aminotransferase 38 IU/L (14-36); Bilirubin Total 0.7 mg/dL (0.2-1.3); Blood Urea Nitrogen 16 mg/dL (7-17); Calcium 10.7 mg/dL (8.4-10.2); Carbon Dioxide 31 mmol/L (22-32); Chloride 98 mmol/L (98-107); Estimated Glomerular Filt Rate > 60 mL/min (>60); Globulin 3.3 g/dL (1.7-4.1); Glucose 116 mg/dL (80-110); HEMOLYSIS < 15 (0-50); Potassium 4.3 mmol/L (3.4-5.1); Sodium 136 mmol/L (137-145); Total Protein 7.8 g/dL (6.3-8.2)
[2023-04-24 10:59] LABS: Vitamin D 25 Hydroxy (D3) 70.2 ng/mL (30.0-100.0)
== END ==
PROVIDERS: Family Provider Family Medicine; PCP Family Medicine; Referring Provider Registered Nurse; Visit Provider Registered Nurse
DX: I10 Essential (primary) hypertension (principal)
CPT/HCPCS: 36415; 80053; 82306

== ENCOUNTER → 2023-05-14 17:28 | Outpatient (CLI) | payer MEDICARE, OTHER, SELFPAY ==
--- NOTE | 2023-05-14 | DI.RAD.S_ITS ---
PROCEDURE: XR KNEE LT 3V INDICATIONS: knee pain TECHNIQUE: Three views of the left knee and one view of the right knee were acquired. COMPARISON: [facility], CR, XR KNEE ARTHRITIC SERIES , 10/17/2020, 15:10. FINDINGS: Bones: No fractures or dislocations. No suspicious bony lesions. There is severe narrowing of the left patellofemoral compartment joint space with lateral patellar tilting, subchondral sclerosis, marginal osteophyte formation, and remodeling of the articular surfaces. There is mild narrowing of the medial and lateral femorotibial compartments. There is moderate narrowing of the right lateral femorotibial compartment joint space and mild narrowing of the right medial femorotibial compartment joint space. Findings have progressed when compared to the prior radiographs from 10/17/2020. Soft tissues: No joint effusion. No suspicious soft tissue calcifications. IMPRESSION: Tricompartmental osteoarthrosis, most notably and severe at the left patellofemoral compartment. Approved by: Abhishek Preston M.D. on 05/15/2023 at 10:21
--- NOTE | 2023-05-14 | DI.RAD.S_ITS ---
PROCEDURE: XR KNEE RT 1TO2V INDICATIONS: knee pain TECHNIQUE: 2 views of the knee were acquired. COMPARISON: [facility], CR, XR KNEE ARTHRITIC SERIES BI, 10/17/2020, 15:10. [facility], CR, XR KNEE LT 3V, 05/14/2023, 17:56. FINDINGS: Bones: No acute fractures or dislocations. No suspicious bony lesions. Severe joint space narrowing is seen at the right patellofemoral compartment with subchondral sclerosis, marginal osteophyte formation, and remodeling of the articular surfaces. There is moderate narrowing of the lateral femorotibial compartment joint space and mild narrowing of the medial femorotibial compartment joint space. Findings have progressed when compared to the prior radiographs from 10/17/2020. Soft tissues: No joint effusion. No suspicious soft tissue calcifications. IMPRESSION: Tricompartmental right knee osteoarthrosis, severe at the patellofemoral compartment. Approved by: Abhishek Preston M.D. on 05/15/2023 at 10:23
== END ==
PROVIDERS: Family Provider Family Medicine; PCP Family Medicine; Referring Provider Registered Nurse; Visit Provider Registered Nurse
DX: M22.42 Chondromalacia patellae, left knee (principal); M22.41 Chondromalacia patellae, right knee
CPT/HCPCS: 73560; 73562

== ENCOUNTER → 2023-07-24 08:10 | Outpatient (CLI) | payer MEDICARE, OTHER, SELFPAY ==
[2023-07-24 13:03] LABS: Hemoglobin A1C% w Est Avg Glu 5.5 % (4.0-6.0)
== END ==
PROVIDERS: Family Provider Family Medicine; PCP Family Medicine; Referring Provider Student in an Organized Health Care Education/Training Program; Visit Provider Student in an Organized Health Care Education/Training Program
DX: Z00.00 Encounter for general adult medical examination without abnormal findings (principal)
CPT/HCPCS: 36415; 83036

== ENCOUNTER → 2023-12-24 09:16 | Outpatient (CLI) | payer MEDICARE, OTHER, SELFPAY ==
[2023-12-24 10:25] LABS: Alanine Aminotransferase 23 IU/L (<35); Albumin 4.3 g/dL (3.5-5.0); Albumin Globulin Ratio 1.4 (1.0-2.8); Alkaline Phosphatase 57 U/L (38-126); Aspartate Aminotransferase 35 IU/L (14-36); BUN Creatinine Ratio 29.3 (6-22); Bilirubin Total 0.7 mg/dL (0.2-1.3); Blood Urea Nitrogen 24 mg/dL (7-17); Calcium 10.3 mg/dL (8.4-10.2); Carbon Dioxide 28 mmol/L (22-32); Chloride 102 mmol/L (98-107); Cholesterol 189 mg/dL (140-199); Estimated Glomerular Filt Rate > 60 mL/min (>60); Globulin 3.1 g/dL (1.7-4.1); Glucose 97 mg/dL (80-110); HDL Cholesterol 83 mg/dL (40-60); HEMOLYSIS < 15 (0-50); LDL Cholesterol Calculated 86 mg/dL (<100); Sodium 137 mmol/L (137-145); Total Protein 7.4 g/dL (6.3-8.2); Triglycerides 98 mg/dL (35-150)
[2023-12-24 10:40] LABS: Vitamin D 25 Hydroxy (D3) 73.9 ng/mL (30.0-100.0)
== END ==
PROVIDERS: Family Provider Family Medicine; PCP Registered Nurse; Referring Provider Registered Nurse; Visit Provider Registered Nurse
DX: E78.2 Mixed hyperlipidemia (principal); E55.9 Vitamin D deficiency, unspecified; I10 Essential (primary) hypertension; E83.52 Hypercalcemia
CPT/HCPCS: 36415; 80053; 80061; 82306

== ENCOUNTER → 2024-02-03 14:50 | Outpatient (CLI) | payer MEDICARE, OTHER, SELFPAY ==
--- NOTE | 2024-02-03 | DI.RAD.S_ITS ---
PROCEDURE: XR DEXA AXIAL SKELETON INDICATIONS: OSTEOPOROSIS SCREENING/POST MENOPAUSAL COMPARISON: [facility], JAYY, XR DEXA AXIAL SKELETON, 12/30/2019, 14:04. [facility], CR, XR DEXA AXIAL SKELETON, 04/02/2018, 14:46. FINDINGS: Lumbar Spine: Bone mineral density 1.16 g/cm2, T score 1.3, previously 0.3. Left Hip: Bone mineral density 0.76 g/cm2, T score -1.5, previously -1.6. Left Femoral Neck: Bone mineral density 0.62 g/cm2, T score -2, previously -2.1. Right Hip: Bone mineral density 0.75 g/cm2, T score -1.5, previously -1.6. Right Femoral Neck: Bone mineral density 0.63 g/cm2, T score -2, previously -1.9. Fracture Risk Calculation (when applicable): 10-year fracture risk of a major osteoporotic fracture 6.7 percent and of a hip fracture 1.4 percent. (T score greater or equal to -1.0 to: NORMAL) (T score from -1.1 to -2.4: OSTEOPENIA) (T score less than or equal to -2.5: OSTEOPOROSIS) IMPRESSION: Osteopenia with T-scores and fracture risk calculation as above. Follow-up guidelines as follows: Osteoporosis: Consider a repeat DEXA and Vertebral Fracture Assessment (VFA) exam in 2 years or sooner if medically necessary, to reassess this patient's status. Osteopenia: Consider a repeat DEXA in 2-3 years to reassess this patient's status, or if there is a new clinical indication. Normal: Consider a repeat DEXA in 5 years or sooner, or if there is a new clinical indication. All treatment decisions require clinical judgment and consideration of individual patient factors, including patient preferences, comorbidities, previous drug use, risk factors not captured in the FRAX model (e.g., frailty, falls, vitamin D deficiency, increased bone turnover, interval significant decline in bone density ) and possible under- or over-estimation of fracture risk by FRAX. In addition, the NOF Guide recommends that FDA-approved medical therapies be considered in postmenopausal women and men age >= 50 years with a: * Hip or vertebral (clinical or morphometric) fracture * T-score of <=-2.5 at the spine or hip * Ten-year fracture probability by FRAX of >= 3% for hip fracture or >=20% for major osteoporotic fracture. People with diagnosed cases of osteoporosis or at high risk for fracture should have regular bone mineral density tests. For patients eligible for Medicare, routine testing is allowed once every 2 years. The testing frequency can be increased to one year for patients who have rapidly progressing disease, those who are receiving or discontinuing medical therapy to restore bone mass, or have additional risk factors. Dictated by: Merlin Martinez M.D. on 02/03/2024 at 20:48 Approved by: Merlin Martinez M.D. on 02/03/2024 at 20:50
== END ==
PROVIDERS: Family Provider Family Medicine; PCP Registered Nurse; Referring Provider Registered Nurse; Visit Provider Registered Nurse
DX: M85.89 Other specified disorders of bone density and structure, multiple sites (principal); Z13.820 Encounter for screening for osteoporosis; Z78.0 Asymptomatic menopausal state
CPT/HCPCS: 77080

== ENCOUNTER 2024-04-13 11:30 | Outpatient (RCR) | payer MEDICARE, OTHER, SELFPAY ==
--- NOTE | 2023-10-30 16:00 | PT.OPPOC ---
Physical, Occupational & Speech Therapy At [facility] Current Diagnoses Chondromalacia patellae, right knee (10/30/23) Chondromalacia patellae, left knee (10/30/23) Low back pain, unspecified (10/30/23) Encounter for fitting and adjustment of other specified devices (10/30/23) Visit Care Team Role Provider Type David Gordon MD Family Provider Physician Primary Care Provider Specialty: [facility] Address: [facility] [facility] [place], [address] Email: [email or web address] DANUTA Browning Attending Provider Non-Staff Referring Provider Specialty: [facility] Address: [address] [facility] [place], [address] Email: Plan Of Care PT-OP-B Current Condition Start: 10/30/23 13:51 Freq: Status: Active Protocol: Document 10/30/23 13:45 [facility] (Rec: 10/30/23 14:38 [facility] [id number]) Current Condition History of Current Condition Onset Date 2018 Current Complaints LBP, knee pain L>R, left ankle pain History of Current Condition Tanvi has a history of low back pain with left sided radicular symptoms. She returns to PT today with LBP as well as B knee pain worse on the left. This pain is worse with sit-stand and squatting is very difficult for her at this time. Tanvi reports she has been doing her exercises but she needs a new copy of exercises, pain is still in the back on the left side going down the stairs has gotten hard and she has osteoarthitis in her knees, getting up off the floor is very difficult. PT-OP-T Assessment and Plan Start: 10/30/23 17:27 Freq: Status: Active Protocol: Document 10/30/23 13:45 [facility] (Rec: 11/05/23 13:10 [facility] [id number]) Physical Therapy Assessment Rehab Potential Rehabilitation Potential Excellent Evaluation Complexity Number of Personal Factors/Comorbidities 0 Number of Body Systems Impaired 1-2 Clinical Presentation at Evaluation Stable Impairments Impairments Activity Tolerance,Functional Activities,Pain,Posture,ROM, Soft Tissue Mobility,Strength Goals 4 Impairment Tanvi describes pain with sit- stand after she has been sitting for a long period of time. Tanvi is unable to squat at this time without pain. Dye Operator Goal (LTG) Tanvi is able to perform sit- stand without knee pain and she is also able to perform a standing squat without pain LTG Duration 12 weeks 3 Impairment core weakness Group Home Goal (LTG) Tanvi is independent with a hep for core stabilization and strengthening LTG Duration 12 weeks 2 Impairment iliopsoas and quad tightness B which pulls Tanvi's pelvis anteriorly creating more tension in her low back and can create more tension on her knees Dye Operator Goal (LTG) Tanvi is independent with a HEP for hip flexor and quad stretching to decrease compression on the knees and low back LTG Duration 12 weeks One Impairment muscle guarding and spasm in the lumbar paraspinals with pain rated 4/10 with decreased lumbar ROM. Short Term Goal (STG) Tanvi reports a reduction in muscle spasm and guarding with gentle stretches and manual therapy work STG Duration 4 weeks Dye Operator Goal (LTG) Pain levels have decreased from 4/10 to 1-2/10 LTG Duration 12 weeks Assessment Summary Assessment Tanvi returns to PT today with chief complaints of left sided LBP and L>R knee pain as well as left medial ankle pain. She has a chronic history of left sided LBP with intermittent referred pain down the left LE. Tanvi is planning on retiring in April to give herself more time for self care. She spends time in [place] where she can swim and be more active and she notes decreased pain during those trips. She is trying to walk here but all the sitting she does for her job does increase her pain symptoms. With exam today Tanvi presents with L>R sided lumbar paraspinal tightness and piriformis tightness. She does also present with quad and ITB tightness on the left side which is most likely contributing to her knee pain. Tanvi does present with lateral patella tracking and she has weakness of the medial VMO quad musculature. Treatment will work on stretches for the lateral ITB and building up the medial quad musculature. There is core weakness present as well as postural dysfunction both contributing to low back compression and pain. Tanvi is a good candidate for PT with goals to improve strength and decrease muscle guarding and tightness. Physical Therapy Plan Frequency and Duration Frequency of Treatment 2x/Week Duration of treatment (weeks) 12 Plan of Care Start Date 10/30/23 Plan of Care End Date 01/22/24 Therapeutic Interventions Therapeutic Interventions Home Exercise Program,Manual Therapy,Neuromuscular Re- education,Patient/Caregiver Education,Self-Care/Home Management,Soft Tissue Mobilization,Therapeutic Exercises Next Visit Focus/Plan Next Note Type Treatment Note Next Visit Plan review stretches given today and begin both core stabilization as well as VMO quad strengthening next visit, MFR techniques for the lumbar paraspinals Plan of Care Dates Plan of Care Start Date 10/30/23 Plan of Care End Date 01/22/24 Electronically Signed by: Darling Schumacher, PT 11/05/23 5060 If you are in agreement with this Plan of Care, please return a signed and dated copy. I have reviewed this Plan of Care and certify that the skilled therapy services above are required to meet the patient?s needs. Physician Signature Date Printed Name and Credentials Clinical Instructor Signature Printed Name and Credentials
--- NOTE | 2023-10-30 16:00 | PT.OIE ---
Current Diagnoses Chondromalacia patellae, right knee (10/30/23) Chondromalacia patellae, left knee (10/30/23) Low back pain, unspecified (10/30/23) Encounter for fitting and adjustment of other specified devices (10/30/23) Past Medical History (Last Updated 09/04/17 @ 09:35 by Nataliia Warner) Ankle pain (~2011) Breast cancer (~2007) Chickenpox GERD (gastroesophageal reflux disease) (~1999) Osteopenia (~2013) Past Surgical History (Last Updated 09/04/17 @ 09:35 by Nataliia Warner) Anesthesia Status post mastectomy (~2008) Visit Care Team Role Provider Type David Gordon MD Family Provider Physician Primary Care Provider Specialty: [facility] Address: [address] [place] [address], [id number] Email: [email or web address] DANUTA Browning Attending Provider Non-Staff Referring Provider Specialty: [facility] Address: [address] [place] [address] [place], [address] Email: Physical Therapy Initial Evaluation PT-OP-A Visit Information Start: 10/30/23 13:51 Freq: Status: Active Protocol: Document 10/30/23 17:27 [facility] (Rec: 10/30/23 17:28 [facility] [id number]) Out-Patient Physical Therapy Visit Information Visit Information Visit Type Initial Evaluation Visit Start Time 13:45 Visit Stop Time 14:30 Visit Number 1 Evaluation Information Evaluation Date 10/30/23 PT-OP-B Current Condition Start: 10/30/23 13:51 Freq: Status: Active Protocol: Document 10/30/23 13:45 [facility] (Rec: 10/30/23 14:38 [facility] [id number]) Current Condition History of Current Condition Onset Date 2018 Current Complaints LBP, knee pain L>R, left ankle pain History of Current Condition Tanvi has a history of low back pain with left sided radicular symptoms. She returns to PT today with LBP as well as B knee pain worse on the left. This pain is worse with sit-stand and squatting is very difficult for her at this time. Tanvi reports she has been doing her exercises but she needs a new copy of exercises, pain is still in the back on the left side going down the stairs has gotten hard and she has osteoarthitis in her knees, getting up off the floor is very difficult. PT-OP-C Subjective Start: 10/30/23 13:51 Freq: Status: Active Protocol: Document 10/30/23 13:35 [facility] (Rec: 11/05/23 13:15 [facility] [id number]) Patient Questionnaires Lower Extremity Functional Scale LEFS Score 54 LEFS Impairment 20 to 39% Impaired (Score 48- 62) OP-PT Pain Assessment Pain Assessment Grid Paper Pain Assessment Grid Completed Yes Location low back Intensity 4 Scale Used Numeric (0 - 10) Description Aching Description- Other worse after sitting PT-OP-F Manual Assessment Start: 10/30/23 17:27 Freq: Status: Active Protocol: Document 10/30/23 13:45 [facility] (Rec: 11/05/23 13:14 [facility] [id number]) Manual Assessments Soft Tissue Assessment Soft Tissue Mobility Assessment guarding and tightness of the l>R lumbar paraspinals left ITB and lateral quad tightness piriformis tightness B PT-OP-J Posture/Palpation/Skin Start: 10/30/23 13:51 Freq: Status: Active Protocol: Document 10/30/23 13:45 [facility] (Rec: 11/05/23 13:14 [facility] [id number]) Posture Evaluation Position Sitting Head/C-Spine Posture Flexed T-Spine Posture Rotation Left L-Spine Posture Flattened Pelvis Posture Neutral Comments Posture Comments forward head and shoulders PT-OP-K Range of Motion Start: 10/30/23 17:27 Freq: Status: Active Protocol: Document 10/30/23 13:45 [facility] (Rec: 11/05/23 13:18 [facility] [id number]) Lumbar Spine Range of Motion Lumbar Spine Active Testing Position Standing Flexion 50 Lateral Flexion Left 10 Lateral Flexion Right 15 ROM Limitations Soft Tissue Tightness,Pain Comments left sidebending increases pain PT-OP-M Strength Start: 10/30/23 17:27 Freq: Status: Active Protocol: Document 10/30/23 13:45 [facility] (Rec: 11/05/23 13:18 [facility] [id number]) Trunk Strength Trunk Manual Muscle Testing Testing Position Supine Flexion 3 Fair Core Stabilization decreased TA activation and SI stabilization PT-OP-Q Treatments Start: 10/30/23 17:27 Freq: Status: Active Protocol: Document 10/30/23 17:27 [facility] (Rec: 10/30/23 17:28 [facility] [id number]) Therapeutic Exercises Supine Exercises ITB stretch with strap Reps/Minutes hold 1-2 min hamstring stretch with strap Side bilateral Reps/Minutes hold 1-2 min Standing Exercises standing quad stretch Reps/Minutes 2 x 30 seconds PT-OP-T Assessment and Plan Start: 10/30/23 17:27 Freq: Status: Active Protocol: Document 10/30/23 13:45 [facility] (Rec: 11/05/23 13:10 [facility] [id number]) Physical Therapy Assessment Rehab Potential Rehabilitation Potential Excellent Evaluation Complexity Number of Personal Factors/Comorbidities 0 Number of Body Systems Impaired 1-2 Clinical Presentation at Evaluation Stable Impairments Impairments Activity Tolerance,Functional Activities,Pain,Posture,ROM, Soft Tissue Mobility,Strength Goals 4 Impairment Tanvi describes pain with sit- stand after she has been sitting for a long period of time. Tanvi is unable to squat at this time without pain. Half-Way Goal (LTG) Tanvi is able to perform sit- stand without knee pain and she is also able to perform a standing squat without pain LTG Duration 12 weeks 3 Impairment core weakness Half-Way Goal (LTG) Tanvi is independent with a hep for core stabilization and strengthening LTG Duration 12 weeks 2 Impairment iliopsoas and quad tightness B which pulls Tanvi's pelvis anteriorly creating more tension in her low back and can create more tension on her knees Half-Way Goal (LTG) Tanvi is independent with a HEP for hip flexor and quad stretching to decrease compression on the knees and low back LTG Duration 12 weeks One Impairment muscle guarding and spasm in the lumbar paraspinals with pain rated 4/10 with decreased lumbar ROM. Short Term Goal (STG) Tanvi reports a reduction in muscle spasm and guarding with gentle stretches and manual therapy work STG Duration 4 weeks Cash Register Servicer Goal (LTG) Pain levels have decreased from 4/10 to 1-2/10 LTG Duration 12 weeks Assessment Summary Assessment Tanvi returna to PT today with chief complaints of left sided LBP and L>R knee pain as well as left medial ankle pain. She has a chronic history of left sided LBP with intermittent referred pain down the left LE. Tanvi is planning on retiring in April to give herself more time for self care. She spends time in [place] where she can swim and be more active and she notes decreased pain during those trips. She is trying to walk here but all the sitting she does for her job does increase her pain symptoms. With exam today Tanvi presents with L>R sided lumbar paraspinal tightness and piriformis tightness. She does also present with quad and ITB tightness on the left side which is most likely contributing to her knee pain. Tanvi does present with lateral patella tracking and she has weakness of the medial VMO quad musculature. Treatment will work on stretches for the lateral ITB and building up the medial quad musculature. There is core weakness present as well as postural dysfunction both contributing to low back compression and pain. Tanvi is a good candidate for PT with goals to improve strength and decrease muscle guarding and tightness. Physical Therapy Plan Frequency and Duration Frequency of Treatment 2x/Week Duration of treatment (weeks) 12 Plan of Care Start Date 10/30/23 Plan of Care End Date 01/22/24 Therapeutic Interventions Therapeutic Interventions Home Exercise Program,Manual Therapy,Neuromuscular Re- education,Patient/Caregiver Education,Self-Care/Home Management,Soft Tissue Mobilization,Therapeutic Exercises Next Visit Focus/Plan Next Note Type Treatment Note Next Visit Plan review stretches given today and begin both core stabilization as well as VMO quad strengthening next visit, MFR techniques for the lumbar paraspinals
--- NOTE | 2023-11-25 17:11 | PT.OTN ---
Current Diagnoses Chondromalacia patellae, right knee (11/25/23) Chondromalacia patellae, left knee (11/25/23) Low back pain, unspecified (11/25/23) Encounter for fitting and adjustment of other specified devices (11/25/23) Physical Therapy Treatment Note PT-OP-A Visit Information Start: 10/30/23 13:51 Freq: Status: Active Protocol: Document 11/25/23 09:45 [facility] (Rec: 11/25/23 17:10 [facility] [id number]) Out-Patient Physical Therapy Visit Information Visit Information Visit Type Treatment Note Visit Start Time 09:45 Visit Stop Time 10:30 Visit Number 2 PT-OP-B Current Condition Start: 10/30/23 13:51 Freq: Status: Active Protocol: Document 10/30/23 13:45 [facility] (Rec: 10/30/23 14:38 [facility] [id number]) Current Condition History of Current Condition Onset Date 2018 Current Complaints LBP, knee pain L>R, left ankle pain History of Current Condition Tanvi has a history of low back pain with left sided radicular symptoms. She returns to PT today with LBP as well as B knee pain worse on the left. This pain is worse with sit-stand and squatting is very difficult for her at this time. Tanvi reports she has been doing her exercises but she needs a new copy of exercises, pain is still in the back on the left side going down the stairs has gotten hard and she has osteoarthitis in her knees, getting up off the floor is very difficult. PT-OP-C Subjective Start: 10/30/23 13:51 Freq: Status: Active Protocol: Document 11/25/23 09:48 [facility] (Rec: 11/25/23 10:34 [facility] [id number]) OP-PT Subjective Patient Comments Patient Comments pt notes she has been doing her exersiceses and going to the gym, she feels the movement and the walking has been helping her back. She did get orthotics and is wondering if they are irritating her left SI joint Patient Reported Progress Improving PT-OP-F Manual Assessment Start: 10/30/23 17:27 Freq: Status: Active Protocol: Document 10/30/23 13:45 [facility] (Rec: 11/05/23 13:14 [facility] [id number]) Manual Assessments Soft Tissue Assessment Soft Tissue Mobility Assessment guarding and tightness of the l>R lumbar paraspinals left ITB and lateral quad tightness piriformis tightness B PT-OP-J Posture/Palpation/Skin Start: 10/30/23 13:51 Freq: Status: Active Protocol: Document 10/30/23 13:45 [facility] (Rec: 11/05/23 13:14 [facility] [id number]) Posture Evaluation Position Sitting Head/C-Spine Posture Flexed T-Spine Posture Rotation Left L-Spine Posture Flattened Pelvis Posture Neutral Comments Posture Comments forward head and shoulders PT-OP-K Range of Motion Start: 10/30/23 17:27 Freq: Status: Active Protocol: Document 10/30/23 13:45 [facility] (Rec: 11/05/23 13:18 [facility] [id number]) Lumbar Spine Range of Motion Lumbar Spine Active Testing Position Standing Flexion 50 Lateral Flexion Left 10 Lateral Flexion Right 15 ROM Limitations Soft Tissue Tightness,Pain Comments left sidebending increases pain PT-OP-M Strength Start: 10/30/23 17:27 Freq: Status: Active Protocol: Document 10/30/23 13:45 [facility] (Rec: 11/05/23 13:18 [facility] [id number]) Trunk Strength Trunk Manual Muscle Testing Testing Position Supine Flexion 3 Fair Core Stabilization decreased TA activation and SI stabilization PT-OP-Q Treatments Start: 10/30/23 17:27 Freq: Status: Active Protocol: Document 11/25/23 09:45 [facility] (Rec: 11/25/23 17:10 [facility] [id number]) Gym Equipment Cable Column (Body Solid) Rows Details 20# Reps/Time 2 x 10 Lat Pull Down Details 20 # Reps/Time 2 x 10 Shuttle Recovery Bilateral Squats Details worked on knee and foot placement Resistance 2 bands Reps/Time 15 reps Therapeutic Exercises Supine Exercises ball squeeze with core tightening Reps/Minutes x 10 reps ITB stretch with strap Reps/Minutes hold 1-2 min hamstring stretch with strap Side bilateral Reps/Minutes hold 1-2 min Other Exercises towel scrunches Reps/Minutes x 4 min debbie pose Reps/Minutes hold 1-2 min cat cow Reps/Minutes x 10 PT-OP-T Assessment and Plan Start: 10/30/23 17:27 Freq: Status: Active Protocol: Document 11/25/23 09:45 [facility] (Rec: 11/25/23 17:10 [facility] [id number]) Physical Therapy Assessment Goals 4 Impairment Tanvi describes pain with sit- stand after she has been sitting for a long period of time. Tanvi is unable to squat at this time without pain. Farm Management Supervisor Goal (LTG) Tanvi is able to perform sit- stand without knee pain and she is also able to perform a standing squat without pain LTG Duration 12 weeks 3 Impairment core weakness Long-Term Goal (LTG) Tanvi is independent with a hep for core stabilization and strengthening LTG Duration 12 weeks 2 Impairment iliopsoas and quad tightness B which pulls Tanvi's pelvis anteriorly creating more tension in her low back and can create more tension on her knees Farm Management Supervisor Goal (LTG) Tanvi is independent with a HEP for hip flexor and quad stretching to decrease compression on the knees and low back LTG Duration 12 weeks One Impairment muscle guarding and spasm in the lumbar paraspinals with pain rated 4/10 with decreased lumbar ROM. Short Term Goal (STG) Tanvi reports a reduction in muscle spasm and guarding with gentle stretches and manual therapy work STG Duration 4 weeks Farm Management Supervisor Goal (LTG) Pain levels have decreased from 4/10 to 1-2/10 LTG Duration 12 weeks Assessment Summary Assessment Tanvi is doing better with her knees with the bike and leg press at the gym. She does pronate quite a bit on the left foot and we talked about foot and knee alignment with her leg press. She was given towel scrunches to work on her arches. She was having left sided SI joint pain today and feels it is from her new orthotics Physical Therapy Plan Frequency and Duration Frequency of Treatment 2x/Week Duration of treatment (weeks) 12 Plan of Care Start Date 10/30/23 Plan of Care End Date 01/22/24 Therapeutic Interventions Therapeutic Interventions Home Exercise Program,Manual Therapy,Neuromuscular Re- education,Patient/Caregiver Education,Self-Care/Home Management,Soft Tissue Mobilization,Therapeutic Exercises Next Visit Focus/Plan Next Visit Plan work on quad stretches and assess pain with sit-stand. Trial of theraband around thighs for sit-stand
--- NOTE | 2023-11-25 17:12 | PT.OTN ---
Current Diagnoses Chondromalacia patellae, right knee (11/25/23) Chondromalacia patellae, left knee (11/25/23) Low back pain, unspecified (11/25/23) Encounter for fitting and adjustment of other specified devices (11/25/23) Physical Therapy Treatment Note PT-OP-A Visit Information Start: 10/30/23 13:51 Freq: Status: Active Protocol: Document 11/25/23 09:45 [facility] (Rec: 11/25/23 17:10 [facility] [id number]) Out-Patient Physical Therapy Visit Information Visit Information Visit Type Treatment Note Visit Start Time 09:45 Visit Stop Time 10:30 Visit Number 2 PT-OP-B Current Condition Start: 10/30/23 13:51 Freq: Status: Active Protocol: Document 10/30/23 13:45 [facility] (Rec: 10/30/23 14:38 [facility] [id number]) Current Condition History of Current Condition Onset Date 2017 Current Complaints LBP, knee pain L>R, left ankle pain History of Current Condition Tanvi has a history of low back pain with left sided radicular symptoms. She returns to PT today with LBP as well as B knee pain worse on the left. This pain is worse with sit-stand and squatting is very difficult for her at this time. Tanvi reports she has been doing her exercises but she needs a new copy of exercises, pain is still in the back on the left side going down the stairs has gotten hard and she has osteoarthritis in her knees, getting up off the floor is very difficult. PT-OP-C Subjective Start: 10/30/23 13:51 Freq: Status: Active Protocol: Document 11/25/23 09:48 [facility] (Rec: 11/25/23 10:34 [facility] [id number]) OP-PT Subjective Patient Comments Patient Comments pt notes she has been doing her exersiceses and going to the gym, she feels the movement and the walking has been helping her back. She did get orthotics and is wondering if they are irritating her left SI joint Patient Reported Progress Improving PT-OP-F Manual Assessment Start: 10/30/23 17:27 Freq: Status: Active Protocol: Document 10/30/23 13:45 [facility] (Rec: 11/05/23 13:14 [facility] [id number]) Manual Assessments Soft Tissue Assessment Soft Tissue Mobility Assessment guarding and tightness of the l>R lumbar paraspinals left ITB and lateral quad tightness piriformis tightness B PT-OP-J Posture/Palpation/Skin Start: 10/30/23 13:51 Freq: Status: Active Protocol: Document 10/30/23 13:45 [facility] (Rec: 11/05/23 13:14 [facility] [id number]) Posture Evaluation Position Sitting Head/C-Spine Posture Flexed T-Spine Posture Rotation Left L-Spine Posture Flattened Pelvis Posture Neutral Comments Posture Comments forward head and shoulders PT-OP-K Range of Motion Start: 10/30/23 17:27 Freq: Status: Active Protocol: Document 10/30/23 13:45 [facility] (Rec: 11/05/23 13:18 [facility] [id number]) Lumbar Spine Range of Motion Lumbar Spine Active Testing Position Standing Flexion 50 Lateral Flexion Left 10 Lateral Flexion Right 15 ROM Limitations Soft Tissue Tightness,Pain Comments left sidebending increases pain PT-OP-M Strength Start: 10/30/23 17:27 Freq: Status: Active Protocol: Document 10/30/23 13:45 [facility] (Rec: 11/05/23 13:18 [facility] [id number]) Trunk Strength Trunk Manual Muscle Testing Testing Position Supine Flexion 3 Fair Core Stabilization decreased TA activation and SI stabilization PT-OP-Q Treatments Start: 10/30/23 17:27 Freq: Status: Active Protocol: Document 11/25/23 09:45 [facility] (Rec: 11/25/23 17:10 [facility] [id number]) Gym Equipment Cable Column (Body Solid) Rows Details 20# Reps/Time 2 x 10 Lat Pull Down Details 20 # Reps/Time 2 x 10 Shuttle Recovery Bilateral Squats Details worked on knee and foot placement Resistance 2 bands Reps/Time 15 reps Therapeutic Exercises Supine Exercises ball squeeze with core tightening Reps/Minutes x 10 reps ITB stretch with strap Reps/Minutes hold 1-2 min hamstring stretch with strap Side bilateral Reps/Minutes hold 1-2 min Other Exercises towel scrunches Reps/Minutes x 4 min debbie pose Reps/Minutes hold 1-2 min cat cow Reps/Minutes x 10 PT-OP-T Assessment and Plan Start: 10/30/23 17:27 Freq: Status: Active Protocol: Document 11/25/23 09:45 [facility] (Rec: 11/25/23 17:10 [facility] [id number]) Physical Therapy Assessment Goals 4 Impairment Tanvi describes pain with sit- stand after she has been sitting for a long period of time. Tanvi is unable to squat at this time without pain. Pe Teacher Goal (LTG) Tanvi is able to perform sit- stand without knee pain and she is also able to perform a standing squat without pain LTG Duration 12 weeks 3 Impairment core weakness Retirement Goal (LTG) Tanvi is independent with a hep for core stabilization and strengthening LTG Duration 12 weeks 2 Impairment iliopsoas and quad tightness B which pulls Taniv's pelvis anteriorly creating more tension in her low back and can create more tension on her knees Retirement Goal (LTG) Tanvi is independent with a HEP for hip flexor and quad stretching to decrease compression on the knees and low back LTG Duration 12 weeks One Impairment muscle guarding and spasm in the lumbar paraspinals with pain rated 4/10 with decreased lumbar ROM. Short Term Goal (STG) Tanvi reports a reduction in muscle spasm and guarding with gentle stretches and manual therapy work STG Duration 4 weeks Retirement Goal (LTG) Pain levels have decreased from 4/10 to 1-2/10 LTG Duration 12 weeks Assessment Summary Assessment Tanvi is doing better with her knees with the bike and leg press at the gym. She does pronate quite a bit on the left foot and we talked about foot and knee alignment with her leg press. She was given towel scrunches to work on her arches. She was having left sided SI joint pain today and feels it is from her new orthotics Physical Therapy Plan Frequency and Duration Frequency of Treatment 2x/Week Duration of treatment (weeks) 12 Plan of Care Start Date 10/30/23 Plan of Care End Date 01/22/24 Therapeutic Interventions Therapeutic Interventions Home Exercise Program,Manual Therapy,Neuromuscular Re- education,Patient/Caregiver Education,Self-Care/Home Management,Soft Tissue Mobilization,Therapeutic Exercises Next Visit Focus/Plan Next Visit Plan work on quad stretches and assess pain with sit-stand. Trial of theraband around thighs for sit-stand
--- NOTE | 2023-12-11 16:00 | PT.OTN ---
Current Diagnoses Chondromalacia patellae, right knee (12/11/23) Chondromalacia patellae, left knee (12/11/23) Low back pain, unspecified (12/11/23) Encounter for fitting and adjustment of other specified devices (12/11/23) Physical Therapy Treatment Note PT-OP-A Visit Information Start: 10/30/23 13:51 Freq: Status: Active Protocol: Document 12/11/23 13:53 [facility] (Rec: 12/11/23 14:35 [facility] [id number]) Out-Patient Physical Therapy Visit Information Visit Information Visit Type Aquatic Treatment Note Visit Start Time 13:50 Visit Stop Time 14:30 Visit Number 3 PT-OP-B Current Condition Start: 10/30/23 13:51 Freq: Status: Active Protocol: Document 10/30/23 13:45 [facility] (Rec: 10/30/23 14:38 [facility] [id number]) Current Condition History of Current Condition Onset Date 2018 Current Complaints LBP, knee pain L>R, left ankle pain History of Current Condition Tanvi has a history of low back pain with left sided radicular symptoms. She returns to PT today with LBP as well as B knee pain worse on the left. This pain is worse with sit-stand and squatting is very difficult for her at this time. Tnavi reports she has been doing her exercises but she needs a new copy of exercises, pain is still in the back on the left side going down the stairs has gotten hard and she has osteoarthitis in her knees, getting up off the floor is very difficult. 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 PT-OP-F Manual Assessment Start: 10/30/23 17:27 Freq: Status: Active Protocol: Document 10/30/23 13:45 [facility] (Rec: 11/05/23 13:14 [facility] [id number]) Manual Assessments Soft Tissue Assessment Soft Tissue Mobility Assessment guarding and tightness of the l>R lumbar paraspinals left ITB and lateral quad tightness piriformis tightness B PT-OP-J Posture/Palpation/Skin Start: 10/30/23 13:51 Freq: Status: Active Protocol: Document 10/30/23 13:45 [facility] (Rec: 11/05/23 13:14 [facility] [id number]) Posture Evaluation Position Sitting Head/C-Spine Posture Flexed T-Spine Posture Rotation Left L-Spine Posture Flattened Pelvis Posture Neutral Comments Posture Comments forward head and shoulders PT-OP-K Range of Motion Start: 10/30/23 17:27 Freq: Status: Active Protocol: Document 10/30/23 13:45 [facility] (Rec: 11/05/23 13:18 [facility] [id number]) Lumbar Spine Range of Motion Lumbar Spine Active Testing Position Standing Flexion 50 Lateral Flexion Left 10 Lateral Flexion Right 15 ROM Limitations Soft Tissue Tightness,Pain Comments left sidebending increases pain PT-OP-M Strength Start: 10/30/23 17:27 Freq: Status: Active Protocol: Document 10/30/23 13:45 [facility] (Rec: 11/05/23 13:18 [facility] [id number]) Trunk Strength Trunk Manual Muscle Testing Testing Position Supine Flexion 3 Fair Core Stabilization decreased TA activation and SI stabilization PT-OP-Q Treatments Start: 10/30/23 17:27 Freq: Status: Active Protocol: Document 12/11/23 13:45 [facility] (Rec: 12/17/23 12:56 [facility] [id number]) Manual Therapy Treatment Soft Tissue Mobilization left sided parapsinal release Mobilization Type Myofascial Release Intensity/Depth Moderate Body Position Prone left sided piriformis release Mobilization Type Manual Lymphatic Drainage Intensity/Depth Moderate Body Position Prone Comments prone over body pillow PT-OP-T Assessment and Plan Start: 10/30/23 17:27 Freq: Status: Active Protocol: Document 12/11/23 13:45 [facility] (Rec: 12/17/23 12:56 [facility] [id number]) Physical Therapy Assessment Assessment Summary Assessment I reviewed Ralph CASTANON with her and she is feeling better with adding in her exercises. She responded well to MFR techniques and reports she is feeling better following manual therapy techniques Physical Therapy Plan Frequency and Duration Frequency of Treatment 2x/Week Duration of treatment (weeks) 12 Plan of Care Start Date 10/30/23 Plan of Care End Date 01/22/24 Therapeutic Interventions Therapeutic Interventions Home Exercise Program,Manual Therapy,Neuromuscular Re- education,Patient/Caregiver Education,Self-Care/Home Management,Soft Tissue Mobilization,Therapeutic Exercises Next Visit Focus/Plan Next Note Type Treatment Note Next Visit Plan work on quad stretches and assess pain with sit-stand. Trial of theraband around thighs for sit-stand
--- NOTE | 2023-12-18 13:48 | PT.OTN ---
Current Diagnoses Chondromalacia patellae, right knee (12/18/23) Chondromalacia patellae, left knee (12/18/23) Low back pain, unspecified (12/18/23) Encounter for fitting and adjustment of other specified devices (12/18/23) Physical Therapy Treatment Note PT-OP-A Visit Information Start: 10/30/23 13:51 Freq: Status: Active Protocol: Document 12/18/23 13:07 [facility] (Rec: 12/18/23 13:48 [facility] [id number]) Out-Patient Physical Therapy Visit Information Visit Information Visit Type Treatment Note Visit Start Time 13:07 Visit Stop Time 13:48 Visit Number 4 Number of DUDE WRANGLER Visits 1 Evaluation Information Evaluation Date 10/30/23 PT-OP-B Current Condition Start: 10/30/23 13:51 Freq: Status: Active Protocol: Document 10/30/23 13:45 [facility] (Rec: 10/30/23 14:38 [facility] [id number]) Current Condition History of Current Condition Onset Date 2018 Current Complaints LBP, knee pain L>R, left ankle pain History of Current Condition Tanvi has a history of low back pain with left sided radicular symptoms. She returns to PT today with LBP as well as B knee pain worse on the left. This pain is worse with sit-stand and squatting is very difficult for her at this time. Tanvi reports she has been doing her exercises but she needs a new copy of exercises, pain is still in the back on the left side going down the stairs has gotten hard and she has osteoarthitis in her knees, getting up off the floor is very difficult. PT-OP-C Subjective Start: 10/30/23 13:51 Freq: Status: Active Protocol: Document 12/18/23 13:07 [facility] (Rec: 12/18/23 13:48 [facility] [id number]) OP-PT Subjective Patient Comments Patient Comments Pt reported was out of town since last tx and just go back . Tried couple exercises with no adverse affects, it actually help her feel better . PT-OP-F Manual Assessment Start: 10/30/23 17:27 Freq: Status: Active Protocol: Document 10/30/23 13:45 [facility] (Rec: 11/05/23 13:14 [facility] [id number]) Manual Assessments Soft Tissue Assessment Soft Tissue Mobility Assessment guarding and tightness of the l>R lumbar paraspinals left ITB and lateral quad tightness piriformis tightness B PT-OP-J Posture/Palpation/Skin Start: 10/30/23 13:51 Freq: Status: Active Protocol: Document 10/30/23 13:45 [facility] (Rec: 11/05/23 13:14 [facility] [id number]) Posture Evaluation Position Sitting Head/C-Spine Posture Flexed T-Spine Posture Rotation Left L-Spine Posture Flattened Pelvis Posture Neutral Comments Posture Comments forward head and shoulders PT-OP-K Range of Motion Start: 10/30/23 17:27 Freq: Status: Active Protocol: Document 10/30/23 13:45 [facility] (Rec: 11/05/23 13:18 [facility] [id number]) Lumbar Spine Range of Motion Lumbar Spine Active Testing Position Standing Flexion 50 Lateral Flexion Left 10 Lateral Flexion Right 15 ROM Limitations Soft Tissue Tightness,Pain Comments left sidebending increases pain PT-OP-M Strength Start: 10/30/23 17:27 Freq: Status: Active Protocol: Document 10/30/23 13:45 [facility] (Rec: 11/05/23 13:18 [facility] [id number]) Trunk Strength Trunk Manual Muscle Testing Testing Position Supine Flexion 3 Fair Core Stabilization decreased TA activation and SI stabilization PT-OP-Q Treatments Start: 10/30/23 17:27 Freq: Status: Active Protocol: Document 12/18/23 13:07 [facility] (Rec: 12/18/23 13:48 [facility] [id number]) Therapeutic Exercises Supine Exercises ball squeeze with core tightening Equipment Used ball between B knees Reps/Minutes 3 SH x10 Comments cued neutral pelvis no PPT/ lift, keep pelvis level ITB stretch with strap Supine Exercise Name HEP reviewed Side left Reps/Minutes hold 1-2 min hamstring stretch with strap Supine Exercise Name HEP reviewed Side bilateral Reps/Minutes hold 1-2 min Comments APs Standing Exercises sit<>stand Standing Exercise Name rail vs STS from chair Resistance Lv1 TB at thighs Reps/Minutes x5 Other Exercises debbie pose Other Exercise Name fwd, SB R & L Side bilateral Reps/Minutes hold 30 each position Comments sit back on heels arms front then off to eachside for focused stretch Manual Therapy Treatment Soft Tissue Mobilization left sided parapsinal release Body Location L QL, ES Mobilization Type Rolling,Sustained Pressure, Other Intensity/Depth Moderate Body Position R Sidelying Comments gentle STMs and MWM hip hiking isometric then eccentric L ilium caudal glide stretch. left sided piriformis release Body Location L glut med, piriformis Mobilization Type Rolling,Sustained Pressure, Other Intensity/Depth Moderate Body Position R SL Comments gentle STMs and MWM hip er clamshell PT-OP-T Assessment and Plan Start: 10/30/23 17:27 Freq: Status: Active Protocol: Document 12/18/23 13:07 [facility] (Rec: 12/18/23 13:48 [facility] [id number]) Physical Therapy Assessment Goals 4 Impairment Tanvi describes pain with sit- stand after she has been sitting for a long period of time. Tanvi is unable to squat at this time without pain. Penitentiary Goal (LTG) Tanvi is able to perform sit- stand without knee pain and she is also able to perform a standing squat without pain LTG Duration 12 weeks 3 Impairment core weakness Penitentiary Goal (LTG) Tanvi is independent with a hep for core stabilization and strengthening LTG Duration 12 weeks 2 Impairment iliopsoas and quad tightness B which pulls Tanvi's pelvis anteriorly creating more tension in her low back and can create more tension on her knees Penitentiary Goal (LTG) Tanvi is independent with a HEP for hip flexor and quad stretching to decrease compression on the knees and low back LTG Duration 12 weeks One Impairment muscle guarding and spasm in the lumbar paraspinals with pain rated 4/10 with decreased lumbar ROM. Short Term Goal (STG) Tanvi reports a reduction in muscle spasm and guarding with gentle stretches and manual therapy work STG Duration 4 weeks Penitentiary Goal (LTG) Pain levels have decreased from 4/10 to 1-2/10 LTG Duration 12 weeks Assessment Summary Assessment Pt tolerated tx well. Good feedback with less L lumbar and lateral sacum tightness after manual and stretches, HEP reviewed. Cues for gentle hip adduction for support pelvic realignment with good feedback. Good hip abd tiring and no pain after added resisted STS for support to SI and functional mobility. Physical Therapy Plan Frequency and Duration Frequency of Treatment 2x/Week Duration of treatment (weeks) 12 Plan of Care Start Date 10/30/23 Plan of Care End Date 01/22/24 Therapeutic Interventions Therapeutic Interventions Home Exercise Program,Manual Therapy,Neuromuscular Re- education,Patient/Caregiver Education,Self-Care/Home Management,Soft Tissue Mobilization,Therapeutic Exercises Next Visit Focus/Plan Next Note Type Treatment Note Next Visit Plan Assess response to resisted band during STS added last tx. POC: work on quad stretches and assess pain with sit-stand .
--- NOTE | 2024-01-08 14:08 | PT.OTN ---
Current Diagnoses Chondromalacia patellae, right knee (01/08/24) Chondromalacia patellae, left knee (01/08/24) Low back pain, unspecified (01/08/24) Encounter for fitting and adjustment of other specified devices (01/08/24) Physical Therapy Treatment Note PT-OP-A Visit Information Start: 10/30/23 13:51 Freq: Status: Active Protocol: Document 01/08/24 11:36 [facility] (Rec: 01/08/24 12:25 [facility] [id number]) Out-Patient Physical Therapy Visit Information Visit Information Visit Type Treatment Note Visit Start Time 11:30 Visit Stop Time 12:15 Visit Number 6 Number of SERVICE PROVIDER Visits 0 PT-OP-B Current Condition Start: 10/30/23 13:51 Freq: Status: Active Protocol: Document 10/30/23 13:45 [facility] (Rec: 10/30/23 14:38 [facility] [id number]) Current Condition History of Current Condition Onset Date 2018 Current Complaints LBP, knee pain L>R, left ankle pain History of Current Condition Tanvi has a history of low back pain with left sided radicular symptoms. She returns to PT today with LBP as well as B knee pain worse on the left. This pain is worse with sit-stand and squatting is very difficult for her at this time. Tanvi reports she has been doing her exercises but she needs a new copy of exercises, pain is still in the back on the left side going down the stairs has gotten hard and she has osteoarthitis in her knees, getting up off the floor is very difficult. PT-OP-C Subjective Start: 10/30/23 13:51 Freq: Status: Active Protocol: Document 01/08/24 11:36 [facility] (Rec: 01/08/24 12:25 [facility] [id number]) OP-PT Subjective Patient Comments Patient Comments Tanvi notes she has been working alot with getting ready to retire and with open enrollment for insurance. Patient Reported Progress Same PT-OP-F Manual Assessment Start: 10/30/23 17:27 Freq: Status: Active Protocol: Document 10/30/23 13:45 [facility] (Rec: 11/05/23 13:14 [facility] [id number]) Manual Assessments Soft Tissue Assessment Soft Tissue Mobility Assessment guarding and tightness of the l>R lumbar paraspinals left ITB and lateral quad tightness piriformis tightness B PT-OP-J Posture/Palpation/Skin Start: 10/30/23 13:51 Freq: Status: Active Protocol: Document 10/30/23 13:45 [facility] (Rec: 11/05/23 13:14 [facility] [id number]) Posture Evaluation Position Sitting Head/C-Spine Posture Flexed T-Spine Posture Rotation Left L-Spine Posture Flattened Pelvis Posture Neutral Comments Posture Comments forward head and shoulders PT-OP-K Range of Motion Start: 10/30/23 17:27 Freq: Status: Active Protocol: Document 10/30/23 13:45 [facility] (Rec: 11/05/23 13:18 [facility] [id number]) Lumbar Spine Range of Motion Lumbar Spine Active Testing Position Standing Flexion 50 Lateral Flexion Left 10 Lateral Flexion Right 15 ROM Limitations Soft Tissue Tightness,Pain Comments left sidebending increases pain PT-OP-M Strength Start: 10/30/23 17:27 Freq: Status: Active Protocol: Document 10/30/23 13:45 [facility] (Rec: 11/05/23 13:18 [facility] [id number]) Trunk Strength Trunk Manual Muscle Testing Testing Position Supine Flexion 3 Fair Core Stabilization decreased TA activation and SI stabilization PT-OP-Q Treatments Start: 10/30/23 17:27 Freq: Status: Active Protocol: Document 01/08/24 11:36 [facility] (Rec: 01/08/24 12:25 [facility] [id number]) Therapeutic Exercises Standing Exercises standing shoulder blade retraction Reps/Minutes hold 5 sec standing shoulder flexion against the wall Standing Exercise Name given to pt as a stretch for her work day Reps/Minutes x 5-10 reps Manual Therapy Treatment Soft Tissue Mobilization left sided parapsinal release Body Location L QL, ES Mobilization Type Rolling,Sustained Pressure, Other Intensity/Depth Moderate Body Position R Sidelying Comments gentle STMs and MWM hip hiking isometric then eccentric L ilium caudal glide stretch. left sided piriformis release Body Location L glut med, piriformis Mobilization Type Rolling,Sustained Pressure, Other Intensity/Depth Moderate Body Position R SL Comments gentle STMs and MWM hip er clamshell Manual Techniques manual piriformis stretch Comments hold 1-2 min PT-OP-T Assessment and Plan Start: 10/30/23 17:27 Freq: Status: Active Protocol: Document 01/08/24 11:36 [facility] (Rec: 01/08/24 12:25 [facility] [id number]) Physical Therapy Assessment Assessment Summary Assessment Tanvi is responding well to treatments she is having to work a lot right now which involves sitting. I encouraged her to take small stretch breaks throughout the day. She is making it to the gym as often as she can Physical Therapy Plan Frequency and Duration Frequency of Treatment 2x/Week Duration of treatment (weeks) 12 Plan of Care Start Date 10/30/23 Plan of Care End Date 01/22/24 Therapeutic Interventions Therapeutic Interventions Home Exercise Program,Manual Therapy,Neuromuscular Re- education,Patient/Caregiver Education,Self-Care/Home Management,Soft Tissue Mobilization,Therapeutic Exercises Next Visit Focus/Plan Next Note Type Progress Note Next Visit Plan CT to MD next visit, review of postural exercises
--- NOTE | 2024-01-20 14:27 | PT.OTN ---
Current Diagnoses Chondromalacia patellae, right knee (01/20/24) Chondromalacia patellae, left knee (01/20/24) Low back pain, unspecified (01/20/24) Encounter for fitting and adjustment of other specified devices (01/20/24) Physical Therapy Treatment Note PT-OP-A Visit Information Start: 10/30/23 13:51 Freq: Status: Active Protocol: Document 01/20/24 09:48 [facility] (Rec: 01/20/24 10:35 [facility] [id number]) Out-Patient Physical Therapy Visit Information Visit Information Visit Type Progress Note Visit Start Time 09:45 Visit Stop Time 10:30 Visit Number 7 Number of MARKET RELATIONSHIP MANAGER Visits 0 PT-OP-B Current Condition Start: 10/30/23 13:51 Freq: Status: Active Protocol: Document 10/30/23 13:45 [facility] (Rec: 10/30/23 14:38 [facility] [id number]) Current Condition History of Current Condition Onset Date 2018 Current Complaints LBP, knee pain L>R, left ankle pain History of Current Condition Tanvi has a history of low back pain with left sided radicular symptoms. She returns to PT today with LBP as well as B knee pain worse on the left. This pain is worse with sit-stand and squatting is very difficult for her at this time. Tanvi reports she has been doing her exercises but she needs a new copy of exercises, pain is still in the back on the left side going down the stairs has gotten hard and she has osteoarthitis in her knees, getting up off the floor is very difficult. PT-OP-C Subjective Start: 10/30/23 13:51 Freq: Status: Active Protocol: Document 01/20/24 09:48 [facility] (Rec: 01/20/24 10:35 [facility] [id number]) OP-PT Subjective Patient Comments Patient Comments pt notes PT is helping, she is able to go up the stairs better now Patient Reported Progress Improving PT-OP-F Manual Assessment Start: 10/30/23 17:27 Freq: Status: Active Protocol: Document 10/30/23 13:45 [facility] (Rec: 11/05/23 13:14 [facility] [id number]) Manual Assessments Soft Tissue Assessment Soft Tissue Mobility Assessment guarding and tightness of the l>R lumbar paraspinals left ITB and lateral quad tightness piriformis tightness B PT-OP-J Posture/Palpation/Skin Start: 10/30/23 13:51 Freq: Status: Active Protocol: Document 10/30/23 13:45 [facility] (Rec: 11/05/23 13:14 [facility] [id number]) Posture Evaluation Position Sitting Head/C-Spine Posture Flexed T-Spine Posture Rotation Left L-Spine Posture Flattened Pelvis Posture Neutral Comments Posture Comments forward head and shoulders PT-OP-K Range of Motion Start: 10/30/23 17:27 Freq: Status: Active Protocol: Document 10/30/23 13:45 [facility] (Rec: 11/05/23 13:18 [facility] [id number]) Lumbar Spine Range of Motion Lumbar Spine Active Testing Position Standing Flexion 50 Lateral Flexion Left 10 Lateral Flexion Right 15 ROM Limitations Soft Tissue Tightness,Pain Comments left sidebending increases pain PT-OP-M Strength Start: 10/30/23 17:27 Freq: Status: Active Protocol: Document 10/30/23 13:45 [facility] (Rec: 11/05/23 13:18 [facility] [id number]) Trunk Strength Trunk Manual Muscle Testing Testing Position Supine Flexion 3 Fair Core Stabilization decreased TA activation and SI stabilization PT-OP-Q Treatments Start: 10/30/23 17:27 Freq: Status: Active Protocol: Document 01/20/24 09:48 [facility] (Rec: 01/20/24 10:35 [facility] [id number]) Therapeutic Exercises Supine Exercises SLR Reps/Minutes 2 x 10 Sidelying Exercises clam shells Reps/Minutes 3 x 10 PT-OP-T Assessment and Plan Start: 10/30/23 17:27 Freq: Status: Active Protocol: Document 01/20/24 09:48 [facility] (Rec: 01/20/24 10:35 [facility] [id number]) Physical Therapy Assessment Goals 4 Impairment Tanvi describes pain with sit- stand after she has been sitting for a long period of time. Tanvi is unable to squat at this time without pain. Residential Goal (LTG) Tanvi is able to perform sit- stand without knee pain and she is also able to perform a standing squat without pain Tanvi is doing better with with sit-stand and stairs with decreased pain LTG Duration 8 weeks 3 Impairment core weakness Swiss Machinist Goal (LTG) Tanvi is independent with a hep for core stabilization and strengthening good progress LTG Duration 12 weeks 2 Impairment iliopsoas and quad tightness B which pulls Tanvi's pelvis anteriorly creating more tension in her low back and can create more tension on her knees Swiss Machinist Goal (LTG) Tanvi is independent with a HEP for hip flexor and quad stretching to decrease compression on the knees and low back goal met LTG Duration 12 weeks One Impairment muscle guarding and spasm in the lumbar paraspinals with pain rated 4/10 with decreased lumbar ROM. Short Term Goal (STG) Tanvi reports a reduction in muscle spasm and guarding with gentle stretches and manual therapy work good progress STG Duration 4 weeks Swiss Machinist Goal (LTG) Pain levels have decreased from 4/10 to 1-2/10 good progresss LTG Duration 12 weeks Assessment Summary Assessment Tanvi is showing good improvement with PT . She is nearing snf when she feels she will have more time to focus on her strength and conditioning. Her pain is reducing and she is feeling that she can do stairs now without the knee pain. I added in SLR and clam shells for Tanvi today for her HEP, she plans on returning to her aquatic therapy [place] she goes [place]. She would benefit from continued PT. Physical Therapy Plan Frequency and Duration Frequency of Treatment 2x/Week Duration of treatment (weeks) 8 Plan of Care Start Date 01/20/24 Plan of Care End Date 03/16/24 Therapeutic Interventions Therapeutic Interventions Home Exercise Program,Manual Therapy,Neuromuscular Re- education,Patient/Caregiver Education,Self-Care/Home Management,Soft Tissue Mobilization,Therapeutic Exercises Next Visit Focus/Plan Next Note Type Treatment Note Next Visit Plan continue with fascial work for the low back, core strengtheing, knee and lateral hip strengtheing
--- NOTE | 2024-01-20 14:27 | PT.OPPOC ---
Physical, Occupational & Speech Therapy At [facility] Current Diagnoses Chondromalacia patellae, right knee (01/20/24) Chondromalacia patellae, left knee (01/20/24) Low back pain, unspecified (01/20/24) Encounter for fitting and adjustment of other specified devices (01/20/24) Visit Care Team Role Provider Type David Gordon MD Family Provider Physician Primary Care Provider Specialty: [facility] Practice Address: [address] [facility] [place], [address] Email: [email or web address] DANUTA Browning Attending Provider Non-Staff Referring Provider Specialty: [facility] Address: [address] [place], [address] Email: Plan Of Care PT-OP-B Current Condition Start: 10/30/23 13:51 Freq: Status: Active Protocol: Document 10/30/23 13:45 [facility] (Rec: 10/30/23 14:38 [facility] [id number]) Current Condition History of Current Condition Onset Date 2018 Current Complaints LBP, knee pain L>R, left ankle pain History of Current Condition Tanvi has a history of low back pain with left sided radicular symptoms. She returns to PT today with LBP as well as B knee pain worse on the left. This pain is worse with sit-stand and squatting is very difficult for her at this time. Tanvi reports she has been doing her exercises but she needs a new copy of exercises, pain is still in the back on the left side going down the stairs has gotten hard and she has osteoarthritis in her knees, getting up off the floor is very difficult. PT-OP-T Assessment and Plan Start: 10/30/23 17:27 Freq: Status: Active Protocol: Document 01/20/24 09:48 [facility] (Rec: 01/20/24 10:35 [facility] [id number]) Physical Therapy Assessment Goals 4 Impairment Tanvi describes pain with sit- stand after she has been sitting for a long period of time. Tanvi is unable to squat at this time without pain. Infection Preventionist Goal (LTG) Tanvi is able to perform sit- stand without knee pain and she is also able to perform a standing squat without pain Tanvi is doing better with with sit-stand and stairs with decreased pain LTG Duration 8 weeks 3 Impairment core weakness Detention Goal (LTG) Tanvi is independent with a hep for core stabilization and strengthening good progress LTG Duration 12 weeks 2 Impairment iliopsoas and quad tightness B which pulls Tanvi's pelvis anteriorly creating more tension in her low back and can create more tension on her knees Detention Goal (LTG) Tanvi is independent with a HEP for hip flexor and quad stretching to decrease compression on the knees and low back goal met LTG Duration 12 weeks One Impairment muscle guarding and spasm in the lumbar paraspinals with pain rated 4/10 with decreased lumbar ROM. Short Term Goal (STG) Tanvi reports a reduction in muscle spasm and guarding with gentle stretches and manual therapy work good progress STG Duration 4 weeks Infection Preventionist Goal (LTG) Pain levels have decreased from 4/10 to 1-2/10 good progress LTG Duration 12 weeks Assessment Summary Assessment Tanvi is showing good improvement with PT . She is nearing fpc when she feels she will have more time to focus on her strength and conditioning. Her pain is reducing and she is feeling that she can do stairs now without the knee pain. I added in SLR and clam shells for Tanvi today for her HEP, she plans on returning to her aquatic therapy again in [place] when she goes for [place]. She would benefit from continued PT. Physical Therapy Plan Frequency and Duration Frequency of Treatment 2x/Week Duration of treatment (weeks) 8 Plan of Care Start Date 01/20/24 Plan of Care End Date 03/16/24 Therapeutic Interventions Therapeutic Interventions Home Exercise Program,Manual Therapy,Neuromuscular Re- education,Patient/Caregiver Education,Self-Care/Home Management,Soft Tissue Mobilization,Therapeutic Exercises Next Visit Focus/Plan Next Note Type Treatment Note Next Visit Plan continue with fascial work for the low back, core strengthening, knee and lateral hip strengthening Plan of Care Dates Plan of Care Start Date 01/20/24 Plan of Care End Date 03/16/24 Electronically Signed by: Darling Schumacher, PT 01/20/24 [id number] If you are in agreement with this Plan of Care, please return a signed and dated copy. I have reviewed this Plan of Care and certify that the skilled therapy services above are required to meet the patient?s needs. Physician Signature Date Printed Name and Credentials Clinical Instructor Signature Printed Name and Credentials
--- NOTE | 2024-02-10 16:31 | PT.OTN ---
Current Diagnoses Chondromalacia patellae, right knee (02/05/24) Chondromalacia patellae, left knee (02/05/24) Low back pain, unspecified (02/05/24) Encounter for fitting and adjustment of other specified devices (02/05/24) Physical Therapy Treatment Note PT-OP-A Visit Information Start: 10/30/23 13:51 Freq: Status: Active Protocol: Document 02/05/24 17:15 [facility] (Rec: 02/05/24 17:16 [facility] [id number]) Out-Patient Physical Therapy Visit Information Visit Information Visit Type Treatment Note Visit Start Time 10:45 Visit Stop Time 11:30 Visit Number 8 Number of NOXIOUS WEEDS AND PEST INSPECTOR Visits 0 PT-OP-B Current Condition Start: 10/30/23 13:51 Freq: Status: Active Protocol: Document 10/30/23 13:45 [facility] (Rec: 10/30/23 14:38 [facility] [id number]) Current Condition History of Current Condition Onset Date 2018 Current Complaints LBP, knee pain L>R, left ankle pain History of Current Condition Tanvi has a history of low back pain with left sided radicular symptoms. She returns to PT today with LBP as well as B knee pain worse on the left. This pain is worse with sit-stand and squatting is very difficult for her at this time. Tanvi reports she has been doing her exercises but she needs a new copy of exercises, pain is still in the back on the left side going down the stairs has gotten hard and she has osteoarthitis in her knees, getting up off the floor is very difficult. PT-OP-C Subjective Start: 10/30/23 13:51 Freq: Status: Active Protocol: Document 02/05/24 10:45 [facility] (Rec: 02/10/24 16:31 [facility] [id number]) OP-PT Subjective Patient Comments Patient Comments Tanvi notes she is getting some relief from PT PT-OP-F Manual Assessment Start: 10/30/23 17:27 Freq: Status: Active Protocol: Document 10/30/23 13:45 [facility] (Rec: 11/05/23 13:14 [facility] [id number]) Manual Assessments Soft Tissue Assessment Soft Tissue Mobility Assessment guarding and tightness of the l>R lumbar paraspinals left ITB and lateral quad tightness piriformis tightness B PT-OP-J Posture/Palpation/Skin Start: 10/30/23 13:51 Freq: Status: Active Protocol: Document 10/30/23 13:45 [facility] (Rec: 11/05/23 13:14 [facility] [id number]) Posture Evaluation Position Sitting Head/C-Spine Posture Flexed T-Spine Posture Rotation Left L-Spine Posture Flattened Pelvis Posture Neutral Comments Posture Comments forward head and shoulders PT-OP-K Range of Motion Start: 10/30/23 17:27 Freq: Status: Active Protocol: Document 10/30/23 13:45 [facility] (Rec: 11/05/23 13:18 [facility] [id number]) Lumbar Spine Range of Motion Lumbar Spine Active Testing Position Standing Flexion 50 Lateral Flexion Left 10 Lateral Flexion Right 15 ROM Limitations Soft Tissue Tightness,Pain Comments left sidebending increases pain PT-OP-M Strength Start: 10/30/23 17:27 Freq: Status: Active Protocol: Document 10/30/23 13:45 [facility] (Rec: 11/05/23 13:18 [facility] [id number]) Trunk Strength Trunk Manual Muscle Testing Testing Position Supine Flexion 3 Fair Core Stabilization decreased TA activation and SI stabilization PT-OP-Q Treatments Start: 10/30/23 17:27 Freq: Status: Active Protocol: Document 02/05/24 10:45 [facility] (Rec: 02/10/24 16:31 [facility] [id number]) Therapeutic Exercises Supine Exercises SLR Reps/Minutes 2 x 10 double knee to chest Reps/Minutes hold 1-2 min ball squeeze with core tightening Equipment Used ball between B knees Reps/Minutes 3 SH x10 Comments cued neutral pelvis no PPT/ lift, keep pelvis level ITB stretch with strap Supine Exercise Name HEP reviewed Side left Reps/Minutes hold 1-2 min hamstring stretch with strap Supine Exercise Name HEP reviewed Side bilateral Reps/Minutes hold 1-2 min Comments APs Manual Therapy Treatment Soft Tissue Mobilization left sided parapsinal release Body Location L QL, ES Mobilization Type Rolling,Sustained Pressure, Other Intensity/Depth Moderate Body Position R Sidelying Comments gentle STMs and MWM hip hiking isometric then eccentric L ilium caudal glide stretch. left sided piriformis release Body Location L glut med, piriformis Mobilization Type Rolling,Sustained Pressure, Other Intensity/Depth Moderate Body Position R SL Comments gentle STMs and MWM hip er clamshell Manual Techniques manual piriformis stretch Comments hold 1-2 min PT-OP-T Assessment and Plan Start: 10/30/23 17:27 Freq: Status: Active Protocol: Document 02/05/24 10:45 [facility] (Rec: 02/10/24 16:31 [facility] [id number]) Physical Therapy Assessment Assessment Summary Assessment Tanvi is trying to work on her home stretching program. 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 and then feels she will have more time for her home program and going to the gym Physical Therapy Plan Frequency and Duration Frequency of Treatment 2x/Week Duration of treatment (weeks) 8 Plan of Care Start Date 01/20/24 Plan of Care End Date 03/16/24 Therapeutic Interventions Therapeutic Interventions Home Exercise Program,Manual Therapy,Neuromuscular Re- education,Patient/Caregiver Education,Self-Care/Home Management,Soft Tissue Mobilization,Therapeutic Exercises Next Visit Focus/Plan Next Note Type Treatment Note Next Visit Plan continue with fascial work for the low back, core strengtheing, knee and lateral hip strengtheing
--- NOTE | 2024-02-11 12:36 | PT.OTN ---
Current Diagnoses Chondromalacia patellae, right knee (02/11/24) Chondromalacia patellae, left knee (02/11/24) Low back pain, unspecified (02/11/24) Encounter for fitting and adjustment of other specified devices (02/11/24) Physical Therapy Treatment Note PT-OP-A Visit Information Start: 10/30/23 13:51 Freq: Status: Active Protocol: Document 02/11/24 10:45 [facility] (Rec: 02/11/24 12:36 [facility] [id number]) Out-Patient Physical Therapy Visit Information Visit Information Visit Type Treatment Note Visit Start Time 10:45 Visit Stop Time 11:30 Visit Number 9 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 She returns to PT today with LBP as well as B knee pain worse on the left. This pain is worse with sit-stand and squatting is very difficult for her at this time. Tanvi reports she has been doing her exercises but she needs a new copy of exercises, pain is still in the back on the left side going down the stairs has gotten hard and she has osteoarthitis in her knees, getting up off the floor is very difficult. PT-OP-C Subjective Start: 10/30/23 13:51 Freq: Status: Active Protocol: Document 02/11/24 10:45 [facility] (Rec: 02/11/24 12:36 [facility] [id number]) OP-PT Subjective Patient Comments Patient Comments Tanvi notes she continues to get relief from PT PT-OP-F Manual Assessment Start: 10/30/23 17:27 Freq: Status: Active Protocol: Document 10/30/23 13:45 [facility] (Rec: 11/05/23 13:14 [facility] [id number]) Manual Assessments Soft Tissue Assessment Soft Tissue Mobility Assessment guarding and tightness of the l>R lumbar paraspinals left ITB and lateral quad tightness piriformis tightness B PT-OP-J Posture/Palpation/Skin Start: 10/30/23 13:51 Freq: Status: Active Protocol: Document 10/30/23 13:45 [facility] (Rec: 11/05/23 13:14 [facility] [id number]) Posture Evaluation Position Sitting Head/C-Spine Posture Flexed T-Spine Posture Rotation Left L-Spine Posture Flattened Pelvis Posture Neutral Comments Posture Comments forward head and shoulders PT-OP-K Range of Motion Start: 10/30/23 17:27 Freq: Status: Active Protocol: Document 10/30/23 13:45 [facility] (Rec: 11/05/23 13:18 [facility] [id number]) Lumbar Spine Range of Motion Lumbar Spine Active Testing Position Standing Flexion 50 Lateral Flexion Left 10 Lateral Flexion Right 15 ROM Limitations Soft Tissue Tightness,Pain Comments left sidebending increases pain PT-OP-M Strength Start: 10/30/23 17:27 Freq: Status: Active Protocol: Document 10/30/23 13:45 [facility] (Rec: 11/05/23 13:18 [facility] [id number]) Trunk Strength Trunk Manual Muscle Testing Testing Position Supine Flexion 3 Fair Core Stabilization decreased TA activation and SI stabilization PT-OP-Q Treatments Start: 10/30/23 17:27 Freq: Status: Active Protocol: Document 02/11/24 10:45 [facility] (Rec: 02/11/24 12:36 [facility] [id number]) Manual Therapy Treatment Soft Tissue Mobilization left sided parapsinal release Body Location L QL, ES Mobilization Type Rolling,Sustained Pressure, Other Intensity/Depth Moderate Body Position R Sidelying Comments gentle STMs and MWM hip hiking isometric then eccentric L ilium caudal glide stretch. left sided piriformis release Body Location L glut med, piriformis Mobilization Type Rolling,Sustained Pressure, Other Intensity/Depth Moderate Body Position R SL Comments gentle STMs and MWM hip er clamshell Manual Techniques manual hamstring and ITB stretch Reps/Duration hold each time 1 min manual piriformis stretch Comments hold 1-2 min PT-OP-T Assessment and Plan Start: 10/30/23 17:27 Freq: Status: Active Protocol: Document 02/11/24 10:45 [facility] (Rec: 02/11/24 12:36 [facility] [id number]) Physical Therapy Assessment Assessment Summary Assessment I worked on the left side of the parapsinals today and into the left piriformis as well as manual hip stretches. Tanvi tolerated this well Physical Therapy Plan Frequency and Duration Frequency of Treatment 2x/Week Duration of treatment (weeks) 8 Plan of Care Start Date 01/20/24 Plan of Care End Date 03/16/24 Therapeutic Interventions Therapeutic Interventions Home Exercise Program,Manual Therapy,Neuromuscular Re- education,Patient/Caregiver Education,Self-Care/Home Management,Soft Tissue Mobilization,Therapeutic Exercises Next Visit Focus/Plan Next Note Type Treatment Note Next Visit Plan continue with fascial work for the low back, core strengtheing, knee and lateral hip strengtheing
--- NOTE | 2024-02-25 13:27 | PT.OTN ---
Current Diagnoses Chondromalacia patellae, right knee (02/25/24) Chondromalacia patellae, left knee (02/25/24) Low back pain, unspecified (02/25/24) Encounter for fitting and adjustment of other specified devices (02/25/24) Physical Therapy Treatment Note PT-OP-A Visit Information Start: 10/30/23 13:51 Freq: Status: Active Protocol: Document 02/25/24 13:24 [facility] (Rec: 02/25/24 13:27 [facility] [id number]) Out-Patient Physical Therapy Visit Information Visit Information Visit Type Treatment Note Visit Start Time 10:45 Visit Stop Time 11:30 Visit Number 10 PT-OP-B Current Condition Start: 10/30/23 13:51 Freq: Status: Active Protocol: Document 10/30/23 13:45 [facility] (Rec: 10/30/23 14:38 [facility] [id number]) Current Condition History of Current Condition Onset Date 2018 Current Complaints LBP, knee pain L>R, left ankle pain History of Current Condition Tanvi has a history of low back pain with left sided radicular symptoms. She returns to PT today with LBP as well as B knee pain worse on the left. This pain is worse with sit-stand and squatting is very difficult for her at this time. Tanvi reports she has been doing her exercises but she needs a new copy of exercises, pain is still in the back on the left side going down the stairs has gotten hard and she has osteoarthitis in her knees, getting up off the floor is very difficult. 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 She is close to her usp. PT-OP-F Manual Assessment Start: 10/30/23 17:27 Freq: Status: Active Protocol: Document 10/30/23 13:45 [facility] (Rec: 11/05/23 13:14 [facility] [id number]) Manual Assessments Soft Tissue Assessment Soft Tissue Mobility Assessment guarding and tightness of the l>R lumbar paraspinals left ITB and lateral quad tightness piriformis tightness B PT-OP-J Posture/Palpation/Skin Start: 10/30/23 13:51 Freq: Status: Active Protocol: Document 10/30/23 13:45 [facility] (Rec: 11/05/23 13:14 [facility] [id number]) Posture Evaluation Position Sitting Head/C-Spine Posture Flexed T-Spine Posture Rotation Left L-Spine Posture Flattened Pelvis Posture Neutral Comments Posture Comments forward head and shoulders PT-OP-K Range of Motion Start: 10/30/23 17:27 Freq: Status: Active Protocol: Document 10/30/23 13:45 [facility] (Rec: 11/05/23 13:18 [facility] [id number]) Lumbar Spine Range of Motion Lumbar Spine Active Testing Position Standing Flexion 50 Lateral Flexion Left 10 Lateral Flexion Right 15 ROM Limitations Soft Tissue Tightness,Pain Comments left sidebending increases pain PT-OP-M Strength Start: 10/30/23 17:27 Freq: Status: Active Protocol: Document 10/30/23 13:45 [facility] (Rec: 11/05/23 13:18 [facility] [id number]) Trunk Strength Trunk Manual Muscle Testing Testing Position Supine Flexion 3 Fair Core Stabilization decreased TA activation and SI stabilization PT-OP-Q Treatments Start: 10/30/23 17:27 Freq: Status: Active Protocol: Document 02/25/24 13:24 [facility] (Rec: 02/25/24 13:27 [facility] [id number]) Therapeutic Exercises Standing Exercises standing shoulder flexion against the wall Standing Exercise Name given to pt as a stretch for her work day Reps/Minutes x 5-10 reps Other Exercises quadruped sidebends Reps/Minutes 10 reps debbie pose Other Exercise Name fwd, SB R & L Side bilateral Reps/Minutes hold 30 each position Comments sit back on heels arms front then off to eachside for focused stretch cat cow Reps/Minutes x 10 Manual Therapy Treatment Soft Tissue Mobilization left sided parapsinal release Body Location L QL, ES Mobilization Type Rolling,Sustained Pressure, Other Intensity/Depth Moderate Body Position R Sidelying Comments gentle STMs and MWM hip hiking isometric then eccentric L ilium caudal glide stretch. left sided piriformis release Body Location L glut med, piriformis Mobilization Type Rolling,Sustained Pressure, Other Intensity/Depth Moderate Body Position R SL Comments gentle STMs and MWM hip er clamshell Manual Techniques manual piriformis stretch Comments hold 1-2 min PT-OP-T Assessment and Plan Start: 10/30/23 17:27 Freq: Status: Active Protocol: Document 02/25/24 13:24 [facility] (Rec: 02/25/24 13:27 [facility] [id number]) Physical Therapy Assessment Assessment Summary Assessment Tanvi is doing well with her home program. I encouraged her to increase walking as she is sitting for long hours at work Physical Therapy Plan Frequency and Duration Frequency of Treatment 2x/Week Duration of treatment (weeks) 8 Plan of Care Start Date 01/20/24 Plan of Care End Date 03/16/24
--- NOTE | 2024-03-09 16:59 | PT.OTN ---
Current Diagnoses Chondromalacia patellae, right knee (03/09/24) Chondromalacia patellae, left knee (03/09/24) Low back pain, unspecified (03/09/24) Encounter for fitting and adjustment of other specified devices (03/09/24) Physical Therapy Treatment Note PT-OP-A Visit Information Start: 10/30/23 13:51 Freq: Status: Active Protocol: Document 03/09/24 11:30 [facility] (Rec: 03/09/24 16:58 [facility] [id number]) Out-Patient Physical Therapy Visit Information Visit Information Visit Type Progress Note Visit Start Time 11:30 Visit Stop Time 12:15 Visit Number 11 PT-OP-B Current Condition Start: 10/30/23 13:51 Freq: Status: Active Protocol: Document 10/30/23 13:45 [facility] (Rec: 10/30/23 14:38 [facility] [id number]) Current Condition History of Current Condition Onset Date 2018 Current Complaints LBP, knee pain L>R, left ankle pain History of Current Condition Tanvi has a history of low back pain with left sided radicular symptoms. She returns to PT today with LBP as well as B knee pain worse on the left. This pain is worse with sit-stand and squatting is very difficult for her at this time. Tanvi reports she has been doing her exercises but she needs a new copy of exercises, pain is still in the back on the left side going down the stairs has gotten hard and she has osteoarthitis in her knees, getting up off the floor is very difficult. 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 PT-OP-F Manual Assessment Start: 10/30/23 17:27 Freq: Status: Active Protocol: Document 10/30/23 13:45 [facility] (Rec: 11/05/23 13:14 [facility] [id number]) Manual Assessments Soft Tissue Assessment Soft Tissue Mobility Assessment guarding and tightness of the l>R lumbar paraspinals left ITB and lateral quad tightness piriformis tightness B PT-OP-J Posture/Palpation/Skin Start: 10/30/23 13:51 Freq: Status: Active Protocol: Document 10/30/23 13:45 [facility] (Rec: 11/05/23 13:14 [facility] [id number]) Posture Evaluation Position Sitting Head/C-Spine Posture Flexed T-Spine Posture Rotation Left L-Spine Posture Flattened Pelvis Posture Neutral Comments Posture Comments forward head and shoulders PT-OP-K Range of Motion Start: 10/30/23 17:27 Freq: Status: Active Protocol: Document 10/30/23 13:45 [facility] (Rec: 11/05/23 13:18 [facility] [id number]) Lumbar Spine Range of Motion Lumbar Spine Active Testing Position Standing Flexion 50 Lateral Flexion Left 10 Lateral Flexion Right 15 ROM Limitations Soft Tissue Tightness,Pain Comments left sidebending increases pain PT-OP-M Strength Start: 10/30/23 17:27 Freq: Status: Active Protocol: Document 10/30/23 13:45 [facility] (Rec: 11/05/23 13:18 [facility] [id number]) Trunk Strength Trunk Manual Muscle Testing Testing Position Supine Flexion 3 Fair Core Stabilization decreased TA activation and SI stabilization PT-OP-Q Treatments Start: 10/30/23 17:27 Freq: Status: Active Protocol: Document 03/09/24 11:30 [facility] (Rec: 03/09/24 16:58 [facility] [id number]) Manual Therapy Treatment Soft Tissue Mobilization left sided parapsinal release Body Location L QL, ES Mobilization Type Rolling,Sustained Pressure, Other Intensity/Depth Moderate Body Position R Sidelying Comments gentle STMs and MWM hip hiking isometric then eccentric L ilium caudal glide stretch. left sided piriformis release Body Location L glut med, piriformis Mobilization Type Rolling,Sustained Pressure, Other Intensity/Depth Moderate Body Position R SL Comments gentle STMs and MWM hip er clamshell Manual Techniques manual hamstring and ITB stretch Reps/Duration hold each time 1 min manual piriformis stretch Comments hold 1-2 min PT-OP-T Assessment and Plan Start: 10/30/23 17:27 Freq: Status: Active Protocol: Document 03/09/24 11:30 [facility] (Rec: 03/09/24 16:58 [facility] [id number]) Physical Therapy Assessment Goals 4 Impairment Tanvi describes pain with sit- stand after she has been sitting for a long period of time. Tanvi is unable to squat at this time without pain. [facility] Goal (LTG) Tanvi is able to perform sit- stand without knee pain and she is also able to perform a standing squat without pain Tanvi is doing better with with sit-stand and stairs with decreased pain LTG Duration 8 weeks 3 Impairment core weakness [facility] Goal (LTG) Tanvi is independent with a hep for core stabilization and strengthening good progress LTG Duration 12 weeks 2 Impairment iliopsoas and quad tightness B which pulls Tanvi's pelvis anteriorly creating more tension in her low back and can create more tension on her knees [facility] Goal (LTG) Tanvi is independent with a HEP for hip flexor and quad stretching to decrease compression on the knees and low back goal met LTG Duration 12 weeks One Impairment muscle guarding and spasm in the lumbar paraspinals with pain rated 4/10 with decreased lumbar ROM. 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 Her back has been tighter due to this. She feels PT is really helping her and she would like to continue PT Physical Therapy Plan Frequency and Duration Frequency of Treatment 2x/Week Duration of treatment (weeks) 8 Plan of Care Start Date 03/09/24 Plan of Care End Date 05/04/24 Therapeutic Interventions Therapeutic Interventions Home Exercise Program,Manual Therapy,Neuromuscular Re- education,Patient/Caregiver Education,Self-Care/Home Management,Soft Tissue Mobilization,Therapeutic Exercises Next Visit Focus/Plan Next Note Type Treatment Note Next Visit Plan continue with fascial work for the low back, core strengtheing, knee and lateral hip strengtheing
--- NOTE | 2024-03-09 16:59 | PT.OPPOC ---
Physical, Occupational & Speech Therapy At [facility] Current Diagnoses Chondromalacia patellae, right knee (03/09/24) Chondromalacia patellae, left knee (03/09/24) Low back pain, unspecified (03/09/24) Encounter for fitting and adjustment of other specified devices (03/09/24) Visit Care Team Role Provider Type David Gordon MD Family Provider Physician Primary Care Provider Specialty: [facility] Practice Address: [address] [facility] [place], [address] Email: [email or web address] ADNUTA Browning Attending Provider Non-Staff Referring Provider Specialty: [facility] Address: [address] [facility] [place], [address] Email: Plan Of Care PT-OP-B Current Condition Start: 10/30/23 13:51 Freq: Status: Active Protocol: Document 10/30/23 13:45 [facility] (Rec: 10/30/23 14:38 [facility] [id number]) Current Condition History of Current Condition Onset Date 2018 Current Complaints LBP, knee pain L>R, left ankle pain History of Current Condition Tanvi has a history of low back pain with left sided radicular symptoms. She returns to PT today with LBP as well as B knee pain worse on the left. This pain is worse with sit-stand and squatting is very difficult for her at this time. Tanvi reports she has been doing her exercises but she needs a new copy of exercises, pain is still in the back on the left side going down the stairs has gotten hard and she has osteoarthitis in her knees, getting up off the floor is very difficult. PT-OP-T Assessment and Plan Start: 10/30/23 17:27 Freq: Status: Active Protocol: Document 03/09/24 11:30 [facility] (Rec: 03/09/24 16:58 [facility] [id number]) Physical Therapy Assessment Goals 4 Impairment Tanvi describes pain with sit- stand after she has been sitting for a long period of time. Tanvi is unable to squat at this time without pain. 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 Her back has been tighter due to this. She feels PT is really helping her and she would like to continue PT Physical Therapy Plan Frequency and Duration Frequency of Treatment 2x/Week Duration of treatment (weeks) 8 Plan of Care Start Date 03/09/24 Plan of Care End Date 05/04/24 Therapeutic Interventions Therapeutic Interventions Home Exercise Program,Manual Therapy,Neuromuscular Re- education,Patient/Caregiver Education,Self-Care/Home Management,Soft Tissue Mobilization,Therapeutic Exercises Next Visit Focus/Plan Next Note Type Treatment Note Next Visit Plan continue with fascial work for the low back, core strengtheing, knee and lateral hip strengtheing Plan of Care Dates Plan of Care Start Date 03/09/24 Plan of Care End Date 05/04/24 Electronically Signed by: Darling Schumacher, PT 03/09/24 3167 If you are in agreement with this Plan of Care, please return a signed and dated copy. I have reviewed this Plan of Care and certify that the skilled therapy services above are required to meet the patient?s needs. Physician Signature Date Printed Name and Credentials Clinical Instructor Signature Printed Name and Credentials
--- NOTE | 2024-04-13 16:56 | PT.OTN ---
Current Diagnoses Chondromalacia patellae, right knee (04/13/24) Chondromalacia patellae, left knee (04/13/24) Low back pain, unspecified (04/13/24) Encounter for fitting and adjustment of other specified devices (04/13/24) Physical Therapy Treatment Note PT-OP-A Visit Information Start: 10/30/23 13:51 Freq: Status: Active Protocol: Document 04/13/24 11:30 [facility] (Rec: 04/13/24 16:53 [facility] [id number]) Out-Patient Physical Therapy Visit Information Visit Information Visit Type Treatment Note Visit Start Time 11:30 Visit Stop Time 12:15 Visit Number 12 PT-OP-B Current Condition Start: 10/30/23 13:51 Freq: Status: Active Protocol: Document 10/30/23 13:45 [facility] (Rec: 10/30/23 14:38 [facility] [id number]) Current Condition History of Current Condition Onset Date 2018 Current Complaints LBP, knee pain L>R, left ankle pain History of Current Condition Tanvi has a history of low back pain with left sided radicular symptoms. She returns to PT today with LBP as well as B knee pain worse on the left. This pain is worse with sit-stand and squatting is very difficult for her at this time. Tanvi reports she has been doing her exercises but she needs a new copy of exercises, pain is still in the back on the left side going down the stairs has gotten hard and she has osteoarthitis in her knees, getting up off the floor is very difficult. PT-OP-C Subjective Start: 10/30/23 13:51 Freq: Status: Active Protocol: Document 04/13/24 11:38 [facility] (Rec: 04/13/24 11:46 [facility] [id number]) OP-PT Subjective Patient Comments Patient Comments pt notes she took a fall whilce carrying groceries last landing on her knees and hands. PT-OP-F Manual Assessment Start: 10/30/23 17:27 Freq: Status: Active Protocol: Document 10/30/23 13:45 [facility] (Rec: 11/05/23 13:14 [facility] [id number]) Manual Assessments Soft Tissue Assessment Soft Tissue Mobility Assessment guarding and tightness of the l>R lumbar paraspinals left ITB and lateral quad tightness piriformis tightness B PT-OP-J Posture/Palpation/Skin Start: 10/30/23 13:51 Freq: Status: Active Protocol: Document 10/30/23 13:45 [facility] (Rec: 11/05/23 13:14 [facility] [id number]) Posture Evaluation Position Sitting Head/C-Spine Posture Flexed T-Spine Posture Rotation Left L-Spine Posture Flattened Pelvis Posture Neutral Comments Posture Comments forward head and shoulders PT-OP-K Range of Motion Start: 10/30/23 17:27 Freq: Status: Active Protocol: Document 10/30/23 13:45 [facility] (Rec: 11/05/23 13:18 [facility] [id number]) Lumbar Spine Range of Motion Lumbar Spine Active Testing Position Standing Flexion 50 Lateral Flexion Left 10 Lateral Flexion Right 15 ROM Limitations Soft Tissue Tightness,Pain Comments left sidebending increases pain PT-OP-M Strength Start: 10/30/23 17:27 Freq: Status: Active Protocol: Document 10/30/23 13:45 [facility] (Rec: 11/05/23 13:18 [facility] [id number]) Trunk Strength Trunk Manual Muscle Testing Testing Position Supine Flexion 3 Fair Core Stabilization decreased TA activation and SI stabilization PT-OP-Q Treatments Start: 10/30/23 17:27 Freq: Status: Active Protocol: Document 04/13/24 11:30 [facility] (Rec: 04/13/24 16:54 [facility] [id number]) Manual Therapy Treatment Soft Tissue Mobilization bilateral paraspinal release Mobilization Type Myofascial Release Intensity/Depth Moderate Body Position Prone Comments fascial release in prone for the lumbar paraspinals, right sided guarding today PT-OP-R Modalities Start: 04/13/24 16:54 Freq: Status: Active Protocol: Document 04/13/24 16:55 [facility] (Rec: 04/13/24 16:55 [facility] [id number]) Electric Stimulation Electric Stimulation Interferential Current (IFC) Body Location low back B Contraction Type Normal Cycle Continuous Ramp 1.5 Patient Position Hooklying Combined With Heat/Cold Cold Pack PT-OP-T Assessment and Plan Start: 10/30/23 17:27 Freq: Status: Active Protocol: Document 04/13/24 11:30 [facility] (Rec: 04/13/24 16:53 [facility] [id number]) Physical Therapy Assessment Assessment Summary Assessment Tanvi presents to PT today after taking a fall landing on her right knee last week. I did assess her knee ROM and is is WFL however she is seeing her MD this week for follow up . Her back was tighter today and more so on the right side. I worked on manual release of the low back and ICe with IFC was also applied. Physical Therapy Plan Frequency and Duration Frequency of Treatment 2x/Week Duration of treatment (weeks) 8 Plan of Care Start Date 03/09/24 Plan of Care End Date 05/04/24 Therapeutic Interventions Therapeutic Interventions Home Exercise Program,Manual Therapy,Neuromuscular Re- education,Patient/Caregiver Education,Self-Care/Home Management,Soft Tissue Mobilization,Therapeutic Exercises Next Visit Focus/Plan Next Note Type Treatment Note Next Visit Plan recheck in with how Tanvi did this visit and how the right side of her back is doing. Continue with ther ex for back decompression
--- NOTE | 2024-06-23 12:38 | PT.OPDS ---
Current Diagnoses Chondromalacia patellae, right knee (04/13/24) Chondromalacia patellae, left knee (04/13/24) Low back pain, unspecified (04/13/24) Encounter for fitting and adjustment of other specified devices (04/13/24) Visit Care Team Role Provider Type David Gordon MD Family Provider Physician Primary Care Provider Specialty: [facility] Address: [address] [facility] [place] [place], [address] Email: [email or web address] DANUTA Browning Attending Provider Non-Staff Referring Provider Specialty: [facility] Address: [address] [facility] [place], [address] Email: Visit Number Visit Number 12 Discharge Summary PT-OP-B Current Condition Start: 10/30/23 13:51 Freq: Status: Active Protocol: Document 10/30/23 13:45 [facility] (Rec: 10/30/23 14:38 [facility] [id number]) Current Condition History of Current Condition Onset Date 2017 Current Complaints LBP, knee pain L>R, left ankle pain History of Current Condition Tanvi has a history of low back pain with left sided radicular symptoms. She returns to PT today with LBP as well as B knee pain worse on the left. This pain is worse with sit-stand and squatting is very difficult for her at this time. Tanvi reports she has been doing her exercises but she needs a new copy of exercises, pain is still in the back on the left side going down the stairs has gotten hard and she has osteoarthitis in her knees, getting up off the floor is very difficult. PT-OP-C Subjective Start: 10/30/23 13:51 Freq: Status: Active Protocol: Document 04/13/24 11:38 [facility] (Rec: 04/13/24 11:46 [facility] [id number]) OP-PT Subjective Patient Comments Patient Comments pt notes she took a fall whilce carrying groceries last landing on her knees and hands. PT-OP-F Manual Assessment Start: 10/30/23 17:27 Freq: Status: Active Protocol: Document 10/30/23 13:45 [facility] (Rec: 11/05/23 13:14 [facility] [id number]) Manual Assessments Soft Tissue Assessment Soft Tissue Mobility Assessment guarding and tightness of the l>R lumbar paraspinals left ITB and lateral quad tightness piriformis tightness B PT-OP-J Posture/Palpation/Skin Start: 10/30/23 13:51 Freq: Status: Active Protocol: Document 10/30/23 13:45 [facility] (Rec: 11/05/23 13:14 [facility] [id number]) Posture Evaluation Position Sitting Head/C-Spine Posture Flexed T-Spine Posture Rotation Left L-Spine Posture Flattened Pelvis Posture Neutral Comments Posture Comments forward head and shoulders PT-OP-K Range of Motion Start: 10/30/23 17:27 Freq: Status: Active Protocol: Document 10/30/23 13:45 [facility] (Rec: 11/05/23 13:18 [facility] [id number]) Lumbar Spine Range of Motion Lumbar Spine Active Testing Position Standing Flexion 50 Lateral Flexion Left 10 Lateral Flexion Right 15 ROM Limitations Soft Tissue Tightness,Pain Comments left sidebending increases pain PT-OP-M Strength Start: 10/30/23 17:27 Freq: Status: Active Protocol: Document 10/30/23 13:45 [facility] (Rec: 11/05/23 13:18 [facility] [id number]) Trunk Strength Trunk Manual Muscle Testing Testing Position Supine Flexion 3 Fair Core Stabilization decreased TA activation and SI stabilization PT-OP-T Assessment and Plan Start: 10/30/23 17:27 Freq: Status: Active Protocol: Document 06/23/24 12:37 [facility] (Rec: 06/23/24 12:37 [facility] [id number]) Physical Therapy Assessment Assessment Summary Assessment Tanvi was in [place] and wasn't able to return within the plan of care dates. I will DC this chart and she will resume with a new referral Physical Therapy Plan Discharge Physical Therapy Discharge Comments unable to return to PT within plan of care dates
== END 2024-06-23 12:59 | disposition home or self-care (01) ==
LOC: PHYS 11:30
PROVIDERS: Family Provider Family Medicine; PCP Family Medicine; Referring Provider Registered Nurse; Visit Provider Registered Nurse
DX: M22.42 Chondromalacia patellae, left knee (principal); M22.41 Chondromalacia patellae, right knee; Z46.89 Encounter for fitting and adjustment of other specified devices; M54.50 Low back pain, unspecified
CPT/HCPCS: 97014; 97110; 97140; 97161; G0283

== ENCOUNTER → 2024-04-15 16:24 | Outpatient (CLI) | payer MEDICARE, OTHER, SELFPAY ==
--- NOTE | 2024-04-15 16:26 | DI.RAD.S_ITS ---
PROCEDURE: XR KNEE RT 3V INDICATIONS: Unspecified injury of right lower leg, initial encounter TECHNIQUE: 3 views of the knee were acquired. COMPARISON: [facility], CR, XR KNEE RT 1TO2V, 05/14/2023, 17:56. FINDINGS: Bones: There are no osseous abnormalities. Mild lateral patellar subluxation noted. Joints: Severe patellofemoral and moderate tibiofemoral degenerative change noted. Small effusion in the patellofemoral joint Soft tissues: Normal IMPRESSION: Severe patellofemoral and moderate tibiofemoral degeneration. Small effusion Mild lateral patellar subluxation.. Dictated by: Medardo Smith M.D. on 04/16/2024 at 13:26 Approved by: Medardo Smith M.D. on 04/16/2024 at 13:27
== END ==
PROVIDERS: Family Provider Family Medicine; PCP Registered Nurse; Referring Provider Registered Nurse; Visit Provider Registered Nurse
DX: S83.011A Lateral subluxation of right patella, initial encounter (principal); S89.91XA Unspecified injury of right lower leg, initial encounter; M17.11 Unilateral primary osteoarthritis, right knee; M25.461 Effusion, right knee; X58.XXXA Exposure to other specified factors, initial encounter
CPT/HCPCS: 73562

== ENCOUNTER → 2024-05-31 16:46 | Outpatient (CLI) | payer MEDICARE, OTHER, SELFPAY ==
[2024-05-31 19:29] LABS: Alanine Aminotransferase 21 IU/L (<35); Albumin 4.4 g/dL (3.5-5.0); Albumin Globulin Ratio 1.6 (1.0-2.8); Alkaline Phosphatase 47 U/L (38-126); Aspartate Aminotransferase 38 IU/L (14-36); BUN Creatinine Ratio 39.5 (6-22); Bilirubin Total 0.5 mg/dL (0.2-1.3); Blood Urea Nitrogen 30 mg/dL (7-17); Carbon Dioxide 32 mmol/L (22-32); Chloride 101 mmol/L (98-107); Cholesterol 197 mg/dL (140-199); Estimated Glomerular Filt Rate > 60 mL/min (>60); Globulin 2.7 g/dL (1.7-4.1); Glucose 95 mg/dL (80-110); HDL Cholesterol 87 mg/dL (40-60); HEMOLYSIS < 15 (0-50); LDL Cholesterol Calculated 89 mg/dL (<100); Potassium 4.3 mmol/L (3.4-5.1); Sodium 137 mmol/L (137-145); Total Protein 7.1 g/dL (6.3-8.2); Triglycerides 104 mg/dL (35-150)
== END ==
PROVIDERS: Family Provider Family Medicine; PCP Registered Nurse; Referring Provider Registered Nurse; Visit Provider Registered Nurse
DX: E78.2 Mixed hyperlipidemia (principal)
CPT/HCPCS: 36415; 80053; 80061

== ENCOUNTER → 2024-09-28 13:04 | Outpatient (CLI) | payer MEDICARE, OTHER, SELFPAY ==
--- NOTE | 2024-09-28 13:08 | DI.RAD.S_ITS ---
PROCEDURE: XR KNEE LT 3V INDICATIONS: LEFT KNEE PAIN TECHNIQUE: 3 views of the knee were acquired. COMPARISON: [facility], CR, XR KNEE RT 3V, 04/15/2024, 16:26. FINDINGS: Bones: No fractures or dislocations. Moderate to severe medial and moderate lateral tibiofemoral and severe patellofemoral compartment narrowing with associated osteophytosis. No suspicious bony lesions. Soft tissues: Small joint effusion. No suspicious soft tissue calcifications. IMPRESSION: KL grade 2 tricompartmental osteoarthritis without evidence of acute osseous abnormality. Small joint effusion. Dictated by: Franklin Salazar M.D. on 09/29/2024 at 2:09 Approved by: Franklin Salazar M.D. on 09/29/2024 at 2:11
== END ==
PROVIDERS: Family Provider Family Medicine; PCP Registered Nurse; Referring Provider Registered Nurse; Visit Provider Registered Nurse
DX: M17.12 Unilateral primary osteoarthritis, left knee (principal); M25.462 Effusion, left knee
CPT/HCPCS: 73562

== ENCOUNTER → 2024-10-07 10:53 | Outpatient (CLI) | payer MEDICARE, OTHER, SELFPAY ==
[2024-10-07 13:09] LABS: Alanine Aminotransferase 23 IU/L (<35); Albumin 4.6 g/dL (3.5-5.0); Albumin Globulin Ratio 1.6 (1.0-2.8); Alkaline Phosphatase 64 U/L (38-126); Blood Urea Nitrogen 23 mg/dL (7-17); Calcium 10.0 mg/dL (8.4-10.2); Carbon Dioxide 25 mmol/L (22-32); Chloride 100 mmol/L (98-107); Estimated Glomerular Filt Rate 50 mL/min (>60); Globulin 2.9 g/dL (1.7-4.1); Glucose 88 mg/dL (70-99); HEMOLYSIS < 15 (0-50); Potassium 4.7 mmol/L (3.4-5.1); Sodium 135 mmol/L (137-145); Total Protein 7.5 g/dL (6.3-8.2)
== END ==
PROVIDERS: Family Provider Family Medicine; PCP Registered Nurse; Referring Provider Registered Nurse; Visit Provider Registered Nurse
DX: R74.8 Abnormal levels of other serum enzymes (principal)
CPT/HCPCS: 36415; 80053